=== PATIENT | male | born 1950 | race African-American/Black ===

== ENCOUNTER 2018-06-06 14:26 | Emergency (ER) | payer MEDICARE, MEDICAID ==
[2018-06-06 14:56] LABS: #Eosinphils 0.2 thou/uL (0.0-0.7); #Lymphocytes 1.9 thou/uL (1.20-3.40); #Monocytes 0.4 thou/uL (0.11-0.59); #Neutrophils 3.7 thou/uL (1.40-6.50); %Basophils 0.2 % (0.0-1.0); %Eosinophils 3.6 % (0.0-10.0); %Lymphocytes 29.9 % (21.0-51.0); %Monocytes 6.7 % (0.0-10.0); %Neutrophils 59.6 % (42.0-75.0); Mean Corpuscular HGB CONC 32.2 g/dL (32.0-36.0); Mean Corpuscular Hemoglobin 27.7 pg (27.0-31.0); Mean Corpuscular Volume 86.2 fL (78.0-98.0); Mean Platelet Volume 7.3 fL (7.4-10.4); Platelet Count 207 thou/uL (130-400); RBC Distribution Width 14.6 % (11.5-14.5); Red Blood Cell (RBC) Count 4.32 mill/uL (4.70-6.10); White Blood Cell (WBC) Count 6.3 thou/uL (4.8-10.8)
[2018-06-06 15:16] LABS: Anion Gap 11 mmol/L (10-20); BUN (Urea Nitrogen) 30 mg/dL (8.4-25.7); Calc. Creatinine Clearance 0 mL/min (70-130); Calcium 8.7 mg/dL (7.8-10.44); Carbon Dioxide 19 mmol/L (23-31); Chloride 111 mmol/L (98-107); Estimated GFR-MDRD 30; Glucose 209 mg/dL (80-115); Potassium 4.2 mmol/L (3.5-5.1); Sodium 137 mmol/L (136-145)
[2018-06-06] MEDS ORDERED: Acetaminophen 500 MG TAB ONE (15:18)
[2018-06-06] MEDS ORDERED: Ketorolac Tromethamine 30 MG/ML VIAL ONE (15:26)
--- NOTE | 2018-06-06 15:48 | RAD ---
RIGHT TOE RADIOGRAPHS THREE VIEWS: 06/06/18 PROVIDED CLINICAL HISTORY: Great toe pain. FINDINGS: Postsurgical absence of the second and a portion of the third digit demonstrated. There is no evidenc e for fracture. No lytic or blastic lesions apparent. Soft tissue lucency is measured involving the r egion of the great toenail bed. Osseous structures appear osteopenic. IMPRESSION: No evidence for an acute osseous abnormality. POS: JOESPH
--- NOTE | 2018-06-06 16:21 | CT ---
RIGHT FOOT CT: 06/06/18 HISTORY: Diabetes and amputation of second and third toes with right great toe pain. Axial images are obtained with coronal and sagittal reconstructions. Images demonstrate amputation of the second and third digits right foot. Vascular calcifications seen . There is irregularity involving the nailbed of the great toe. No significant evidence of soft tissue masses or lesions seen. No obvious evidence of large abscess is seen. No definite lytic changes seen in the proximal and distal phalanges of the great toe. No evidence of acute right foot fracture seen. IMPRESSION: 1. Vascular calcifications. 2. Amputation of second and third digits. POS: [facility]
== END 2018-06-06 18:19 | disposition home or self-care (01) ==
LOC: ERS 14:26
DX: M79.674 Pain in right toe(s) (principal); E11.9 Type 2 diabetes mellitus without complications; I10 Essential (primary) hypertension; Z79.84 Long term (current) use of oral hypoglycemic drugs; Z79.899 Other long term (current) drug therapy
CPT/HCPCS: 36415; 80048; 85025; 85652; 86140; 96374; J1885

== ENCOUNTER 2018-08-08 19:46 | Inpatient (IN) | payer MEDICARE, MEDICAID ==
[2018-08-08 20:39] LABS: Actual Bicarbonate (HCO3a) 16.9 mEq/L (22-28); Analyzer IN Cardio ER; CO2 Tension 29.5 mmHg (35.0-45.0); Calcium, Ionized 1.16 mmol/L (1.12-1.30); Carboxyhemoglobin (COHb) 0.3 gm% (0.0-3.0); Hemoglobin (Hb) 12.8 g/dL (14.0-18.0); O2 Tension (PaO2) 108.5 mmHg (> 80.0); Potassium - ABG Lab 3.14 mmol/L (3.70-5.30); pH, Arterial 7.38 (7.35-7.45)
[2018-08-08 20:40] LABS: ALV-art Gradient 4.355 (0-20); Puncture Site LRA
[2018-08-08] MEDS ORDERED: Acetaminophen 325 MG TAB ONE (21:18)
[2018-08-08 21:24] LABS: Troponin I 0.041 ng/mL (< 0.028)
[2018-08-09] MEDS ORDERED: Dextrose 5% in Water 1,000 ML IV PRN (04:20)
[2018-08-09] MEDS ORDERED: Dextrose 50% Abboject 50 ML SYRINGE SLOW IVP PRN (04:20)
[2018-08-09] MEDS: Acetaminophen/Codeine 30-300mg Tablet PO SCH ×3 (05:28→20:35)
[2018-08-09 05:59] LABS: Troponin I 0.032 ng/mL (< 0.028)
[2018-08-09 06:00] LABS: Anion Gap 16 mmol/L (10-20); BUN (Urea Nitrogen) 20 mg/dL (8.4-25.7); Calc. Creatinine Clearance 17 mL/min (70-130); Calcium 8.7 mg/dL (7.8-10.44); Carbon Dioxide 16 mmol/L (23-31); Chloride 111 mmol/L (98-107); Estimated GFR-MDRD 27; Glucose 159 mg/dL (80-115); Potassium 3.1 mmol/L (3.5-5.1); Sodium 140 mmol/L (136-145)
[2018-08-09 06:10] LABS: #Basophils 0.1 thou/uL (0.0-0.2); #Eosinphils 0.6 thou/uL (0.0-0.7); #Lymphocytes 1.9 thou/uL (1.20-3.40); #Monocytes 0.5 thou/uL (0.11-0.59); #Neutrophils 3.2 thou/uL (1.40-6.50); %Basophils 1.4 % (0.0-1.0); %Lymphocytes 29.5 % (21.0-51.0); %Monocytes 8.5 % (0.0-10.0); %Neutrophils 51.6 % (42.0-75.0); Hemoglobin 11.2 g/dL (14.0-18.0); Mean Corpuscular HGB CONC 32.2 g/dL (32.0-36.0); Mean Corpuscular Volume 86.8 fL (78.0-98.0); Mean Platelet Volume 8.7 fL (7.4-10.4); Platelet Count 228 thou/uL (130-400); RBC Distribution Width 14.8 % (11.5-14.5); RBC Morphology Normal; Red Blood Cell (RBC) Count 3.99 mill/uL (4.70-6.10); White Blood Cell (WBC) Count 6.3 thou/uL (4.8-10.8)
[2018-08-09] MEDS ORDERED: Furosemide 40 MG/4 ML VIAL SLOW IVP SCH ×3 (08:00→14:00)
[2018-08-09] MEDS: Enoxaparin Sodium 30 MG/0.3 ML SYRINGE SC SCH (08:50)
--- NOTE | 2018-08-09 10:29 | PDOC.PN ---
- Subjective Encounter Start Date: 08/09/18 Encounter Start Time: 07:15 Subjective: no sob or chest pain now -: feels better -: he does not recall last stress test - Objective Resuscitation Status: Resuscitation Status FULL:Full Resuscitation MAR Reviewed: Yes Vital Signs & Weight: Vital Signs (12 hours) Temp Pulse Resp BP Pulse Ox 08/09/18 07:48 98.3 F 69 16 131/66 98 08/09/18 04:44 98.0 F 65 18 149/79 H 99 Weight Weight 111 lb Result Diagrams: 08/09/18 04:52 08/09/18 04:52 Additional Labs: Accuchecks 08/09/18 06:05 POC Glucose 162 H Phys Exam - Physical Examination HEENT: PERRLA, moist MMs Neck: no JVD, supple Respiratory: no wheezing rales+ Cardiovascular: RRR, no significant murmur Gastrointestinal: soft, non-tender, positive bowel sounds Musculoskeletal: no edema, pulses present Neurological: non-focal, moves all 4 limbs Psychiatric: normal affect, A&O x 3 Dx/Plan (1) STEPAN (acute kidney injury) Code(s): N17.9 - ACUTE KIDNEY FAILURE, UNSPECIFIED Status: Acute (2) CHF exacerbation Code(s): I50.9 - HEART FAILURE, UNSPECIFIED Status: Acute Qualifiers: Heart failure type: unspecified Qualified Code(s): I50.9 - Heart failure, unspecified (3) Demand ischemia of myocardium Code(s): I24.8 - OTHER FORMS OF ACUTE ISCHEMIC HEART DISEASE Status: Acute (4) Metabolic acidosis Code(s): E87.2 - ACIDOSIS Status: Acute (5) CKD (chronic kidney disease) stage 4, GFR 15-29 ml/min Code(s): N18.4 - CHRONIC KIDNEY DISEASE, STAGE 4 (SEVERE) Status: Chronic (6) HTN (hypertension) Code(s): I10 - ESSENTIAL (PRIMARY) HYPERTENSION Status: Chronic Qualifiers: Hypertension type: essential hypertension Qualified Code(s): I10 - Essential (primary) hypertension (7) DM type 2 (diabetes mellitus, type 2) Status: Chronic Qualifiers: Diabetes mellitus detention insulin use: 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 Diabetes mellitus complication status: with kidney complications Diabetes mellitus complication detail: with chronic kidney disease Chronic kidney disease stage : stage 4 (severe) Qualified Code(s): E11.22 - Type 2 diabetes mellitus with diabetic chronic kidney disease; N18.4 - Chronic kidney disease, stage 4 (severe ) (8) PVD (peripheral vascular disease) Code(s): I73.9 - PERIPHERAL VASCULAR DISEASE, UNSPECIFIED Status: Chronic Comment: with prior stent in right LE - Plan echo, gentle iv diuresis, watch for renal function -: may need stress test -: on aspirin, will optimize meds based on echo results -: nephrology consultation, hco3 bid -: replace electrolytes * . Review of Systems - Medications/Allergies Allergies/Adverse Reactions: Allergies Allergy/AdvReac Type Severity Reaction Status Date / Time No Known Drug Allergies Allergy Verified 08/08/18 22:22 Medications: Current Medications Acetaminophen (Tylenol) 650 mg PO Q4H PRN PRN Reason: Headache/Fever or Pain Acetaminophen/Codeine Phosphate (Tylenol #3) 2 tab PO Q8HR [facility] Last Admin: 08/09/18 05:28 Dose: 2 tab Aspirin (Aspirin Chewable) 81 mg PO DAILY [facility] Last Admin: 08/09/18 08:47 Dose: 81 mg Dextrose/Water (Dextrose 50%) 25 gm SLOW IVP PRN PRN PRN Reason: Hypoglycemia Enoxaparin Sodium (Lovenox) 30 mg SC 0900 [facility] Last Admin: 08/09/18 08:50 Dose: 30 mg Furosemide (Lasix) 40 mg SLOW IVP 0600,1400 SOO Glucagon (Glucagon) 1 mg IM PRN PRN PRN Reason: Hypoglycemia Dextrose/Water (D5w) 1,000 mls @ 0 mls/hr IV .Q0M PRN PRN Reason: Hypoglycemia Insulin Human Lispro (Humalog) 0 units SC .MILD SLIDING SCALE PRN PRN Reason: Mild Correctional Scale Ondansetron HCl (Zofran) 4 mg IVP Q6H PRN PRN Reason: Nausea/Vomiting
[2018-08-09] MEDS ORDERED: Potassium Chloride 20 MEQ TAB PO SCH (10:45)
[2018-08-09] MEDS ORDERED: hydrALAZINE 25 MG TAB PO SCH (17:30)
[2018-08-09] MEDS: hydrALAZINE 25 MG TAB PO SCH (20:35)
[2018-08-09] MEDS: Sodium Bicarbonate Tab 325 MG TAB PO SCH (20:35)
[2018-08-09] MEDS: Rosuvastatin 10 MG TAB PO SCH (20:35)
[2018-08-09] MEDS: HumaLOG 300 UNITS/3 ML VIAL SC PRN (21:20)
--- NOTE | 2018-08-09 23:20 | CON ---
DATE OF CONSULTATION: 08/09/2018 CONSULTING PHYSICIAN: Mary Smith M.D. REQUESTING PHYSICIAN: Roxana Bagley M.D. REASON FOR CONSULTATION: Advanced chronic kidney disease. IMPRESSION: 1. Advanced chronic kidney disease, this is likely in the context of diabetic nephropathy plus or mi nus hypertensive nephrosclerosis given the degree of proteinuria in this patient. 2. Metabolic acidosis related to problem #1. PLAN: 1. Renally dose all medications per low GFR. 2. Evaluate the degree of proteinuria in this patient with a spot urine protein and creatinine asses sment. 3. Check the mineral bone metabolism in this patient. 4. The patient counseled on the need to discontinue tobacco use. 5. Improve blood sugar control. 6. Permanently discontinue metformin unless the creatinine of this patient gets below 1.5. 7. Further management to be dependent on the clinical course. HISTORY OF PRESENT ILLNESS: History is that of a 67-year-old gentleman who lives in [facility] presented here as a transfer from [place] with shortness of breath. The patient is being work ed up for acute coronary syndrome here to undergo stress test. The patient on clinical evaluation no albert to be metabolically acidotic as well as a decreased renal function to the level of stage 4 chroni c kidney disease. As a result of these findings, decision has been taken to involve Renal in the man agement of this case. PAST MEDICAL HISTORY: Significant for diabetes, hypertension, dyslipidemia, tobacco abuse. MEDICATIONS: Reviewed and as documented on [employer]. ALLERGIES: No known drug allergy. FAMILY HISTORY: Possible, family member with kidney disease. SOCIAL HISTORY: Significant for tobacco use. No illicit drug use or alcohol abuse. PHYSICAL EXAMINATION: GENERAL: The patient was found not to be in any obvious distress and noted with the following vital signs. VITAL SIGNS: Afebrile with temperature 97.6, pulse 60, respiratory rate of 16, O2 sat of 99%, and bl ood pressure 170/90. HEENT: Unremarkable. Moist oral mucosa. Neck was supple. No conjunctival injection or icterus. CARDIOVASCULAR SYSTEM: First and second heart sounds were heard. RESPIRATORY SYSTEM: Clear to auscultation. DIGESTIVE SYSTEM: Revealed a benign abdomen with positive bowel sounds. EXTREMITIES: No peripheral edema. SKIN: No new gross rash. LYMPHATICS: No peripheral lymphadenopathy. SUMMARY: A 67-year-old gentleman with advanced chronic kidney disease who presented here with some s hortness of breath. Thank you for this consultation. We will follow with you.
[2018-08-10 00:08] LABS: Creatinine, Urine 48.65 mg/dL (63-166)
[2018-08-10] MEDS: Acetaminophen/Codeine 30-300mg Tablet PO SCH ×3 (05:20→20:23)
[2018-08-10 05:56] LABS: #Basophils 0.1 thou/uL (0.0-0.2); #Eosinphils 0.5 thou/uL (0.0-0.7); #Lymphocytes 1.8 thou/uL (1.20-3.40); #Monocytes 0.5 thou/uL (0.11-0.59); #Neutrophils 4.2 thou/uL (1.40-6.50); %Basophils 0.7 % (0.0-1.0); %Eosinophils 7.5 % (0.0-10.0); %Lymphocytes 25.8 % (21.0-51.0); %Monocytes 7.6 % (0.0-10.0); %Neutrophils 58.4 % (42.0-75.0); Hemoglobin 11.7 g/dL (14.0-18.0); Mean Corpuscular HGB CONC 31.7 g/dL (32.0-36.0); Mean Corpuscular Hemoglobin 27.7 pg (27.0-31.0); Mean Corpuscular Volume 87.5 fL (78.0-98.0); Platelet Count 221 thou/uL (130-400); RBC Distribution Width 14.8 % (11.5-14.5); Red Blood Cell (RBC) Count 4.23 mill/uL (4.70-6.10); White Blood Cell (WBC) Count 7.1 thou/uL (4.8-10.8)
[2018-08-10 06:23] LABS: Albumin 3.6 g/dL (3.4-4.8); Anion Gap 13 mmol/L (10-20); BUN (Urea Nitrogen) 22 mg/dL (8.4-25.7); BUN/Creatinine Ratio 6.83; Calc. Creatinine Clearance 15 mL/min (70-130); Calcium 8.5 mg/dL (7.8-10.44); Carbon Dioxide 22 mmol/L (23-31); Cardiac Risk 3.4 (Less than 4.5); Chloride 106 mmol/L (98-107); Cholesterol 125 mg/dl (< 200 Desired); Estimated GFR-MDRD 23; Glucose 116 mg/dL (80-115); HDL Cholesterol 37 mg/dL (>60 Neg Risk); LDL Cholesterol, Calculated 73 mg/dL; Phosphorus 3.9 mg/dL (2.3-4.7); Potassium 3.8 mmol/L (3.5-5.1); Sodium 137 mmol/L (136-145); Triglycerides 73 mg/dL (Less than 150)
--- NOTE | 2018-08-10 07:29 | CON ---
DATE OF CONSULTATION: 08/09/2018 HISTORY OF PRESENT ILLNESS: The patient is a 67-year-old gentleman, who presents for evaluation of w eakness and dizziness. The patient has a history of peripheral vascular disease. He also states giulia t he apparently has suffered a previous cerebrovascular accident. The patient has previously undergo ne PTCA and stent placement into his right peripheral artery. The patient has no known cardiac histo ry. He states that he went to the emergency room, because he stated that he recently started feeling weak and dizzy. The patient did not have any chest pain or dyspnea. The patient denies having any PND or orthopnea. The patient was noted to have an elevated troponin level and admitted for further evaluation. PAST MEDICAL HISTORY: Significant for, 1. Diabetes mellitus. 2. Hypertension. 3. Chronic renal failure. 4. Peripheral vascular disease. PAST SURGICAL HISTORY: He has had knee surgery. SOCIAL HISTORY: He is a nonsmoker. MEDICATIONS: Metformin 500 t.i.d. and lisinopril 5 b.i.d. ALLERGIES: No known drug allergies. REVIEW OF SYSTEMS: Ten-point system noticeable for pain in the left leg, otherwise unremarkable. FAMILY HISTORY: Positive family history of coronary artery disease. PHYSICAL EXAMINATION: GENERAL: Thin gentleman in no acute distress. VITAL SIGNS: Blood pressure 161/79. NECK: No jugular venous distention, no carotid bruits. LUNGS: Clear to auscultation. HEART: Regular rate and rhythm. Normal S1 and S2. No murmurs. ABDOMEN: Nondistended. EXTREMITIES: Showed no edema. VASCULAR: Distal pulses are diminished. NEUROLOGIC EXAM: Nonfocal. LABORATORY DATA: Sodium 140, potassium 3.1, chloride 111, bicarbonate 16, BUN 20, creatinine is 2.84 , glucose is 159. White blood cell count 6.3, hemoglobin 11.2, hematocrit 34.6, platelets are 228. His EKG revealed him to have a normal sinus rhythm with a T-wave abnormality suggestive of lateral is chemia. His troponin level was 0.032. IMPRESSION: 1. Dizziness and weakness of unclear etiology. 2. Renal failure. 3. Elevated troponin level, probably secondary to chronic renal failure. 4. Hypertension. 5. Diabetes mellitus. 6. Peripheral vascular disease. This gentleman presented with dizziness and weakness. The patient has evidence of a mild pulmonary e reid on his chest x-ray. He is asymptomatic and not hypoxic. We will check the patient's echocardio gram. I would treat the patient with aspirin and lipid-lowering medication since he is diabetic. Fu rther recommendations will follow.
[2018-08-10] MEDS ORDERED: ADENOSINE 60 MG/20 ML VIAL ONE (08:17)
--- NOTE | 2018-08-10 08:56 | HP ---
PRIMARY CARE PHYSICIAN: The patient has no primary care doctor. CODE STATUS: FULL CODE. TIME OF EVALUATION: 08:55 p.m. CHIEF COMPLAINT: The patient was feeling weak and dizzy. HISTORY OF PRESENT ILLNESS: This is a 67-year-old male patient with past medical history of type 2 diabetes, hypertension, also possibly reported sexually transmitted disease, who came to the hospital after having generalized weakness, that started after 1 p.m., no clear triggers, no alleviating factors, both signs and symptoms were reported as moderate. Found to have some CHF findings on the chest x-ray, also complaining of hyperglycemia and mildly elevated troponin. REVIEW OF SYSTEMS: Constitutional: No fever and no chills. The patient reported severe generalized weakness. Respiratory: No cough, sputum production , no shortness of breath. Cardiovascular: No chest pain or palpitations. Gastrointestinal: No nausea, no vomiting, diarrhea, or abdominal pain. 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 Genitourinary: No burning on urination. Extremities: No leg swelling. All other systems were reviewed and negative except for the findings mentioned above. PAST MEDICAL HISTORY: Mentioned in the HPI. FAMILY HISTORY: Mother, diabetes; father, hypertension. PAST SURGICAL HISTORY: Two toes on the right foot were removed. Left knee surgery, right femoral stent/graft. PSYCHIATRIC HISTORY: No previous psychiatric history. SOCIAL HISTORY: No drugs, no smoking, no alcohol. KNOWN ALLERGIES: No known drug allergies. REPORTED MEDICATIONS: Lisinopril, metformin, acetaminophen with codeine. PHYSICAL EXAMINATION: VITAL SIGNS: On presentation, blood pressure 185/105 with heart rate 67, respiratory rate was 22, temperature 98.1, pain 0/10, oxygen saturation 100 on room air. GENERAL APPEARANCE: The patient is alert, oriented, reporting generalized weakness. HEENT: Eyes, normal conjunctivae. Moist oral mucosa. Eyes, anicteric. NECK: No JVD. RESPIRATORY: Bilateral air entry. No rales, no wheezing. Symmetric expansion. CARDIOVASCULAR: Normal rate, regular rhythm. No murmurs, no gallop, no edema. ABDOMEN: Soft, normal bowel sounds. MUSCULOSKELETAL: Baseline range of motion and strength. No tenderness. SKIN: Warm and intact. No pallor, no rash, no redness. Peripheral pulses are present. Capillary refill seems to be intact. NEUROLOGIC: Baseline sensory. No evidence of any new focal weakness. Baseline speech. Cranial nerves seem to be intact. PSYCHIATRIC: The patient is in good mood. No anxiety, oriented, optimal judgment. LABORATORY DATA: EKG was reviewed. The patient has sinus rhythm with PVCs. T- wave abnormalities in lead 1 and aVL. Ventricular rate 60, AZ 164, QRS 94, QT corrected 446. Chest x-ray was reviewed. The patient has mild cardiomegaly and pulmonary venous congestion. granulomas are unchanged. The labs were reviewed. The patient has blood gas with a pH 7.38, pCO2 of 39, pO2 of 108 , troponin 0.041. Hematology: White count 6.4, hemoglobin 11.8, MCV 86, platelet count 216. Chemistry: Sodium 138, potassium 3.9, chloride 109, carbon dioxide 18, anion gap 15, BUN 21, creatinine 2.96 and previous admission was 2.55, glucose 267. Initial troponin 0.041. The next one is pending. Beta natriuretic peptide 162. ASSESSMENT AND PLAN: The patient was placed in the hospital for the following medical problems. 1. Urinary tract infection. The patient has been placed on antibiotics. He has no concern of having sexually transmitted disease. We will do workup and cultures for that matter, and we will treat accordingly. 2. Uncontrolled diabetes. The patient has blood sugar of 267. We will place the patient on sliding scale for optimal control. Reconcile home medications. 3. Mildly elevated troponin, troponin 0.041. We will repeat value for further treatment. 4. Acute congestive heart failure exacerbation. The patient has elevated beta natriuretic peptide, occasional shortness of breath. The patient has positive chest x-ray. We will place the patient on diuresis, we will monitor. We will do echocardiogram in the morning, since patient reported not having any history of congestive heart failure in the past. If positive, might need Cardiology evaluation for any further workup and treatment. 5. Acute on chronic kidney injury. The patient has elevation in creatinine more than 0.3 mg per deciliter from previous admission. The patient may be cardiorenal, we will do diuresis, we will monitor kidney function. If not improving, may need Nephro assistance with this case. 6. Deep venous thrombosis prophylaxis. MTDD
[2018-08-10] MEDS: Enoxaparin Sodium 30 MG/0.3 ML SYRINGE SC SCH (12:12)
[2018-08-10] MEDS: Sodium Bicarbonate Tab 325 MG TAB PO SCH ×2 (12:13→20:23)
[2018-08-10] MEDS: hydrALAZINE 25 MG TAB PO SCH ×3 (12:13→20:22)
--- NOTE | 2018-08-10 13:44 | PQF ---
CLINICAL DOCUMENTATION IMPROVEMENT CLARIFICATION FORM: ICD-10 Updated PLEASE DO AN ADDENDUM TO THE PROGRESS NOTE WITH ANY DOCUMENTATION UPDATES OR ADDITIONS AND CARRY THROUGH TO DC SUMMARY. THANK YOU. DATE: 08/10 ATTN: DR. RENITA FINE Please exercise your independent, professional judgment in responding to the clarification form. Clinical indicators are provided on the bottom of this form for your review Please check appropriate box(s): ACUTE HEART FAILURE EXACERBATION TYPE: [ ] Systolic / HFrEF [ ] Diastolic / HFpEF [ ] Combined Systolic / Diastolic [ ] Other diagnosis [ ] Unable to determine For continuity of documentation, please document condition throughout progress notes and discharge summary. Thank You. CLINICAL INDICATORS - SIGNS / SYMPTOMS / LABS ATTENDING H&P 08/09 (ALLYSSA): ...FOUND TO HAVE SOME CHF FINDINGS ON THE CXR. ASSESSMENT/PLAN: 4) ACUTE CHF EXACERBATION. THE PATIENT HAS ELEVATED BNP, OCCASIONAL SOB. THE PATIENT HAS POSITIVE CXR. WE WILL PLACE THE PATIENT ON DIURESIS ATTENDING PN 08/09 (JUDD): DX/PLAN: 2) CHF EXACERBATION, ACUTE, UNSPECIFIED ECHO 08/09: EF 45-50%, MODERATE CONCENTRIC LVH, IMPAIRED RELAXATION COMPATIBLE W /DIASTOLIC DYSFUNCTION (REVERSED E/A RATIO) RISKS: CKD HTN DEMAND ISCHEMIA TREATMENTS: IV DIURETIC (LASIX 08/08 - ) ECHO CARDIOLOGY CONSULT TELEMETRY MONITORING THANK YOU! Francheska (This form is maintained as a part of the permanent medical record) 2014 [email or web address]. All Rights Reserved MTDD
--- NOTE | 2018-08-10 13:46 | PDOC.PN ---
- Subjective Encounter Start Date: 08/10/18 Encounter Start Time: 13:45 -: old records requested/rev Pt seen and exmained, chart reviewed in its entirety, this is my first visit with this patient. follow up for ICM, Stepan on CKD, pulm edema and SOB/BOCANEGRA. cardiology following, stress today pending report. Renal following, Cr still slowly going up No F/c, no N/V/d/V/C, +BOCANEGRA, orthopnea, no PNA. no chest pain all systems reviewed and neg x as per HPI - Objective Resuscitation Status: Resuscitation Status FULL:Full Resuscitation MAR Reviewed: Yes Vital Signs & Weight: Vital Signs (12 hours) Temp Pulse Resp BP Pulse Ox 08/10/18 12:02 97.4 F L 69 16 193/93 H 99 08/10/18 07:16 97.7 F 60 16 162/81 H 99 08/10/18 04:00 97.5 F L 58 L 16 154/70 H 98 Weight Weight 111 lb I&O: 08/09/18 08/10/18 08/11/18 06:59 06:59 06:59 Intake Total 1210 Output Total 1350 Balance -140 Result Diagrams: 08/10/18 05:41 08/13/18 04:19 Additional Labs: Accuchecks 08/10/18 08/10/18 08/09/18 12:21 05:42 20:44 POC Glucose 147 H 124 H 281 H 08/09/18 16:58 POC Glucose 150 H Radiology Reviewed by me: Yes EKG Reviewed by me: Yes Phys Exam - Physical Examination Constitutional: NAD HEENT: PERRLA, moist MMs, sclera anicteric, oral pharynx no lesions Neck: no nodes, no JVD, supple, full ROM Respiratory: no wheezing, no rhonchi, clear to auscultation bilateral diffuse rales and coarse breath sounds Cardiovascular: RRR, no significant murmur, no rub Gastrointestinal: soft, non-tender, no distention, positive bowel sounds Musculoskeletal: edema present Neurological: non-focal, normal sensation, moves all 4 limbs Lymphatic: no nodes Psychiatric: normal affect, A&O x 3 Skin: no rash, normal turgor, cap refill <2 seconds Dx/Plan (1) STEPAN (acute kidney injury) Code(s): N17.9 - ACUTE KIDNEY FAILURE, UNSPECIFIED Status: Acute (2) CHF exacerbation Code(s): I50.9 - HEART FAILURE, UNSPECIFIED Status: Acute Qualifiers: Heart failure type: systolic Qualified Code(s): I50.23 - Acute on chronic systolic (congestive) heart failure (3) Demand ischemia of myocardium Code(s): I24.8 - OTHER FORMS OF ACUTE ISCHEMIC HEART DISEASE Status: Resolved (4) CKD (chronic kidney disease) stage 4, GFR 15-29 ml/min Code(s): N18.4 - CHRONIC KIDNEY DISEASE, STAGE 4 (SEVERE) Status: Chronic (5) DM type 2 (diabetes mellitus, type 2) Status: Chronic Qualifiers: Diabetes mellitus snf insulin use: without snf use Diabetes mellitus complication status: with kidney complications Diabetes mellitus complication detail: with chronic kidney disease Chronic kidney disease stage : stage 4 (severe) Qualified Code(s): E11.22 - Type 2 diabetes mellitus with diabetic chronic kidney disease; N18.4 - Chronic kidney disease, stage 4 (severe ) (6) HTN (hypertension) Code(s): I10 - ESSENTIAL (PRIMARY) HYPERTENSION Status: Chronic Qualifiers: Hypertension type: essential hypertension Qualified Code(s): I10 - Essential (primary) hypertension Comment: uncontrolled (7) PVD (peripheral vascular disease) Code(s): I73.9 - PERIPHERAL VASCULAR DISEASE, UNSPECIFIED Status: Chronic Comment: with prior stent in right LE - Plan cont current plan of care * .
[2018-08-10] MEDS: Ondansetron HCl/PF 4 MG/2 ML Vial IVP PRN ×2 (14:11→19:07)
[2018-08-10] MEDS: Isosorbide Dinitrate 5 MG TAB PO SCH ×2 (15:20→20:23)
--- NOTE | 2018-08-10 15:20 | NM ---
MYOCARDIAL PERFUSION SCAN WITH SPECT IMAGING: HISTORY: New-onset congestive failure. Elevated troponins. FINDINGS: Examination is performed using 29.8 mCi 99m Technetium sestamibi on the stress and 10.8 mCi on the re sting images. This defect in the more posterolateral wall of the left ventricle. There does appear to be some periinfarct ischemia as there is some slight improved perfusion along the anterolateral wa ll. WALL MOTION: There is a generalized hypokinesis present. LEFT VENTRICULAR EJECTION FRACTION: The calculated left ventricular ejection fraction is 34%. IMPRESSION: 1. Diminished left ventricular ejection fraction at 34%. Correlate with echocardiogram. 2. Evidence of an area of scar of the posterolateral wall of the left ventricle. There appears to b e some minimal periinfarct ischemia along the more anterior aspect of this area of scar. POS: JOSE ALEJANDRO
[2018-08-10] MEDS ORDERED: Labetalol HCl 100 MG/20 ML VIAL SLOW IVP PRN (15:55)
[2018-08-10] MEDS: Carvedilol 6.25 MG TAB PO SCH (16:08)
[2018-08-10] MEDS: HumaLOG 300 UNITS/3 ML VIAL SC PRN (17:46)
[2018-08-10] MEDS: Rosuvastatin 10 MG TAB PO SCH (20:23)
--- NOTE | 2018-08-10 22:29 | PRG ---
DATE OF SERVICE: 08/10/2018 The patient was seen and examined, seems to be complaining of nausea, vomiting, noted with the follow ing vital signs. PHYSICAL EXAMINATION: VITAL SIGNS: Afebrile with temperature 97.5, pulse 77, respiratory 18, blood pressure 174-189/93. O xygen saturation 99%. HEENT: Unremarkable. CARDIOVASCULAR: First and second heart sounds were heard. RESPIRATORY: Clear to auscultation. DIGESTIVE: Positive bowel sounds. EXTREMITIES: No peripheral edema. SKIN: No new gross rash. LYMPHATICS: No peripheral lymphadenopathy. LABORATORY INVESTIGATIONS: Significant for creatinine down to 3.22. IMPRESSION: 1. Nausea and vomiting, query cause. 2. Advanced chronic kidney disease stage 4. 3. Nephrotic range proteinuria, likely in the context of diabetic nephropathy. 4. Hypertension, suboptimally controlled. PLAN: 1. Continue current renal supportive measures. 2. Renally dose all medications per low GFR. 3. The patient had secondary hyperparathyroidism. 4. We will start this patient on active vitamin D. 5. Follow management to be dependent on the clinical course.
[2018-08-11] MEDS: Acetaminophen/Codeine 30-300mg Tablet PO SCH ×2 (05:04→15:51)
[2018-08-11 05:57] LABS: Albumin 3.6 g/dL (3.4-4.8); Anion Gap 16 mmol/L (10-20); BUN (Urea Nitrogen) 31 mg/dL (8.4-25.7); BUN/Creatinine Ratio 8.68; Calc. Creatinine Clearance 14 mL/min (70-130); Calcium 8.7 mg/dL (7.8-10.44); Carbon Dioxide 19 mmol/L (23-31); Chloride 105 mmol/L (98-107); Estimated GFR-MDRD 21; Glucose 121 mg/dL (80-115); Phosphorus 4.4 mg/dL (2.3-4.7); Potassium 4.3 mmol/L (3.5-5.1); Sodium 136 mmol/L (136-145)
[2018-08-11] MEDS: Ondansetron HCl/PF 4 MG/2 ML Vial IVP PRN ×2 (07:30→17:24)
[2018-08-11] MEDS ORDERED: Magnesium Citrate 300 ML BOT PO SCH (09:15)
[2018-08-11] MEDS ORDERED: Bisacodyl 10 MG SUPP PR SCH (09:15)
[2018-08-11] MEDS: Carvedilol 6.25 MG TAB PO SCH ×2 (09:21→17:24)
[2018-08-11] MEDS: hydrALAZINE 25 MG TAB PO SCH ×3 (09:22→20:31)
[2018-08-11] MEDS: Isosorbide Dinitrate 20 MG TAB PO SCH ×3 (09:22→20:31)
[2018-08-11] MEDS: Calcitriol 0.25 MCG CAP PO SCH (09:23)
[2018-08-11] MEDS: Enoxaparin Sodium 30 MG/0.3 ML SYRINGE SC SCH (09:24)
[2018-08-11] MEDS: Sodium Bicarbonate Tab 325 MG TAB PO SCH ×2 (10:42→20:30)
--- NOTE | 2018-08-11 11:11 | PQF ---
CLINICAL DOCUMENTATION IMPROVEMENT CLARIFICATION FORM: ICD-10 Updated PLEASE DO AN ADDENDUM TO THE PROGRESS NOTE WITH ANY DOCUMENTATION UPDATES OR ADDITIONS AND CARRY THROUGH TO DC SUMMARY. THANK YOU. Date: 08/11, ATTN: DR. RENITA FINE / DR. JUMA GARRETT Please exercise your independent, professional judgment in responding to the clarification form. Clinical indicators are provided on the bottom of this form for your review. Please check appropriate box(s): [ ] Protein Calorie Malnutrition: [ ] Mild [ ] Moderate [ ] Severe [ ] Other Malnutrition (please specify) __ [ ] Underweight without malnutrition [ ] Cachexia [ ] Other diagnosis [x ] Unable to determine CLINICAL INDICATORS - SIGNS / SYMPTOMS / LABS BMI: 17.9 PUMP TESTER DOCUMENTATION 08/10: PT REPORTS HIS APPETITE WAS "NOT SO GOOD" PRIOR TO ADMIT. HE REPORTS FEELING HUNGRY BUT THEN WOULD LOSE HIS APPETITE ONCE HE BEGAN EATING. USUAL BODY WEIGHT WAS 136 LBS ONE MONTH AGO. OBJECTIVE ASSESSMENT: -18% WEIGHT CHANGE IN 1 MONTH. NUTRITION DIAGNOSIS: DECREASED APPETITE, EARLY SATIETY; 18% WEIGHT LOSS IN 1 MONTH RISK FACTORS: DECREASED APPETITE EARLY SATIETY WEIGHT LOSS TREATMENT: PUMP TESTER CONSULT FOR LOW BMI NUTRITION SUPPLEMENT (SUPLENA DAILY, 08/10 - PRESENT) Moderate Malnutrition (in acute illness) Energy Intake: <75% of estimated energy requirement for > 7 days Weight Loss: 1-2%/1 week; 5%/ 1 month; 7.5%/3 months Other: mild body fat loss; mild muscle mass loss; mild fluid accumulation; Severe Malnutrition (in acute illness) Energy Intake: < 50% of estimated energy requirement for > 5 days Weight Loss: >1-2%/1 week; >5%/1 month; >7.5%/3 months Other: moderate body fat loss; moderate muscle mass loss; moderate- severe fluid accumulation; 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 Francheska (This form is maintained as a part of the permanent medical record) 2014 [email or web address]. All Rights Reserved Francheska Quintero RN, BSN [email or web address] Office: [phone] [facility]
--- NOTE | 2018-08-11 11:46 | ULT ---
RENAL ULTRASOUND: HISTORY: Chronic renal disease. TECHNIQUE: Real-time imaging of the right and left kidneys was performed. FINDINGS: The right kidney measures 9.8 and the left kidney 8.6 cm in size. There are no signs of cyst, mass, or obstruction. The kidney cortex is of increased echogenicity. The bladder shows a considerable amount of debris within it. There is a questionable diverticulum ar ising along the superior aspect of the bladder wall. IMPRESSION: 1. Increased echogenicity of both kidneys, suggesting underlying renal parenchymal disease. 2. There is a moderate amount of debris seen within the bladder and a possible diverticulum. POS: JOSE ALEJANDRO
--- NOTE | 2018-08-11 20:30 | PRG ---
DATE OF SERVICE: 08/11/2018 SUBJECTIVE: The patient was seen and examined, still complaining of not feeling very well vomi albert, noted with the following vital signs. PHYSICAL EXAMINATION: VITAL SIGNS: Afebrile with temperature of 97.7, pulse 65, respiratory rate of 18, O2 saturation of 9 7% with blood pressure 110/58 to 140/72. HEENT: Unremarkable. CARDIOVASCULAR: First and second heart sounds were heard. RESPIRATORY: Clear to auscultation. DIGESTIVE: Revealed a benign abdomen with positive bowel sounds. EXTREMITIES: No peripheral edema. SKIN: No new gross rash. LYMPHATICS: No peripheral lymphadenopathy. LABORATORY INVESTIGATION: Showed a BUN of 31, creatinine of 3.5 and serum bicarbonate of 19. IMPRESSION: 1. Acute on chronic kidney disease, seems to be improving . 2. Metabolic acidosis. 3. Nausea and vomiting, query cause, may be related to constipation. However, my main concern is if this has anything to do with renal dysfunction. PLAN: 1. Get a renal ultrasound. 2. Address the constipation on this patient with laxatives. 3. Renally dose all medications. 4. Further management to be dependent on the clinical course.
[2018-08-11] MEDS: Rosuvastatin 10 MG TAB PO SCH (20:31)
[2018-08-12 06:13] LABS: Albumin 3.5 g/dL (3.4-4.8); Anion Gap 22 mmol/L (10-20); BUN (Urea Nitrogen) 47 mg/dL (8.4-25.7); BUN/Creatinine Ratio 9.44; Calc. Creatinine Clearance 10 mL/min (70-130); Calcium 8.2 mg/dL (7.8-10.44); Carbon Dioxide 14 mmol/L (23-31); Chloride 103 mmol/L (98-107); Estimated GFR-MDRD 14; Glucose 116 mg/dL (80-115); Phosphorus 6.9 mg/dL (2.3-4.7); Potassium 4.8 mmol/L (3.5-5.1); Sodium 134 mmol/L (136-145)
[2018-08-12] MEDS: Enoxaparin Sodium 30 MG/0.3 ML SYRINGE SC SCH (07:45)
[2018-08-12] MEDS: Ondansetron HCl/PF 4 MG/2 ML Vial IVP PRN ×2 (07:45→14:31)
[2018-08-12] MEDS: Carvedilol 6.25 MG TAB PO SCH ×2 (07:46→16:55)
[2018-08-12] MEDS: hydrALAZINE 25 MG TAB PO SCH ×3 (07:46→21:07)
[2018-08-12] MEDS: Isosorbide Dinitrate 20 MG TAB PO SCH ×3 (07:46→21:10)
[2018-08-12] MEDS: Calcitriol 0.25 MCG CAP PO SCH (07:46)
[2018-08-12] MEDS: Sodium Bicarbonate Tab 325 MG TAB PO SCH ×2 (07:50→21:11)
[2018-08-12] MEDS: Sodium Bicarbonate 150 MEQ in Dextrose 5% in Water 1,000 ML IV SCH ×2 (09:12→18:14)
[2018-08-12] MEDS: Calcium Carbonate 500 MG ChewTAB PO SCH ×2 (11:12→16:56)
[2018-08-12] MEDS ORDERED: Polyethylene Glycol 3350 17 GM Packet PO SCH (15:00)
[2018-08-12] MEDS: HumaLOG 300 UNITS/3 ML VIAL SC PRN (16:57)
--- NOTE | 2018-08-12 20:04 | PRG ---
DATE OF SERVICE: 08/12/2018 SUBJECTIVE: The patient is seen and examined. The patient is not doing very well and gives me a con sent for this patient's kidney given the symptoms. Patient noted with the following vital signs. PHYSICAL EXAMINATION: VITAL SIGNS: Afebrile with temperature 97.5, pulse 90, respiratory rate 16, O2 sat 98%, blood pressu re was 161/71. HEENT: Unremarkable with moist oral mucosa. NECK: Supple, No conjunctival injection or icterus. CARDIOVASCULAR: First and second heart sounds were heard. RESPIRATORY: Clear to auscultation. DIGESTIVE: Revealed a benign abdomen with positive bowel sounds. EXTREMITIES: No peripheral edema. SKIN: No new gross rash. LYMPHATICS: No peripheral lymphadenopathy. LABORATORY DATA: Significant for sodium 134, bicarbonate of 14, BUN of 47 and creatinine 4.9. Phosp horus of 6.9. IMPRESSION: 1. Advanced chronic kidney disease stage 4/5. 2. Worsening metabolic acidosis. 3. Possible incipient uremic symptoms. PLAN: 1. The patient to be gently rehydrated today with a bicarbonate based infusion. 2. Renally dose all medications. 3. We will begin to discuss with the family possible renal replacement therapy. We will begin to plan towards access creation in this patient unless the renal function improves. 4. Further management to be dependent on the clinical course.
[2018-08-12] MEDS: Polyethylene Glycol 3350 17 GM Packet PO SCH (21:10)
[2018-08-12] MEDS: Rosuvastatin 10 MG TAB PO SCH (21:10)
[2018-08-12] MEDS: Acetaminophen 325 MG TAB PO PRN (21:15)
[2018-08-13 05:29] LABS: Albumin 3.4 g/dL (3.4-4.8); Anion Gap 16 mmol/L (10-20); BUN (Urea Nitrogen) 49 mg/dL (8.4-25.7); Calc. Creatinine Clearance 10 mL/min (70-130); Calcium 8.1 mg/dL (7.8-10.44); Carbon Dioxide 28 mmol/L (23-31); Chloride 94 mmol/L (98-107); Estimated GFR-MDRD 14; Glucose 226 mg/dL (80-115); Phosphorus 3.6 mg/dL (2.3-4.7); Potassium 4.1 mmol/L (3.5-5.1); Sodium 134 mmol/L (136-145)
[2018-08-13] MEDS: Sodium Bicarbonate 150 MEQ in Dextrose 5% in Water 1,000 ML IV SCH (07:21)
[2018-08-13] MEDS: Acetaminophen 325 MG TAB PO PRN ×2 (09:06→20:46)
[2018-08-13] MEDS: Carvedilol 6.25 MG TAB PO SCH ×2 (09:06→18:15)
[2018-08-13] MEDS: Calcium Carbonate 500 MG ChewTAB PO SCH ×3 (09:06→18:15)
[2018-08-13] MEDS: Calcitriol 0.25 MCG CAP PO SCH (09:07)
[2018-08-13] MEDS: Sodium Bicarbonate Tab 325 MG TAB PO SCH ×2 (09:07→20:46)
[2018-08-13] MEDS: Enoxaparin Sodium 30 MG/0.3 ML SYRINGE SC SCH (09:07)
[2018-08-13] MEDS: hydrALAZINE 25 MG TAB PO SCH ×3 (09:07→20:46)
[2018-08-13] MEDS: Isosorbide Dinitrate 20 MG TAB PO SCH ×3 (09:07→20:46)
[2018-08-13] MEDS: Polyethylene Glycol 3350 17 GM Packet PO SCH ×2 (09:09→20:45)
[2018-08-13] MEDS: HumaLOG 300 UNITS/3 ML VIAL SC PRN (12:39)
[2018-08-13 13:11] VITALS: BMI 19.8
--- NOTE | 2018-08-13 13:51 | PDOC.PN ---
- Subjective Encounter Start Date: 08/11/18 Encounter Start Time: 10:30 pt states he feels about the same, renal and cardiology noted reviewed Denies PND or orthopnea, no f/C, no n/V/d/C, no CP, no GI blood loss all systems reviewed and neg x as above - Objective Resuscitation Status: Resuscitation Status FULL:Full Resuscitation MAR Reviewed: Yes Vital Signs & Weight: Vital Signs (12 hours) Temp Pulse Resp BP BP Pulse Ox 08/13/18 12:00 98.1 F 60 18 131/65 97 08/13/18 09:07 55 L 08/13/18 09:06 187/82 H 08/13/18 08:00 97.0 F L 55 L 17 187/82 H 98 08/13/18 04:00 97.7 F 61 13 168/80 H 98 Weight Admit Weight 111 lb Weight 123 lb I&O: 08/12/18 08/13/18 08/14/18 06:59 06:59 06:59 Intake Total 600 1500 Output Total 425 450 Balance 175 1050 Result Diagrams: 08/10/18 05:41 08/13/18 04:19 Additional Labs: Accuchecks 08/13/18 08/13/18 08/12/18 11:05 05:58 20:22 POC Glucose 274 H 231 H 176 H 08/12/18 16:16 POC Glucose 333 H Phys Exam - Physical Examination Constitutional: NAD HEENT: moist MMs, sclera anicteric, oral pharynx no lesions Neck: no nodes, no JVD, supple Respiratory: no wheezing, no rhonchi coarge bilateral crackles Cardiovascular: RRR, no rub +S4 Gastrointestinal: soft, non-tender, positive bowel sounds Musculoskeletal: edema present Neurological: non-focal, normal sensation, moves all 4 limbs Lymphatic: no nodes Psychiatric: normal affect Skin: no rash, normal turgor, cap refill <2 seconds Dx/Plan (1) STEPAN (acute kidney injury) Code(s): N17.9 - ACUTE KIDNEY FAILURE, UNSPECIFIED Status: Acute Comment: Cr rising, renal following (2) CHF exacerbation Code(s): I50.9 - HEART FAILURE, UNSPECIFIED Status: Acute Qualifiers: Heart failure type: systolic Qualified Code(s): I50.23 - Acute on chronic systolic (congestive) heart failure (3) Demand ischemia of myocardium Code(s): I24.8 - OTHER FORMS OF ACUTE ISCHEMIC HEART DISEASE Status: Resolved (4) CKD (chronic kidney disease) stage 4, GFR 15-29 ml/min Code(s): N18.4 - CHRONIC KIDNEY DISEASE, STAGE 4 (SEVERE) Status: Chronic (5) DM type 2 (diabetes mellitus, type 2) Status: Chronic Qualifiers: Diabetes mellitus middle or intermediate school 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 insulin use: without correction use Diabetes mellitus complication status: with kidney complications Diabetes mellitus complication detail: with chronic kidney disease Chronic kidney disease stage : stage 4 (severe) Qualified Code(s): E11.22 - Type 2 diabetes mellitus with diabetic chronic kidney disease; N18.4 - Chronic kidney disease, stage 4 (severe ) (6) HTN (hypertension) Code(s): I10 - ESSENTIAL (PRIMARY) HYPERTENSION Status: Chronic Qualifiers: Hypertension type: essential hypertension Qualified Code(s): I10 - Essential (primary) hypertension Comment: uncontrolled (7) PVD (peripheral vascular disease) Code(s): I73.9 - PERIPHERAL VASCULAR DISEASE, UNSPECIFIED Status: Chronic Comment: with prior stent in right LE - Plan * .
--- NOTE | 2018-08-13 13:56 | PDOC.PN ---
- Subjective Encounter Start Date: 08/12/18 Encounter Start Time: 15:30 pt started on bicarb gtt by renal earlier,l no F/C, no N/V/D/c, no acute event sovernight all systems reviewed and neg x as above - Objective Resuscitation Status: Resuscitation Status FULL:Full Resuscitation MAR Reviewed: Yes Vital Signs & Weight: Vital Signs (12 hours) Temp Pulse Resp BP BP Pulse Ox 08/13/18 12:00 98.1 F 60 18 131/65 97 08/13/18 09:07 55 L 08/13/18 09:06 187/82 H 08/13/18 08:00 97.0 F L 55 L 17 187/82 H 98 08/13/18 04:00 97.7 F 61 13 168/80 H 98 Weight Admit Weight 111 lb Weight 123 lb I&O: 08/12/18 08/13/18 08/14/18 06:59 06:59 06:59 Intake Total 600 1500 Output Total 425 450 Balance 175 1050 Result Diagrams: 08/10/18 05:41 08/13/18 04:19 Additional Labs: Accuchecks 08/13/18 08/13/18 08/12/18 11:05 05:58 20:22 POC Glucose 274 H 231 H 176 H 08/12/18 16:16 POC Glucose 333 H Phys Exam - Physical Examination Constitutional: NAD HEENT: PERRLA, moist MMs, sclera anicteric, oral pharynx no lesions Neck: no nodes, no JVD, supple, full ROM Respiratory: no wheezing, no rhonchi, clear to auscultation bilateral coarge bialteral posterior rales Cardiovascular: RRR, no significant murmur, no rub Gastrointestinal: soft, non-tender, no distention, positive bowel sounds Musculoskeletal: edema present Neurological: non-focal, moves all 4 limbs Lymphatic: no nodes Psychiatric: normal affect, A&O x 3 Dx/Plan (1) STEPAN (acute kidney injury) Code(s): N17.9 - ACUTE KIDNEY FAILURE, UNSPECIFIED Status: Acute Comment: Cr rising, renal following, changed to bicarb gtt, AM labs ordered (2) CHF exacerbation Code(s): I50.9 - HEART FAILURE, UNSPECIFIED Status: Acute Qualifiers: Heart failure type: systolic Qualified Code(s): I50.23 - Acute on chronic systolic (congestive) heart failure (3) Demand ischemia of myocardium Code(s): I24.8 - OTHER FORMS OF ACUTE ISCHEMIC HEART DISEASE Status: Resolved (4) CKD (chronic kidney disease) stage 4, GFR 15-29 ml/min Code(s): N18.4 - CHRONIC KIDNEY DISEASE, STAGE 4 (SEVERE) Status: Chronic (5) DM type 2 (diabetes mellitus, type 2) Status: Chronic Qualifiers: Diabetes mellitus chcf insulin use: without 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 yard use Diabetes mellitus complication status: with kidney complications Diabetes mellitus complication detail: with chronic kidney disease Chronic kidney disease stage : stage 4 (severe) Qualified Code(s): E11.22 - Type 2 diabetes mellitus with diabetic chronic kidney disease; N18.4 - Chronic kidney disease, stage 4 (severe ) (6) HTN (hypertension) Code(s): I10 - ESSENTIAL (PRIMARY) HYPERTENSION Status: Chronic Qualifiers: Hypertension type: essential hypertension Qualified Code(s): I10 - Essential (primary) hypertension Comment: uncontrolled (7) PVD (peripheral vascular disease) Code(s): I73.9 - PERIPHERAL VASCULAR DISEASE, UNSPECIFIED Status: Chronic Comment: with prior stent in right LE - Plan cont current plan of care, PT/OT, out of bed/ambulate * . follow up on cardiology, renal recs
--- NOTE | 2018-08-13 18:14 | PRG ---
DATE OF SERVICE: 08/13/2018 SUBJECTIVE: The patient was seen and examined, still not feeling great, noted with the following vit al signs. PHYSICAL EXAMINATION: VITAL SIGNS: Afebrile with temperature 98.1, pulse 60, respiratory 18, blood pressure 180/82. NECK: Unremarkable. CARDIOVASCULAR: First and second heart sounds were heard. RESPIRATORY: Clear to auscultation. DIGESTIVE: Revealed a benign abdomen. EXTREMITIES: No peripheral edema. SKIN: No new gross rash. LYMPHATICS: No peripheral lymphadenopathy. IMPRESSION: 1. Acute on chronic kidney disease which seems to be deteriorating. 2. Congestive heart failure. 3. Hypertension. 4. Metabolic acidosis, resolved. PLAN: 1. Discontinue bicarbonate drip. 2. Renally dose all medications. 3. I need to discuss with the patient's family with a possibility of hemodialysis initiation and dif ferent modality as the patient can make in choice. 4. Further management to be dependent on the clinical course.
[2018-08-13] MEDS: Rosuvastatin 10 MG TAB PO SCH (20:45)
--- NOTE | 2018-08-13 21:54 | ULT ---
BILATERAL UPPER EXTREMITY VEIN MAPPIN08/13/18 HISTORY: Chronic renal disease. Evaluation for dialysis access. RIGHT UPPER EXTREMITY BRACHIAL ARTERY: 4.5 mm RADIAL ARTERY: 1.4 mm ULNAR ARTERY: 1.5 mm CEPHALIC VEIN Proximal Humerus: 2.1 mm Mid Humerus: 2.4 mm Distal Humerus: 1.8 mm Elbow: 2.9 mm Proximal Forearm: 2.2 mm Mid Forearm: 1.8 mm Distal Forearm: 2.0 mm BASILIC VEIN Proximal Humerus: 2.4 mm Mid Humerus: 2.1 mm Distal Humerus: 1.9 mm Elbow: 1.9 mm Proximal Forearm: 0.5 mm Mid Forearm: 0.6 mm Distal Forearm: 0.8 mm LEFT UPPER EXTREMITY BRACHIAL ARTERY: 5.0 mm RADIAL ARTERY: 1.9 mm ULNAR ARTERY: 1.5 mm CEPHALIC VEIN Proximal Humerus: 2.2 mm Mid Humerus: 1.8 mm Distal Humerus: 1.6 mm Elbow: 2.0 mm Proximal Forearm: 1.9 mm Mid Forearm: 2.3 mm Distal Forearm: 0.9 mm BASILIC VEIN Proximal Humerus: 2.7 mm Mid Humerus: 2.7 mm Distal Humerus: 2.1 mm Elbow: 2.2 mm Proximal Forearm: 1.5 mm Mid Forearm: 0.8 mm Distal Forearm: 0.9 mm IMPRESSION: Vein mapping as described above. POS: MARISOL
[2018-08-14] MEDS: Calcium Carbonate 500 MG ChewTAB PO SCH ×3 (09:03→16:22)
[2018-08-14] MEDS: hydrALAZINE 25 MG TAB PO SCH ×3 (09:03→20:33)
[2018-08-14] MEDS: Carvedilol 6.25 MG TAB PO SCH ×2 (09:10→16:22)
[2018-08-14] MEDS: Calcitriol 0.25 MCG CAP PO SCH (09:10)
[2018-08-14] MEDS: Enoxaparin Sodium 30 MG/0.3 ML SYRINGE SC SCH (09:10)
[2018-08-14] MEDS: Isosorbide Dinitrate 20 MG TAB PO SCH ×3 (09:10→20:33)
[2018-08-14] MEDS: Polyethylene Glycol 3350 17 GM Packet PO SCH ×2 (09:11→20:34)
[2018-08-14] MEDS: Sodium Bicarbonate Tab 325 MG TAB PO SCH ×2 (09:11→20:33)
[2018-08-14 09:51] LABS: Albumin 3.6 g/dL (3.4-4.8); Anion Gap 20 mmol/L (10-20); BUN (Urea Nitrogen) 45 mg/dL (8.4-25.7); BUN/Creatinine Ratio 11.03; Calc. Creatinine Clearance 13 mL/min (70-130); Carbon Dioxide 26 mmol/L (23-31); Chloride 95 mmol/L (98-107); Estimated GFR-MDRD 18; Glucose 125 mg/dL (80-115); Phosphorus 3.6 mg/dL (2.3-4.7); Potassium 4.2 mmol/L (3.5-5.1); Sodium 137 mmol/L (136-145)
[2018-08-14] MEDS ORDERED: Carvedilol 6.25 MG TAB PO SCH (10:15)
--- NOTE | 2018-08-14 18:37 | PRG ---
DATE OF SERVICE: 08/14/2018 SUBJECTIVE: The patient was seen and examined, seems to be feeling a little bit better, noted with t he following vital signs. PHYSICAL EXAMINATION: VITAL SIGNS: Afebrile with temperature 97.8, pulse 63, respiratory rate of 18, O2 sat 96% with a blo od pressure 126/60. HEENT: Unremarkable. CARDIOVASCULAR: First and second heart sounds were heard. RESPIRATORY: Clear to auscultation. DIGESTIVE: Revealed a benign abdomen with positive bowel sounds. EXTREMITIES: No peripheral edema. SKIN: No new gross rash. LYMPHATICS: No peripheral lymphadenopathy. LABORATORY INVESTIGATION: Significant for creatinine that has gone down to 4.08, BUN of 45. IMPRESSION: 1. Acute on chronic kidney disease, creatinine seems to have seems to be improving. 2. Advanced renal disease, stage IV/V. PLAN: 1. We will continue renal supportive measures. 2. We will begin some advanced kidney disease with this patient. 3. We will hold off on dialysis for now and monitor the renal function recovery. 4. Further management to be dependent on the clinical course.
[2018-08-14] MEDS: Rosuvastatin 10 MG TAB PO SCH (20:33)
[2018-08-15 05:14] LABS: Albumin 3.3 g/dL (3.4-4.8); Anion Gap 17 mmol/L (10-20); BUN (Urea Nitrogen) 44 mg/dL (8.4-25.7); BUN/Creatinine Ratio 10.92; Calc. Creatinine Clearance 13 mL/min (70-130); Calcium 8.5 mg/dL (7.8-10.44); Carbon Dioxide 29 mmol/L (23-31); Chloride 93 mmol/L (98-107); Estimated GFR-MDRD 18; Glucose 242 mg/dL (80-115); Phosphorus 3.6 mg/dL (2.3-4.7); Sodium 135 mmol/L (136-145)
[2018-08-15] MEDS: Calcium Carbonate 500 MG ChewTAB PO SCH ×3 (08:00→17:47)
[2018-08-15] MEDS: Sodium Bicarbonate Tab 325 MG TAB PO SCH ×2 (09:00→21:18)
[2018-08-15] MEDS: Calcitriol 0.25 MCG CAP PO SCH (09:09)
[2018-08-15] MEDS: hydrALAZINE 25 MG TAB PO SCH ×3 (09:09→21:17)
[2018-08-15] MEDS: Carvedilol 6.25 MG TAB PO SCH ×2 (09:10→17:47)
[2018-08-15] MEDS: Isosorbide Dinitrate 20 MG TAB PO SCH ×3 (09:10→21:17)
[2018-08-15] MEDS: Polyethylene Glycol 3350 17 GM Packet PO SCH ×2 (09:11→23:05)
[2018-08-15] MEDS: Enoxaparin Sodium 30 MG/0.3 ML SYRINGE SC SCH (09:11)
--- NOTE | 2018-08-15 10:14 | PDOC.CTH ---
<TerraharmonyDidi - Last Filed: 08/15/18 10:12> Cardiology Progress Note - Subjective Still with c/o dizziness. Worse when standing up. - Objective Vital Signs Temp Pulse Resp BP Pulse Ox 08/15/18 08:00 98.1 F 60 18 146/68 H 97 08/15/18 04:00 98.1 F 62 18 151/68 H 98 Admit Weight 111 lb Weight 114 lb 2 oz 08/14/18 08/15/18 08/16/18 06:59 06:59 06:59 Intake Total 780 710 Output Total 450 550 150 Balance 330 160 -150 - Physical Examination General/Neuro: alert & oriented x3 Neck: other: (no bruits) Lungs: CTA Heart: RRR Abdomen: NT/ND Extremities: other: (no edema) - Telemetry Telemetry Rhythm: SR - Labs Result Diagrams: 08/10/18 05:41 08/15/18 04:13 Troponin/CKMB Troponin I 0.032 ng/mL (< 0.028) H 08/09/18 04:52 - Assessment/Plan 1. Dizziness 2. BEVERLEY/CKD 3. 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 PAD Continue nephrology treatment. Will check orthostatics, carotid doppler. <Elan Ramirez - Last Filed: 08/15/18 14:11> Cardiology Progress Note - Objective Vital Signs Temp Pulse Resp BP Pulse Ox 08/15/18 12:50 97.9 F 57 L 18 149/67 H 97 08/15/18 08:00 98.1 F 60 18 146/68 H 97 08/15/18 04:00 98.1 F 62 18 151/68 H 98 Admit Weight 111 lb Weight 114 lb 2 oz 08/14/18 08/15/18 08/16/18 06:59 06:59 06:59 Intake Total 780 710 Output Total 450 550 275 Balance 330 160 -275 - Labs Result Diagrams: 08/10/18 05:41 08/15/18 04:13 Troponin/CKMB Troponin I 0.032 ng/mL (< 0.028) H 08/09/18 04:52 - Assessment/Plan Pt seen and examined. Agree with above. CV status stable.
--- NOTE | 2018-08-15 11:55 | EKG ---
Test Reason : Blood Pressure : / mmHG Vent. Rate : 060 BPM Atrial Rate : 060 BPM P-R Int : 164 ms QRS Dur : 094 ms QT Int : 446 ms P-R-T Axes : 028 -01 111 degrees QTc Int : 446 ms Sinus rhythm with Premature atrial complexes T wave abnormality, consider lateral ischemia Abnormal ECG Confirmed by EZIO HELTON DO ([id number]), assistant production editor ASHLEY CORADO ([id number]) on 08/15/2018 11:55:32 AM Referred By: Confirmed By:EZIO HELTON DO
--- NOTE | 2018-08-15 12:25 | ULT ---
CAROTID ULTRASOUND: COMPARISON: None. HISTORY: Dizziness. TECHNIQUE: Multiplanar, hemphill scale, and color Doppler images were obtained in a carotid ultrasound. Spectral an alysis of the Doppler waveforms was performed. FINDINGS: There is a small amount of calcified plaque in both proximal internal carotid arteries. The Doppler waveforms are normal bilaterally. Peak systolic velocity in the right ICA is 75 cm/s. Peak systolic velocity in the right CCA is 100 c m/s. The right ICA/CCA ratio is 0.8. Peak systolic velocity in the left ICA is 68 cm/s. Peak systolic velocity in the left CCA is 118 cm/ s. The left ICA/CCA ratio is 0.6. Both vertebral arteries demonstrate antegrade flow without focal stenosis. IMPRESSION: No evidence of hemodynamically significant stenosis. POS: JOSE ALEJANDRO
[2018-08-15] MEDS: HumaLOG 300 UNITS/3 ML VIAL SC PRN (18:45)
[2018-08-15] MEDS: Rosuvastatin 10 MG TAB PO SCH (21:18)
--- NOTE | 2018-08-15 22:32 | PRG ---
DATE OF SERVICE: 08/15/2018 SUBJECTIVE: The patient was seen and examined with no new complaint, noted with the following vital signs. OBJECTIVE: VITAL SIGNS: Afebrile with temperature 97.6, pulse 57, blood pressure 120/65, O2 sat 100%, blood pre ssure 108/58 to 195/91. HEENT: Unremarkable with moist oral mucosa. No conjunctival injection or icterus. NECK: Supple. CARDIOVASCULAR SYSTEM: First and second heart sounds were heard. RESPIRATORY SYSTEM: Clear to auscultation. DIGESTIVE SYSTEM: Revealed a benign abdomen with positive bowel sounds. EXTREMITIES: No peripheral edema. SKIN: No new gross rash. LYMPHATICS: No peripheral lymphadenopathy. LABORATORY INVESTIGATION: Showed a creatinine of 4.08. IMPRESSION: 1. Advanced chronic kidney disease, stage IV/V. 2. Hypertension, labile. 3. Abdominal discomfort, query cause. PLAN: 1. Discontinue bicarbonate tablet. 2. Continue other renal supportive measures. 3. Further management will be dependent on the clinical course.
[2018-08-16 05:15] LABS: Albumin 3.4 g/dL (3.4-4.8); Anion Gap 14 mmol/L (10-20); BUN (Urea Nitrogen) 41 mg/dL (8.4-25.7); BUN/Creatinine Ratio 11.11; Calc. Creatinine Clearance 13 mL/min (70-130); Calcium 8.7 mg/dL (7.8-10.44); Carbon Dioxide 30 mmol/L (23-31); Chloride 98 mmol/L (98-107); Estimated GFR-MDRD 20; Glucose 133 mg/dL (80-115); Phosphorus 3.3 mg/dL (2.3-4.7); Potassium 3.9 mmol/L (3.5-5.1); Sodium 138 mmol/L (136-145)
[2018-08-16] MEDS: Calcium Carbonate 500 MG ChewTAB PO SCH ×3 (08:14→17:06)
[2018-08-16] MEDS: Calcitriol 0.25 MCG CAP PO SCH (08:14)
[2018-08-16] MEDS: Carvedilol 6.25 MG TAB PO SCH ×2 (08:14→17:06)
[2018-08-16] MEDS: Isosorbide Dinitrate 20 MG TAB PO SCH ×3 (08:15→20:33)
[2018-08-16] MEDS: Enoxaparin Sodium 30 MG/0.3 ML SYRINGE SC SCH (08:15)
[2018-08-16] MEDS: hydrALAZINE 25 MG TAB PO SCH ×3 (08:15→20:32)
[2018-08-16] MEDS: Polyethylene Glycol 3350 17 GM Packet PO SCH ×2 (08:16→20:33)
--- NOTE | 2018-08-16 10:57 | PDOC.CTH ---
Cardiology Progress Note - Subjective No complaints other than dizziness. Negative orthostatics and carotid study. - Objective Vital Signs Temp Pulse Resp BP BP Pulse Ox 08/16/18 08:15 62 08/16/18 08:10 98.0 F 62 17 140/70 97 08/16/18 04:40 98.9 F 59 L 14 139/69 99 Admit Weight 111 lb Weight 110 lb 9.6 oz 08/15/18 08/16/18 08/17/18 06:59 06:59 06:59 Intake Total 710 240 Output Total 550 850 Balance 160 -610 - Physical Examination General/Neuro: alert & oriented x3 Neck: no JVD present Lungs: CTA Heart: RRR Abdomen: NT/ND - Labs Result Diagrams: 08/10/18 05:41 08/16/18 04:54 Troponin/CKMB Troponin I 0.032 ng/mL (< 0.028) H 08/09/18 04:52 - Assessment/Plan 1. Dizziness 2. 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 PAD BP stable. Continue nephrology work-up. No changes from my part.
[2018-08-16] MEDS: HumaLOG 300 UNITS/3 ML VIAL SC PRN ×2 (11:23→18:37)
[2018-08-16] MEDS ORDERED: Acetaminophen/Codeine 30-300mg Tablet PO PRN ×2 (15:36→15:37)
[2018-08-16] MEDS: Rosuvastatin 10 MG TAB PO SCH (20:33)
[2018-08-17 05:28] LABS: Albumin 3.5 g/dL (3.4-4.8); Anion Gap 14 mmol/L (10-20); BUN (Urea Nitrogen) 36 mg/dL (8.4-25.7); BUN/Creatinine Ratio 10.68; Calc. Creatinine Clearance 14 mL/min (70-130); Calcium 9.6 mg/dL (7.8-10.44); Carbon Dioxide 29 mmol/L (23-31); Chloride 99 mmol/L (98-107); Estimated GFR-MDRD 22; Glucose 108 mg/dL (80-115); Phosphorus 3.5 mg/dL (2.3-4.7); Potassium 3.9 mmol/L (3.5-5.1); Sodium 138 mmol/L (136-145)
[2018-08-17] MEDS: Calcium Carbonate 500 MG ChewTAB PO SCH ×2 (08:19→11:33)
[2018-08-17] MEDS: Isosorbide Dinitrate 20 MG TAB PO SCH ×2 (08:19→14:10)
[2018-08-17] MEDS: Enoxaparin Sodium 30 MG/0.3 ML SYRINGE SC SCH (08:19)
[2018-08-17] MEDS: Polyethylene Glycol 3350 17 GM Packet PO SCH ×2 (08:19→08:24)
[2018-08-17] MEDS: hydrALAZINE 25 MG TAB PO SCH ×2 (08:20→14:10)
[2018-08-17] MEDS: Calcitriol 0.25 MCG CAP PO SCH (08:20)
[2018-08-17] MEDS: Carvedilol 6.25 MG TAB PO SCH (08:20)
[2018-08-17] MEDS: HumaLOG 300 UNITS/3 ML VIAL SC PRN (11:34)
[2018-08-17 12:02] VITALS: TEMP 97.6
[2018-08-17 14:11] VITALS: BP 164/109
--- NOTE | 2018-08-17 22:07 | PRG ---
DATE OF SERVICE: 08/17/2018 SUBJECTIVE: Patient was seen and examined, seems to be feeling much better, very eager to go home no albert with the following vital signs. OBJECTIVE: VITAL SIGNS: Afebrile, temperature 97.6, pulse 56, blood pressure was 161/109, respiratory rate 18. HEENT: Unremarkable. CARDIOVASCULAR SYSTEM: First and second heart sounds were heard. RESPIRATORY SYSTEM: Clear to auscultation. DIGESTIVE SYSTEM: Revealed a benign abdomen. EXTREMITIES: No peripheral edema. SKIN: No new gross rash. LYMPHATICS: No peripheral lymphadenopathy. IMPRESSION: 1. Acute on chronic kidney disease, stage 4. 2. Advanced chronic kidney disease with creatinine down to 3.37. PLAN: 1. Very close outpatient Nephrology followup strongly recommended. 2. Stay compliant with medications. 3. Further management to be dependent on the clinical course. Patient will benefit from kidney care education.
== END 2018-08-17 14:40 | disposition home or self-care (01) | DRG 291 ==
LOC: ERS 19:46 → 2NO 20:28
PROVIDERS: ADMIT Hospitalist; ATTEND Hospitalist
DX: I13.0 Hypertensive heart and chronic kidney disease with heart failure and stage 1 through stage 4 chronic kidney disease, or unspecified chronic kidney disease (principal); I50.23 Acute on chronic systolic (congestive) heart failure; N18.4 Chronic kidney disease, stage 4 (severe); N17.9 Acute kidney failure, unspecified; N39.0 Urinary tract infection, site not specified; E87.2 Acidosis; I24.8 Other forms of acute ischemic heart disease; E11.22 Type 2 diabetes mellitus with diabetic chronic kidney disease; E11.65 Type 2 diabetes mellitus with hyperglycemia; R80.9 Proteinuria, unspecified; I73.9 Peripheral vascular disease, unspecified; Z89.421 Acquired absence of other right toe(s)
CPT/HCPCS: 36415; 36416; 76770; 78452; 80048; 80061; 80069; 82306; 82570; 82805; 83690; 83970; 84156; 84484; 85025; 93005; 93017; 93306; 93798; 93880; 93970; A9500; G0365; G8978-GP-CI; G8979-GP-CI; G8980-GP-CI; G8987-GO-CI; G8988-GO-CI; G8989-GO-CI; J0153; J1650; J1940; J2405; J7070

== ENCOUNTER 2018-09-10 16:38 | Inpatient (IN) | payer MEDICARE, MEDICAID ==
[2018-09-10] MEDS ORDERED: Sodium Chloride 0.9% 1,000 ML IV SCH (19:48)
[2018-09-10] MEDS ORDERED: Sodium Bicarbonate 150 MEQ in Dextrose 5% in Water 1,000 ML IV SCH (20:00)
[2018-09-10 21:18] LABS: Troponin I 0.038 ng/mL (< 0.028)
[2018-09-10] MEDS ORDERED: Ondansetron ODT 4 MG TAB PO PRN (22:16)
[2018-09-10] MEDS ORDERED: Nitroglycerin 0.4 MG TAB (25 Tab Bottle) PO PRN (22:16)
[2018-09-10] MEDS ORDERED: Dextrose 5% in Water 1,000 ML IV PRN (22:16)
[2018-09-10] MEDS ORDERED: Ondansetron PF 4 MG/2 ML Vial IVP PRN (22:16)
[2018-09-10] MEDS ORDERED: Calcium Carbonate 500 MG ChewTAB PO PRN (22:16)
[2018-09-10] MEDS ORDERED: Insulin Regular 300 UNITS/3 ML VIAL SC PRN (22:16)
[2018-09-10] MEDS ORDERED: Dextrose 50% Abboject 50 ML SYRINGE SLOW IVP PRN (22:16)
--- NOTE | 2018-09-10 22:38 | HP ---
DATE OF ADMISSION: 09/10/2018 PRIMARY CARE PHYSICIAN: Dr. Giron. CHIEF COMPLAINT: Generalized weakness. HISTORY OF PRESENT ILLNESS: The patient is a 68-year-old male with chronic kidney disease, cardiomyo shubham, diabetes mellitus type 2, hypertension, peripheral vascular disease, who presented to the city emergency hospital room at [place] with generalized weakness. Five days ago, patient was seen at [facility] Room for possible UTI. He was started on Bactrim. He also was provided a refill on metf ormin and lisinopril. The patient presented to the emergency room today with generalized weakness over the past one week. He has been not urinating much. He has also been not able to eat over the last 3-4 days. He denies any chest pain, shortness of breath, palpitations, or focal neurologic deficit. No recent immobiliza tion or travel reported. In the emergency room, his workup was consistent with acute kidney injury. Chest x-ray was negative. At [place] [facility], he received vancomycin, ceftriaxone with 1-liter IV fluid. PAST MEDICAL HISTORY: 1. Chronic systolic and diastolic heart failure. 2. CKD. 3. Diabetes mellitus type 2. 4. Hypertension. 5. Peripheral vascular disease. PAST SURGICAL HISTORY: 1. Left knee surgery. 2. Right femoral stent/graft. 3. Removal of the toes from the right foot. ALLERGIES: No known drug allergies. CURRENT HOME MEDICATIONS: He is unable to recall any of his home medications. SOCIAL HISTORY: No smoking, alcohol, or drug use. He makes his own decisions with the help of his f amily. He is FULL CODE. FAMILY HISTORY: Negative for heart disease. REVIEW OF SYSTEMS: The following complete review of systems was negative, unless otherwise mentioned in the HPI or below: Constitutional: Weight loss or gain, ability to conduct usual activities. Sk in: Rash, itching. Eyes: Double vision, pain. ENT/Mouth: Nose bleeding, neck stiffness, pain, te nderness. Cardiovascular: Palpitations, dyspnea on exertion, orthopnea. Respiratory: Shortness of breath, wheezing, cough, hemoptysis, fever or night sweats. Gastrointestinal: Poor appetite, abdom inal pain, heartburn, nausea, vomiting, constipation, or diarrhea. Genitourinary: Urgency, frequenc y, dysuria, nocturia. Musculoskeletal: Pain, swelling. Neurologic/Psychiatric: Anxiety, depressio n. Allergy/Immunologic: Skin rash, bleeding tendency. PHYSICAL EXAMINATION: VITAL SIGNS: Temperature 97.4, respirations 21, pulse 65, blood pressure 109/63 with O2 saturation 1 00% on room air. GENERAL: A 68-year-old male in no apparent distress. HEENT: Atraumatic, normocephalic. Sclerae are anicteric. Moist mucous membrane. No oral lesion. NECK: Supple. No JVD, no carotid bruit. LUNGS: Clear to auscultation bilaterally. No wheezing, rales, or rhonchi. HEART: S1, S2 present. Regular rate and rhythm. No rubs or gallops appreciated. ABDOMEN: Soft, nontender, bowel sounds present. EXTREMITIES: No edema or calf tenderness. NEUROLOGIC: Grossly nonfocal, moves all four extremities. PSYCHIATRY: Alert, awake, oriented x3. SKIN: Warm and dry. LYMPH NODES: No palpable lymph nodes in the neck. PERIPHERAL VASCULAR: Radial pulses palpable bilaterally. MUSCULOSKELETAL: No joint swelling or tenderness. LABORATORY AND X-RAY FINDINGS: CBC showed WBC 9.3 with hemoglobin 10.8, hematocrit 33.4, platelet 34 9,000. Chemistries showed sodium 141, potassium 4.2, chloride 114, bicarbonate 12, BUN 71, creatinin e 7.84, troponins in the indeterminate range at 0.040. Lactic acid was normal. Albumin 3.0. Urinal ysis showed proteinuria with greater than 50 wbc's. Telemetry monitoring by my review showed sinus r hythm. Chest x-ray by my review was negative for acute findings. IMPRESSION AND PLAN: 1. Acute kidney injury on chronic kidney disease, stage 4, multifactorial. Patient was recently sta rted on Bactrim. He is also on lisinopril. He also takes metformin. His creatinine today is 7.84. His creatinine on 08/17 was 3.3 and 08/08 was 2.96. He has also not eaten much over the last 3 days . His BUN was 36 on the . 2. Generalized weakness secondary to #1. 3. Dehydration. 4. Metabolic acidosis secondary to renal insufficiency. 5. Diabetes mellitus type 2 with diabetic nephropathy. 6. Elevated troponins in indeterminate range secondary to renal failure/demand ischemia. 7. Chronic anemia, probably secondary to renal insufficiency. 8. Medication noncompliance. PLAN: The patient will be monitored on the telemetry unit. Nephrology will be consulted. We will s tart him on bicarbonate drip. Vital signs q.4 hourly. We will repeat labs on a daily basis. Insuli n sliding scale. We will confirm home medications. We will hold BRENDA inhibitor for now. Plan of care was discussed with the patient in detail. He stated understanding.
[2018-09-10] MEDS: Sodium Bicarbonate 150 MEQ in Dextrose 5% in Water 1,000 ML IV SCH (23:18)
[2018-09-11 05:03] LABS: Albumin 2.8 g/dL (3.4-4.8); Anion Gap 16 mmol/L (10-20); BUN (Urea Nitrogen) 68 mg/dL (8.4-25.7); BUN/Creatinine Ratio 9.93; Calc. Creatinine Clearance 6 mL/min (70-130); Calcium 8.1 mg/dL (7.8-10.44); Carbon Dioxide 16 mmol/L (23-31); Chloride 111 mmol/L (98-107); Estimated GFR-MDRD 10; Glucose 235 mg/dL (80-115); Phosphorus 5.5 mg/dL (2.3-4.7); Potassium 3.8 mmol/L (3.5-5.1); Sodium 139 mmol/L (136-145)
[2018-09-11] MEDS: Acetaminophen 325 MG TAB PO PRN ×2 (07:07→17:52)
[2018-09-11] MEDS: Heparin 5,000 UNITS/ML VIAL SC SCH ×2 (08:30→20:14)
[2018-09-11] MEDS: cefTRIAXone\\ROCEPHIN 1 GM in Sodium Chloride 0.9% 100 ML IVPB SCH (08:31)
[2018-09-11] MEDS ORDERED: Famotidine 20 MG TAB PO SCH (09:00)
[2018-09-11] MEDS ORDERED: Prevnar 13-Val Conj/PF 0.5 ML SYRINGE IM ONE (09:00)
[2018-09-11] MEDS: Insulin Regular 300 UNITS/3 ML VIAL SC PRN ×2 (09:14→11:53)
[2018-09-11] MEDS: Sodium Bicarbonate 150 MEQ in Dextrose 5% in Water 1,000 ML IV SCH ×2 (09:47→21:16)
[2018-09-11] MEDS: hydrALAZINE 20 MG/ML VIAL SLOW IVP PRN (09:48)
[2018-09-11] MEDS ORDERED: Carvedilol 6.25 MG TAB PO SCH (11:30)
[2018-09-11 14:13] VITALS: BMI 15.6
[2018-09-11 16:38] LABS: Bilirubin Negative (Negative); Blood, Urine Large (Negative); Clarity TURBID (Clear); Glucose, Urine (Dipstick) Negative (Negative); Leukocyte Large (Negative); Nitrite Negative (Negative); Protein, Urine (Dipstick) 100 mg/dL (Neg-Trace); Specific Gravity, Urine 1.011 (1.002-1.036); Urobilinogen 0.2 mg/dL (0.2-1.0); pH, Urine 5.5 (5.0-9.0)
[2018-09-11 16:43] LABS: Bacteria/HPF None Seen HPF (None Seen); Hyaline Casts/LPF NONE SEEN LPF (0-3 Hyaline); RBC/HPF None Seen HPF (0-3); Squamous Epithelial 0-3 HPF (0-3)
[2018-09-11] MEDS: Carvedilol 6.25 MG TAB PO SCH (17:48)
--- NOTE | 2018-09-11 22:36 | PDOC.PN ---
- Subjective Encounter Start Date: 09/11/18 Encounter Start Time: 10:30 Patient seen and examined for STEPAN. Feels somewhat better. No fever/chills/CP/N/ V. No other complaints. No overnight events - Objective Resuscitation Status: Resuscitation Status FULL:Full Resuscitation MAR Reviewed: Yes Vital Signs & Weight: Vital Signs (12 hours) Temp Pulse Resp BP BP Pulse Ox 09/11/18 19:57 97.4 F L 64 14 113/62 100 09/11/18 17:48 130/69 09/11/18 15:22 97.4 F L 70 14 130/69 100 09/11/18 15:20 100 09/11/18 11:54 106/56 L 09/11/18 11:50 69 14 106/56 L 09/11/18 10:48 70 111/56 L Weight Admit Weight 95 lb 6.4 oz Weight 97 lb 1.6 oz I&O: 09/10/18 09/11/18 09/12/18 06:59 06:59 06:59 Intake Total 3005 Output Total 110 Balance 2895 Result Diagrams: 09/12/18 05:33 09/12/18 05:33 Additional Labs: Accuchecks 09/11/18 09/11/18 09/11/18 20:39 17:03 10:59 POC Glucose 226 H 116 H 161 H 09/11/18 05:34 POC Glucose 239 H EKG Reviewed by me: Yes (Tele SR) Phys Exam - Physical Examination Constitutional: NAD Respiratory: no wheezing, no rhonchi Cardiovascular: RRR, no rub Gastrointestinal: soft, non-tender, positive bowel sounds Musculoskeletal: no edema Neurological: moves all 4 limbs Dx/Plan - Plan DVT proph w/SCDs IMPRESSION: 1. Acute kidney injury on chronic kidney disease, stage 4/Dehydration. 2. Generalized weakness secondary to #1. 3. UTI 4. Metabolic acidosis secondary to renal insufficiency. 5. 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 6. Elevated troponins in indeterminate range secondary to renal failure/demand ischemia. 7. Chronic anemia, probably secondary to renal insufficiency. 8. Medication noncompliance. PLAN: Cont current IVF Cont IV Atbx AM labs Cont sliding scale Resume home HTN meds ACEI on hold Review of Systems - Review of Systems Respiratory: negative: Cough, Dry, Shortness of Breath, Hemoptysis, SOB with Excertion, Pleuritic Pain, Sputum, Wheezing Cardiovascular: negative: chest pain, palpitations, orthopnea, paroxysmal nocturnal dyspnea, edema, light headedness, other - Medications/Allergies Allergies/Adverse Reactions: Allergies Allergy/AdvReac Type Severity Reaction Status Date / Time No Known Drug Allergies Allergy Verified 09/10/18 22:40 Medications: Current Medications Acetaminophen (Tylenol) 650 mg PO Q4H PRN PRN Reason: Headache/Fever/Mild Pain (1-3) Last Admin: 09/11/18 17:52 Dose: 650 mg Calcium Carbonate (Tums) 1,000 mg PO Q4H PRN PRN Reason: Heartburn or Indigestion Carvedilol (Coreg) 6.25 mg PO BID-[facility] Last Admin: 09/11/18 17:48 Dose: 6.25 mg Dextrose/Water (Dextrose 50%) 25 gm SLOW IVP PRN PRN PRN Reason: Hypoglycemia Famotidine (Pepcid) 20 mg PO 0900 [facility] Glucagon (Glucagon) 1 mg IM PRN PRN PRN Reason: Hypoglycemia Heparin Sodium (Porcine) (Heparin) 5,000 units SC BID [facility] Last Admin: 09/11/18 20:14 Dose: 5,000 units Hydralazine HCl (Apresoline) 10 mg SLOW IVP Q4H PRN PRN Reason: SBP Greater Than 180 Last Admin: 09/11/18 09:48 Dose: 10 mg Sodium Bicarbonate 150 meq/ (Dextrose/Water) 1,150 mls @ 100 mls/hr IV .[id number] [facility] Last Admin: 09/11/18 21:16 Dose: 1,150 mls Dextrose/Water (D5w) 1,000 mls @ 0 mls/hr IV .Q0M PRN PRN Reason: Hypoglycemia Ceftriaxone Sodium 1 gm/ (Sodium Chloride) 100 mls @ 200 mls/hr IVPB DAILY [facility] Last Admin: 09/11/18 08:31 Dose: 100 mls Insulin Human Regular (Humulin R) 0 units SC .MILD SLIDING SCALE PRN PRN Reason: Mild Correctional Scale Last Admin: 09/11/18 11:53 Dose: 2 unit Insulin Human Regular (Humulin R) 0 units SC .BEDTIME SLIDING SC PRN PRN Reason: Bedtime Correctional Scale Last Admin: 09/11/18 21:14 Dose: 2 unit Isosorbide Mononitrate (Imdur) 60 mg PO BID [facility] Last Admin: 09/11/18 20:09 Dose: 60 mg Nitroglycerin (Nitrostat) 0.4 mg PO Q5MIN PRN PRN Reason: Chest Pain Ondansetron HCl (Zofran Odt) 4 mg PO Q6H PRN PRN Reason: Nausea/Vomiting Ondansetron HCl (Zofran) 4 mg IVP Q6H PRN PRN Reason: Nausea/Vomiting Sodium Chloride (Flush - Normal Saline) 10 ml IVF Q12HR [facility] Last Admin: 09/11/18 20:10 Dose: Not Given Sodium Chloride (Flush - Normal Saline) 10 ml IVF PRN PRN PRN Reason: Saline Flush
[2018-09-12 06:26] LABS: Albumin 2.5 g/dL (3.4-4.8); Anion Gap 11 mmol/L (10-20); BUN (Urea Nitrogen) 54 mg/dL (8.4-25.7); BUN/Creatinine Ratio 11.32; Calc. Creatinine Clearance 9 mL/min (70-130); Calcium 7.8 mg/dL (7.8-10.44); Carbon Dioxide 27 mmol/L (23-31); Chloride 104 mmol/L (98-107); Estimated GFR-MDRD 15; Glucose 92 mg/dL (80-115); Phosphorus 3.5 mg/dL (2.3-4.7); Potassium 2.9 mmol/L (3.5-5.1); Sodium 139 mmol/L (136-145)
[2018-09-12] MEDS ORDERED: Potassium Chloride 20 MEQ TAB PO SCH ×2 (06:45→14:30)
[2018-09-12 07:02] LABS: Band 2 % (5-11); Eosinophils 1 % (0-10); Hemoglobin 9.7 g/dL (14.0-18.0); Hypochromia SLIGHT = 6-15 cells (100X) (0-5/hpf); Lymphocytes 9 % (21-51); MDiff Complete? YES; Mean Corpuscular HGB CONC 32.6 g/dL (32.0-36.0); Mean Corpuscular Hemoglobin 27.1 pg (27.0-31.0); Mean Corpuscular Volume 83.3 fL (78.0-98.0); Mean Platelet Volume 6.7 fL (7.4-10.4); Monocytes 3 % (0-10); Neutrophil 85 % (42-75); PLT Morphology Comment Appears Adequate; Platelet Count 296 thou/uL (130-400); RBC Distribution Width 14.5 % (11.5-14.5); Red Blood Cell (RBC) Count 3.59 mill/uL (4.70-6.10); White Blood Cell (WBC) Count 7.2 thou/uL (4.8-10.8)
[2018-09-12] MEDS: Acetaminophen 325 MG TAB PO PRN ×2 (08:10→20:44)
[2018-09-12] MEDS: Heparin 5,000 UNITS/ML VIAL SC SCH ×2 (08:10→20:39)
[2018-09-12] MEDS: cefTRIAXone\\ROCEPHIN 1 GM in Sodium Chloride 0.9% 100 ML IVPB SCH (08:10)
[2018-09-12] MEDS: Famotidine 20 MG TAB PO SCH (08:12)
[2018-09-12] MEDS: Carvedilol 6.25 MG TAB PO SCH ×2 (08:12→19:20)
[2018-09-12] MEDS: Sodium Bicarbonate 150 MEQ in Dextrose 5% in Water 1,000 ML IV SCH (08:48)
[2018-09-12] MEDS ORDERED: Sodium Chloride 0.9% 1,000 ML IV SCH (14:15)
[2018-09-12] MEDS ORDERED: Loperamide HCl 2 MG CAP PO PRN (14:19)
[2018-09-12] MEDS: Sodium Chloride 0.9% 1,000 ML IV SCH (15:28)
--- NOTE | 2018-09-12 17:27 | PRG ---
DATE OF SERVICE: 09/12/2018 SUBJECTIVE: The patient seen and examined, seems to be doing so much better. OBJECTIVE: VITAL SIGNS: Afebrile, temperature 97.6, pulse 65, respiration rate of 18, O2 sat 100%, blood pressu re 118/72. HEENT: Unremarkable. CARDIOVASCULAR: First and second heart sounds were heard. RESPIRATORY: Clear to auscultation. DIGESTIVE: Revealed a benign abdomen with positive bowel sounds. EXTREMITIES: No peripheral edema. SKIN: No new gross rash. LYMPHATICS: No peripheral lymphadenopathy. LABORATORY INVESTIGATIONS: Showed hemoglobin of 9.7. Chemistry showed a potassium of 2.9, BUN of 54 , creatinine 4.77. IMPRESSION: 1. Acute on chronic kidney disease, much improved. 2. Hypokalemia partly due to metabolic alkalosis due to potassium due to alkali due to bicarb katie infusion. PLAN: 1. Discontinue bicarbonate drip and resume maintenance fluid with normal saline. 2. Replete potassium. 3. Renally dose all medications. 4. Further management will be dependent on the clinical course.
--- NOTE | 2018-09-12 20:28 | PDOC.PN ---
- Subjective Encounter Start Date: 09/12/18 Encounter Start Time: 14:30 Patient seen and examined for STEPAN. Feeling better. Appetite slightly better. Diarrhea +. No other complaints. No overnight events - Objective Resuscitation Status: Resuscitation Status FULL:Full Resuscitation MAR Reviewed: Yes Vital Signs & Weight: Vital Signs (12 hours) Pulse Resp BP BP Pulse Ox 09/12/18 19:20 130/66 09/12/18 17:37 100 09/12/18 15:07 63 18 117/70 100 09/12/18 11:25 65 18 118/72 Weight Admit Weight 95 lb 6.4 oz Weight 97 lb 1.6 oz I&O: 09/11/18 09/12/18 09/13/18 06:59 06:59 06:59 Intake Total 3789 1335 Output Total 110 Balance 3679 1335 Result Diagrams: 09/12/18 05:33 09/12/18 05:33 Additional Labs: Accuchecks 09/12/18 09/12/18 09/12/18 16:52 11:05 05:38 POC Glucose 147 H 141 H 101 09/11/18 09/11/18 20:39 10:59 POC Glucose 226 H 161 H EKG Reviewed by me: Yes (Tele SR) Phys Exam - Physical Examination Constitutional: NAD Respiratory: no wheezing, no rhonchi Cardiovascular: RRR, no rub Gastrointestinal: soft, non-tender, positive bowel sounds Musculoskeletal: no edema Dx/Plan - Plan DVT proph w/SCDs IMPRESSION: 1. Acute kidney injury on chronic kidney disease, stage 4/Dehydration. 2. Generalized weakness secondary to #1. 3. UTI 4. Metabolic acidosis secondary to renal insufficiency. 5. 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 6. Elevated troponins in indeterminate range secondary to renal failure/demand ischemia. 7. Chronic anemia, probably secondary to renal insufficiency. 8. Medication noncompliance. PLAN: DC Bicarb drip Stool w/u Stat NS @75 ml/hr Cont IV Atbx - urine cultures pending AM labs Cont sliding scale Cont current meds as below ACEI on hold Transfer to medical Review of Systems - Review of Systems Respiratory: negative: Cough, Dry, Shortness of Breath, Hemoptysis, SOB with Excertion, Pleuritic Pain, Sputum, Wheezing Cardiovascular: negative: chest pain, palpitations, orthopnea, paroxysmal nocturnal dyspnea, edema, light headedness, other - Medications/Allergies Allergies/Adverse Reactions: Allergies Allergy/AdvReac Type Severity Reaction Status Date / Time No Known Drug Allergies Allergy Verified 09/10/18 22:40 Medications: Current Medications Acetaminophen (Tylenol) 650 mg PO Q4H PRN PRN Reason: Headache/Fever/Mild Pain (1-3) Last Admin: 09/12/18 08:10 Dose: 650 mg Calcium Carbonate (Tums) 1,000 mg PO Q4H PRN PRN Reason: Heartburn or Indigestion Carvedilol (Coreg) 6.25 mg PO BID-[facility] Last Admin: 09/12/18 19:20 Dose: 6.25 mg Dextrose/Water (Dextrose 50%) 25 gm SLOW IVP PRN PRN PRN Reason: Hypoglycemia Famotidine (Pepcid) 20 mg PO 0900 [facility] BEDS AT [facility] Last Admin: 09/12/18 08:12 Dose: 20 mg Glucagon (Glucagon) 1 mg IM PRN PRN PRN Reason: Hypoglycemia Heparin Sodium (Porcine) (Heparin) 5,000 units SC BID [facility] 234 BEDS AT [facility] Last Admin: 09/12/18 08:10 Dose: 5,000 units Hydralazine HCl (Apresoline) 10 mg SLOW IVP Q4H PRN PRN Reason: SBP Greater Than 180 Last Admin: 09/11/18 09:48 Dose: 10 mg Dextrose/Water (D5w) 1,000 mls @ 0 mls/hr IV .Q0M PRN PRN Reason: Hypoglycemia Ceftriaxone Sodium 1 gm/ (Sodium Chloride) 100 mls @ 200 mls/hr IVPB DAILY [facility]S [facility]CLUDE 234 BEDS AT [facility] Last Admin: 09/12/18 08:10 Dose: 100 mls Sodium Chloride (Normal Saline 0.9%) 1,000 mls @ 75 mls/hr IV .[id number] COUNTS [facility]CLUDE 234 BEDS AT [facility] Last Admin: 09/12/18 15:28 Dose: 1,000 mls Insulin Human Regular (Humulin R) 0 units SC .MILD SLIDING SCALE PRN PRN Reason: Mild Correctional Scale Last Admin: 09/11/18 11:53 Dose: 2 unit Insulin Human Regular (Humulin R) 0 units SC .BEDTIME SLIDING SC PRN PRN Reason: Bedtime Correctional Scale Last Admin: 09/11/18 21:14 Dose: 2 unit Isosorbide Mononitrate (Imdur) 60 mg PO BID [facility] 234 BEDS AT [facility] Last Admin: 09/12/18 08:11 Dose: 60 mg Loperamide HCl (Imodium) 2 mg PO PRN PRN PRN Reason: Diarrhea/Loose Stools Nitroglycerin (Nitrostat) 0.4 mg PO Q5MIN PRN PRN Reason: Chest Pain Ondansetron HCl (Zofran Odt) 4 mg PO Q6H PRN PRN Reason: Nausea/Vomiting Ondansetron HCl (Zofran) 4 mg IVP Q6H PRN PRN Reason: Nausea/Vomiting Sodium Chloride (Flush - Normal Saline) 10 ml IVF Q12HR COUNTS [facility]CLUDE 234 BEDS AT [facility] Last Admin: 09/12/18 08:13 Dose: Not Given Sodium Chloride (Flush - Normal Saline) 10 ml IVF PRN PRN PRN Reason: Saline Flush
[2018-09-13 04:29] LABS: Albumin 2.5 g/dL (3.4-4.8); Anion Gap 10 mmol/L (10-20); BUN (Urea Nitrogen) 45 mg/dL (8.4-25.7); BUN/Creatinine Ratio 12.43; Calc. Creatinine Clearance 12 mL/min (70-130); Calcium 7.9 mg/dL (7.8-10.44); Carbon Dioxide 28 mmol/L (23-31); Chloride 107 mmol/L (98-107); Estimated GFR-MDRD 20; Glucose 126 mg/dL (80-115); Phosphorus 3.6 mg/dL (2.3-4.7); Potassium 3.5 mmol/L (3.5-5.1); Sodium 141 mmol/L (136-145)
[2018-09-13] MEDS: Sodium Chloride 0.9% 1,000 ML IV SCH ×2 (05:46→18:10)
[2018-09-13] MEDS: Heparin 5,000 UNITS/ML VIAL SC SCH ×2 (08:39→21:36)
[2018-09-13] MEDS: Famotidine 20 MG TAB PO SCH (08:39)
[2018-09-13] MEDS: Carvedilol 6.25 MG TAB PO SCH ×2 (08:39→18:10)
[2018-09-13] MEDS: cefTRIAXone\\ROCEPHIN 1 GM in Sodium Chloride 0.9% 100 ML IVPB SCH (08:40)
[2018-09-13] MEDS: Insulin Regular 300 UNITS/3 ML VIAL SC PRN (11:44)
--- NOTE | 2018-09-13 21:42 | PDOC.PN ---
- Subjective Encounter Start Date: 09/13/18 Encounter Start Time: 09:00 Patient seen and examined for STEPAN. No N/V. No new complaints. No overnight events - Objective Resuscitation Status: Resuscitation Status FULL:Full Resuscitation MAR Reviewed: Yes Vital Signs & Weight: Vital Signs (12 hours) Temp Pulse Resp BP BP Pulse Ox 09/13/18 20:00 54 L 16 111/71 100 09/13/18 18:10 137/73 09/13/18 16:00 98.5 F 52 L 16 104/62 100 09/13/18 11:04 97.6 F 52 L 18 133/84 100 Weight Admit Weight 95 lb 6.4 oz Weight 97 lb 1.6 oz I&O: 09/12/18 09/13/18 09/14/18 06:59 06:59 06:59 Intake Total 3789 2585 80 Output Total 110 Balance 3679 2585 80 Result Diagrams: 09/12/18 05:33 09/13/18 03:43 Additional Labs: Accuchecks 09/13/18 09/13/18 09/13/18 20:02 17:00 11:08 POC Glucose 173 H 97 198 H 09/13/18 09/13/18 04:48 00:58 POC Glucose 112 H 154 H Phys Exam - Physical Examination Constitutional: NAD Respiratory: no wheezing, no rhonchi Cardiovascular: RRR, no rub Gastrointestinal: soft, non-tender, positive bowel sounds Musculoskeletal: no edema Neurological: moves all 4 limbs Dx/Plan - Plan DVT proph w/heparin, DVT proph w/SCDs IMPRESSION: 1. Acute kidney injury on chronic kidney disease, stage 4/Dehydration. 2. Generalized weakness secondary to #1. 3. UTI 4. Metabolic acidosis secondary to renal insufficiency. 5. 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 6. Elevated troponins in indeterminate range secondary to renal failure/demand ischemia. 7. Chronic anemia, probably secondary to renal insufficiency. 8. Medication noncompliance. PLAN: Stool w/u negative Cont IV Fluids Cont IV Atbx Await urine cultures AM labs Cont sliding scale and current meds as below ACEI on hold due to STEPAN Review of Systems - Review of Systems Respiratory: negative: Cough, Dry, Shortness of Breath, Hemoptysis, SOB with Excertion, Pleuritic Pain, Sputum, Wheezing Cardiovascular: negative: chest pain, palpitations, orthopnea, paroxysmal nocturnal dyspnea, edema, light headedness, other - Medications/Allergies Allergies/Adverse Reactions: Allergies Allergy/AdvReac Type Severity Reaction Status Date / Time No Known Drug Allergies Allergy Verified 09/10/18 22:40 Medications: Current Medications Acetaminophen (Tylenol) 650 mg PO Q4H PRN PRN Reason: Headache/Fever/Mild Pain (1-3) Last Admin: 09/12/18 20:44 Dose: 650 mg Calcium Carbonate (Tums) 1,000 mg PO Q4H PRN PRN Reason: Heartburn or Indigestion Carvedilol (Coreg) 6.25 mg PO BID-[facility] Last Admin: 09/13/18 18:10 Dose: 6.25 mg Dextrose/Water (Dextrose 50%) 25 gm SLOW IVP PRN PRN PRN Reason: Hypoglycemia Famotidine (Pepcid) 20 mg PO 0900 [facility] Last Admin: 09/13/18 08:39 Dose: 20 mg Glucagon (Glucagon) 1 mg IM PRN PRN PRN Reason: Hypoglycemia Heparin Sodium (Porcine) (Heparin) 5,000 units SC BID [facility] Last Admin: 09/13/18 08:39 Dose: 5,000 units Hydralazine HCl (Apresoline) 10 mg SLOW IVP Q4H PRN PRN Reason: SBP Greater Than 180 Last Admin: 09/11/18 09:48 Dose: 10 mg Dextrose/Water (D5w) 1,000 mls @ 0 mls/hr IV .Q0M PRN PRN Reason: Hypoglycemia Ceftriaxone Sodium 1 gm/ (Sodium Chloride) 100 mls @ 200 mls/hr IVPB DAILY [facility] Last Admin: 09/13/18 08:40 Dose: 100 mls Sodium Chloride (Normal Saline 0.9%) 1,000 mls @ 75 mls/hr IV .[id number] [facility] Last Admin: 09/13/18 18:10 Dose: 1,000 mls Insulin Human Regular (Humulin R) 0 units SC .MILD SLIDING SCALE PRN PRN Reason: Mild Correctional Scale Last Admin: 09/13/18 11:44 Dose: 2 unit Insulin Human Regular (Humulin R) 0 units SC .BEDTIME SLIDING SC PRN PRN Reason: Bedtime Correctional Scale Last Admin: 09/11/18 21:14 Dose: 2 unit Isosorbide Mononitrate (Imdur) 60 mg PO BID [facility] Last Admin: 09/13/18 08:40 Dose: 60 mg Loperamide HCl (Imodium) 2 mg PO PRN PRN PRN Reason: Diarrhea/Loose Stools Nitroglycerin (Nitrostat) 0.4 mg PO Q5MIN PRN PRN Reason: Chest Pain Ondansetron HCl (Zofran Odt) 4 mg PO Q6H PRN PRN Reason: Nausea/Vomiting Ondansetron HCl (Zofran) 4 mg IVP Q6H PRN PRN Reason: Nausea/Vomiting Sodium Chloride (Flush - Normal Saline) 10 ml IVF Q12HR [facility] Last Admin: 09/13/18 08:40 Dose: Not Given Sodium Chloride (Flush - Normal Saline) 10 ml IVF PRN PRN PRN Reason: Saline Flush
[2018-09-14 04:48] LABS: #Eosinphils 0.1 thou/uL (0.0-0.7); #Lymphocytes 1.8 thou/uL (1.20-3.40); #Monocytes 0.3 thou/uL (0.11-0.59); #Neutrophils 2.9 thou/uL (1.40-6.50); %Basophils 0.8 % (0.0-1.0); %Eosinophils 2.8 % (0.0-10.0); %Lymphocytes 34.3 % (21.0-51.0); %Monocytes 5.7 % (0.0-10.0); %Neutrophils 56.4 % (42.0-75.0); Hemoglobin 9.3 g/dL (14.0-18.0); Mean Corpuscular HGB CONC 31.9 g/dL (32.0-36.0); Mean Corpuscular Hemoglobin 27.2 pg (27.0-31.0); Mean Corpuscular Volume 85.1 fL (78.0-98.0); Platelet Count 281 thou/uL (130-400); RBC Distribution Width 14.6 % (11.5-14.5); Red Blood Cell (RBC) Count 3.44 mill/uL (4.70-6.10); White Blood Cell (WBC) Count 5.1 thou/uL (4.8-10.8)
[2018-09-14 04:52] LABS: Anion Gap 5 mmol/L (10-20); BUN (Urea Nitrogen) 37 mg/dL (8.4-25.7); Calc. Creatinine Clearance 14 mL/min (70-130); Carbon Dioxide 28 mmol/L (23-31); Chloride 110 mmol/L (98-107); Estimated GFR-MDRD 25; Glucose 167 mg/dL (80-115); Potassium 3.4 mmol/L (3.5-5.1); Sodium 140 mmol/L (136-145)
[2018-09-14] MEDS: Famotidine 20 MG TAB PO SCH (08:15)
[2018-09-14] MEDS: Carvedilol 6.25 MG TAB PO SCH ×2 (08:15→17:42)
[2018-09-14] MEDS: Heparin 5,000 UNITS/ML VIAL SC SCH ×2 (08:16→22:15)
[2018-09-14] MEDS: cefTRIAXone\\ROCEPHIN 1 GM in Sodium Chloride 0.9% 100 ML IVPB SCH (08:16)
[2018-09-14] MEDS: Sodium Chloride 0.9% 1,000 ML IV SCH (08:22)
--- NOTE | 2018-09-14 09:28 | PDOC.PN ---
- Subjective Encounter Start Date: 09/14/18 Encounter Start Time: 09:27 Subjective: reports feeling a little better but very weak -: poor appetite and weught loss over last few months -: diarrhea is improving.No abd pain - Objective Resuscitation Status: Resuscitation Status FULL:Full Resuscitation MAR Reviewed: Yes Vital Signs & Weight: Vital Signs (12 hours) Temp Pulse Resp BP BP Pulse Ox 09/14/18 08:15 136/79 09/14/18 08:00 99 09/14/18 07:28 97.8 F 65 16 136/79 99 09/14/18 04:00 98.3 F 58 L 16 127/70 100 09/14/18 00:00 98.8 F 61 16 119/67 100 Weight Admit Weight 95 lb 6.4 oz Weight 97 lb 1.6 oz I&O: 09/13/18 09/14/18 09/15/18 06:59 06:59 06:59 Intake Total 2585 80 Balance 2585 80 Result Diagrams: 09/14/18 04:13 09/14/18 04:13 Additional Labs: Accuchecks 09/14/18 09/13/18 09/13/18 04:17 20:02 17:00 POC Glucose 160 H 173 H 97 09/13/18 11:08 POC Glucose 198 H Microbiology 09/12/18 Unknown Stool - Liquid Stool Lactoferrin - Final 09/12/18 Unknown Stool - Liquid Rapid Parasite Screen - Final 09/12/18 Unknown Stool - Liquid Campylobacter Antigen Assay - Final 09/12/18 Unknown Stool - Liquid Shiga Toxin Test - Final 09/12/18 Unknown Stool C. difficile GDH Antigen & Toxins - Final 09/11/18 00:45 Urine voided Urine Culture - Final Laboratory Tests 08/17/18 09/10/18 09/11/18 04:20 13:30 04:25 Creatinine 3.37 H 7.84 H 6.85 H 09/12/18 09/13/18 09/14/18 05:33 03:43 04:13 Creatinine 4.77 H 3.62 H 2.98 H Phys Exam - Physical Examination Constitutional: NAD muscle wasting noted.malnourished HEENT: PERRLA, moist MMs, sclera anicteric, oral pharynx no lesions Neck: no nodes, no JVD, supple, full ROM Respiratory: no wheezing, no rales, no rhonchi, clear to auscultation bilateral Cardiovascular: RRR, no significant murmur, no rub Gastrointestinal: soft, non-tender, no distention, positive bowel sounds Musculoskeletal: no edema, pulses present Neurological: non-focal, normal sensation, moves all 4 limbs Psychiatric: normal affect, A&O x 3 Skin: no rash, normal turgor, cap refill <2 seconds Dx/Plan - Plan * . IMPRESSION: 1. Acute kidney injury on chronic kidney disease, stage 4/Dehydration. 2. Generalized weakness secondary to #1. 3. UTI 4. Metabolic acidosis secondary to renal insufficiency. 5. 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 6. Elevated troponins in indeterminate range secondary to renal failure/demand ischemia. 7. Chronic anemia, probably secondary to renal insufficiency. 8. Medication noncompliance. 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 Review of Systems - Review of Systems Constitutional: weakness, malaise. negative: fever, chills, sweats, other ENT: negative: Ear Pain, Ear Discharge, Nose Pain, Nose Discharge, Nose Congestion, Mouth Pain, Mouth Swelling, Throat Pain, Throat Swelling, Other Respiratory: negative: Cough, Dry, Shortness of Breath, Hemoptysis, SOB with Excertion, Pleuritic Pain, Sputum, Wheezing Cardiovascular: negative: chest pain, palpitations, orthopnea, paroxysmal nocturnal dyspnea, edema, light headedness, other Gastrointestinal: Diarrhea. negative: Nausea, Vomiting, Abdominal Pain, Constipation, Melena, Hematochezia, Other Genitourinary: negative: Dysuria, Frequency, Incontinence, Hematuria, Retention , Other Musculoskeletal: negative: Neck Pain, Shoulder Pain, Arm Pain, Back Pain, Hand Pain, Leg Pain, Foot Pain, Other Skin: negative: Rash, Lesions, Marcell, Bruising, Other Neurological: negative: Weakness, Numbness, Incoordination, Change in Speech, Confusion, Seizures, Other - Medications/Allergies Allergies/Adverse Reactions: Allergies Allergy/AdvReac Type Severity Reaction Status Date / Time No Known Drug Allergies Allergy Verified 09/10/18 22:40 Medications: Current Medications Acetaminophen (Tylenol) 650 mg PO Q4H PRN PRN Reason: Headache/Fever/Mild Pain (1-3) Last Admin: 09/12/18 20:44 Dose: 650 mg Calcium Carbonate (Tums) 1,000 mg PO Q4H PRN PRN Reason: Heartburn or Indigestion Carvedilol (Coreg) 6.25 mg PO BID-[facility] Last Admin: 09/14/18 08:15 Dose: 6.25 mg Dextrose/Water (Dextrose 50%) 25 gm SLOW IVP PRN PRN PRN Reason: Hypoglycemia Famotidine (Pepcid) 20 mg PO 0900 [facility] Last Admin: 09/14/18 08:15 Dose: 20 mg Glucagon (Glucagon) 1 mg IM PRN PRN PRN Reason: Hypoglycemia Heparin Sodium (Porcine) (Heparin) 5,000 units SC BID [facility] Last Admin: 09/14/18 08:16 Dose: 5,000 units Hydralazine HCl (Apresoline) 10 mg SLOW IVP Q4H PRN PRN Reason: SBP Greater Than 180 Last Admin: 09/11/18 09:48 Dose: 10 mg Dextrose/Water (D5w) 1,000 mls @ 0 mls/hr IV .Q0M PRN PRN Reason: Hypoglycemia Ceftriaxone Sodium 1 gm/ (Sodium Chloride) 100 mls @ 200 mls/hr IVPB DAILY [facility] Last Admin: 09/14/18 08:16 Dose: 100 mls Sodium Chloride (Normal Saline 0.9%) 1,000 mls @ 75 mls/hr IV .[id number] [facility] Last Admin: 09/14/18 08:22 Dose: 1,000 mls Insulin Human Regular (Humulin R) 0 units SC .MILD SLIDING SCALE PRN PRN Reason: Mild Correctional Scale Last Admin: 09/13/18 11:44 Dose: 2 unit Insulin Human Regular (Humulin R) 0 units SC .BEDTIME SLIDING SC PRN PRN Reason: Bedtime Correctional Scale Last Admin: 09/11/18 21:14 Dose: 2 unit Isosorbide Mononitrate (Imdur) 60 mg PO BID [facility] Last Admin: 09/14/18 08:15 Dose: 60 mg Loperamide HCl (Imodium) 2 mg PO PRN PRN PRN Reason: Diarrhea/Loose Stools Nitroglycerin (Nitrostat) 0.4 mg PO Q5MIN PRN PRN Reason: Chest Pain Ondansetron HCl (Zofran Odt) 4 mg PO Q6H PRN PRN Reason: Nausea/Vomiting Ondansetron HCl (Zofran) 4 mg IVP Q6H PRN PRN Reason: Nausea/Vomiting Sodium Chloride (Flush - Normal Saline) 10 ml IVF Q12HR [facility] Last Admin: 09/14/18 08:16 Dose: Not Given Sodium Chloride (Flush - Normal Saline) 10 ml IVF PRN PRN PRN Reason: Saline Flush
--- NOTE | 2018-09-14 09:35 | CON ---
DATE OF CONSULTATION: 09/11/2018 CONSULTING PHYSICIAN: Mary Smith M.D. REQUESTING PHYSICIAN: Zane Remy M.D. REASON FOR CONSULTATION: Advanced kidney disease. IMPRESSION: 1. Acute on chronic kidney disease, likely progression of chronic kidney disease versus prerenal com ponent in the context of poor p.o. intake compounded by medications, in this case, lisinopril, metfor min, and Bactrim. 2. Metabolic acidosis in the context of reduced GFR. 3. Query uremic symptoms in the context of poor p.o. intake. PLAN: 1. Bicarbonate based infusion; however, we pay a very close attention to potassium as metabolic acid osis in this patient began to be corrected. 2. Renally dose all medications. 3. Patient likely to get at least a long-term dialysis access during this hospitalization; however, we will rehydrate this patient first, stabilize this patient's hemodynamics prior to pursuing this po tential procedure. 4. Avoid renally dosing all medications. HISTORY OF PRESENT ILLNESS: This is a 68-year-old gentleman who was recently hospitalized and manage d and discharged with a creatinine of about 3.5. The patient, however, has not been eating very well , presented to the ER initially, at which point, according to record, the patient was given prescript ion for lisinopril, metformin, and Bactrim for the treatment of urinary tract infection; however, the patient's clinical condition in view of generalized weakness, lethargy, continued to deteriorate, fo r which the patient represented to the [facility]. Decision was taken to transfer to us for fur ther management. Patient obviously in renal failure. PAST MEDICAL HISTORY: Significant for cardiac failure, CHF, CKD, type 2 diabetes, hypertension, manuel pheral vascular disease. ALLERGIES: No known drug allergy. MEDICATIONS: As documented on [email or web address]. FAMILY HISTORY: Denies a family history of kidney disease. SOCIAL HISTORY: No alcohol, no tobacco, no illicit drug use. REVIEW OF SYSTEMS: As documented in the body of the history. All the other systems were reviewed an d found not to be significantly related to the presenting illness. PHYSICAL EXAMINATION: GENERAL: The patient was found to be cachectic. VITAL SIGNS: Noted with the following vital signs; afebrile, blood pressure 106/56, respiratory rate of 14, pulse of 69. HEENT: Unremarkable. CARDIOVASCULAR SYSTEM: First and second heart sounds were heard. RESPIRATORY SYSTEM: Clear to auscultation. DIGESTIVE SYSTEM: Revealed a benign abdomen with positive bowel sounds. EXTREMITIES: No peripheral edema. SKIN: No new gross rash. LYMPHATICS: No peripheral lymphadenopathy. SUMMARY: A 68-year-old gentleman with apparent chronic kidney disease who presented to ER with poor p.o. intake, possibly in the context of uremia. Thank you for this consultation. We will follow with you.
--- NOTE | 2018-09-14 11:26 | PQF ---
Date: 09-14-18 ATTN: DR. RICO CROWLEY Please exercise your independent, professional judgment in responding to the clarification form. Clinical indicators are provided on the bottom of this form for your review Please check appropriate box(s): [ ] Protein Calorie Malnutrition: [ ] Mild [ X ] Moderate [ ] Severe [ ] Cachexia [ ] Other diagnosis [ ] Unable to determine In addition, please specify: Present on Admission (POA): [ X ] Yes [ ] No [ ] Unable to determine CLINICAL INDICATORS - SIGNS / SYMPTOMS / LABS BMI of 15.7 RESEARCH HYDRAULIC ENGINEER CONSULT 09-11-18: Patient stated he does not have an appetite but tries to make himself eat. Patient does have difficulty with swallowing and tries to eat soft foods. Patient is not certain of his UBW but believes it is 100-105# RESEARCH HYDRAULIC ENGINEER CONSULT 09-11-18: patient report of poor appetite and poor intake, visible muscle and fat wasting in temporal region, and visible fat loss of the chest and arms. Patient has BMI of 15.4 RISK FACTORS: RESEARCH HYDRAULIC ENGINEER CONSULT 09-11-18: Patient stated he does not have an appetite but tries to make himself eat. Patient does have difficulty with swallowing and tries to eat soft foods. Patient is not certain of his UBW but believes it is 100-105# RESEARCH HYDRAULIC ENGINEER CONSULT 09-11-18: CKD IV, CHF, DMT2, HTN , peripheral vascular disease, Ulcer: sacrococcygeal-stage I Altered skin: BLE -discoloration/white patches; R. foot-scar; R knee-abrasion H&P: HX CKD, HTN, PVD, WEAKNESS, NOT ABLE TO EAT, DEHYDRATION TREATMENT: RESEARCH HYDRAULIC ENGINEER CONSULT 09-11-18: 1. Continue Renal-Protein Low diet 2. Recommend Suplena BID to promote intake 3. Recommend consult for CUT OFF SAW GRADER for swallow test 4. Consider appetite stimulant Moderate Malnutrition (in acute illness) Energy Intake: <75% of estimated energy requirement for > 7 days Weight Loss: 1-2%/1 week; 5%/ 1 month; 7.5%/3 months Other: mild body fat loss; mild muscle mass loss; mild fluid accumulation; Severe Malnutrition (in acute illness) Energy Intake: < 50% of estimated energy requirement for > 5 days Weight Loss: >1-2%/1 week; >5%/1 month; >7.5%/3 months Other: moderate body fat loss; moderate muscle mass loss; moderate- severe fluid accumulation; measurably reduced petrophysicist strength Moderate Malnutrition (in chronic illness) Energy Intake: <75% of estimated energy requirement for >1 month Weight Loss: 5%/1 month; 7.5%/3 months; 10%/6 months; 20%/1 year Other: mild body fat loss; mild muscle mass loss; mild fluid accumulation Severe Malnutrition (in chronic illness) Energy Intake: <75% of estimated energy requirement for >1 month Weight Loss: >5%/1 month; >7.5%/3 months; >10%/6 months; >20%/1 year Other: severe body fat loss; severe muscle mass loss; severe fluid accumulation ; measurably reduced petrophysicist strength (This form is maintained as a part of the permanent medical record) 2014 [employer] All Rights Reserved ARMIN [email or web address] Office: [phone] [facility]
[2018-09-14] MEDS: Insulin Regular 300 UNITS/3 ML VIAL SC PRN (13:00)
[2018-09-15] MEDS: Sodium Chloride 0.9% 1,000 ML IV SCH (02:18)
[2018-09-15] MEDS: cefTRIAXone\\ROCEPHIN 1 GM in Sodium Chloride 0.9% 100 ML IVPB SCH (08:44)
[2018-09-15] MEDS: Famotidine 20 MG TAB PO SCH (08:44)
[2018-09-15] MEDS: Carvedilol 6.25 MG TAB PO SCH ×2 (08:44→16:51)
[2018-09-15] MEDS: Heparin 5,000 UNITS/ML VIAL SC SCH ×2 (08:45→21:56)
[2018-09-15 10:30] LABS: Anion Gap 10 mmol/L (10-20); BUN (Urea Nitrogen) 28 mg/dL (8.4-25.7); Calc. Creatinine Clearance 17 mL/min (70-130); Carbon Dioxide 23 mmol/L (23-31); Chloride 111 mmol/L (98-107); Estimated GFR-MDRD 32; Glucose 196 mg/dL (80-115); Potassium 3.7 mmol/L (3.5-5.1); Sodium 140 mmol/L (136-145)
[2018-09-15] MEDS: Insulin Regular 300 UNITS/3 ML VIAL SC PRN (12:18)
--- NOTE | 2018-09-15 15:32 | PDOC.PN ---
- Subjective Encounter Start Date: 09/15/18 Encounter Start Time: 15:30 Subjective: FEELS VERY WEAK AND WOULD LIKE TO GO TO A FACILITY -: denies any pain/discomfort - Objective Resuscitation Status: Resuscitation Status FULL:Full Resuscitation MAR Reviewed: Yes Vital Signs & Weight: Vital Signs (12 hours) Temp Pulse Resp BP BP Pulse Ox 09/15/18 08:44 145/79 H 09/15/18 08:00 99 09/15/18 07:47 97.6 F 80 20 145/79 H 99 Weight Admit Weight 95 lb 6.4 oz Weight 97 lb 1.6 oz I&O: 09/14/18 09/15/18 09/16/18 06:59 06:59 06:59 Intake Total 80 1313 Output Total 150 Balance 80 1163 Result Diagrams: 09/14/18 04:13 09/15/18 10:04 Additional Labs: Accuchecks 09/15/18 09/15/18 09/14/18 12:06 05:02 20:26 POC Glucose 167 H 105 74 09/14/18 16:51 POC Glucose 94 Phys Exam - Physical Examination Constitutional: NAD cachectic HEENT: PERRLA, moist MMs, sclera anicteric, oral pharynx no lesions Neck: no nodes, no JVD, supple, full ROM Respiratory: no wheezing, no rales, no rhonchi, clear to auscultation bilateral Cardiovascular: RRR, no significant murmur Gastrointestinal: soft, non-tender, no distention, positive bowel sounds Musculoskeletal: no edema, pulses present Neurological: non-focal, normal sensation, moves all 4 limbs Psychiatric: normal affect, A&O x 3 Skin: no rash Dx/Plan - Plan continue antibiotics, PT/OT, aids social worker, speech therapy, respiratory therapy, incentive spirometry, DVT proph w/SCDs * .1. Acute kidney injury on chronic kidney disease, stage 4/Dehydration. 2. Generalized weakness secondary to #1. 3. UTI 4. Metabolic acidosis secondary to renal insufficiency. 5. 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 6. Elevated troponins in indeterminate range secondary to renal failure/demand ischemia. 7. Chronic anemia, probably secondary to renal insufficiency. 8. Medication noncompliance. 9.Moderta protien calorie malnutrition PLAN: renal fx much improved.combination of poor Po intake and dehydration from diarrhea.improving.ivf stopped.nephrology also following.discussed w Dr hernandez Stool w/u negative.Cdiff negative.diarrhea improving consult graphics coordinator given c/o dysphagia,weight loss and poor appetite.cont Suplena Cont IV Fluids iv rocephin for UTI.Cx negative so far placement process initiated . AM labs Review of Systems - Review of Systems Constitutional: weakness, malaise Gastrointestinal: Other (difficulty swollowing) - Medications/Allergies Allergies/Adverse Reactions: Allergies Allergy/AdvReac Type Severity Reaction Status Date / Time No Known Drug Allergies Allergy Verified 09/10/18 22:40 Medications: Current Medications Acetaminophen (Tylenol) 650 mg PO Q4H PRN PRN Reason: Headache/Fever/Mild Pain (1-3) Last Admin: 09/12/18 20:44 Dose: 650 mg Calcium Carbonate (Tums) 1,000 mg PO Q4H PRN PRN Reason: Heartburn or Indigestion Carvedilol (Coreg) 6.25 mg PO BID-[facility] Last Admin: 09/15/18 08:44 Dose: 6.25 mg Dextrose/Water (Dextrose 50%) 25 gm SLOW IVP PRN PRN PRN Reason: Hypoglycemia Famotidine (Pepcid) 20 mg PO 0900 [facility] Last Admin: 09/15/18 08:44 Dose: 20 mg Glucagon (Glucagon) 1 mg IM PRN PRN PRN Reason: Hypoglycemia Heparin Sodium (Porcine) (Heparin) 5,000 units SC BID [facility] Last Admin: 09/15/18 08:45 Dose: 5,000 units Hydralazine HCl (Apresoline) 10 mg SLOW IVP Q4H PRN PRN Reason: SBP Greater Than 180 Last Admin: 09/11/18 09:48 Dose: 10 mg Dextrose/Water (D5w) 1,000 mls @ 0 mls/hr IV .Q0M PRN PRN Reason: Hypoglycemia Ceftriaxone Sodium 1 gm/ (Sodium Chloride) 100 mls @ 200 mls/hr IVPB DAILY [facility] Last Admin: 09/15/18 08:44 Dose: 100 mls Insulin Human Regular (Humulin R) 0 units SC .MILD SLIDING SCALE PRN PRN Reason: Mild Correctional Scale Last Admin: 09/15/18 12:18 Dose: 2 unit Insulin Human Regular (Humulin R) 0 units SC .BEDTIME SLIDING SC PRN PRN Reason: Bedtime Correctional Scale Last Admin: 09/11/18 21:14 Dose: 2 unit Isosorbide Mononitrate (Imdur) 60 mg PO BID [facility] Last Admin: 09/15/18 08:44 Dose: 60 mg Loperamide HCl (Imodium) 2 mg PO PRN PRN PRN Reason: Diarrhea/Loose Stools Nitroglycerin (Nitrostat) 0.4 mg PO Q5MIN PRN PRN Reason: Chest Pain Ondansetron HCl (Zofran Odt) 4 mg PO Q6H PRN PRN Reason: Nausea/Vomiting Ondansetron HCl (Zofran) 4 mg IVP Q6H PRN PRN Reason: Nausea/Vomiting Sodium Chloride (Flush - Normal Saline) 10 ml IVF Q12HR [facility] Last Admin: 09/15/18 08:45 Dose: 10 ml Sodium Chloride (Flush - Normal Saline) 10 ml IVF PRN PRN PRN Reason: Saline Flush
--- NOTE | 2018-09-15 19:53 | PRG ---
DATE OF SERVICE: 09/15/2018 SUBJECTIVE: The patient was seen and examined, seems to be doing much better and noted with the foll owing vital signs. OBJECTIVE: VITAL SIGNS: Afebrile, temperature 97.6, pulse 80, respiratory 20, blood pressure 145/79, O2 sat 99% on room air. HEENT: Unremarkable. CARDIOVASCULAR: First and second heart sounds were heard. RESPIRATORY: Clear to auscultation. DIGESTIVE: Revealed a benign abdomen with positive bowel sounds. EXTREMITIES: No peripheral edema. LYMPHATICS: No peripheral lymphadenopathy. IMPRESSION: Acute on chronic kidney disease which is much improved. PLAN: 1. Discontinue IV fluid. 2. Renally dose all medications. 3. Chronic kidney disease education. 4. Further management to be dependent on the clinical course.
[2018-09-16 05:55] LABS: Anion Gap 10 mmol/L (10-20); BUN (Urea Nitrogen) 27 mg/dL (8.4-25.7); Calc. Creatinine Clearance 18 mL/min (70-130); Calcium 8.1 mg/dL (7.8-10.44); Carbon Dioxide 20 mmol/L (23-31); Chloride 114 mmol/L (98-107); Estimated GFR-MDRD 33; Glucose 138 mg/dL (80-115); Potassium 3.8 mmol/L (3.5-5.1); Sodium 140 mmol/L (136-145)
[2018-09-16] MEDS: Famotidine 20 MG TAB PO SCH (10:30)
[2018-09-16] MEDS: Carvedilol 6.25 MG TAB PO SCH ×2 (10:31→15:56)
[2018-09-16] MEDS: cefTRIAXone\\ROCEPHIN 1 GM in Sodium Chloride 0.9% 100 ML IVPB SCH (10:31)
[2018-09-16] MEDS: Heparin 5,000 UNITS/ML VIAL SC SCH ×2 (10:32→20:52)
--- NOTE | 2018-09-16 13:13 | PDOC.PN ---
- Subjective Encounter Start Date: 09/16/18 Encounter Start Time: 13:12 Subjective: no new complaints.talking to family on phone - Objective Resuscitation Status: Resuscitation Status FULL:Full Resuscitation MAR Reviewed: Yes Vital Signs & Weight: Vital Signs (12 hours) Temp Pulse Resp BP BP Pulse Ox 09/16/18 11:30 97.6 F 76 19 170/85 H 96 09/16/18 10:31 169/93 H 09/16/18 07:20 97.7 F 76 20 169/93 H 96 09/16/18 04:00 97.7 F Weight Admit Weight 95 lb 6.4 oz Weight 97 lb 1.6 oz I&O: 09/15/18 09/16/18 09/17/18 06:59 06:59 06:59 Intake Total 1313 750 Output Total 150 Balance 1163 750 Result Diagrams: 09/14/18 04:13 09/16/18 04:35 Additional Labs: Accuchecks 09/16/18 09/16/18 09/15/18 11:27 04:23 20:45 POC Glucose 300 H 146 H 198 H 09/15/18 09/15/18 17:10 16:20 POC Glucose 95 67 L Microbiology 09/12/18 Unknown Stool - Liquid Stool Lactoferrin - Final 09/12/18 Unknown Stool - Liquid Stool Culture - Final 09/12/18 Unknown Stool - Liquid Rapid Parasite Screen - Final 09/12/18 Unknown Stool - Liquid Campylobacter Antigen Assay - Final 09/12/18 Unknown Stool - Liquid Shiga Toxin Test - Final 09/11/18 00:45 Urine voided Urine Culture - Final Laboratory Tests 09/11/18 09/12/18 09/13/18 04:25 05:33 03:43 Creatinine 6.85 H 4.77 H 3.62 H 09/14/18 09/15/18 09/16/18 04:13 10:04 04:35 Creatinine 2.98 H 2.45 H 2.35 H Phys Exam - Physical Examination Constitutional: NAD HEENT: PERRLA, moist MMs, sclera anicteric, oral pharynx no lesions Neck: no nodes, no JVD, supple, full ROM Respiratory: no wheezing, no rales, no rhonchi, clear to auscultation bilateral Cardiovascular: RRR, no significant murmur, no rub Gastrointestinal: soft, non-tender, no distention, positive bowel sounds Musculoskeletal: no edema, pulses present Neurological: non-focal, normal sensation, moves all 4 limbs Psychiatric: normal affect, A&O x 3 Skin: no rash Dx/Plan - Plan PT/OT, out of bed/ambulate, DVT proph w/SCDs . * .1. Acute kidney injury on chronic kidney disease, stage 4/Dehydration. 2. Generalized weakness secondary to #1. 3. UTI 4. Metabolic acidosis secondary to renal insufficiency. 5. 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 6. Elevated troponins in indeterminate range secondary to renal failure/demand ischemia. 7. Chronic anemia, probably secondary to renal insufficiency. 8. Medication noncompliance. 9.Moderate protein calorie malnutrition PLAN- Stop Abx as urine Cx and blood Cx negative IVF stopped yesterday .Cr at baseline Placement when accpeted HD stable Review of Systems - Review of Systems Constitutional: weakness Eyes: negative: Pain, Vision Change, Conjunctivae Inflammation, Eyelid Inflammation, Redness, Other ENT: negative: Ear Pain, Ear Discharge, Nose Pain, Nose Discharge, Nose Congestion, Mouth Pain, Mouth Swelling, Throat Pain, Throat Swelling, Other Respiratory: negative: Cough, Dry, Shortness of Breath, Hemoptysis, SOB with Excertion, Pleuritic Pain, Sputum, Wheezing Cardiovascular: negative: chest pain, palpitations, orthopnea, paroxysmal nocturnal dyspnea, edema, light headedness, other Gastrointestinal: negative: Nausea, Vomiting, Abdominal Pain, Diarrhea, Constipation, Melena, Hematochezia, Other Genitourinary: negative: Dysuria, Frequency, Incontinence, Hematuria, Retention , Other Musculoskeletal: negative: Neck Pain, Shoulder Pain, Arm Pain, Back Pain, Hand Pain, Leg Pain, Foot Pain, Other Neurological: negative: Weakness, Numbness, Incoordination, Change in Speech, Confusion, Seizures, Other - Medications/Allergies Allergies/Adverse Reactions: Allergies Allergy/AdvReac Type Severity Reaction Status Date / Time No Known Drug Allergies Allergy Verified 09/10/18 22:40 Medications: Current Medications Acetaminophen (Tylenol) 650 mg PO Q4H PRN PRN Reason: Headache/Fever/Mild Pain (1-3) Last Admin: 09/12/18 20:44 Dose: 650 mg Calcium Carbonate (Tums) 1,000 mg PO Q4H PRN PRN Reason: Heartburn or Indigestion Carvedilol (Coreg) 6.25 mg PO BID-[facility] Last Admin: 09/16/18 10:31 Dose: 6.25 mg Dextrose/Water (Dextrose 50%) 25 gm SLOW IVP PRN PRN PRN Reason: Hypoglycemia Famotidine (Pepcid) 20 mg PO 0900 [facility] Last Admin: 09/16/18 10:30 Dose: 20 mg Glucagon (Glucagon) 1 mg IM PRN PRN PRN Reason: Hypoglycemia Heparin Sodium (Porcine) (Heparin) 5,000 units SC BID [facility] Last Admin: 09/16/18 10:32 Dose: 5,000 units Hydralazine HCl (Apresoline) 10 mg SLOW IVP Q4H PRN PRN Reason: SBP Greater Than 180 Last Admin: 09/11/18 09:48 Dose: 10 mg Dextrose/Water (D5w) 1,000 mls @ 0 mls/hr IV .Q0M PRN PRN Reason: Hypoglycemia Ceftriaxone Sodium 1 gm/ (Sodium Chloride) 100 mls @ 200 mls/hr IVPB DAILY [facility] Last Admin: 09/16/18 10:31 Dose: 100 mls Insulin Human Regular (Humulin R) 0 units SC .MILD SLIDING SCALE PRN PRN Reason: Mild Correctional Scale Last Admin: 09/15/18 12:18 Dose: 2 unit Insulin Human Regular (Humulin R) 0 units SC .BEDTIME SLIDING SC PRN PRN Reason: Bedtime Correctional Scale Last Admin: 09/11/18 21:14 Dose: 2 unit Isosorbide Mononitrate (Imdur) 60 mg PO BID [facility] Last Admin: 09/16/18 10:33 Dose: 60 mg Loperamide HCl (Imodium) 2 mg PO PRN PRN PRN Reason: Diarrhea/Loose Stools Nitroglycerin (Nitrostat) 0.4 mg PO Q5MIN PRN PRN Reason: Chest Pain Ondansetron HCl (Zofran Odt) 4 mg PO Q6H PRN PRN Reason: Nausea/Vomiting Ondansetron HCl (Zofran) 4 mg IVP Q6H PRN PRN Reason: Nausea/Vomiting Sodium Chloride (Flush - Normal Saline) 10 ml IVF Q12HR [facility] Last Admin: 09/16/18 10:33 Dose: 10 ml Sodium Chloride (Flush - Normal Saline) 10 ml IVF PRN PRN PRN Reason: Saline Flush
[2018-09-16] MEDS: Insulin Regular 300 UNITS/3 ML VIAL SC PRN (15:59)
--- NOTE | 2018-09-16 19:32 | PRG ---
DATE OF SERVICE: 09/16/2018 SOCIAL HISTORY: The patient was seen and examined. No new complaint noted. PHYSICAL EXAMINATION: VITAL SIGNS: Noted with the following vital signs. Afebrile with temperature 97.6, pulse 76, blood pressure 150/87, respiratory rate 17, O2 sat 96%. HEENT: Unremarkable. CARDIOVASCULAR SYSTEM: First and second heart sounds were heard. RESPIRATORY SYSTEM: Clear to auscultation. DIGESTIVE SYSTEM: Revealed a benign abdomen with positive bowel sounds. EXTREMITIES: No peripheral edema. SKIN: No new gross rash. LYMPHATICS: No peripheral lymphadenopathy. LABORATORY INVESTIGATION: Showed creatinine of 2.35 and BUN of 27. IMPRESSION: 1. Acute on chronic kidney disease which seems to have improved back to baseline. 2. Mild metabolic acidosis. 3. Anemia, likely anemia of chronic kidney disease. PLAN: 1. We will continue current renal supportive measures. 2. Very close outpatient Nephrology followup strongly recommended. 3. Further management to be dependent on the clinical course.
[2018-09-17 05:33] LABS: Anion Gap 9 mmol/L (10-20); BUN (Urea Nitrogen) 27 mg/dL (8.4-25.7); Calc. Creatinine Clearance 20 mL/min (70-130); Calcium 8.1 mg/dL (7.8-10.44); Carbon Dioxide 24 mmol/L (23-31); Chloride 111 mmol/L (98-107); Estimated GFR-MDRD 37; Glucose 182 mg/dL (80-115); Potassium 4.1 mmol/L (3.5-5.1); Sodium 140 mmol/L (136-145)
[2018-09-17] MEDS: Famotidine 20 MG TAB PO SCH (08:05)
[2018-09-17] MEDS: Carvedilol 6.25 MG TAB PO SCH ×2 (08:05→16:17)
[2018-09-17] MEDS: Heparin 5,000 UNITS/ML VIAL SC SCH ×2 (08:06→20:36)
[2018-09-17] MEDS: Insulin Regular 300 UNITS/3 ML VIAL SC PRN (11:37)
--- NOTE | 2018-09-17 14:16 | PDOC.PN ---
- Subjective Encounter Start Date: 09/17/18 Encounter Start Time: 14:15 Subjective: seen and examined at bedside.feels well. eating good -: working w PT but still very weak.reports that he is not able to take care -: of himself at home & no family available either - Objective Resuscitation Status: Resuscitation Status FULL:Full Resuscitation MAR Reviewed: Yes Vital Signs & Weight: Vital Signs (12 hours) Temp Pulse Resp BP BP Pulse Ox 09/17/18 11:17 98.3 F 66 19 156/85 H 99 09/17/18 08:05 165/87 H 09/17/18 07:53 98 F 78 18 153/83 H 95 09/17/18 04:58 98.3 F 69 16 147/69 H 99 Weight Admit Weight 95 lb 6.4 oz Weight 97 lb 1.6 oz I&O: 09/16/18 09/17/18 09/18/18 06:59 06:59 06:59 Intake Total 750 1320 Balance 750 1320 Result Diagrams: 09/14/18 04:13 09/17/18 04:33 Additional Labs: Accuchecks 09/17/18 09/17/18 09/16/18 11:14 04:57 20:02 POC Glucose 354 H 188 H 127 H 09/16/18 09/16/18 09/16/18 18:34 16:16 15:58 POC Glucose 142 H 271 H 232 H Microbiology 09/12/18 Unknown Stool - Liquid Stool Lactoferrin - Final 09/12/18 Unknown Stool - Liquid Stool Culture - Final 09/12/18 Unknown Stool - Liquid Rapid Parasite Screen - Final 09/12/18 Unknown Stool - Liquid Campylobacter Antigen Assay - Final 09/12/18 Unknown Stool - Liquid Shiga Toxin Test - Final 09/12/18 Unknown Stool C. difficile GDH Antigen & Toxins - Final 09/11/18 00:45 Urine voided Urine Culture - Final 09/10/18 13:40 Venous blood - Left Arm Blood Culture - Final NO GROWTH IN 5 DAYS 09/10/18 13:30 Venous blood - Left Arm Blood Culture - Final NO GROWTH IN 5 DAYS Laboratory Tests 09/11/18 09/12/18 09/13/18 04:25 05:33 03:43 Creatinine 6.85 H 4.77 H 3.62 H 09/14/18 09/15/1809/16/18 04:13 10:04 04:35 Creatinine 2.98 H 2.45 H 2.35 H 09/17/18 04:33 Creatinine 2.16 H Phys Exam - Physical Examination Constitutional: NAD HEENT: PERRLA, moist MMs, sclera anicteric, oral pharynx no lesions Neck: no nodes, no JVD, supple, full ROM Respiratory: no wheezing, no rales, no rhonchi, clear to auscultation bilateral Cardiovascular: RRR, no significant murmur, no rub Gastrointestinal: soft, non-tender, no distention, positive bowel sounds Musculoskeletal: no edema, pulses present Neurological: non-focal, normal sensation, moves all 4 limbs Psychiatric: normal affect, A&O x 3 Skin: no rash Dx/Plan - Plan . * .1. Acute kidney injury on chronic kidney disease, stage 4/Dehydration. 2. Generalized weakness secondary to #1. 3. UTI 4. Metabolic acidosis secondary to renal insufficiency. 5. 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 6. Elevated troponins in indeterminate range secondary to renal failure/demand ischemia. 7. Chronic anemia, probably secondary to renal insufficiency. 8. Medication noncompliance. 9.Moderate protein calorie malnutrition * . PLAN- RENAL FX BACK TO BASELINE.READY FOR NEXT LEVEL OF CARE.NOT SAFE TO DC HOME HE HAS NO FAMILY AND IS SEVERELY DECONDITIONED TO TAKE CARE OF HIMSELF WITH EVIDENCE OF EARLY DEMENTIA WITH ON AND OFF CONFUSION. MINI-COG ASSESMENT DOEN AND PT NOT ABLE TO RECALL TWO OUT OF THREE WORDS .HE WAS ABLE TO DRAW CLOCK AND SHOW CORRECT TIME. WILL ARRANGE NH PLACEMENT. CONT MEDS BELOW. HD STABLE Review of Systems - Review of Systems Constitutional: weakness, malaise. negative: fever, chills, sweats, other Respiratory: negative: Cough, Dry, Shortness of Breath, Hemoptysis, SOB with Excertion, Pleuritic Pain, Sputum, Wheezing Cardiovascular: negative: chest pain, palpitations, orthopnea, paroxysmal nocturnal dyspnea, edema, light headedness, other Gastrointestinal: negative: Nausea, Vomiting, Abdominal Pain, Diarrhea, Constipation, Melena, Hematochezia, Other Genitourinary: negative: Dysuria, Frequency, Incontinence, Hematuria, Retention , Other Musculoskeletal: negative: Neck Pain, Shoulder Pain, Arm Pain, Back Pain, Hand Pain, Leg Pain, Foot Pain, Other Skin: negative: Rash, Lesions, Marcell, Bruising, Other Neurological: negative: Weakness, Numbness, Incoordination, Change in Speech, Confusion, Seizures, Other - Medications/Allergies Allergies/Adverse Reactions: Allergies Allergy/AdvReac Type Severity Reaction Status Date / Time No Known Drug Allergies Allergy Verified 09/10/18 22:40 Medications: Current Medications Acetaminophen (Tylenol) 650 mg PO Q4H PRN PRN Reason: Headache/Fever/Mild Pain (1-3) Last Admin: 09/12/18 20:44 Dose: 650 mg Calcium Carbonate (Tums) 1,000 mg PO Q4H PRN PRN Reason: Heartburn or Indigestion Carvedilol (Coreg) 6.25 mg PO BID[facility] Last Admin: 09/17/18 08:05 Dose: 6.25 mg Dextrose/Water (Dextrose 50%) 25 gm SLOW IVP PRN PRN PRN Reason: Hypoglycemia Famotidine (Pepcid) 20 mg PO 0900 [facility] Last Admin: 09/17/18 08:05 Dose: 20 mg Glucagon (Glucagon) 1 mg IM PRN PRN PRN Reason: Hypoglycemia Heparin Sodium (Porcine) (Heparin) 5,000 units SC BID [facility] Last Admin: 09/17/18 08:06 Dose: 5,000 units Hydralazine HCl (Apresoline) 10 mg SLOW IVP Q4H PRN PRN Reason: SBP Greater Than 180 Last Admin: 09/11/18 09:48 Dose: 10 mg Dextrose/Water (D5w) 1,000 mls @ 0 mls/hr IV .Q0M PRN PRN Reason: Hypoglycemia Insulin Human Regular (Humulin R) 0 units SC .MILD SLIDING SCALE PRN PRN Reason: Mild Correctional Scale Last Admin: 09/17/18 11:37 Dose: 6 unit Insulin Human Regular (Humulin R) 0 units SC .BEDTIME SLIDING SC PRN PRN Reason: Bedtime Correctional Scale Last Admin: 09/11/18 21:14 Dose: 2 unit Isosorbide Mononitrate (Imdur) 60 mg PO BID [facility] Last Admin: 09/17/18 08:05 Dose: 60 mg Loperamide HCl (Imodium) 2 mg PO PRN PRN PRN Reason: Diarrhea/Loose Stools Nitroglycerin (Nitrostat) 0.4 mg PO Q5MIN PRN PRN Reason: Chest Pain Ondansetron HCl (Zofran Odt) 4 mg PO Q6H PRN PRN Reason: Nausea/Vomiting Ondansetron HCl (Zofran) 4 mg IVP Q6H PRN PRN Reason: Nausea/Vomiting Sodium Chloride (Flush - Normal Saline) 10 ml IVF Q12HR [facility] Last Admin: 09/17/18 08:06 Dose: 10 ml Sodium Chloride (Flush - Normal Saline) 10 ml IVF PRN PRN PRN Reason: Saline Flush
[2018-09-18] MEDS: hydrALAZINE 20 MG/ML VIAL SLOW IVP PRN (06:02)
[2018-09-18] MEDS: Insulin Regular 300 UNITS/3 ML VIAL SC PRN (06:14)
[2018-09-18 06:25] LABS: Anion Gap 12 mmol/L (10-20); BUN (Urea Nitrogen) 31 mg/dL (8.4-25.7); Calc. Creatinine Clearance 20 mL/min (70-130); Calcium 8.7 mg/dL (7.8-10.44); Carbon Dioxide 21 mmol/L (23-31); Chloride 109 mmol/L (98-107); Estimated GFR-MDRD 38; Glucose 205 mg/dL (80-115); Potassium 4.3 mmol/L (3.5-5.1); Sodium 138 mmol/L (136-145)
[2018-09-18] MEDS: Famotidine 20 MG TAB PO SCH (08:09)
[2018-09-18] MEDS: Carvedilol 6.25 MG TAB PO SCH (08:09)
[2018-09-18] MEDS: Heparin 5,000 UNITS/ML VIAL SC SCH (08:09)
--- NOTE | 2018-09-18 09:24 | PRG ---
DATE OF SERVICE: 09/18/2018 SUBJECTIVE: The patient was seen and examined and noted with the following vital signs. PHYSICAL EXAMINATION: VITAL SIGNS: Afebrile, temperature 97.6, pulse 60, respiratory rate of 16, O2 sat 99%. HEENT: Unremarkable with moist oral mucosa. CARDIOVASCULAR SYSTEM: First and second heart sounds were heard. RESPIRATORY SYSTEM: Clear to auscultation. DIGESTIVE: Revealed a benign abdomen. EXTREMITIES: No peripheral edema. SKIN: No new gross rash. LYMPHATICS: No peripheral lymphadenopathy. LABORATORY INVESTIGATION: BUN of 27. IMPRESSION: 1. Acute on chronic kidney disease, much improved. 2. Chronic kidney disease stage 3. PLAN: 1. Continue current renal supportive measures. 2. From the renal standpoint, the patient is good for discharge. 3. Outpatient Nephrology followup strongly recommended.
[2018-09-18 11:36] VITALS: BP 142/74; TEMP 97.3
--- NOTE | 2018-09-18 23:05 | DIS ---
DATE OF ADMISSION: 09/10/2018 DATE OF DISCHARGE: 09/18/2018 DISCHARGE DISPOSITION: [facility]. DISCHARGE DIAGNOSES: 1. Acute on chronic renal insufficiency. 2. Severe dehydration. 3. Poor oral intake. 4. [id number] early dementia. 5. Severe deconditioning. 6. Urinary tract infection. 7. Metabolic acidosis secondary to acute renal insufficiency. 8. Hypertension. 9. Diabetes mellitus with diabetic nephropathy. 10. Elevated cardiac enzymes, likely demand ischemia from renal failure. 11. Chronic anemia, probably secondary to chronic kidney disease. 12. Moderate protein-calorie malnutrition. DISCHARGE MEDICATIONS: Metformin 1000 mg in the morning XR, Crestor 10 mg daily, Imdur 60 mg p.o. b. i.d., carvedilol 6.25 mg p.o. b.i.d., Zofran every 4 hours as needed p.r.n., Pepcid 20 mg daily, TUMS p.r.n., Tylenol p.r.n., INHOUSE CONSULTATIONS: Nephrology, Dr. Smith. PROCEDURES DONE IN HOSPITAL: None except for chest x-ray upon admission, which is unremarkable. HISTORY OF PRESENTING ILLNESS: Mr. Gonsalez is a pleasant 68-year-old -Mal[place]ian male with know n history of chronic systolic and diastolic congestive heart failure, chronic kidney disease, diabete s, hypertension, peripheral vascular disease, who presented to the emergency room with complaints of generalized weakness. He was transferred from [place] [facility]. Five days ago, patient w as seen in [place] ER for possible UTI and was started on Bactrim and also was provided a refill on metformin and lisinopril. Upon presentation, he was noticed to be very dehydrated, not urinating much with poor p.o. intake in the last few days. In the ER, his workup was consistent with acute ki dney injury. Chest x-ray was unremarkable. He was given empiric IV antibiotic and fluid and was tra nsferred to a facility and was admitted for acute renal injury on chronic kidney disease. Nephrology was consulted. Upon presentation, his creatinine was 7.84. Please see admission history and physic al for further detail. He was also found to have metabolic acidosis secondary to renal insufficiency as well as borderline elevated troponin secondary to the renal insufficiency. HOSPITAL COURSE: The patient was resuscitated with IV fluids and his renal function was followed sandrita sely. His urine culture and blood culture were sent and were negative. His stool was also checked a nd it was negative for C. difficile and other pathogens. His renal function stabilized after multipl e days. It was found out that the patient has no family and he was severely deconditioned with some evidence of dementia. A mini cognitive test was done by myself in the hospital, which shows evidence of early dementia. [facility] placement was arranged for him as none of his remote family members were domingo ilable to take care of him. Patient is not a safe discharge, as he is unable to take care of himself due to severe deconditioning and some dementia. He has been accepted to [facility] and will be discharged. He has been cleared for disch arge by Nephrology as well. He was seen and examined prior to discharge. PHYSICAL EXAMINATION: VITAL SIGNS: This morning, temperature 97.3, pulse of 75, respirations 16, saturating 98% on room ai r, blood pressure 142/74. GENERAL: No acute distress, awake, alert, oriented to self and sometimes to place. CHEST: Clear to auscultation bilaterally. HEART: Rate and rhythm is regular. LABORATORY EXAMINATION: Discharge creatinine is 2.09, blood sugar 227. CBC shows hemoglobin of 9.3, which is chronic. PRIMARY CARE PHYSICIAN: Dr. Scott Giron. DISCHARGE FOLLOWUP: 1. Primary care physician. 2. Nephrology, Dr. Smith. Total time spent in the discharge of this patient 35 minutes.
== END 2018-09-18 16:41 | DRG 683 ==
LOC: ERS 16:38 → 2NO 19:46 → T4-B 09-12 17:16
PROVIDERS: ADMIT Internal Medicine; ATTEND Internal Medicine
DX: N17.9 Acute kidney failure, unspecified (principal); Z68.1 Body mass index [BMI] 19.9 or less, adult; I50.42 Chronic combined systolic (congestive) and diastolic (congestive) heart failure; I24.8 Other forms of acute ischemic heart disease; N39.0 Urinary tract infection, site not specified; E44.0 Moderate protein-calorie malnutrition; I13.0 Hypertensive heart and chronic kidney disease with heart failure and stage 1 through stage 4 chronic kidney disease, or unspecified chronic kidney disease; I42.9 Cardiomyopathy, unspecified; E87.2 Acidosis; E86.0 Dehydration; Z91.14 Patient's other noncompliance with medication regimen; D64.9 Anemia, unspecified; N18.4 Chronic kidney disease, stage 4 (severe); E87.6 Hypokalemia; I73.9 Peripheral vascular disease, unspecified; E11.21 Type 2 diabetes mellitus with diabetic nephropathy
CPT/HCPCS: 36415; 36416; 80048; 80069; 81001; 83605; 83630; 83735; 84443; 85025; 87045; 87046; 87086; 87324; 87328; 87329; 87449; 87899; 94760; 99285; G8996-GN-CK; G8997-GN-CI; J0360; J0696; J1644; J1815; J7050; J7070

== ENCOUNTER 2018-10-11 14:24 | Inpatient (IN) | payer MEDICARE, MEDICAID ==
[2018-10-11 14:51] LABS: #Basophils 0.1 thou/uL (0.0-0.2); #Eosinphils 0.1 thou/uL (0.0-0.7); #Lymphocytes 1.2 thou/uL (1.20-3.40); #Monocytes 0.7 thou/uL (0.11-0.59); #Neutrophils 4.5 thou/uL (1.40-6.50); %Basophils 0.8 % (0.0-1.0); %Eosinophils 0.8 % (0.0-10.0); %Lymphocytes 18.2 % (21.0-51.0); %Monocytes 10.8 % (0.0-10.0); %Neutrophils 69.3 % (42.0-75.0); Hemoglobin 8.6 g/dL (14.0-18.0); Mean Corpuscular HGB CONC 31.5 g/dL (32.0-36.0); Mean Corpuscular Hemoglobin 26.9 pg (27.0-31.0); Mean Corpuscular Volume 85.4 fL (78.0-98.0); Platelet Count 254 thou/uL (130-400); RBC Distribution Width 15.1 % (11.5-14.5); Red Blood Cell (RBC) Count 3.18 mill/uL (4.70-6.10); White Blood Cell (WBC) Count 6.5 thou/uL (4.8-10.8)
[2018-10-11 15:07] LABS: Bilirubin Negative (Negative); Blood, Urine Large (Negative); Clarity TURBID (Clear); Glucose, Urine (Dipstick) Negative (Negative); Leukocyte Moderate (Negative); Nitrite Negative (Negative); Protein, Urine (Dipstick) 100 mg/dL (Neg-Trace); Specific Gravity, Urine 1.007 (1.002-1.036); Urobilinogen 0.2 mg/dL (0.2-1.0); pH, Urine 5.5 (5.0-9.0)
[2018-10-11] MEDS ORDERED: cefTRIAXone\\ROCEPHIN 2 GM VIAL ONE (15:07)
[2018-10-11 15:08] LABS: Bacteria/HPF None Seen HPF (None Seen); RBC/HPF 0-3 HPF (0-3); WBC/HPF 21-50 HPF (0-3)
[2018-10-11 15:10] LABS: ALT (SGPT) 126 U/L (8-55); AST (SGOT) 195 U/L (5-34); Albumin 2.1 g/dL (3.4-4.8); Alkaline Phosphatase 138 U/L (40-150); Anion Gap 11 mmol/L (10-20); BUN (Urea Nitrogen) 50 mg/dL (8.4-25.7); Bilirubin, Total 0.3 mg/dL (0.2-1.2); CK (CPK) 31 U/L (30-200); Calc. Creatinine Clearance 0 mL/min (70-130); Calcium 7.1 mg/dL (7.8-10.44); Chloride 121 mmol/L (98-107); Estimated GFR-MDRD 21; Globulin 3.2 g/dL (2.4-3.5); Glucose 159 mg/dL (80-115); Lipase 40 U/L (8-78); Potassium 4.6 mmol/L (3.5-5.1); Protein, Total 5.3 g/dL (5.8-8.1); Sodium 135 mmol/L (136-145)
[2018-10-11 15:11] LABS: Pathc Cast-AUWi Flag 12.59 (0-2.49)
[2018-10-11 15:12] LABS: CKMB 1.9 ng/mL (0-6.6); Troponin I Less than 0.010 ng/mL (< 0.028)
[2018-10-11 15:14] LABS: Carbon Dioxide 8 mmol/L (23-31)
[2018-10-11 15:14] LABS: Crystals/HPF None Seen HPF (Negative); Oval Fat Bodies/HPF None Seen HPF (None Seen); Renal Epithelial None Seen HPF (0-3); Transitional Epithelial NONE SEEN HPF (0-3); Trichomonas/HPF None Seen HPF (None Seen)
[2018-10-11 15:15] LABS: Hyaline Casts/LPF 4-6 HYALINE CAST LPF (0-3 Hyaline); Other Casts/LPF None Seen LPF (0-3 Hyaline)
[2018-10-11] MEDS ORDERED: DOPamine 400 MG/D5W 250 ML 250 ML ONE (15:38)
--- NOTE | 2018-10-11 15:45 | RAD ---
PORTABLE CHEST ONE VIEW: 10/11/2018 2:27 p.m. HISTORY: Altered mental status. COMPARISON: 09/10/2018 FINDINGS: There is a right subclavian central line, with the tip in the projection of the SVC. The heart size is normal. The aorta is tortuous. The lungs are well expanded without lobar consolidation, pneumoth oraces, or pleural effusions. Evidence of old granulomatous disease is redemonstrated. IMPRESSION: No acute process. POS: JOESPHH
[2018-10-11] MEDS ORDERED: Dextrose 5% in Water 1,000 ML IV PRN (16:38)
[2018-10-11] MEDS ORDERED: Dextrose 50% Abboject 50 ML SYRINGE SLOW IVP PRN (16:38)
[2018-10-11] MEDS ORDERED: GENTAMICIN SULFATE IVPB SCH (16:45)
[2018-10-11] MEDS ORDERED: SODIUM CHLORIDE 0.9% IVPB SCH (16:45)
[2018-10-11] MEDS ORDERED: Sodium Chloride 0.9% 1,000 ML IV SCH (16:45)
[2018-10-11 18:51] LABS: INR-International Normal Ratio 1.3; PTT 49.3 SEC (22.9-36.1); Prothrombin Time 15.8 SEC (12.0-14.7)
[2018-10-11 18:59] LABS: #Basophils 0.1 thou/uL (0.0-0.2); #Eosinphils 0.1 thou/uL (0.0-0.7); #Neutrophils 14.3 thou/uL (1.40-6.50); %Basophils 0.7 % (0.0-1.0); %Eosinophils 0.4 % (0.0-10.0); %Lymphocytes 11.3 % (21.0-51.0); %Monocytes 5.7 % (0.0-10.0); Hemoglobin 9.3 g/dL (14.0-18.0); Mean Corpuscular HGB CONC 32.4 g/dL (32.0-36.0); Mean Corpuscular Hemoglobin 27.5 pg (27.0-31.0); Mean Corpuscular Volume 84.8 fL (78.0-98.0); Mean Platelet Volume 6.2 fL (7.4-10.4); Platelet Count 343 thou/uL (130-400); RBC Distribution Width 15.2 % (11.5-14.5); Red Blood Cell (RBC) Count 3.39 mill/uL (4.70-6.10); White Blood Cell (WBC) Count 17.5 thou/uL (4.8-10.8)
[2018-10-11 19:07] LABS: Iron 27 ug/dL (65-175); Iron Binding Capacity, Total 163 mcg/dL (261-462)
[2018-10-11 19:48] LABS: Folate (Folic Acid) 4.2 ng/mL (7.0-31.4)
[2018-10-11] MEDS ORDERED: DOPamine 400 MG/D5W 250 ML 250 ML IVPB SCH (20:00)
[2018-10-11] MEDS: Sodium Bicarbonate 150 MEQ in Dextrose 5% in Water 1,000 ML IV SCH (21:15)
[2018-10-11] MEDS ORDERED: VANCOMYCIN IVPB PRN (22:46)
--- NOTE | 2018-10-11 22:46 | HP ---
CHIEF COMPLAINT: Syncopal episode. HISTORY OF PRESENT ILLNESS: This patient is a 68-year-old male with some chronic kidney disease and some cardiomyopathy who was brought today from nursing facility in [place] where the patient donal arently had a syncopal episode. EMS reported that on their arrival, the patient was hypotensive and hypothermic. He was given 3 liters normal saline and started on Levophed through a peripheral IV. O n arrival, the patient reported feeling well and having no complaints. He continues to report that h e feels well without complaints on my exam as well. In the emergency department, patient has had a c entral line placed and Levophed has been changed to dopamine because he was experiencing some bradyca rdia. He is on a warming blanket as his initial rectal temperature was 91.9. Of note, the patient a pparently was recently diagnosed with a urinary tract infection. It is unclear whether he was actual ly on any treatment or not. REVIEW OF SYSTEMS: Basically impossible to obtain given the patient's mild dementia. He continues t o say everything feels completely fine, so either review of systems is completely negative or he is n ot a reliable historical source. PAST MEDICAL HISTORY: Primarily based on previous admissions notable for an admission exactly 1 priscila h ago at which time the patient had acute renal insufficiency and was felt to possibly have urinary t ract infection at that time as well. His urine cultures remained negative. He was felt to be severe ly dehydrated at that time. I also had the diagnosis of mild to moderate dementia, severe deconditio [place], metabolic acidosis, felt to be related to acute renal insufficiency, hypertension, diabetes niesha litus with diabetic nephropathy, demand ischemia, renal failure, chronic anemia felt to be related to his chronic kidney disease and moderate protein calorie malnutrition. PAST SURGICAL HISTORY: Includes left knee surgery, right femoral stent and resection of toes on the right foot. FAMILY HISTORY: Reportedly negative for heart disease. SOCIAL HISTORY: No alcohol, tobacco or drugs. The patient is currently residing in a nursing facilloring hospital in [place]. His next of kin listed in our computer is a friend who lives in [place]. Sangeetha dennis attempted to call Ms. Winters however did not get an answer. ALLERGIES: None. CURRENT MEDICATIONS: Coreg 6.25 one p.o. b.i.d., famotidine 20 mg every day, isosorbide 60 mg b.i.d. , lisinopril 20 mg every day, Crestor 10 mg every day, loperamide 2 mg every day p.r.n., nitroglyceri n 0.4 sublingual p.r.n., Zofran 4 mg p.r.n., acetaminophen p.r.n., DuoNeb p.r.n. PHYSICAL EXAMINATION: VITAL SIGNS: Most recent vital signs; BP 123/67, pulse 71, respirations 16, rectal temperature was 9 2.4 and O2 sat 100% on room air. GENERAL APPEARANCE: Patient is awake and alert, pleasant and interactive. He appears to be in no di stress. He is not fully oriented. HEENT: PERRL. No OP lesions. NECK: Supple and symmetric without lymphadenopathy, JVD or bruits. HEART: Regular without murmurs. LUNGS: Clear bilaterally with no wheezes or rales noted and good air exchange. ABDOMEN: Appears to be soft, nontender, nondistended, positive bowel sounds. No masses, no organome raisa. SKIN: Warm and dry without any joint swelling or edema. LABORATORY DATA AND IMAGING DATA: White count 6.5, hemoglobin 8.6, platelets 254. Chemistry: Sodiu m 135, potassium 4.6, chloride 121, CO2 is 8, BUN 50, creatinine 3.44, glucose 159, calcium 7.1, AST 195, ALT 126, alkaline phosphatase 138. Troponin less than 0.01, albumin 2.1. Urinalysis shows some protein, large blood, moderate leukocyte esterase, 0-3 red cells, 21-50 white cells, 11-20 squamous cells. Flu screen is negative. Chest x-ray is negative. EKG initially showed bradycardia at 52, so me T-wave flattening in inferior leads and Q-waves in II, III, and AVF. IMPRESSION AND PLAN: 1. Probable sepsis. Difficult to know for certain as patient certainly does have hypothermia and hy potension and the only source of infection could potentially be his urine at this point. Blood cultu res have been obtained. Urine cultures will be sent. He was thought to have urinary tract infection in his previous admission; however, he had negative cultures. He has received vancomycin, gentamici n, and Rocephin in the emergency department. We will continue those for now, so we can follow up cul wilson. Interestingly, the patient is very acidotic, but he does not have lactic acidosis which would certainly mitigate against the possibility of infectious sepsis. 2. Acute renal failure. The patient has a history of chronic kidney disease, but has significant wo rsening of his creatinine. His most recent creatinine was 09/18/2018 and it was 2.09. He has had co uple of episodes now being admitted to the hospital with elevated creatinine. He has received signif icant fluid resuscitation. Dr. Scott has been consulted to come see the patient. 3. Acidosis, possibly due to uremia, although his BUN is only 50; however, his lactic acid is normal at 0.9. Patient has been on metformin recently even with the renal insufficiency, but that would li harish result in lactic acidosis which he does not appear to have 4. Elevated liver enzymes, unclear etiology, certainly may be secondary to hypotension and shock. W e will obtain a right upper quadrant ultrasound to ensure that we are not missing some other potentia l source of infection and sepsis. 5. Chronic kidney disease with prior ultrasounds demonstrating parenchymal disease consistent with m edical renal disease. 6. Anemia. Patient's hemoglobin has been dropping fairly significantly and more so recently. I bel ieve the patient is somewhat dry and 8.6 hemoglobin will likely be significantly lower on recheck. 7. Syncope likely due to sepsis and hypotension. I have ordered a recheck for that promptly. We will also check an anemia panel and Hemoccults. DISPOSITION: The patient is being admitted to the ICU. We will continue some fluids and a dopamine drip as needed. We will consult Pulmonary or Critical Care. Again, I have attempted to reach his ne xt of kin and have not been able to thus far. We will continue to keep the patient full code until w e can establish something for certain. So we will consult the palliative care team with assistance i n that effort.
[2018-10-11] MEDS: Heparin 5,000 UNITS/ML VIAL SC SCH (23:26)
[2018-10-12 03:15] LABS: #Lymphocytes 0.8 thou/uL (1.20-3.40); #Monocytes 0.7 thou/uL (0.11-0.59); #Neutrophils 9.5 thou/uL (1.40-6.50); %Basophils 0.3 % (0.0-1.0); %Eosinophils 0.4 % (0.0-10.0); %Lymphocytes 7.6 % (21.0-51.0); %Monocytes 5.9 % (0.0-10.0); %Neutrophils 85.8 % (42.0-75.0); Hemoglobin 9.3 g/dL (14.0-18.0); Mean Corpuscular HGB CONC 30.8 g/dL (32.0-36.0); Mean Corpuscular Hemoglobin 25.4 pg (27.0-31.0); Mean Corpuscular Volume 82.5 fL (78.0-98.0); Mean Platelet Volume 6.1 fL (7.4-10.4); Platelet Count 356 thou/uL (130-400); Red Blood Cell (RBC) Count 3.64 mill/uL (4.70-6.10)
[2018-10-12 03:30] LABS: Albumin 2.4 g/dL (3.4-4.8); Anion Gap 12 mmol/L (10-20); BUN (Urea Nitrogen) 50 mg/dL (8.4-25.7); BUN/Creatinine Ratio 13.44; Calc. Creatinine Clearance 12 mL/min (70-130); Calcium 8.1 mg/dL (7.8-10.44); Carbon Dioxide 12 mmol/L (23-31); Chloride 119 mmol/L (98-107); Estimated GFR-MDRD 20; Glucose 140 mg/dL (80-115); Phosphorus 4.9 mg/dL (2.3-4.7); Potassium 4.1 mmol/L (3.5-5.1); Sodium 139 mmol/L (136-145)
[2018-10-12] MEDS: Sodium Bicarbonate 150 MEQ in Dextrose 5% in Water 1,000 ML IV SCH ×2 (06:13→14:55)
--- NOTE | 2018-10-12 08:45 | ULT ---
ULTRASOUND ABDOMEN COMPLETE PELVIC ULTRASOUND: HISTORY: Elevation of the liver function enzymes with sepsis. TECHNIQUE: 1. Zapata-scale ultrasound evaluation of the liver, gallbladder, spleen, pancreas, common bile duct, k idneys, abdominal aorta, and inferior vena cava (IVC). 2. Zapata-scale and Doppler color flow imaging performed. FINDINGS: There is no focal hepatic lesion. Gallbladder is not visualized for comment. Correlate with surgica l history. The common duct is normal measuring 4-5 mm. Colmenares's sign is reported as negative by son ographer. The pancreas is obscured from view by bowel content limiting assessment. There is mild prominence of the bilateral renal collecting systems. There are small echogenic kidneys. Pelvic ultrasound is performed which reveals moderate distention of the urinary bladder that demonstr ates multiple internal echogenic foci with wall prominence indicating debris within the bladder lumen . This could relate to cystitis in the correct clinical context. There is no free pelvic fluid. IMPRESSION: 1. Prominent wall of urinary bladder with prominent internal debris. Correlate for evidence of urin [place] tract infection. There is subtle trabeculation of the bladder wall, as well. 2. There is mild prominence of each renal collecting system indicating a mild degree of hydronephros is. This could relate to a reflux versus obstructive pathology. Continued followup may prove useful . POS: JOSE ALEJANDRO
[2018-10-12] MEDS: Heparin 5,000 UNITS/ML VIAL SC SCH ×3 (09:38→20:43)
[2018-10-12 14:37] LABS: Vancomycin, Random 11.5 ug/mL (See Comment)
[2018-10-12] MEDS: Vancomycin HCl 750 MG in Sodium Chloride 0.9% 250 ML 250 ML IVPB SCH (17:38)
[2018-10-12] MEDS: cefTRIAXone\\ROCEPHIN 1 GM in Sodium Chloride 0.9% 100 ML IVPB SCH (17:39)
--- NOTE | 2018-10-12 20:09 | CT ---
CT ABDOMEN AND PELVIS WITHOUT CONTRAST: Technique: Multiple contiguous axial images were obtained through the abdomen and pelvis without IV e nhancement. Indications: Mild hydronephrosis noted on recent ultrasound earlier today. Thickening of the wall of the bladder was noted. Comparison: CT December 2010. FINDINGS: Lung bases show mild atelectasis without focal infiltrate. Liver, spleen, and pancreas unremarkable for an unenhanced exam. Both kidneys show mild bilateral hyd ronephrosis. There is prominence of both ureters. Both ureters are dilated to the UV junction. Bladde r is abnormal. There is abnormal density at the UVJ. There is a linear septation seen traversing the bladder with abnormal bladder wall. There is a large distended portion of the bladder superiorly whic h is connected with thickened tena to the bladder, possibly representing a diverticulum, however, th is shows abnormal dilatation and the tena of the apparent diverticulum are abnormal. Small bowel loops appear normal caliber. Aorta shows calcification but normal caliber. IMPRESSION: There is mild bilateral hydronephrosis and hydro ureters. The bladder is abnormal with thickened wall s and an apparent septum seen horizontally along the inferior bladder. There is a dilated portion of the superior bladder connected to the body of the bladder with abnormal thickened bladder tena. Blad briana neoplasm should be excluded. Recommend cystoscopy. Cystogram may be of benefit to assess these bl adder findings. CT with contrast would also be helpful to further evaluate. POS: JOSE ALEJANDRO
--- NOTE | 2018-10-12 22:44 | PDOC.PN ---
- Subjective Encounter Start Date: 10/12/18 Encounter Start Time: 08:20 Patient continues to say he is fine. Nursing reports he is not wanted to eat. He says he intermittently has no appetite. - Objective Resuscitation Status: Resuscitation Status FULL:Full Resuscitation Vital Signs & Weight: Vital Signs (12 hours) Temp 10/12/18 20:00 97.9 F 10/12/18 16:00 98.3 F 10/12/18 12:00 98.8 F Weight Admit Weight 104 lb 15.04 oz Weight 104 lb 15.04 oz Most Recent Monitor Data Heart Rate from ECG 76 NIBP 140/74 NIBP BP-Mean 96 Respiration from ECG 15 SpO2 100 I&O: 10/11/18 10/12/18 10/13/18 06:59 06:59 06:59 Intake Total 1497 1814.5 Output Total 27 5 Balance 1470 1809.5 Result Diagrams: 10/12/18 02:50 10/12/18 02:50 Additional Labs: Accuchecks 10/12/18 10/12/18 10/12/18 21:57 18:01 12:44 POC Glucose 181 H 137 H 151 H 10/12/18 10/11/18 06:16 23:11 POC Glucose 132 H 105 Phys Exam - Physical Examination Constitutional: NAD Respiratory: no wheezing, no rales, no rhonchi, clear to auscultation bilateral Cardiovascular: RRR, no significant murmur, no rub Gastrointestinal: soft, non-tender, no distention Musculoskeletal: no edema Neurological: non-focal Psychiatric: normal affect Deviation from normal: Apparently mild dementia. Dx/Plan (1) Sepsis Code(s): A41.9 - SEPSIS, UNSPECIFIED ORGANISM Status: Acute Comment: Weaning pressors. BP is improving. (2) UTI (urinary tract infection) Status: Acute Comment: Not confirmed. Had suspected UTI at last admission, but culture was negative. Continue abx and follow up cultures. (3) CKD (chronic kidney disease) stage 4, GFR 15-29 ml/min Code(s): N18.4 - CHRONIC KIDNEY DISEASE, STAGE 4 (SEVERE) Status: Chronic Comment: Has some oliguria now. Bladder scanning. 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 insulin use: without regional intermodal truck driver use Diabetes mellitus complication status: with kidney complications Diabetes mellitus complication detail: with chronic kidney disease Chronic kidney disease stage : stage 4 (severe) Qualified Code(s): E11.22 - Type 2 diabetes mellitus with diabetic chronic kidney disease; N18.4 - Chronic kidney disease, stage 4 (severe ) (5) HTN (hypertension) Code(s): I10 - ESSENTIAL (PRIMARY) HYPERTENSION Status: Chronic Qualifiers: Hypertension type: essential hypertension Qualified Code(s): I10 - Essential (primary) hypertension Comment: uncontrolled (6) PVD (peripheral vascular disease) Code(s): I73.9 - PERIPHERAL VASCULAR DISEASE, UNSPECIFIED Status: Chronic Comment: with prior stent in right LE (7) Anorexia Code(s): R63.0 - ANOREXIA Status: Acute - Plan * Has recurrent evidence of UTI, but had negative culture previously. Suspect he has not been eating and drinking. Has "debris" in bladder on imaging. Concerning for possibility of neoplasm. Consult Urology.
[2018-10-13] MEDS: Sodium Bicarbonate 150 MEQ in Dextrose 5% in Water 1,000 ML IV SCH ×2 (00:47→12:42)
[2018-10-13] MEDS ORDERED: SODIUM CHLORIDE 0.9% IVPB SCH (05:00)
[2018-10-13] MEDS ORDERED: GENTAMICIN SULFATE IVPB SCH (05:00)
[2018-10-13 05:02] LABS: Albumin 2.5 g/dL (3.4-4.8); Anion Gap 12 mmol/L (10-20); BUN (Urea Nitrogen) 37 mg/dL (8.4-25.7); BUN/Creatinine Ratio 11.28; Calc. Creatinine Clearance 14 mL/min (70-130); Carbon Dioxide 23 mmol/L (23-31); Chloride 108 mmol/L (98-107); Estimated GFR-MDRD 23; Glucose 104 mg/dL (80-115); Phosphorus 3.8 mg/dL (2.3-4.7); Potassium 3.8 mmol/L (3.5-5.1); Sodium 139 mmol/L (136-145)
[2018-10-13] MEDS ORDERED: Loperamide HCl 2 MG CAP PO PRN (07:59)
[2018-10-13] MEDS ORDERED: Calcium Carbonate 500 MG ChewTAB PO PRN (07:59)
[2018-10-13] MEDS ORDERED: Ondansetron ODT 4 MG TAB PO PRN (07:59)
[2018-10-13] MEDS ORDERED: Acetaminophen 325 MG TAB PO PRN (07:59)
[2018-10-13] MEDS ORDERED: Ipratropium Bromide 2.5 ml Neb NEB PRN (08:58)
[2018-10-13] MEDS: Famotidine 20 MG TAB PO SCH (09:12)
--- NOTE | 2018-10-13 10:21 | CON ---
DATE OF CONSULTATION: 10/12/2018 CONSULTING PHYSICIAN: Mary Smith M.D. REQUESTING PHYSICIAN: Gerber Justice M.D. REASON FOR CONSULTATION: Acute on chronic kidney disease. IMPRESSION: 1. Acute on chronic kidney disease. This is likely hemodynamically mediated compounded by cytokine- mediated injury in the context of infection. 2. Severe metabolic acidosis in the context of reduced GFR and possible lactic acidemia. PLAN: 1. Discontinue normal saline to avoid re-expansion acidosis, it also worsens the patient's metabolic state; therefore, we will start this patient on bicarbonate-based infusion and monitor the electroly kendra, especially potassium . 2. No indication at this point for renal replacement therapy (hemodialysis), but we will continue wi th renal supportive measures and avoid potentially nephrotoxic agents. 3. Renally dosing all medications. HISTORY OF PRESENT ILLNESS: This is that of a 68-year-old gentleman who in the recent time has been in and out of the hospital and each time experiences some acute on chronic kidney disease. Patient w as discharged with a creatinine in the 2 range and represented here with elevated creatinine. Patien t noted to be hypotensive out in the field requiring pressors. On further clinical evaluation, patiyolanda nt noted with severely depleted bicarbonate level. As a result of all these findings, the decision h as been taken to involve Renal in the management of this case. Patient seems not to be eating much, though claimed that he eats in any case. PAST MEDICAL HISTORY: Significant for chronic kidney disease stage 3/4. This is a urinary tract inf ection, failure to thrive/malnutrition, diabetes mellitus with diabetic nephropathy, hypertension. MEDICATIONS: Reviewed and as documented on [employer]. FAMILY HISTORY: None significantly related to presenting illness. SOCIAL HISTORY: Patient currently is in a retirement facility in [place]. No alcohol, no tob acco, no illicit drug use. REVIEW OF SYSTEMS: As documented in the body of the history. Patient denies any other system pathol ogy. LABORATORY INVESTIGATION: Revealed hemoglobin of 9.3 with a white count of 11,000. Chemistry showed a creatinine of 3.72 with BUN of 50, bicarbonate of 8, phosphorus 4.9. PHYSICAL EXAMINATION: GENERAL: Patient was found to be cachectic, malnourished noted with the following vital signs. VITAL SIGNS: He is afebrile with temperature 98.3, pulse 83, blood pressure 140/90, O2 sat 100%. HEENT: Unremarkable. CARDIOVASCULAR SYSTEM: First and heart sounds were heard. RESPIRATORY SYSTEM: Clear to auscultation. DIGESTIVE SYSTEM: Revealed a benign abdomen. EXTREMITIES: Showed very cachectic lower extremity: No peripheral edema. NEUROLOGIC: Alert, oriented. No lateralizing sign. SUMMARY: A 68-year-old gentleman who is suffering from malnutrition presented here with evidence of [id number] kidney disease in the context of potential sepsis. Thank you for this consultation. We will follow with you.
[2018-10-13] MEDS ORDERED: Fentanyl 100 MCG/2 ML VIAL ONE (10:22)
[2018-10-13] MEDS ORDERED: Sodium Bicarbonate 2.5 MEQ/5 ML VIAL ONE (10:22)
[2018-10-13] MEDS ORDERED: Midazolam HCl 2 mg/2 ml Vial ONE (10:22)
--- NOTE | 2018-10-13 10:38 | PDOC.PN ---
- Subjective Encounter Start Date: 10/13/18 Encounter Start Time: 08:30 -: old records requested/rev Patient seen and examined. No new complaints. No overnight events - Objective Resuscitation Status: Resuscitation Status FULL:Full Resuscitation MAR Reviewed: Yes Vital Signs & Weight: Vital Signs (12 hours) Temp Pulse Ox 10/13/18 07:25 100 10/13/18 07:00 97.8 F 10/13/18 00:00 98.9 F Weight Admit Weight 104 lb 15.04 oz Weight 107 lb 2.314 oz Most Recent Monitor Data Heart Rate from ECG 69 NIBP 143/88 NIBP BP-Mean 106 Respiration from ECG 15 SpO2 100 I&O: 10/12/18 10/13/18 10/14/18 06:59 06:59 06:59 Intake Total 1497 3114.5 271 Output Total 27 8 1 Balance 1470 3106.5 270 Result Diagrams: 10/12/18 02:50 10/13/18 03:51 Additional Labs: Accuchecks 10/13/18 10/12/18 10/12/18 06:26 21:57 18:01 POC Glucose 117 H 181 H 137 H 10/12/18 12:44 POC Glucose 151 H Radiology Reviewed by me: Yes EKG Reviewed by me: Yes Phys Exam - Physical Examination Constitutional: NAD HEENT: PERRLA, moist MMs, sclera anicteric Neck: no nodes, no JVD, supple Respiratory: no wheezing, no rales, no rhonchi Cardiovascular: RRR, no significant murmur, no rub Gastrointestinal: soft, non-tender, no distention, positive bowel sounds Musculoskeletal: no edema, pulses present Neurological: non-focal, normal sensation Lymphatic: no nodes Psychiatric: normal affect Skin: no rash, normal turgor Dx/Plan (1) Sepsis Code(s): A41.9 - SEPSIS, UNSPECIFIED ORGANISM Status: Acute Comment: (2) UTI (urinary tract infection) Status: Acute Comment: (3) Anemia of renal disease Code(s): N18.9 - CHRONIC KIDNEY DISEASE, UNSPECIFIED; D63.1 - ANEMIA IN CHRONIC KIDNEY DISEASE Status: Chronic (4) CKD (chronic kidney disease) stage 4, GFR 15-29 ml/min Code(s): N18.4 - CHRONIC KIDNEY DISEASE, STAGE 4 (SEVERE) Status: Chronic Comment: (5) DM type 2 (diabetes mellitus, type 2) Status: Chronic Qualifiers: Diabetes mellitus 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 control 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 insulin use: without penitentiary use Diabetes mellitus complication status: with kidney complications Diabetes mellitus complication detail: with chronic kidney disease Chronic kidney disease stage : stage 4 (severe) Qualified Code(s): E11.22 - Type 2 diabetes mellitus with diabetic chronic kidney disease; N18.4 - Chronic kidney disease, stage 4 (severe ) (6) Dyslipidemia Code(s): E78.5 - HYPERLIPIDEMIA, UNSPECIFIED Status: Chronic (7) HTN (hypertension) Code(s): I10 - ESSENTIAL (PRIMARY) HYPERTENSION Status: Chronic Qualifiers: Hypertension type: essential hypertension Qualified Code(s): I10 - Essential (primary) hypertension Comment: (8) PVD (peripheral vascular disease) Code(s): I73.9 - PERIPHERAL VASCULAR DISEASE, UNSPECIFIED Status: Chronic Comment: with prior stent in right LE (9) Protein-calorie malnutrition, moderate Code(s): E44.0 - MODERATE PROTEIN-CALORIE MALNUTRITION Status: Chronic - Plan cont current plan of care, continue antibiotics * medication reviewed as below * symptomatic treatment * today plan for suprapubic catheter * discussed with nephrology * continue vancomycin and rocephin * home medication reconciled * transfer to medical floor. Review of Systems - Review of Systems Constitutional: negative: fever, chills, sweats, weakness, malaise, other ENT: negative: Ear Pain, Ear Discharge, Nose Pain, Nose Discharge, Nose Congestion, Mouth Pain, Mouth Swelling, Throat Pain, Throat Swelling, Other Respiratory: negative: Cough, Dry, Shortness of Breath, Hemoptysis, SOB with Excertion, Pleuritic Pain, Sputum, Wheezing Cardiovascular: negative: chest pain, palpitations, orthopnea, paroxysmal nocturnal dyspnea, edema, light headedness, other Gastrointestinal: negative: Nausea, Vomiting, Abdominal Pain, Diarrhea, Constipation, Melena, Hematochezia, Other Genitourinary: negative: Dysuria, Frequency, Incontinence, Hematuria, Retention , Other Musculoskeletal: negative: Neck Pain, Shoulder Pain, Arm Pain, Back Pain, Hand Pain, Leg Pain, Foot Pain, Other Skin: negative: Rash, Lesions, Marcell, Bruising, Other - Medications/Allergies Allergies/Adverse Reactions: Allergies Allergy/AdvReac Type Severity Reaction Status Date / Time No Known Drug Allergies Allergy Verified 10/11/18 22:24 Medications: Current Medications Acetaminophen (Tylenol) 650 mg PO Q4H PRN PRN Reason: Headache/Fever/Mild Pain (1-3) Calcium Carbonate (Tums) 1,000 mg PO Q4H PRN PRN Reason: Heartburn or Indigestion Dextrose/Water (Dextrose 50%) 25 gm SLOW IVP PRN PRN PRN Reason: Hypoglycemia Famotidine (Pepcid) 20 mg PO 0900 PENDING SALE TO [facility] Last Admin: 10/13/18 09:12 Dose: 20 mg Glucagon (Glucagon) 1 mg IM PRN PRN PRN Reason: Hypoglycemia Dextrose/Water (D5w) 1,000 mls @ 0 mls/hr IV .Q0M PRN PRN Reason: Hypoglycemia Ceftriaxone Sodium 1 gm/ (Sodium Chloride) 100 mls @ 200 mls/hr IVPB Q24HR PENDING SALE TO [facility] Last Admin: 10/12/18 17:39 Dose: 100 mls Vancomycin HCl 750 mg/ Sodium (Chloride) 250 mls @ 250 mls/hr IVPB 1700 PENDING SALE TO [facility] Last Admin: 10/12/18 17:38 Dose: 250 mls Gentamicin Sulfate 238 mg/ (Sodium Chloride) 105.95 mls @ 105.95 mls/hr IVPB Q36H PENDING SALE TO [facility] Last Admin: 10/13/18 04:24 Dose: 105.95 mls Dopamine HCl/Dextrose (Dopamine/D5w) 250 mls @ 0 mls/hr IVPB INF PENDING SALE TO [facility]; Protocol Dextrose/Sodium Chloride (D5 0.9% Ns) 1,000 mls @ 70 mls/hr IV .[id number] PENDING SALE TO [facility] Insulin Human Lispro (Humalog) 0 units SC .MILD SLIDING SCALE PRN PRN Reason: Mild Correctional Scale Ipratropium [place] (Atrovent) 2.5 ml NEB QIDPRN PRN PRN Reason: SOB &/or Wheezing Loperamide HCl (Imodium) 2 mg PO PRN PRN PRN Reason: Diarrhea/Loose Stools Miscellaneous Medication (Pharmacy To Dose) 1 each IVPB PRN PRN PRN Reason: Pharmacy to dose Ondansetron HCl (Zofran Odt) 4 mg PO Q6H PRN PRN Reason: Nausea/Vomiting Rosuvastatin Calcium (Crestor) 10 mg PO [facility] Sodium Chloride (Flush - Normal Saline) 10 ml IVF Q12HR PENDING SALE TO [facility] Last Admin: 10/13/18 09:12 Dose: 10 ml Sodium Chloride (Flush - Normal Saline) 10 ml IVF PRN PRN PRN Reason: Saline Flush
[2018-10-13] MEDS: Dextrose 5 % And 0.9 % NaCl 1,000 ML IV SCH (12:30)
--- NOTE | 2018-10-13 14:01 | CT ---
CT GUIDED SUPRAPUBIC CATHETER PLACEMENT: CLINICAL HISTORY: Bladder cancer. Hydronephrosis. Oliguria. Absence of indwelling urinary catheter. TECHNIQUE: Informed consent was obtained. The patient was escorted to the procedural suite and placed in the [place] position. The patient's ventral pelvis was prepped and draped in the standard sterile fashion, and topical anesthesia with buffered 1% Lidocaine was performed, and a small skin incision was made u sing the standard suprapubic catheter kit. Access into the urinary bladder was acquired, which was c onfirmed with CT imaging, and the catheter balloon was insufflated, securing the catheter within the urinary bladder lumen. The catheter was then stitched to the patient's body wall, to maintain approp riate positioning. The catheter was flushed, and the catheter did flush appropriately. Note is made that the return within the catheter from the urinary bladder lumen is markedly viscous, which may re late to extensive tumor cell deposition, given the morphologic appearance of the urinary bladder, and this will likely impede drainage within the catheter. No procedural complications were present. The patient was returned to the hospital floor in stable c ondition, to receive further care. The procedural details were discussed with Dr. Grier at the time of completion. Recommend plac ement of a Connors catheter for the purpose of continual flushing of the bladder, in an attempt to prov ciera a less viscous consistency of the urinary bladder contents, in an attempt to aid with catheter dr ainage of bladder contents. IMPRESSION: Technically successful CT guided suprapubic catheter placement, as discussed above. CODE CR POS: JOSE ALEJANDRO
--- NOTE | 2018-10-13 14:50 | CON ---
DATE OF CONSULTATION: 10/12/2018 CONSULTING PHYSICIAN: Dr. Gerber Justice. CONSULTED PHYSICIAN: Dr. Gregory Levi. REASON FOR CONSULTATION: Mild hydronephrosis and bladder debris. HISTORY OF PRESENT ILLNESS: Mr. Gonsalez is a 68-year-old black male, who was admitted to the [facility] for syncope and hypertension as well as hypothermia. He was already given 3 liters of normal salin e and started on Levophed and was transferred to the ICU. Due to significant elevation in his creati nine, the patient had an abdominal ultrasound performed, which demonstrated bladder debris as well as mild bilateral hydronephrosis. He has a history of recurrent urinary tract infection, and apparentl y, has been admitted in the past for UTIs and similar symptoms. Per the history from the hospital re cords as well as the patient's daughter, he has had multiple urinary tract infections in the past. T he patient does have fairly mokr-tq-cnnmhesf dementia and is not the best historian. Most of the his tory is obtained from the nursing staff as well as the patient's daughter, who I spoke with over the telephone, as she was not present in person. He apparently has had urinary issues with urinary frequ ency and urgency. At times, he feels like he needs to urinate and he cannot, and other times he parvin ot control his urination. He is relatively immobile and he currently urinates into a pull up. He is nearly completely incontinent, although he does make it to the bathroom sometimes. He denies any he maturia or any previous urologic surgeries, kidney stones, or prior urinary retention. He has had ca theters in the past. He did have a catheter upon admission, although it was removed by the nephrolog ist per his orders when the patient could void on his own which he did. His postvoid residuals were not adequately measured on bladder ultrasound. Currently, the patient states that he feels fine. He is not having any pain. He did not like his catheter and states he does not want it replaced. PAST MEDICAL HISTORY: 1. Prior syncopal episodes. 2. Recurrent . 3. Dehydration. 4. Moderate dementia. 5. Severe deconditioning. 6. Metabolic acidosis. 7. Chronic renal insufficiency. 8. Hypertension. 9. Diabetes mellitus, type 2. 10. Demand ischemia. 11. Heart failure. 12. Chronic anemia. 13. Protein and calorie malnutrition. PAST SURGICAL HISTORY: 1. Left knee surgery. 2. Right femoral artery stent. 3. Resection of toes in the right foot. FAMILY HISTORY: Negative for heart disease and renal issues. SOCIAL HISTORY: The patient denies alcohol, tobacco, or illicit drug use. He currently lives in a [facility] facility in [place]. His power of employment law attorney is his daughter, who I have spoken with on e phone, but is currently not present. HOME MEDICATIONS: 1. Insulin. 2. Rosuvastatin. 3. Zofran. 4. Isosorbide mononitrate. 5. Famotidine. 6. Carvedilol. 7. Calcium carbonate. 8. Tylenol. 9. Cipro. 10. DuoNeb. 11. Nitroglycerin. 12. Loperamide. 13. Lisinopril. ALLERGIES: None. REVIEW OF SYSTEMS: A 12-point review of systems was attempted to be obtained with the patient freque ntly, gets sidetracked and was not answering questions appropriately. PHYSICAL EXAMINATION: VITAL SIGNS: Temperature 98.9, pulse 82, respirations 17, blood pressure 148/70, saturation 96% on r oom air. GENERAL: In no apparent distress, communicative, alert and oriented x2. Appropriate mood and affect , cachectic and thin. HEENT: Normocephalic, atraumatic. Sclerae are nonicteric. Pupils are symmetric and round. Moist m ucous membranes. Trachea midline. CARDIOVASCULAR: Regular rate, occasional irregular rhythm with PVCs. Normal S1 and S2. CHEST: No increased work of breathing. Normal-shaped chest. Symmetric expansion of lungs, clear an teriorly. ABDOMEN: Soft, nontender, nondistended, positive bowel sounds. No organomegaly. No palpable bladde r. No suprapubic tenderness. GENITOURINARY: Patient is uncircumcised and no blood at the meatus. Penis is nonfocal. Testes are bilaterally descended. No focal abnormalities or lesions. RECTAL EXAM: Deferred at this time. EXTREMITIES: No clubbing, cyanosis, or edema. MUSCULOSKELETAL: No obvious joint deformities or joint erythema noted. The patient has 4 extremitie s weakness, but is able to move all extremities equally. He does have a scar over the left knee. SKIN: Warm, dry, poor turgor. NEUROLOGIC: Cranial nerves II through XII grossly intact. No obvious focal sensory or motor deficit s identified, although he has generalized weakness. PSYCHIATRIC: Alert and oriented x2. Appropriate mood and affect. LABORATORY EVALUATION: The full set of labs are in the [employer] system, which I have reviewed. Of n josee, the patient's white count on 10/11/2018 was 17.5, currently 11 yesterday, hemoglobin is 9.3, cre atinine is currently 3.72. Urinalysis demonstrates large blood, moderate leukocyte esterase, 21-50 w hammad cells, 0-2 red cells. Urine culture is currently pending, but has not grown anything yet. Bloo d cultures are negative x2. Renal ultrasound during mild bilateral calyceal blunting without o vert hydronephrosis with significant debris noted within the bladder and an irregular-shaped bladder with possible bladder wall thickening. A CT stone protocol done at my request demonstrates again mil d bilateral hydronephrosis and hydroureter. The bladder is abnormal with thickened bladder wall with an apparent septum horizontal along the inferior bladder wall. It does appear to be a very large bl adder diverticulum with abnormally thickened bladder wall. PROCEDURE: After discussion with the the prostate was nonobstructive very poor visibilit y the cystoscope withdrawn and a 16-Gibraltarian Connors catheter was placed with copious amounts of bl adder copious amounts of mucus and purulent material removed via Connors catheter using 1 liter o f normal saline for irrigation. The material was almost slimy and had a foul odor. This was irrigat ed completely until the urine was only slightly turbid. The urine could not be completely cleared. The cystoscope was introduced back into the bladder again. A full cystoscopy was performed again, bu t visibility was limited due to extremely poor visualization secondary to high amount of debris still present within the bladder. demonstrated a diffuse chronic cystitis, but no obvious tumors or malignancy. Again, a full cystoscopy could not be evaluated. There was a muscular septum along the inferior aspect of the bladder, which correlates with CT findings. There is an extremely large blad briana diverticulum along the dome of the bladder with relatively small clots. A full cystoscopy within diverticulum demonstrates diverticulum without stones . There is again heavy sediment al gregorio the inferior aspect of the diverticulum and again along the bladder floor consistent with a mucop urulent material. Again, no tumor was identified trabeculation and inflammation throughout the bladder. The cystoscope was then withdrawn. The patient refused a Connors catheter to be left in. ASSESSMENT AND PLAN: A 68-year-old black male with urinary retention with a large bladder diverticul um, likely responsible source, recurrent urinary tract infection with copious amount of mucus and pur ulent material within the bladder. It is possible that this is resulting in his chronic hydronephros is along with his recurrent urinary tract infection. Given the patient's comorbidities and poor heal th at the current time, he is not really a good candidate for any kind of surgical procedure at this time and I did recommend catheter drainage. The patient states he refuses to have a Connors catheter a nd he is finding it extremely uncomfortable. I talked to the patient about having an SP tube instead and states he would be willing to do that instead. He understands that there will be a catheter con nected to a bag and will have to live with this way permanently unless he gains enough strength and g ood health to undergo a bladder diverticulectomy, which will be the necessary surgery to possibly cor rect this condition. For now, we will plan for SP tube placement and we can consider further on an o utpatient basis after this current infection has been treated. I spoke with the radiologist, who sta albert that he would need a cystoscopy prior to doing any kind of SP tube to exclude malignancy and agai n all of the cystoscopy was not definitively a conclusive based on a complete evaluation. Limited ev aluation with the amount of debris within the bladder did not demonstrate any obvious tumors or any c oncerning aspects especially on the anterior aspect of the bladder wall. As such, I think it is reas onable enough to proceed forward with an SP tube placement given the patient's risks. I do not think he is a good candidate for a cystoscopy in the OR with anesthesia given his recent instability of bl ood pressure and comorbidities. I will go ahead and set him up for an SP tube placement, which he godoy s agreed to and we will handle his further workup on an outpatient basis. Dr. Grier will be av ailable for consult to see the patient tomorrow, as I would be out of the office. I will give a full checkout to her in the morning.
[2018-10-13] MEDS: cefTRIAXone\\ROCEPHIN 1 GM in Sodium Chloride 0.9% 100 ML IVPB SCH (16:16)
--- NOTE | 2018-10-13 16:47 | PRG ---
DATE OF SERVICE: 10/13/[address] Gregory Levi. REASON FOR EVALUATION: Difficult indwelling urethral Connors catheter placement, status post suprapubic tube. HISTORY OF PRESENT ILLNESS: Mr. Gonsalez is a 68-year-old male, he is a poor historian, much of the history is obtained per chart, and sign-out obtained by Dr. Levi this morning. The patient has history of mild hydronephrosis, underwent local cystoscopy yesterday by Dr. Levi due to large amount of mucopurulent discharge per his urethra. Cystoscopy was somewhat suboptimal due to significant amount of debris within the bladder. This was irrigated by Dr. Levi. As the patient did not desire to have an indwelling urethral Connors catheter or CICs as definitive treatment, he has elected to undergo suprapubic tube placement. I did receive calls from Radiology this morning as they were concerned regarding suprapubic tube placement based on his prior CT. I did inform the radiologist that there was significant debris seen on cystoscopy and it was irrigated out by Dr. Levi. Suprapubic tube was placed later this afternoon, I was contacted by Interventional Radiology as catheter was placed uneventfully; however, significant amount of thick mucus debris was obtained and will likely not drain efficiently despite SP tube, which is a 14- Vincentian catheter. I did review the CT myself of the suprapubic tube, which is in good position, as well as his prior CT demonstrating significantly distended bladder with a large bladder diverticulum, with a wide os. The patient is currently resting comfortably. As I was called regarding this matter, to optimize drainage of significant debris, SP tube drainage suboptimal, urethral Connors catheter to be replaced was advised. Nursing staff had difficulty passing catheter. PHYSICAL EXAMINATION: VITAL SIGNS: Stable. He is afebrile. I's and O's are not strictly documented. He has been incontinent of urine in diaper demonstrating concentrated yellow urine. Likely overflow incontinence. ABDOMEN: Soft, suprapubic tube is adequately secured; however, no significant output from the SP tube. GENITOURINARY: He is uncircumcised, diaper is grossly saturated with yellow concentrated urine. I discussed with the patient at bedside regarding indications of indwelling urethral Connors catheter as suprapubic tube is not efficiently draining at this time due to significant debris within the bladder. He agrees to have an indwelling urethral Connors catheter placed at this time. His genital area was formally prepped and draped and I was able to pass a 16-Vincentian Coude without any issues. I did irrigate the bladder, which demonstrates sedimentary debris, mucus thick debris. This was attached to gravity bag and secured with [employer]. PERTINENT LABORATORY DATA: White count of 11, which is decreased from 17. His hemoglobin is stable. Creatinine slowly decreasing from 3.7 to 3.2. Urine culture demonstrates Staph species. Final culture is pending. Blood culture is negative. IMPRESSION AND PLAN: Mr. Gonsalez is a 68-year-old cachectic, elderly male, with severe deconditioning, chronic renal insufficiency, diabetes with urologic issues of urinary retention, large bladder diverticulum with significant debris hindering diagnostic cystoscopy for thorough evaluation. The patient did undergo suprapubic tube placement, this is to remain to gravity. As it is not draining due to significant debris, an indwelling urethral Connors catheter was passed without difficulty. I recommend the urethral Connors to continue until his urine output has cleared. Nursing orders provided to flush his catheter p.r.n. Once his urine output is clear per urethral Connors, then his urethral Connors can be discontinued to allow suprapubic drain as a primary mechanism of bladder decompression. Please contact our office when the patient is ready to be discharged regarding followup appt with . Consider palliative care consult given his comorbidities and frail nature. Workup in progress. Recommend repeat cystoscopy at a later date, as his mucoid debris in the bladder is concerning and not typical of pyocystitis. Rare malignancy such as adenocarcinoma cannot be completely excluded. Discussed plan of action with hospitalist. scallop shucker coverage for prn issues. MTDD
[2018-10-13] MEDS: Vancomycin HCl 750 MG in Sodium Chloride 0.9% 250 ML 250 ML IVPB SCH (17:08)
[2018-10-13] MEDS: Rosuvastatin 10 MG TAB PO SCH (20:49)
[2018-10-14] MEDS: Dextrose 5 % And 0.9 % NaCl 1,000 ML IV SCH ×2 (05:12→08:04)
[2018-10-14 05:13] LABS: Albumin 2.1 g/dL (3.4-4.8); Anion Gap 13 mmol/L (10-20); BUN (Urea Nitrogen) 31 mg/dL (8.4-25.7); BUN/Creatinine Ratio 9.84; Calc. Creatinine Clearance 15 mL/min (70-130); Calcium 7.9 mg/dL (7.8-10.44); Carbon Dioxide 23 mmol/L (23-31); Chloride 109 mmol/L (98-107); Estimated GFR-MDRD 24; Glucose 139 mg/dL (80-115); Phosphorus 4.5 mg/dL (2.3-4.7); Potassium 3.4 mmol/L (3.5-5.1); Sodium 142 mmol/L (136-145)
[2018-10-14] MEDS: Famotidine 20 MG TAB PO SCH (08:03)
--- NOTE | 2018-10-14 10:55 | PDOC.PN ---
- Subjective Encounter Start Date: 10/14/18 Encounter Start Time: 09:40 Patient seen and examined. No new complaints. No overnight events - Objective Resuscitation Status: Resuscitation Status FULL:Full Resuscitation MAR Reviewed: Yes Vital Signs & Weight: Vital Signs (12 hours) Temp Pulse Resp BP Pulse Ox 10/14/18 08:00 98 10/14/18 07:15 98.1 F 78 16 161/72 H 98 10/14/18 03:49 98.6 F 85 16 163/78 H 96 10/14/18 00:07 98.1 F 88 18 133/72 99 Weight Admit Weight 104 lb 15.04 oz Weight 107 lb 2.314 oz Most Recent Monitor Data Heart Rate from ECG 84 NIBP 169/87 NIBP BP-Mean 114 Respiration from ECG 18 SpO2 100 I&O: 10/13/18 10/14/18 10/15/18 06:59 06:59 06:59 Intake Total 3114.5 1591 Output Total 8 651 Balance 3106.5 940 Result Diagrams: 10/12/18 02:50 10/14/18 03:55 Additional Labs: Accuchecks 10/14/18 10/13/18 03:49 20:11 POC Glucose 132 H 119 H Phys Exam - Physical Examination Constitutional: NAD HEENT: PERRLA, moist MMs, sclera anicteric Neck: no JVD, supple Respiratory: no wheezing, no rales, no rhonchi Cardiovascular: RRR, no significant murmur, no rub Gastrointestinal: soft, non-tender, no distention, positive bowel sounds suprapubic catheter+, moreno+ Musculoskeletal: no edema, pulses present Neurological: non-focal, normal sensation, moves all 4 limbs Psychiatric: normal affect, A&O x 3 Skin: no rash, normal turgor Dx/Plan (1) Sepsis Code(s): A41.9 - SEPSIS, UNSPECIFIED ORGANISM Status: Acute Comment: (2) UTI (urinary tract infection) Status: Acute Comment: due to MRSA (3) Anemia of renal disease Code(s): N18.9 - CHRONIC KIDNEY DISEASE, UNSPECIFIED; D63.1 - ANEMIA IN CHRONIC KIDNEY DISEASE Status: Chronic (4) CKD (chronic kidney disease) stage 4, GFR 15-29 ml/min Code(s): N18.4 - CHRONIC KIDNEY DISEASE, STAGE 4 (SEVERE) Status: Chronic Comment: (5) DM type 2 (diabetes mellitus, type 2) Status: Chronic Qualifiers: Diabetes mellitus [employer] insulin use: without [employer] use Diabetes mellitus complication status: with kidney complications Diabetes mellitus complication detail: with chronic kidney disease Chronic kidney disease stage : stage 4 (severe) Qualified Code(s): E11.22 - Type 2 diabetes mellitus with diabetic chronic kidney disease; N18.4 - Chronic kidney disease, stage 4 (severe ) (6) Dyslipidemia Code(s): E78.5 - HYPERLIPIDEMIA, UNSPECIFIED Status: Chronic (7) HTN (hypertension) Code(s): I10 - ESSENTIAL (PRIMARY) HYPERTENSION Status: Chronic Qualifiers: Hypertension type: essential hypertension Qualified Code(s): I10 - Essential (primary) hypertension Comment: (8) PVD (peripheral vascular disease) Code(s): I73.9 - PERIPHERAL VASCULAR DISEASE, UNSPECIFIED Status: Chronic Comment: with prior stent in right LE (9) Protein-calorie malnutrition, moderate Code(s): E44.0 - MODERATE PROTEIN-CALORIE MALNUTRITION Status: Chronic - Plan cont current plan of care, continue antibiotics * medication reviewed as below * symptomatic treatment * continue vancomycin for MRSA in urine * will consider moreno removal and then monitor if suprapubic is working * expecting discharge soon * nutritional support. Review of Systems - Review of Systems ENT: negative: Ear Pain, Ear Discharge, Nose Pain, Nose Discharge, Nose Congestion, Mouth Pain, Mouth Swelling, Throat Pain, Throat Swelling, Other Respiratory: negative: Cough, Dry, Shortness of Breath, Hemoptysis, SOB with Excertion, Pleuritic Pain, Sputum, Wheezing Cardiovascular: negative: chest pain, palpitations, orthopnea, paroxysmal nocturnal dyspnea, edema, light headedness, other Gastrointestinal: negative: Nausea, Vomiting, Abdominal Pain, Diarrhea, Constipation, Melena, Hematochezia, Other Genitourinary: negative: Dysuria, Frequency, Incontinence, Hematuria, Retention , Other Musculoskeletal: negative: Neck Pain, Shoulder Pain, Arm Pain, Back Pain, Hand Pain, Leg Pain, Foot Pain, Other - Medications/Allergies Allergies/Adverse Reactions: Allergies Allergy/AdvReac Type Severity Reaction Status Date / Time No Known Drug Allergies Allergy Verified 10/11/18 22:24 Medications: Current Medications Acetaminophen (Tylenol) 650 mg PO Q4H PRN PRN Reason: Headache/Fever/Mild Pain (1-3) Calcium Carbonate (Tums) 1,000 mg PO Q4H PRN PRN Reason: Heartburn or Indigestion Dextrose/Water (Dextrose 50%) 25 gm SLOW IVP PRN PRN PRN Reason: Hypoglycemia Famotidine (Pepcid) 20 mg PO 0900 [facility] Last Admin: 10/14/18 08:03 Dose: 20 mg Glucagon (Glucagon) 1 mg IM PRN PRN PRN Reason: Hypoglycemia Dextrose/Water (D5w) 1,000 mls @ 0 mls/hr IV .Q0M PRN PRN Reason: Hypoglycemia Vancomycin HCl 750 mg/ Sodium (Chloride) 250 mls @ 250 mls/hr IVPB 1700 [facility] Last Admin: 10/13/18 17:08 Dose: 250 mls Dextrose/Sodium Chloride (D5 0.9% Ns) 1,000 mls @ 70 mls/hr IV .[id number] [facility] Last Admin: 10/14/18 08:04 Dose: 1,000 mls Insulin Human Lispro (Humalog) 0 units SC .MILD SLIDING SCALE PRN PRN Reason: Mild Correctional Scale Ipratropium [place] (Atrovent) 2.5 ml NEB QIDPRN PRN PRN Reason: SOB &/or Wheezing Loperamide HCl (Imodium) 2 mg PO PRN PRN PRN Reason: Diarrhea/Loose Stools Miscellaneous Medication (Pharmacy To Dose) 1 each IVPB PRN PRN PRN Reason: Pharmacy to dose Ondansetron HCl (Zofran Odt) 4 mg PO Q6H PRN PRN Reason: Nausea/Vomiting Rosuvastatin Calcium (Crestor) 10 mg PO HS [facility] Last Admin: 10/13/18 20:49 Dose: 10 mg Sodium Chloride (Flush - Normal Saline) 10 ml IVF Q12HR [facility] Last Admin: 10/14/18 08:04 Dose: Not Given Sodium Chloride (Flush - Normal Saline) 10 ml IVF PRN PRN PRN Reason: Saline Flush
[2018-10-14 12:53] VITALS: BMI 17.2
[2018-10-14] MEDS: Vancomycin HCl 750 MG in Sodium Chloride 0.9% 250 ML 250 ML IVPB SCH (18:00)
[2018-10-14] MEDS: HumaLOG 300 UNITS/3 ML VIAL SC PRN (18:57)
[2018-10-14] MEDS: Rosuvastatin 10 MG TAB PO SCH (20:54)
[2018-10-15] MEDS: Dextrose 5 % And 0.9 % NaCl 1,000 ML IV SCH ×2 (05:01→17:11)
[2018-10-15] MEDS ORDERED: Eucerin (Mineral Oil/Petrolatum,White) 30 gm Jar TOP PRN (07:40)
[2018-10-15] MEDS ORDERED: Diabetic Tussin 200 MG/10 ML UDCUP PO PRN (07:40)
[2018-10-15] MEDS ORDERED: Acetaminophen 500 MG TAB PO PRN (07:40)
[2018-10-15] MEDS ORDERED: Zolpidem Tartrate 5 MG TAB PO PRN (07:40)
[2018-10-15] MEDS ORDERED: Loratadine 10 MG TAB PO PRN (07:40)
[2018-10-15] MEDS ORDERED: Senokot S 8.6-50 MG TAB PO PRN (07:40)
[2018-10-15] MEDS ORDERED: Artificial Tears 18 DROP/0.9 ML EA EYE PRN (07:40)
[2018-10-15] MEDS ORDERED: Ondansetron ODT 4 MG TAB PO PRN (07:40)
[2018-10-15] MEDS ORDERED: Sodium Chloride 0.65% Nasal 44 ML BOT EA NARE PRN (07:40)
[2018-10-15] MEDS ORDERED: hydrALAZINE 20 MG/ML VIAL SLOW IVP PRN (07:40)
[2018-10-15] MEDS ORDERED: Cepastat Lozenges 1 LOZ PO PRN (07:40)
[2018-10-15] MEDS: Lisinopril 20 MG TAB PO SCH (08:16)
[2018-10-15] MEDS: Saccharomyces boulardii 250 MG CAP PO SCH (08:16)
[2018-10-15] MEDS: Famotidine 20 MG TAB PO SCH (08:17)
[2018-10-15] MEDS: Carvedilol 6.25 MG TAB PO SCH ×2 (08:17→16:28)
[2018-10-15] MEDS ORDERED: Ondansetron PF 4 MG/2 ML Vial SLOW IVP PRN (09:24)
--- NOTE | 2018-10-15 09:32 | PDOC.PN ---
- Subjective Encounter Start Date: 10/15/18 Encounter Start Time: 07:40 Patient seen and examined. No new complaints. No overnight events - Objective Resuscitation Status: Resuscitation Status FULL:Full Resuscitation MAR Reviewed: Yes Vital Signs & Weight: Vital Signs (12 hours) Temp Pulse Resp BP BP Pulse Ox 10/15/18 08:17 170/78 H 10/15/18 08:16 170/78 H 10/15/18 07:20 98.2 F 74 16 170/78 H 99 Weight Admit Weight 104 lb 15.04 oz Weight 107 lb 2.314 oz Most Recent Monitor Data Heart Rate from ECG 84 NIBP 169/87 NIBP BP-Mean 114 Respiration from ECG 18 SpO2 100 I&O: 10/14/18 10/15/18 10/16/18 06:59 06:59 06:59 Intake Total 1591 2430 Output Total 651 1000 Balance 940 1430 Result Diagrams: 10/12/18 02:50 10/14/18 03:55 Additional Labs: Accuchecks 10/15/18 10/14/18 10/14/18 05:14 20:47 16:57 POC Glucose 96 114 H 302 H 10/14/18 10:53 POC Glucose 210 H Phys Exam - Physical Examination Constitutional: NAD HEENT: PERRLA, moist MMs, sclera anicteric Neck: no JVD, supple Respiratory: no wheezing, no rales, no rhonchi Cardiovascular: RRR, no significant murmur, no rub Gastrointestinal: soft, non-tender, no distention, positive bowel sounds suprapubic catheter+ moreno+ Musculoskeletal: no edema, pulses present Neurological: non-focal, normal sensation Lymphatic: no nodes Psychiatric: normal affect, A&O x 3 Skin: no rash, normal turgor Dx/Plan (1) Sepsis Code(s): A41.9 - SEPSIS, UNSPECIFIED ORGANISM Status: Acute Comment: (2) UTI (urinary tract infection) Status: Acute Comment: due to MRSA (3) Anemia of renal disease Code(s): N18.9 - CHRONIC KIDNEY DISEASE, UNSPECIFIED; D63.1 - ANEMIA IN CHRONIC KIDNEY DISEASE Status: Chronic (4) CKD (chronic kidney disease) stage 4, GFR 15-29 ml/min Code(s): N18.4 - CHRONIC KIDNEY DISEASE, STAGE 4 (SEVERE) Status: Chronic Comment: (5) DM type 2 (diabetes mellitus, type 2) Status: Chronic Qualifiers: Diabetes mellitus jail insulin use: without jail use Diabetes mellitus complication status: with kidney complications Diabetes mellitus complication detail: with chronic kidney disease Chronic kidney disease stage : stage 4 (severe) Qualified Code(s): E11.22 - Type 2 diabetes mellitus with diabetic chronic kidney disease; N18.4 - Chronic kidney disease, stage 4 (severe ) (6) Dyslipidemia Code(s): E78.5 - HYPERLIPIDEMIA, UNSPECIFIED Status: Chronic (7) HTN (hypertension) Code(s): I10 - ESSENTIAL (PRIMARY) HYPERTENSION Status: Chronic Qualifiers: Hypertension type: essential hypertension Qualified Code(s): I10 - Essential (primary) hypertension Comment: (8) PVD (peripheral vascular disease) Code(s): I73.9 - PERIPHERAL VASCULAR DISEASE, UNSPECIFIED Status: Chronic Comment: with prior stent in right LE (9) Protein-calorie malnutrition, moderate Code(s): E44.0 - MODERATE PROTEIN-CALORIE MALNUTRITION Status: Chronic - Plan cont current plan of care, continue antibiotics * medication reviewed as below * symptomatic treatment * continue vancomycin. * remove moreno if urology ok Review of Systems - Review of Systems ENT: negative: Ear Pain, Ear Discharge, Nose Pain, Nose Discharge, Nose Congestion, Mouth Pain, Mouth Swelling, Throat Pain, Throat Swelling, Other Respiratory: negative: Cough, Dry, Shortness of Breath, Hemoptysis, SOB with Excertion, Pleuritic Pain, Sputum, Wheezing Cardiovascular: negative: chest pain, palpitations, orthopnea, paroxysmal nocturnal dyspnea, edema, light headedness, other Gastrointestinal: negative: Nausea, Vomiting, Abdominal Pain, Diarrhea, Constipation, Melena, Hematochezia, Other Genitourinary: negative: Dysuria, Frequency, Incontinence, Hematuria, Retention , Other Musculoskeletal: negative: Neck Pain, Shoulder Pain, Arm Pain, Back Pain, Hand Pain, Leg Pain, Foot Pain, Other Skin: negative: Rash, Lesions, Marcell, Bruising, Other - Medications/Allergies Allergies/Adverse Reactions: Allergies Allergy/AdvReac Type Severity Reaction Status Date / Time No Known Drug Allergies Allergy Verified 10/11/18 22:24 Medications: Current Medications Acetaminophen (Tylenol) 1,000 mg PO Q6H PRN PRN Reason: Mild Pain (1-3) Artificial Tears (Tears Naturale) 2 drop EA EYE PRN PRN PRN Reason: Dry Eyes Calcium Carbonate (Tums) 1,000 mg PO Q4H PRN PRN Reason: Heartburn or Indigestion Carvedilol (Coreg) 6.25 mg PO BID-[facility] Last Admin: 10/15/18 08:17 Dose: 6.25 mg Dextrose/Water (Dextrose 50%) 25 gm SLOW IVP PRN PRN PRN Reason: Hypoglycemia Famotidine (Pepcid) 20 mg PO 0900 [facility] Last Admin: 10/15/18 08:17 Dose: 20 mg Glucagon (Glucagon) 1 mg IM PRN PRN PRN Reason: Hypoglycemia Guaifenesin (Robitussin Sf) 200 mg PO Q4H PRN PRN Reason: Cough Hydralazine HCl (Apresoline) 10 mg SLOW IVP Q4H PRN PRN Reason: SBP > 180 and HR < 70 Dextrose/Water (D5w) 1,000 mls @ 0 mls/hr IV .Q0M PRN PRN Reason: Hypoglycemia Vancomycin HCl 750 mg/ Sodium (Chloride) 250 mls @ 250 mls/hr IVPB 1700 [facility] Last Admin: 10/14/18 18:00 Dose: 250 mls Dextrose/Sodium Chloride (D5 0.9% Ns) 1,000 mls @ 70 mls/hr IV .[id number] [facility] Last Admin: 10/15/18 05:01 Dose: 1,000 mls Insulin Human Lispro (Humalog) 0 units SC .MILD SLIDING SCALE PRN PRN Reason: Mild Correctional Scale Last Admin: 10/14/18 18:57 Dose: 5 unit Ipratropium [place] (Atrovent) 2.5 ml NEB QIDPRN PRN PRN Reason: SOB &/or Wheezing Isosorbide Mononitrate (Imdur) 60 mg PO BID [facility] Last Admin: 10/15/18 08:16 Dose: 60 mg Lisinopril (Zestril) 20 mg PO DAILY [facility] Last Admin: 10/15/18 08:16 Dose: 20 mg Loperamide HCl (Imodium) 2 mg PO PRN PRN PRN Reason: Diarrhea/Loose Stools Loratadine (Claritin) 10 mg PO DAILYPRN PRN PRN Reason: Sinus Symptoms Mineral Oil/White Petrolatum (Eucerin Cream) 0 gm TOP BIDPRN PRN PRN Reason: Dry Skin Miscellaneous Medication (Pharmacy To Dose) 1 each IVPB PRN PRN PRN Reason: Pharmacy to dose Ondansetron HCl (Zofran Odt) 4 mg PO Q6H PRN PRN Reason: Nausea/Vomiting Ondansetron HCl (Zofran) 4 mg SLOW IVP Q6H PRN PRN Reason: Nausea/Vomiting Rosuvastatin Calcium (Crestor) 10 mg PO HS [facility] Last Admin: 10/14/18 20:54 Dose: 10 mg Saccharomyces Boulardii (Florastor) 250 mg PO DAILY [facility] Last Admin: 10/15/18 08:16 Dose: 250 mg Senna/Docusate Sodium (Senokot S) 2 tab PO BID PRN PRN Reason: Constipation Sodium Chloride (Flush - Normal Saline) 10 ml IVF Q12HR [facility] Last Admin: 10/15/18 08:17 Dose: 10 ml Sodium Chloride (Flush - Normal Saline) 10 ml IVF PRN PRN PRN Reason: Saline Flush Sodium Chloride ([place] Nasal [place] 0.65%) 0 ml EA NARE QIDPRN PRN PRN Reason: Nasal Congestion Throat Lozenges (Cepastat Lozenges) 1 margareth PO Q2H PRN PRN Reason: Sore Throat Zolpidem Tartrate (Ambien) 5 mg PO HSPRN PRN PRN Reason: Insomnia
[2018-10-15] MEDS: HumaLOG 300 UNITS/3 ML VIAL SC PRN ×2 (11:38→17:42)
[2018-10-15] MEDS: Vancomycin HCl 750 MG in Sodium Chloride 0.9% 250 ML 250 ML IVPB SCH (16:24)
[2018-10-15 16:51] LABS: Vancomycin, Trough 24.7 ug/mL
[2018-10-15] MEDS: Rosuvastatin 10 MG TAB PO SCH (20:33)
[2018-10-16] MEDS: Dextrose 5 % And 0.9 % NaCl 1,000 ML IV SCH ×2 (04:30→17:54)
[2018-10-16 05:48] LABS: #Basophils 0.1 thou/uL (0.0-0.2); #Eosinphils 0.2 thou/uL (0.0-0.7); #Lymphocytes 1.4 thou/uL (1.20-3.40); #Monocytes 0.6 thou/uL (0.11-0.59); #Neutrophils 6.2 thou/uL (1.40-6.50); %Basophils 0.6 % (0.0-1.0); %Eosinophils 2.9 % (0.0-10.0); %Lymphocytes 16.8 % (21.0-51.0); %Monocytes 7.6 % (0.0-10.0); %Neutrophils 72.2 % (42.0-75.0); Hemoglobin 8.2 g/dL (14.0-18.0); Mean Corpuscular HGB CONC 31.1 g/dL (32.0-36.0); Mean Corpuscular Hemoglobin 26.7 pg (27.0-31.0); Mean Corpuscular Volume 85.7 fL (78.0-98.0); Mean Platelet Volume 6.5 fL (7.4-10.4); Platelet Count 298 thou/uL (130-400); RBC Distribution Width 14.6 % (11.5-14.5); Red Blood Cell (RBC) Count 3.05 mill/uL (4.70-6.10); White Blood Cell (WBC) Count 8.5 thou/uL (4.8-10.8)
[2018-10-16 06:13] LABS: Anion Gap 11 mmol/L (10-20); BUN (Urea Nitrogen) 22 mg/dL (8.4-25.7); Calc. Creatinine Clearance 16 mL/min (70-130); Calcium 7.4 mg/dL (7.8-10.44); Carbon Dioxide 22 mmol/L (23-31); Chloride 112 mmol/L (98-107); Estimated GFR-MDRD 26; Glucose 85 mg/dL (80-115); Potassium 3.1 mmol/L (3.5-5.1); Sodium 142 mmol/L (136-145)
[2018-10-16] MEDS ORDERED: Potassium Chloride 20 MEQ TAB PO SCH (07:45)
[2018-10-16] MEDS: Famotidine 20 MG TAB PO SCH (08:14)
[2018-10-16] MEDS: Carvedilol 6.25 MG TAB PO SCH ×2 (08:14→16:37)
[2018-10-16] MEDS: Saccharomyces boulardii 250 MG CAP PO SCH (08:15)
[2018-10-16] MEDS: Lisinopril 20 MG TAB PO SCH (08:15)
--- NOTE | 2018-10-16 09:26 | PDOC.PN ---
- Subjective Encounter Start Date: 10/16/18 Encounter Start Time: 08:40 Patient seen and examined. No new complaints. No overnight events - Objective Resuscitation Status: Resuscitation Status FULL:Full Resuscitation MAR Reviewed: Yes Vital Signs & Weight: Vital Signs (12 hours) Temp Pulse Resp BP BP Pulse Ox 10/16/18 08:15 116/71 10/16/18 08:14 116/71 10/16/18 07:18 98.1 F 76 16 116/71 99 Weight Admit Weight 104 lb 15.04 oz Weight 107 lb 2.314 oz Most Recent Monitor Data Heart Rate from ECG 84 NIBP 169/87 NIBP BP-Mean 114 Respiration from ECG 18 SpO2 100 I&O: 10/15/18 10/16/18 10/17/18 06:59 06:59 06:59 Intake Total 2430 2420 Output Total 1000 901 Balance 1430 1519 Result Diagrams: 10/16/18 04:10 10/16/18 04:10 Additional Labs: Accuchecks 10/16/18 10/16/18 10/15/18 06:10 01:24 20:15 POC Glucose 126 H 77 65 L 10/15/18 10/15/18 17:05 11:04 POC Glucose 177 H 197 H Phys Exam - Physical Examination Constitutional: NAD HEENT: PERRLA, moist MMs, sclera anicteric Neck: no JVD, supple Respiratory: no wheezing, no rales, no rhonchi Cardiovascular: RRR, no significant murmur, no rub Gastrointestinal: soft, non-tender, no distention, positive bowel sounds suprapubic cathteter and moreno+ Musculoskeletal: no edema, pulses present Neurological: non-focal, normal sensation Lymphatic: no nodes Psychiatric: normal affect Skin: no rash, normal turgor Dx/Plan (1) Sepsis Code(s): A41.9 - SEPSIS, UNSPECIFIED ORGANISM Status: Acute Comment: (2) UTI (urinary tract infection) Status: Acute Comment: due to MRSA (3) Anemia of renal disease Code(s): N18.9 - CHRONIC KIDNEY DISEASE, UNSPECIFIED; D63.1 - ANEMIA IN CHRONIC KIDNEY DISEASE Status: Chronic (4) CKD (chronic kidney disease) stage 4, GFR 15-29 ml/min Code(s): N18.4 - CHRONIC KIDNEY DISEASE, STAGE 4 (SEVERE) Status: Chronic Comment: (5) DM type 2 (diabetes mellitus, type 2) Status: Chronic Qualifiers: Diabetes mellitus longterm insulin use: without longterm use Diabetes mellitus complication status: with kidney complications Diabetes mellitus complication detail: with chronic kidney disease Chronic kidney disease stage : stage 4 (severe) Qualified Code(s): E11.22 - Type 2 diabetes mellitus with diabetic chronic kidney disease; N18.4 - Chronic kidney disease, stage 4 (severe ) (6) Dyslipidemia Code(s): E78.5 - HYPERLIPIDEMIA, UNSPECIFIED Status: Chronic (7) HTN (hypertension) Code(s): I10 - ESSENTIAL (PRIMARY) HYPERTENSION Status: Chronic Qualifiers: Hypertension type: essential hypertension Qualified Code(s): I10 - Essential (primary) hypertension Comment: (8) PVD (peripheral vascular disease) Code(s): I73.9 - PERIPHERAL VASCULAR DISEASE, UNSPECIFIED Status: Chronic Comment: with prior stent in right LE (9) Protein-calorie malnutrition, moderate Code(s): E44.0 - MODERATE PROTEIN-CALORIE MALNUTRITION Status: Chronic - Plan cont current plan of care, continue antibiotics, addiction social worker * continue vancomycin * on discharge will change to bactrim * replace potassium * today will clamp moreno and if suprapubic catheter draining, will dc moreno and observe overnight * medication reviewed as below * symptomatic treatment * eventual placement to snu. Review of Systems - Review of Systems ENT: negative: Ear Pain, Ear Discharge, Nose Pain, Nose Discharge, Nose Congestion, Mouth Pain, Mouth Swelling, Throat Pain, Throat Swelling, Other Respiratory: negative: Cough, Dry, Shortness of Breath, Hemoptysis, SOB with Excertion, Pleuritic Pain, Sputum, Wheezing Cardiovascular: negative: chest pain, palpitations, orthopnea, paroxysmal nocturnal dyspnea, edema, light headedness, other Gastrointestinal: negative: Nausea, Vomiting, Abdominal Pain, Diarrhea, Constipation, Melena, Hematochezia, Other Genitourinary: negative: Dysuria, Frequency, Incontinence, Hematuria, Retention , Other Musculoskeletal: negative: Neck Pain, Shoulder Pain, Arm Pain, Back Pain, Hand Pain, Leg Pain, Foot Pain, Other Skin: negative: Rash, Lesions, Marcell, Bruising, Other - Medications/Allergies Allergies/Adverse Reactions: Allergies Allergy/AdvReac Type Severity Reaction Status Date / Time No Known Drug Allergies Allergy Verified 11/18/18 22:24 Medications: Current Medications Acetaminophen (Tylenol) 1,000 mg PO Q6H PRN PRN Reason: Mild Pain (1-3) Artificial Tears (Tears Naturale) 2 drop EA EYE PRN PRN PRN Reason: Dry Eyes Calcium Carbonate (Tums) 1,000 mg PO Q4H PRN PRN Reason: Heartburn or Indigestion Carvedilol (Coreg) 6.25 mg PO BID-[facility] Last Admin: 10/16/18 08:14 Dose: 6.25 mg Dextrose/Water (Dextrose 50%) 25 gm SLOW IVP PRN PRN PRN Reason: Hypoglycemia Famotidine (Pepcid) 20 mg PO 0900 [facility] Last Admin: 10/16/18 08:14 Dose: 20 mg Glucagon (Glucagon) 1 mg IM PRN PRN PRN Reason: Hypoglycemia Guaifenesin (Robitussin Sf) 200 mg PO Q4H PRN PRN Reason: Cough Hydralazine HCl (Apresoline) 10 mg SLOW IVP Q4H PRN PRN Reason: SBP > 180 and HR < 70 Dextrose/Water (D5w) 1,000 mls @ 0 mls/hr IV .Q0M PRN PRN Reason: Hypoglycemia Dextrose/Sodium Chloride (D5 0.9% Ns) 1,000 mls @ 70 mls/hr IV .[id number] [facility] Last Admin: 10/16/18 04:30 Dose: 1,000 mls Vancomycin HCl 500 mg/ Sodium (Chloride) 100 mls @ 100 mls/hr IVPB 1700 [facility] Insulin Human Lispro (Humalog) 0 units SC .MILD SLIDING SCALE PRN PRN Reason: Mild Correctional Scale Last Admin: 10/15/18 17:42 Dose: 2 unit Ipratropium [place] (Atrovent) 2.5 ml NEB QIDPRN PRN PRN Reason: SOB &/or Wheezing Isosorbide Mononitrate (Imdur) 60 mg PO BID [facility] Last Admin: 10/16/18 08:15 Dose: 60 mg Lisinopril (Zestril) 20 mg PO DAILY [facility] Last Admin: 10/16/18 08:15 Dose: Not Given Loperamide HCl (Imodium) 2 mg PO PRN PRN PRN Reason: Diarrhea/Loose Stools Loratadine (Claritin) 10 mg PO DAILYPRN PRN PRN Reason: Sinus Symptoms Mineral Oil/White Petrolatum (Eucerin Cream) 0 gm TOP BIDPRN PRN PRN Reason: Dry Skin Miscellaneous Medication (Pharmacy To Dose) 1 each IVPB PRN PRN PRN Reason: Pharmacy to dose Potassium Chloride (K-Dur) 40 meq PO NOW [facility] Stop: 10/16/18 09:45 Last Admin: 10/16/18 08:14 Dose: 40 meq Rosuvastatin Calcium (Crestor) 10 mg PO HS [facility] Last Admin: 10/15/18 20:33 Dose: 10 mg Saccharomyces Boulardii (Florastor) 250 mg PO DAILY [facility] Last Admin: 10/16/18 08:15 Dose: 250 mg Senna/Docusate Sodium (Senokot S) 2 tab PO BID PRN PRN Reason: Constipation Sodium Chloride (Flush - Normal Saline) 10 ml IVF Q12HR [facility] Last Admin: 10/16/18 08:15 Dose: 10 ml Sodium Chloride (Flush - Normal Saline) 10 ml IVF PRN PRN PRN Reason: Saline Flush Sodium Chloride ([place] Nasal [place] 0.65%) 0 ml EA NARE QIDPRN PRN PRN Reason: Nasal Congestion Throat Lozenges (Cepastat Lozenges) 1 margareth PO Q2H PRN PRN Reason: Sore Throat Zolpidem Tartrate (Ambien) 5 mg PO HSPRN PRN PRN Reason: Insomnia
[2018-10-16] MEDS: HumaLOG 300 UNITS/3 ML VIAL SC PRN ×2 (11:57→16:36)
[2018-10-16] MEDS: Rosuvastatin 10 MG TAB PO SCH (20:35)
[2018-10-17] MEDS: Dextrose 5 % And 0.9 % NaCl 1,000 ML IV SCH ×4 (01:37→22:02)
[2018-10-17] MEDS: HumaLOG 300 UNITS/3 ML VIAL SC PRN ×2 (05:26→17:39)
[2018-10-17] MEDS: Lisinopril 20 MG TAB PO SCH (09:09)
[2018-10-17] MEDS: Carvedilol 6.25 MG TAB PO SCH ×2 (09:09→17:38)
[2018-10-17] MEDS: Famotidine 20 MG TAB PO SCH (09:09)
[2018-10-17] MEDS: Saccharomyces boulardii 250 MG CAP PO SCH (09:09)
--- NOTE | 2018-10-17 10:46 | PDOC.PN ---
- Subjective Encounter Start Date: 10/17/18 Encounter Start Time: 09:00 Patient seen and examined. No new complaints. No overnight events today urology has changed moreno - Objective Resuscitation Status: Resuscitation Status FULL:Full Resuscitation MAR Reviewed: Yes Vital Signs & Weight: Vital Signs (12 hours) Temp Pulse Resp BP BP Pulse Ox 10/17/18 09:09 153/77 H 10/17/18 07:15 98.2 F 66 16 153/77 H 98 Weight Admit Weight 104 lb 15.04 oz Weight 107 lb 2.314 oz Most Recent Monitor Data Heart Rate from ECG 84 NIBP 169/87 NIBP BP-Mean 114 Respiration from ECG 18 SpO2 100 I&O: 10/16/18 10/17/18 10/18/18 06:59 06:59 06:59 Intake Total 2420 1600 Output Total 901 650 Balance 1519 950 Result Diagrams: 10/16/18 04:10 10/16/18 04:10 Additional Labs: Accuchecks 10/17/18 10/16/18 10/16/18 04:23 19:51 16:07 POC Glucose 199 H 126 H 212 H 10/16/18 11:09 POC Glucose 214 H Phys Exam - Physical Examination Constitutional: NAD HEENT: PERRLA, moist MMs, sclera anicteric Neck: no JVD, supple Respiratory: no wheezing, no rales, no rhonchi Cardiovascular: RRR, no significant murmur, no rub Gastrointestinal: soft, non-tender, no distention, positive bowel sounds suprapubic catheter+, moreno+ Musculoskeletal: no edema, pulses present Neurological: non-focal, normal sensation, moves all 4 limbs Lymphatic: no nodes Psychiatric: normal affect, A&O x 3 Skin: no rash, normal turgor Dx/Plan (1) Sepsis Code(s): A41.9 - SEPSIS, UNSPECIFIED ORGANISM Status: Acute Comment: (2) UTI (urinary tract infection) Status: Acute Comment: due to MRSA (3) Anemia of renal disease Code(s): N18.9 - CHRONIC KIDNEY DISEASE, UNSPECIFIED; D63.1 - ANEMIA IN CHRONIC KIDNEY DISEASE Status: Chronic (4) CKD (chronic kidney disease) stage 4, GFR 15-29 ml/min Code(s): N18.4 - CHRONIC KIDNEY DISEASE, STAGE 4 (SEVERE) Status: Chronic Comment: (5) DM type 2 (diabetes mellitus, type 2) Status: Chronic Qualifiers: Diabetes mellitus prison insulin use: without prison use Diabetes mellitus complication status: with kidney complications Diabetes mellitus complication detail: with chronic kidney disease Chronic kidney disease stage : stage 4 (severe) Qualified Code(s): E11.22 - Type 2 diabetes mellitus with diabetic chronic kidney disease; N18.4 - Chronic kidney disease, stage 4 (severe ) (6) Dyslipidemia Code(s): E78.5 - HYPERLIPIDEMIA, UNSPECIFIED Status: Chronic (7) HTN (hypertension) Code(s): I10 - ESSENTIAL (PRIMARY) HYPERTENSION Status: Chronic Qualifiers: Hypertension type: essential hypertension Qualified Code(s): I10 - Essential (primary) hypertension Comment: (8) PVD (peripheral vascular disease) Code(s): I73.9 - PERIPHERAL VASCULAR DISEASE, UNSPECIFIED Status: Chronic Comment: with prior stent in right LE (9) Protein-calorie malnutrition, moderate Code(s): E44.0 - MODERATE PROTEIN-CALORIE MALNUTRITION Status: Chronic - Plan cont current plan of care, continue antibiotics * continue moreno and suprapubic catheter care as per urology * meanwhile will continue IV vancomycin * continue nutritional support * medication reviewed as below * symptomatic treatment * once moreno out and suprapubic catheter working, will consider discharge plan. Review of Systems - Review of Systems ENT: negative: Ear Pain, Ear Discharge, Nose Pain, Nose Discharge, Nose Congestion, Mouth Pain, Mouth Swelling, Throat Pain, Throat Swelling, Other Respiratory: negative: Cough, Dry, Shortness of Breath, Hemoptysis, SOB with Excertion, Pleuritic Pain, Sputum, Wheezing Cardiovascular: negative: chest pain, palpitations, orthopnea, paroxysmal nocturnal dyspnea, edema, light headedness, other Gastrointestinal: negative: Nausea, Vomiting, Abdominal Pain, Diarrhea, Constipation, Melena, Hematochezia, Other Genitourinary: negative: Dysuria, Frequency, Incontinence, Hematuria, Retention , Other Musculoskeletal: negative: Neck Pain, Shoulder Pain, Arm Pain, Back Pain, Hand Pain, Leg Pain, Foot Pain, Other - Medications/Allergies Allergies/Adverse Reactions: Allergies Allergy/AdvReac Type Severity Reaction Status Date / Time No Known Drug Allergies Allergy Verified 10/11/18 22:24 Medications: Current Medications Acetaminophen (Tylenol) 1,000 mg PO Q6H PRN PRN Reason: Mild Pain (1-3) Last Admin: 10/17/18 09:17 Dose: 1,000 mg Artificial Tears (Tears Naturale) 2 drop EA EYE PRN PRN PRN Reason: Dry Eyes Calcium Carbonate (Tums) 1,000 mg PO Q4H PRN PRN Reason: Heartburn or Indigestion Carvedilol (Coreg) 6.25 mg PO BID-[facility] Last Admin: 10/17/18 09:09 Dose: 6.25 mg Dextrose/Water (Dextrose 50%) 25 gm SLOW IVP PRN PRN PRN Reason: Hypoglycemia Famotidine (Pepcid) 20 mg PO 0900 [facility] Last Admin: 10/17/18 09:09 Dose: 20 mg Glucagon (Glucagon) 1 mg IM PRN PRN PRN Reason: Hypoglycemia Guaifenesin (Robitussin Sf) 200 mg PO Q4H PRN PRN Reason: Cough Hydralazine HCl (Apresoline) 10 mg SLOW IVP Q4H PRN PRN Reason: SBP > 180 and HR < 70 Dextrose/Water (D5w) 1,000 mls @ 0 mls/hr IV .Q0M PRN PRN Reason: Hypoglycemia Dextrose/Sodium Chloride (D5 0.9% Ns) 1,000 mls @ 70 mls/hr IV .[id number] [facility] Last Admin: 10/17/18 06:27 Dose: 1,000 mls Vancomycin HCl 500 mg/ Sodium (Chloride) 100 mls @ 100 mls/hr IVPB 1700 [facility] Insulin Human Lispro (Humalog) 0 units SC .MILD SLIDING SCALE PRN PRN Reason: Mild Correctional Scale Last Admin: 10/17/18 05:26 Dose: 2 unit Ipratropium [place] (Atrovent) 2.5 ml NEB QIDPRN PRN PRN Reason: SOB &/or Wheezing Isosorbide Mononitrate (Imdur) 60 mg PO BID [facility] Last Admin: 10/17/18 09:09 Dose: 60 mg Lisinopril (Zestril) 20 mg PO DAILY [facility] Last Admin: 10/17/18 09:09 Dose: 20 mg Loperamide HCl (Imodium) 2 mg PO PRN PRN PRN Reason: Diarrhea/Loose Stools Loratadine (Claritin) 10 mg PO DAILYPRN PRN PRN Reason: Sinus Symptoms Mineral Oil/White Petrolatum (Eucerin Cream) 0 gm TOP BIDPRN PRN PRN Reason: Dry Skin Miscellaneous Medication (Pharmacy To Dose) 1 each IVPB PRN PRN PRN Reason: Pharmacy to dose Rosuvastatin Calcium (Crestor) 10 mg PO HS [facility] Last Admin: 10/16/18 20:35 Dose: 10 mg Saccharomyces Boulardii (Florastor) 250 mg PO DAILY [facility] Last Admin: 10/17/18 09:09 Dose: 250 mg Senna/Docusate Sodium (Senokot S) 2 tab PO BID PRN PRN Reason: Constipation Sodium Chloride (Flush - Normal Saline) 10 ml IVF Q12HR [facility] Last Admin: 10/17/18 09:09 Dose: Not Given Sodium Chloride (Flush - Normal Saline) 10 ml IVF PRN PRN PRN Reason: Saline Flush Sodium Chloride ([place] Nasal [place] 0.65%) 0 ml EA NARE QIDPRN PRN PRN Reason: Nasal Congestion Throat Lozenges (Cepastat Lozenges) 1 margareth PO Q2H PRN PRN Reason: Sore Throat Zolpidem Tartrate (Ambien) 5 mg PO HSPRN PRN PRN Reason: Insomnia
[2018-10-17] MEDS: Vancomycin HCl 500 MG in Sodium Chloride 0.9% 100 ML IVPB SCH (17:32)
[2018-10-17] MEDS: Rosuvastatin 10 MG TAB PO SCH (20:37)
[2018-10-18] MEDS: HumaLOG 300 UNITS/3 ML VIAL SC PRN (04:54)
[2018-10-18] MEDS: Famotidine 20 MG TAB PO SCH (07:52)
[2018-10-18] MEDS: Carvedilol 6.25 MG TAB PO SCH ×2 (07:52→16:27)
[2018-10-18] MEDS: Saccharomyces boulardii 250 MG CAP PO SCH (07:52)
[2018-10-18] MEDS: Lisinopril 20 MG TAB PO SCH (07:52)
--- NOTE | 2018-10-18 10:48 | PDOC.PN ---
- Subjective Encounter Start Date: 10/18/18 Encounter Start Time: 09:50 Patient seen and examined. No new complaints. No overnight events - Objective Resuscitation Status: Resuscitation Status FULL:Full Resuscitation MAR Reviewed: Yes Vital Signs & Weight: Vital Signs (12 hours) Temp Pulse Resp BP BP Pulse Ox 10/18/18 07:52 165/80 H 10/18/18 07:03 98.3 F 66 16 165/80 H 100 Weight Admit Weight 104 lb 15.04 oz Weight 107 lb 2.314 oz Most Recent Monitor Data Heart Rate from ECG 84 NIBP 169/87 NIBP BP-Mean 114 Respiration from ECG 18 SpO2 100 I&O: 10/17/18 10/18/18 10/19/18 06:59 06:59 06:59 Intake Total 1600 2490 Output Total 650 725 Balance 950 1765 Result Diagrams: 10/16/18 04:10 10/16/18 04:10 Additional Labs: Accuchecks 10/18/18 10/17/18 10/17/18 04:53 20:36 16:28 POC Glucose 176 H 180 H 181 H 10/17/18 11:01 POC Glucose 100 Phys Exam - Physical Examination Constitutional: NAD HEENT: PERRLA, moist MMs, sclera anicteric Neck: no JVD, supple Respiratory: no wheezing, no rales, no rhonchi Cardiovascular: RRR, no significant murmur, no rub Gastrointestinal: soft, non-tender, no distention, positive bowel sounds suprapubic catheter+, moreno+ Musculoskeletal: no edema, pulses present Neurological: non-focal, normal sensation Lymphatic: no nodes Psychiatric: normal affect, A&O x 3 Skin: no rash, normal turgor Dx/Plan (1) Sepsis Code(s): A41.9 - SEPSIS, UNSPECIFIED ORGANISM Status: Acute Comment: (2) UTI (urinary tract infection) Status: Acute Comment: due to MRSA (3) Anemia of renal disease Code(s): N18.9 - CHRONIC KIDNEY DISEASE, UNSPECIFIED; D63.1 - ANEMIA IN CHRONIC KIDNEY DISEASE Status: Chronic (4) CKD (chronic kidney disease) stage 4, GFR 15-29 ml/min Code(s): N18.4 - CHRONIC KIDNEY DISEASE, STAGE 4 (SEVERE) Status: Chronic Comment: (5) DM type 2 (diabetes mellitus, type 2) Status: Chronic Qualifiers: Diabetes mellitus prison insulin use: without prison use Diabetes mellitus complication status: with kidney complications Diabetes mellitus complication detail: with chronic kidney disease Chronic kidney disease stage : stage 4 (severe) Qualified Code(s): E11.22 - Type 2 diabetes mellitus with diabetic chronic kidney disease; N18.4 - Chronic kidney disease, stage 4 (severe ) (6) Dyslipidemia Code(s): E78.5 - HYPERLIPIDEMIA, UNSPECIFIED Status: Chronic (7) HTN (hypertension) Code(s): I10 - ESSENTIAL (PRIMARY) HYPERTENSION Status: Chronic Qualifiers: Hypertension type: essential hypertension Qualified Code(s): I10 - Essential (primary) hypertension Comment: (8) PVD (peripheral vascular disease) Code(s): I73.9 - PERIPHERAL VASCULAR DISEASE, UNSPECIFIED Status: Chronic Comment: with prior stent in right LE (9) Protein-calorie malnutrition, moderate Code(s): E44.0 - MODERATE PROTEIN-CALORIE MALNUTRITION Status: Chronic - Plan cont current plan of care, continue antibiotics * today will clamp moreno, and monitor if suprapubic catheter continue to drain * if draining well, then will consider moreno removal * possible discharge tomorrow if moreno removed * continue vancomycin for mrsa uti * on discharge oral bactrim * medication reviewed as below * symptomatic treatment. Review of Systems - Review of Systems ENT: negative: Ear Pain, Ear Discharge, Nose Pain, Nose Discharge, Nose Congestion, Mouth Pain, Mouth Swelling, Throat Pain, Throat Swelling, Other Respiratory: negative: Cough, Dry, Shortness of Breath, Hemoptysis, SOB with Excertion, Pleuritic Pain, Sputum, Wheezing Cardiovascular: negative: chest pain, palpitations, orthopnea, paroxysmal nocturnal dyspnea, edema, light headedness, other Gastrointestinal: negative: Nausea, Vomiting, Abdominal Pain, Diarrhea, Constipation, Melena, Hematochezia, Other Genitourinary: negative: Dysuria, Frequency, Incontinence, Hematuria, Retention , Other Musculoskeletal: negative: Neck Pain, Shoulder Pain, Arm Pain, Back Pain, Hand Pain, Leg Pain, Foot Pain, Other Skin: negative: Rash, Lesions, Marcell, Bruising, Other - Medications/Allergies Allergies/Adverse Reactions: Allergies Allergy/AdvReac Type Severity Reaction Status Date / Time No Known Drug Allergies Allergy Verified 10/11/18 22:24 Medications: Current Medications Acetaminophen (Tylenol) 1,000 mg PO Q6H PRN PRN Reason: Mild Pain (1-3) Last Admin: 10/17/18 09:17 Dose: 1,000 mg Artificial Tears (Tears Naturale) 2 drop EA EYE PRN PRN PRN Reason: Dry Eyes Calcium Carbonate (Tums) 1,000 mg PO Q4H PRN PRN Reason: Heartburn or Indigestion Carvedilol (Coreg) 6.25 mg PO BID-[facility] Last Admin: 10/18/18 07:52 Dose: 6.25 mg Dextrose/Water (Dextrose 50%) 25 gm SLOW IVP PRN PRN PRN Reason: Hypoglycemia Famotidine (Pepcid) 20 mg PO 0900 [facility] Last Admin: 10/18/18 07:52 Dose: 20 mg Glucagon (Glucagon) 1 mg IM PRN PRN PRN Reason: Hypoglycemia Guaifenesin (Robitussin Sf) 200 mg PO Q4H PRN PRN Reason: Cough Hydralazine HCl (Apresoline) 10 mg SLOW IVP Q4H PRN PRN Reason: SBP > 180 and HR < 70 Dextrose/Water (D5w) 1,000 mls @ 0 mls/hr IV .Q0M PRN PRN Reason: Hypoglycemia Dextrose/Sodium Chloride (D5 0.9% Ns) 1,000 mls @ 70 mls/hr IV .[id number] [facility] Last Admin: 10/17/18 22:02 Dose: 1,000 mls Vancomycin HCl 500 mg/ Sodium (Chloride) 100 mls @ 100 mls/hr IVPB 1700 [facility] Last Admin: 10/17/18 17:32 Dose: 100 mls Insulin Human Lispro (Humalog) 0 units SC .MILD SLIDING SCALE PRN PRN Reason: Mild Correctional Scale Last Admin: 10/18/18 04:54 Dose: 2 unit Ipratropium [place] (Atrovent) 2.5 ml NEB QIDPRN PRN PRN Reason: SOB &/or Wheezing Isosorbide Mononitrate (Imdur) 60 mg PO BID [facility] Last Admin: 10/18/18 07:53 Dose: 60 mg Lisinopril (Zestril) 20 mg PO DAILY [facility] Last Admin: 10/18/18 07:52 Dose: 20 mg Loperamide HCl (Imodium) 2 mg PO PRN PRN PRN Reason: Diarrhea/Loose Stools Loratadine (Claritin) 10 mg PO DAILYPRN PRN PRN Reason: Sinus Symptoms Mineral Oil/White Petrolatum (Eucerin Cream) 0 gm TOP BIDPRN PRN PRN Reason: Dry Skin Miscellaneous Medication (Pharmacy To Dose) 1 each IVPB PRN PRN PRN Reason: Pharmacy to dose Rosuvastatin Calcium (Crestor) 10 mg PO HS [facility] Last Admin: 10/17/18 20:37 Dose: 10 mg Saccharomyces Boulardii (Florastor) 250 mg PO DAILY [facility] Last Admin: 10/18/18 07:52 Dose: 250 mg Senna/Docusate Sodium (Senokot S) 2 tab PO BID PRN PRN Reason: Constipation Sodium Chloride (Flush - Normal Saline) 10 ml IVF Q12HR [facility] Last Admin: 10/18/18 07:53 Dose: Not Given Sodium Chloride (Flush - Normal Saline) 10 ml IVF PRN PRN PRN Reason: Saline Flush Sodium Chloride ([place] Nasal [place] 0.65%) 0 ml EA NARE QIDPRN PRN PRN Reason: Nasal Congestion Throat Lozenges (Cepastat Lozenges) 1 margareth PO Q2H PRN PRN Reason: Sore Throat Zolpidem Tartrate (Ambien) 5 mg PO HSPRN PRN PRN Reason: Insomnia
[2018-10-18] MEDS: Dextrose 5 % And 0.9 % NaCl 1,000 ML IV SCH (16:27)
[2018-10-18] MEDS: Vancomycin HCl 500 MG in Sodium Chloride 0.9% 100 ML IVPB SCH (16:29)
[2018-10-18] MEDS: Rosuvastatin 10 MG TAB PO SCH (20:23)
[2018-10-19] MEDS: Dextrose 5 % And 0.9 % NaCl 1,000 ML IV SCH ×2 (06:04→20:00)
[2018-10-19] MEDS: Famotidine 20 MG TAB PO SCH (07:49)
[2018-10-19] MEDS: Carvedilol 6.25 MG TAB PO SCH ×2 (07:49→17:02)
[2018-10-19] MEDS: Saccharomyces boulardii 250 MG CAP PO SCH (07:49)
[2018-10-19] MEDS: Lisinopril 20 MG TAB PO SCH (07:50)
--- NOTE | 2018-10-19 12:55 | PDOC.PN ---
- Subjective Encounter Start Date: 10/19/18 Encounter Start Time: 07:15 Patient seen and examined. No new complaints. No overnight events pt's suprapubic still not functioning - Objective Resuscitation Status: Resuscitation Status FULL:Full Resuscitation MAR Reviewed: Yes Vital Signs & Weight: Vital Signs (12 hours) Temp Pulse Resp BP BP Pulse Ox 10/19/18 08:18 97.5 F L 73 20 162/76 H 100 10/19/18 07:50 158/73 H 10/19/18 07:49 158/73 H Weight Admit Weight 104 lb 15.04 oz Weight 107 lb 2.314 oz Most Recent Monitor Data Heart Rate from ECG 84 NIBP 169/87 NIBP BP-Mean 114 Respiration from ECG 18 SpO2 100 I&O: 10/18/18 10/19/18 10/20/18 06:59 06:59 06:59 Intake Total 2490 1320 Output Total 725 950 Balance 1765 370 Result Diagrams: 10/16/18 04:10 10/16/18 04:10 Additional Labs: Accuchecks 10/19/18 10/19/18 10/18/18 11:41 06:04 20:24 POC Glucose 227 H 170 H 197 H 10/18/18 15:51 POC Glucose 185 H Phys Exam - Physical Examination Constitutional: NAD HEENT: PERRLA, moist MMs, sclera anicteric Neck: no JVD, supple Respiratory: no wheezing, no rales, no rhonchi Cardiovascular: RRR, no significant murmur, no rub Gastrointestinal: soft, non-tender, no distention, positive bowel sounds suprapubic catheter+ moreno+ Musculoskeletal: no edema, pulses present Neurological: non-focal, normal sensation Lymphatic: no nodes Psychiatric: normal affect, A&O x 3 Skin: no rash, normal turgor Dx/Plan (1) Sepsis Code(s): A41.9 - SEPSIS, UNSPECIFIED ORGANISM Status: Acute Comment: (2) UTI (urinary tract infection) Status: Acute Comment: due to MRSA (3) Anemia of renal disease Code(s): N18.9 - CHRONIC KIDNEY DISEASE, UNSPECIFIED; D63.1 - ANEMIA IN CHRONIC KIDNEY DISEASE Status: Chronic (4) CKD (chronic kidney disease) stage 4, GFR 15-29 ml/min Code(s): N18.4 - CHRONIC KIDNEY DISEASE, STAGE 4 (SEVERE) Status: Chronic Comment: (5) DM type 2 (diabetes mellitus, type 2) Status: Chronic Qualifiers: Diabetes mellitus penitentiary insulin use: without penitentiary use Diabetes mellitus complication status: with kidney complications Diabetes mellitus complication detail: with chronic kidney disease Chronic kidney disease stage : stage 4 (severe) Qualified Code(s): E11.22 - Type 2 diabetes mellitus with diabetic chronic kidney disease; N18.4 - Chronic kidney disease, stage 4 (severe ) (6) Dyslipidemia Code(s): E78.5 - HYPERLIPIDEMIA, UNSPECIFIED Status: Chronic (7) HTN (hypertension) Code(s): I10 - ESSENTIAL (PRIMARY) HYPERTENSION Status: Chronic Qualifiers: Hypertension type: essential hypertension Qualified Code(s): I10 - Essential (primary) hypertension Comment: (8) PVD (peripheral vascular disease) Code(s): I73.9 - PERIPHERAL VASCULAR DISEASE, UNSPECIFIED Status: Chronic Comment: with prior stent in right LE (9) Protein-calorie malnutrition, moderate Code(s): E44.0 - MODERATE PROTEIN-CALORIE MALNUTRITION Status: Chronic - Plan cont current plan of care, continue antibiotics * continue vancomycin for MRSA UTI, still has very purulent urine * suprapubic catheter is not functioning yet, urology following * once moreno out, and suprapubic working well, then will consider discharge on oral bactrim. * medication reviewed as below * symptomatic treatment Review of Systems - Review of Systems ENT: negative: Ear Pain, Ear Discharge, Nose Pain, Nose Discharge, Nose Congestion, Mouth Pain, Mouth Swelling, Throat Pain, Throat Swelling, Other Respiratory: negative: Cough, Dry, Shortness of Breath, Hemoptysis, SOB with Excertion, Pleuritic Pain, Sputum, Wheezing Cardiovascular: negative: chest pain, palpitations, orthopnea, paroxysmal nocturnal dyspnea, edema, light headedness, other Gastrointestinal: negative: Nausea, Vomiting, Abdominal Pain, Diarrhea, Constipation, Melena, Hematochezia, Other Genitourinary: negative: Dysuria, Frequency, Incontinence, Hematuria, Retention , Other Musculoskeletal: negative: Neck Pain, Shoulder Pain, Arm Pain, Back Pain, Hand Pain, Leg Pain, Foot Pain, Other Skin: negative: Rash, Lesions, Marcell, Bruising, Other - Medications/Allergies Allergies/Adverse Reactions: Allergies Allergy/AdvReac Type Severity Reaction Status Date / Time No Known Drug Allergies Allergy Verified 10/11/18 22:24 Medications: Current Medications Acetaminophen (Tylenol) 1,000 mg PO Q6H PRN PRN Reason: Mild Pain (1-3) Last Admin: 10/17/18 09:17 Dose: 1,000 mg Artificial Tears (Tears Naturale) 2 drop EA EYE PRN PRN PRN Reason: Dry Eyes Calcium Carbonate (Tums) 1,000 mg PO Q4H PRN PRN Reason: Heartburn or Indigestion Carvedilol (Coreg) 6.25 mg PO BID-[facility] Last Admin: 10/19/18 07:49 Dose: 6.25 mg Dextrose/Water (Dextrose 50%) 25 gm SLOW IVP PRN PRN PRN Reason: Hypoglycemia Famotidine (Pepcid) 20 mg PO 0900 [facility] Last Admin: 10/19/18 07:49 Dose: 20 mg Glucagon (Glucagon) 1 mg IM PRN PRN PRN Reason: Hypoglycemia Guaifenesin (Robitussin Sf) 200 mg PO Q4H PRN PRN Reason: Cough Hydralazine HCl (Apresoline) 10 mg SLOW IVP Q4H PRN PRN Reason: SBP > 180 and HR < 70 Dextrose/Water (D5w) 1,000 mls @ 0 mls/hr IV .Q0M PRN PRN Reason: Hypoglycemia Dextrose/Sodium Chloride (D5 0.9% Ns) 1,000 mls @ 70 mls/hr IV .[id number] [facility] Last Admin: 10/19/18 06:04 Dose: 1,000 mls Vancomycin HCl 500 mg/ Sodium (Chloride) 100 mls @ 100 mls/hr IVPB 1700 [facility] Last Admin: 10/18/18 16:29 Dose: 100 mls Insulin Human Lispro (Humalog) 0 units SC .MILD SLIDING SCALE PRN PRN Reason: Mild Correctional Scale Last Admin: 10/18/18 04:54 Dose: 2 unit Ipratropium [place] (Atrovent) 2.5 ml NEB QIDPRN PRN PRN Reason: SOB &/or Wheezing Isosorbide Mononitrate (Imdur) 60 mg PO BID [facility] Last Admin: 10/19/18 07:49 Dose: 60 mg Lisinopril (Zestril) 20 mg PO DAILY [facility] Last Admin: 10/19/18 07:50 Dose: 20 mg Loperamide HCl (Imodium) 2 mg PO PRN PRN PRN Reason: Diarrhea/Loose Stools Loratadine (Claritin) 10 mg PO DAILYPRN PRN PRN Reason: Sinus Symptoms Mineral Oil/White Petrolatum (Eucerin Cream) 0 gm TOP BIDPRN PRN PRN Reason: Dry Skin Miscellaneous Medication (Pharmacy To Dose) 1 each IVPB PRN PRN PRN Reason: Pharmacy to dose Rosuvastatin Calcium (Crestor) 10 mg PO [facility] Last Admin: 10/18/18 20:23 Dose: 10 mg Saccharomyces Boulardii (Florastor) 250 mg PO DAILY [facility] Last Admin: 10/19/18 07:49 Dose: 250 mg Senna/Docusate Sodium (Senokot S) 2 tab PO BID PRN PRN Reason: Constipation Sodium Chloride (Flush - Normal Saline) 10 ml IVF Q12HR [facility] Last Admin: 10/19/18 07:50 Dose: 10 ml Sodium Chloride (Flush - Normal Saline) 10 ml IVF PRN PRN PRN Reason: Saline Flush Sodium Chloride ([place] Nasal [place] 0.65%) 0 ml EA NARE QIDPRN PRN PRN Reason: Nasal Congestion Throat Lozenges (Cepastat Lozenges) 1 margareth PO Q2H PRN PRN Reason: Sore Throat Zolpidem Tartrate (Ambien) 5 mg PO HSPRN PRN PRN Reason: Insomnia
[2018-10-19 16:49] LABS: Vancomycin, Trough 19.9 ug/mL
[2018-10-19] MEDS: Vancomycin HCl 500 MG in Sodium Chloride 0.9% 100 ML IVPB SCH (17:02)
[2018-10-19] MEDS: Rosuvastatin 10 MG TAB PO SCH (19:59)
[2018-10-20] MEDS: Famotidine 20 MG TAB PO SCH (07:47)
[2018-10-20] MEDS: Saccharomyces boulardii 250 MG CAP PO SCH (07:47)
[2018-10-20] MEDS: Lisinopril 20 MG TAB PO SCH (07:47)
[2018-10-20] MEDS: Carvedilol 6.25 MG TAB PO SCH ×2 (07:47→16:28)
[2018-10-20] MEDS: Dextrose 5 % And 0.9 % NaCl 1,000 ML IV SCH (12:14)
--- NOTE | 2018-10-20 14:40 | PDOC.PN ---
- Subjective Encounter Start Date: 10/20/18 Encounter Start Time: 08:25 follow up for MRSA UTI, catheter associated, with SPT in place and moreno draining SPT not draining, waiting for urology to evaluate mary kate abs, no f/C, no n/V/d/c, no CP or SOB All systems reviewed and neg x as above - Objective 10/20/18 12:31 Resuscitation Status Routine Resuscitation Status: FULL: Full Resuscitation Discussed with: per prior order MAR Reviewed: Yes Vital Signs & Weight: Vital Signs (12 hours) Temp Pulse Resp BP BP Pulse Ox 10/20/18 07:47 157/72 H 10/20/18 07:19 98.4 F 71 16 157/72 H 100 Weight Admit Weight 104 lb 15.04 oz Weight 107 lb 2.314 oz Most Recent Monitor Data Heart Rate from ECG 84 NIBP 169/87 NIBP BP-Mean 114 Respiration from ECG 18 SpO2 100 I&O: 10/19/18 10/20/18 10/21/18 06:59 06:59 06:59 Intake Total 1320 1080 Output Total 950 650 Balance 370 430 Result Diagrams: 10/16/18 04:10 10/16/18 04:10 Additional Labs: Accuchecks 10/20/18 10/20/18 10/19/18 11:07 04:12 19:30 POC Glucose 184 H 134 H 227 H 10/19/18 15:37 POC Glucose 236 H Radiology Reviewed by me: Yes EKG Reviewed by me: Yes Phys Exam - Physical Examination Constitutional: NAD HEENT: PERRLA, moist MMs, sclera anicteric, oral pharynx no lesions Neck: no nodes, full ROM Respiratory: no wheezing, no rales, no rhonchi, clear to auscultation bilateral Cardiovascular: RRR, no significant murmur, no rub Gastrointestinal: soft, non-tender, no distention, positive bowel sounds Musculoskeletal: edema present Neurological: non-focal, normal sensation, moves all 4 limbs Lymphatic: no nodes Psychiatric: normal affect, A&O x 3 Skin: no rash, normal turgor, cap refill <2 seconds Dx/Plan (1) UTI (urinary tract infection) Status: Acute Qualifiers: Indwelling urinary catheter type: cystostomy catheter Encounter type: initial encounter Comment: due to MRSA (2) Anemia of renal disease Code(s): N18.9 - CHRONIC KIDNEY DISEASE, UNSPECIFIED; D63.1 - ANEMIA IN CHRONIC KIDNEY DISEASE Status: Chronic (3) CKD (chronic kidney disease) stage 4, GFR 15-29 ml/min Code(s): N18.4 - CHRONIC KIDNEY DISEASE, STAGE 4 (SEVERE) Status: Chronic Comment: (4) DM type 2 (diabetes mellitus, type 2) Status: Chronic Qualifiers: Diabetes mellitus oysterman insulin use: without oysterman use Diabetes mellitus complication status: with kidney complications Diabetes mellitus complication detail: with chronic kidney disease Chronic kidney disease stage : stage 4 (severe) Qualified Code(s): E11.22 - Type 2 diabetes mellitus with diabetic chronic kidney disease; N18.4 - Chronic kidney disease, stage 4 (severe ) (5) Dyslipidemia Code(s): E78.5 - HYPERLIPIDEMIA, UNSPECIFIED Status: Chronic (6) HTN (hypertension) Code(s): I10 - ESSENTIAL (PRIMARY) HYPERTENSION Status: Chronic Qualifiers: Hypertension type: essential hypertension Qualified Code(s): I10 - Essential (primary) hypertension Comment: (7) PVD (peripheral vascular disease) Code(s): I73.9 - PERIPHERAL VASCULAR DISEASE, UNSPECIFIED Status: Chronic Comment: with prior stent in right LE (8) Protein-calorie malnutrition, moderate Code(s): E44.0 - MODERATE PROTEIN-CALORIE MALNUTRITION Status: Chronic - Plan * .
[2018-10-20] MEDS: Vancomycin HCl 500 MG in Sodium Chloride 0.9% 100 ML IVPB SCH (16:28)
[2018-10-20] MEDS: HumaLOG 300 UNITS/3 ML VIAL SC PRN (16:28)
[2018-10-20] MEDS: Rosuvastatin 10 MG TAB PO SCH (20:47)
[2018-10-21] MEDS: Dextrose 5 % And 0.9 % NaCl 1,000 ML IV SCH ×2 (05:37→18:25)
[2018-10-21] MEDS: Carvedilol 6.25 MG TAB PO SCH ×2 (08:46→16:38)
[2018-10-21] MEDS: Famotidine 20 MG TAB PO SCH (08:46)
[2018-10-21] MEDS: Saccharomyces boulardii 250 MG CAP PO SCH (08:46)
[2018-10-21] MEDS: Lisinopril 20 MG TAB PO SCH (08:46)
[2018-10-21] MEDS: HumaLOG 300 UNITS/3 ML VIAL SC PRN (12:13)
--- NOTE | 2018-10-21 13:18 | PDOC.PN ---
- Subjective Encounter Start Date: 10/21/18 Encounter Start Time: 10:20 - Objective Resuscitation Status - Order Detail: 10/20/18 12:31 Resuscitation Status Routine Resuscitation Status: FULL: Full Resuscitation Discussed with: per prior order MAR Reviewed: Yes Vital Signs & Weight: Vital Signs (12 hours) Temp Pulse Resp BP BP Pulse Ox 10/21/18 08:46 166/83 H 10/21/18 08:39 100 10/21/18 07:34 97.6 F 66 14 166/83 H 100 Weight Admit Weight 104 lb 15.04 oz Weight 107 lb 2.314 oz Most Recent Monitor Data Heart Rate from ECG 84 NIBP 169/87 NIBP BP-Mean 114 Respiration from ECG 18 SpO2 100 I&O: 10/20/18 10/21/18 10/22/18 06:59 06:59 06:59 Intake Total 1080 2380 Output Total 650 1600 Balance 430 780 Result Diagrams: 10/16/18 04:10 10/16/18 04:10 Additional Labs: Accuchecks 10/21/18 10/21/18 10/20/18 11:09 05:20 19:47 POC Glucose 209 H 125 H 212 H 10/20/18 16:10 POC Glucose 215 H Dx/Plan (1) UTI (urinary tract infection) Status: Acute Qualifiers: Indwelling urinary catheter type: cystostomy catheter Encounter type: initial encounter Comment: due to MRSA (2) Anemia of renal disease Code(s): N18.9 - CHRONIC KIDNEY DISEASE, UNSPECIFIED; D63.1 - ANEMIA IN CHRONIC KIDNEY DISEASE Status: Chronic (3) CKD (chronic kidney disease) stage 4, GFR 15-29 ml/min Code(s): N18.4 - CHRONIC KIDNEY DISEASE, STAGE 4 (SEVERE) Status: Chronic Comment: (4) DM type 2 (diabetes mellitus, type 2) Status: Chronic Qualifiers: 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 use: without correction use Diabetes mellitus complication status: with kidney complications Diabetes mellitus complication detail: with chronic kidney disease Chronic kidney disease stage : stage 4 (severe) Qualified Code(s): E11.22 - Type 2 diabetes mellitus with diabetic chronic kidney disease; N18.4 - Chronic kidney disease, stage 4 (severe ) (5) Dyslipidemia Code(s): E78.5 - HYPERLIPIDEMIA, UNSPECIFIED Status: Chronic (6) HTN (hypertension) Code(s): I10 - ESSENTIAL (PRIMARY) HYPERTENSION Status: Chronic Qualifiers: Hypertension type: essential hypertension Qualified Code(s): I10 - Essential (primary) hypertension Comment: (7) PVD (peripheral vascular disease) Code(s): I73.9 - PERIPHERAL VASCULAR DISEASE, UNSPECIFIED Status: Chronic Comment: with prior stent in right LE (8) Protein-calorie malnutrition, moderate Code(s): E44.0 - MODERATE PROTEIN-CALORIE MALNUTRITION Status: Chronic - Plan * .
[2018-10-21 16:29] LABS: Vancomycin, Trough 16.4 ug/mL
[2018-10-21] MEDS: Vancomycin HCl 500 MG in Sodium Chloride 0.9% 100 ML IVPB SCH (18:24)
--- NOTE | 2018-10-21 20:06 | PRG ---
DATE OF SERVICE: 10/21/2018 SUBJECTIVE: The patient is sleeping comfortably. Does not complaining of any pain or discomfort. He has a Connors catheter and suprapubic tube. Suprapubic tube has not been draining and Connors catheter is only putting out minimal amounts of urine. There is a heavy sediment and sludge within his bladder, which is likely preventing the catheter from draining properly. This is causing some issues regarding his disposition. OBJECTIVE: VITAL SIGNS: Temperature 97.8, pulse 60, respirations 20, blood pressure 159/77, and saturation 100% on room air. GENERAL: Sleeping comfortably, in no apparent distress. Communicating properly and answering questions appropriately. Thin and cachetic. CARDIOVASCULAR: Regular rate and rhythm. ABDOMEN: Soft, nontender, and nondistended. SP tube in place with minimal output. Connors catheter also in place in penis, which is secured with some yellow urine within the drainage bag. EXTREMITIES: Thin. No significant clubbing, cyanosis, or edema. ASSESSMENT AND PLAN: A 68-year-old black male with significant mucus within the bladder, suggestive of either infection or possible mucinous adenocarcinoma. I think he needs a better washout in the bladder and a better inspection at bedside. Cystoscopy was not adequate for proper evaluation. I will plan to take him to the operating room tomorrow for a cystoscopy with rigid cystoscope with full evacuation of all mucus. Biopsies of the bladder if indicated and dilation of his SP tube tract to a 28-Estonian catheter which should drain better. At this point, we will evaluate for better drainage and see how he does. I will continue follow along and make recommendations. If there are any masses in the bladder, we will take biopsies and discuss disposition and treatment options at that point. Job ID: [id number]
[2018-10-21] MEDS: Rosuvastatin 10 MG TAB PO SCH (20:59)
[2018-10-22] MEDS: Carvedilol 6.25 MG TAB PO SCH ×2 (05:38→17:51)
[2018-10-22] MEDS: Dextrose 5 % And 0.9 % NaCl 1,000 ML IV SCH ×2 (09:50→17:53)
[2018-10-22] MEDS: Saccharomyces boulardii 250 MG CAP PO SCH (09:52)
[2018-10-22] MEDS: Famotidine 20 MG TAB PO SCH (09:52)
[2018-10-22] MEDS: Lisinopril 20 MG TAB PO SCH (09:52)
[2018-10-22] MEDS ORDERED: ePHEDrine/0.9% NaCl/PF SYRINGE 50 mg/10 ml ONE (11:40)
[2018-10-22] MEDS ORDERED: Lidocaine 1% PF 5 ML VIAL ONE (11:40)
[2018-10-22] MEDS ORDERED: PROPOFOL 200 MG/20 ML VIAL ONE (11:40)
[2018-10-22] MEDS ORDERED: Fentanyl 100 MCG/2 ML VIAL ONE ×2 (14:15→15:03)
[2018-10-22] MEDS ORDERED: Levofloxacin 500 mg/D5W 100 ml Premix Bag ONE (15:40)
[2018-10-22] MEDS ORDERED: Ondansetron HCl/PF 4 MG/2 ML Vial IVP PRN (16:42)
[2018-10-22] MEDS ORDERED: Promethazine HCl 25 MG/ML VIAL SLOW IVP PRN (16:42)
[2018-10-22] MEDS ORDERED: Promethazine HCl 25 MG/ML VIAL IM PRN (16:42)
[2018-10-22] MEDS: Vancomycin HCl 500 MG in Sodium Chloride 0.9% 100 ML IVPB SCH (17:51)
[2018-10-22] MEDS: Rosuvastatin 10 MG TAB PO SCH (20:30)
--- NOTE | 2018-10-23 01:18 | OP ---
DATE OF PROCEDURE: 10/22/2018 SERVICE: Urology. PREOPERATIVE DIAGNOSIS: Mucus retention. POSTOPERATIVE DIAGNOSES: Urinary retention, mucus retention, multiple bladder diverticulum, and irregular lesion of the bladder wall. PROCEDURES PERFORMED: Cystoscopy, irrigation, complex SP tube change, and bladder biopsy with fulguration. INDICATIONS FOR PROCEDURE: Mr. Gonsalez is a 68-year-old black male, who presented with urosepsis and retention with bilateral hydronephrosis. Placement of a catheter demonstrated large amounts of purulent mucus within the bladder. Irrigation was performed and cystoscopy was attempted, however, visualization was poor. An SP tube was placed, but drainage was so poor through the SP tube that he is now being brought to the operating room for cystoscopy and irrigation of the mucus as well as more thorough inspection of his bladder and possible biopsy with SP tube tract dilation. DESCRIPTION OF PROCEDURE: After identification of arm band and verification of consent, the patient was brought back to the operating room, where he underwent general anesthesia with LMA. He was then placed in dorsal lithotomy position, and prepped and draped in the usual sterile fashion. After appropriate time-out, a lubricated 22-Chilean rigid cystoscope was introduced per urethra into the bladder. The urethra was normal and the prostate was not hypertrophic. The bladder had a significant amount of turbidity and mucus with purulence. This was copiously irrigated out and after multiple attempts of irrigation, it was noted that the patient had 3 large bladder diverticula; one on the left posterolateral wall, one on the direct posterior aspect, and then one more anterior towards the right. The anterior one was the largest and has the suprapubic tube in it, which was not draining during cystoscopy. The middle diverticulum, which was directly posterior, has irregular lesions within the mucosal lining on the anterior aspect as well as some irregularity near the os of the diverticulum. The bladder itself does not demonstrate any significant irregularity, but was extremely small and low capacity with the diverticula containing most of the capacity for the bladder. Both ureters were identified in the orthotopic location and appeared normal. Biopsies were taken of the irregular lesion in the middle diverticulum on the anterior wall. Several biopsies were taken from different locations and then the area cauterized with Bugbee electrode. The posterolateral diverticulum did not have any unusual lesions in it, and the diverticulum with the SP tube in also does not have any irregular lesions, so no other biopsies were taken from either of the bladder diverticula anywhere else or within the bladder wall. A wire was advanced through the SP tube that was currently in the bladder diverticulum and then the SP tube removed with the wire left in place. A NephroMax balloon dilator was advanced over the wire and a small skin incision was made to extend the SP tube entry site to at least comminuted 30-Chilean sheath. The balloon dilator was positioned over the abdominal wall and then dilated up to 30-Chilean at 16 atmospheres. The sheath was then advanced into the patient's bladder diverticulum under direct vision. The catheter and wire were then removed and a 24-Chilean catheter was brought in through the sheath into the bladder diverticulum. Using the sheath to manipulate it, the catheter was guided into the actual [place] bladder rather than just through the diverticulum so that the balloon was inflated in the [place] bladder and the tip was sitting near the bladder neck. The balloon was filled with 10 mL of sterile water. The patient had the catheter secured and final irrigation was performed. Final inspection did not demonstrate any additional bleeding. The cystoscope was then removed and the catheter was left to gravity drainage. The patient was then awakened and taken to PACU for recovery in stable condition. COMPLICATIONS: None. ESTIMATED BLOOD LOSS: Minimal. RETAINED TUBES AND DRAINS: 24-Chilean suprapubic tube. SPECIMENS: Bladder biopsy x3. DISPOSITION: The patient will be admitted back to the Hospitalist Service. We will ensure that his catheter is draining properly and then he could be discharged subsequently once he has adequate demonstration of catheter drainage. We will await the biopsy results and I can always go over this with him on an outpatient basis. Job ID: [id number]
[2018-10-23 07:34] VITALS: BP 152/81; TEMP 97.6
[2018-10-23] MEDS: Lisinopril 20 MG TAB PO SCH (07:40)
[2018-10-23] MEDS: Famotidine 20 MG TAB PO SCH (07:40)
[2018-10-23] MEDS: Saccharomyces boulardii 250 MG CAP PO SCH (07:40)
[2018-10-23] MEDS: Carvedilol 6.25 MG TAB PO SCH ×2 (07:41→16:32)
[2018-10-23] MEDS: Dextrose 5 % And 0.9 % NaCl 1,000 ML IV SCH (11:45)
[2018-10-23] MEDS: Vancomycin HCl 500 MG in Sodium Chloride 0.9% 100 ML IVPB SCH (16:32)
--- NOTE | 2018-10-26 13:31 | DIS ---
DATE OF ADMISSION: 10/11/2018 DATE OF DISCHARGE: 10/23/2018 ADMISSION DIAGNOSES: 1. Urinary tract infection. 2. Anemia of renal disease. 3. Chronic kidney disease. 4. Dyslipidemia. 5. Hypertension. 6. Peripheral vascular disease. 7. Protein calorie malnutrition. DISCHARGE DIAGNOSES: 1. Urinary tract infection, with mucus retention. 2. Urinary retention. 3. Anemia. 4. Chronic kidney disease. 5. Dyslipidemia. 6. Hypertension. 7. Peripheral vascular disease. 8. Protein calorie malnutrition. HISTORY OF PRESENTING ILLNESS: Mr. Gonsalez is a 68-year-old black male who presented with urosepsis, retention of urine, and bilateral hydronephrosis. Placement of a catheter demonstrated large amount of purulent mucus within the bladder. Cystoscopy with irrigation and complex SP tube change and bladder biopsy with fulguration was completed. The patient's urineculture was positive for methicillin-resistant Staph aureus. The patient here was treated with antibiotics and he did well after bladder irrigation, cystoscopy, and SP tube change. The patient was subsequently discharged to follow up as an outpatient. DISCHARGE INSTRUCTIONS: 1. Please take the medications as prescribed. 2. Activity as tolerated. 3. Diabetic diet. 4. Physical Therapy and Occupational Therapy to evaluate and prescribed activity. 5. Please follow up with your urologist and also your primary care physician. Job ID: [id number] [facility]
== END 2018-10-23 19:10 | DRG 853 ==
LOC: ERS 14:24 → CCU 16:12 → T4-A 10-13 10:20 → T4-B 10-22 21:01 → T4-A 10-22 21:23
PROVIDERS: ADMIT Internal Medicine; ATTEND Internal Medicine
PROC: 02HV33Z Insertion of Infusion Device into Superior Vena Cava, Percutaneous Approach (ICD-10-PCS; 2018-10-11)
PROC: 3E033XZ Introduction of Vasopressor into Peripheral Vein, Percutaneous Approach (ICD-10-PCS; 2018-10-11)
PROC: 0T9B80Z Drainage of Bladder with Drainage Device, Via Natural or Artificial Opening Endoscopic (ICD-10-PCS; 2018-10-12)
PROC: 0T9B30Z Drainage of Bladder with Drainage Device, Percutaneous Approach (ICD-10-PCS; 2018-10-13)
PROC: 0TBB8ZX Excision of Bladder, Via Natural or Artificial Opening Endoscopic, Diagnostic (ICD-10-PCS; principal; 2018-10-22)
PROC: 0T5B8ZZ Destruction of Bladder, Via Natural or Artificial Opening Endoscopic (ICD-10-PCS; 2018-10-22)
PROC: 0T9B80Z Drainage of Bladder with Drainage Device, Via Natural or Artificial Opening Endoscopic (ICD-10-PCS; 2018-10-22)
DX: A41.9 Sepsis, unspecified organism (principal); R65.21 Severe sepsis with septic shock; I42.9 Cardiomyopathy, unspecified; I24.8 Other forms of acute ischemic heart disease; E44.0 Moderate protein-calorie malnutrition; N17.9 Acute kidney failure, unspecified; E87.2 Acidosis; N13.30 Unspecified hydronephrosis; N18.4 Chronic kidney disease, stage 4 (severe); N39.0 Urinary tract infection, site not specified; F03.90 Unspecified dementia, unspecified severity, without behavioral disturbance, psychotic disturbance, mood disturbance, and anxiety; E11.21 Type 2 diabetes mellitus with diabetic nephropathy; D63.1 Anemia in chronic kidney disease; R33.9 Retention of urine, unspecified; N32.3 Diverticulum of bladder; N32.89 Other specified disorders of bladder; E86.0 Dehydration; Z79.4 Long term (current) use of insulin; R62.7 Adult failure to thrive; E11.22 Type 2 diabetes mellitus with diabetic chronic kidney disease; I12.9 Hypertensive chronic kidney disease with stage 1 through stage 4 chronic kidney disease, or unspecified chronic kidney disease; E78.5 Hyperlipidemia, unspecified; I73.9 Peripheral vascular disease, unspecified; B95.62 Methicillin resistant Staphylococcus aureus infection as the cause of diseases classified elsewhere; Z89.421 Acquired absence of other right toe(s); L89.152 Pressure ulcer of sacral region, stage 2
CPT/HCPCS: 36415; 36416; 36556; 51102; 51701; 71045; 74176; 76700; 77002; 80048; 80053; 80069; 80170; 80202; 81003; 81015; 82274; 82550; 82553; 82607; 82746; 83540; 83550; 83605; 83690; 83880; 84484; 85025; 85610; 85730; 87040; 87077; 87086; 87186; 87324; 87449; 87804; 88305; 93005; 96365; 96366; 96368; C2627; J0696; J1265; J1580; J1644; J1956; J2001; J2250; J2704; J3010; J3370; J7050; J7070

== ENCOUNTER 2018-10-30 11:41 | Emergency (ER) | payer MEDICARE, OTHER | END 2018-10-30 16:14 | LOC: ERS 11:41 | DX: E11.649 Type 2 diabetes mellitus with hypoglycemia without coma (principal); I12.9 Hypertensive chronic kidney disease with stage 1 through stage 4 chronic kidney disease, or unspecified chronic kidney disease; N18.9 Chronic kidney disease, unspecified; Z79.899 Other long term (current) drug therapy; Z79.4 Long term (current) use of insulin | CPT/HCPCS: 36415; 36416; 84443; 99284 ==

== ENCOUNTER 2018-11-18 17:54 | Inpatient (IN) | payer MEDICARE, MEDICAID ==
[2018-11-18 18:53] LABS: Actual Bicarbonate (HCO3v) 10 mEq/L (22-28); Analyzer IN Cardio ER; Base Excess -15.3 mEq/L (-2.0 to +3.0); Calcium, Ionized 1.17 mmol/L (1.16-1.32); Chloride (ABG LAB) 120 mmol/L (98-106); Hemoglobin (Hb) 8.9 g/dL (12.6-17.4); Potassium - ABG Lab 4.06 mmol/L (3.70-5.30); Sodium 139.3 mmol/L (133-146); pH (venous) 7.28 (7.32-7.43)
[2018-11-18] MEDS ORDERED: Acetaminophen 325 MG TAB PO PRN (21:08)
[2018-11-18] MEDS ORDERED: Ondansetron ODT 4 MG TAB SL PRN (21:08)
[2018-11-18] MEDS ORDERED: Ondansetron PF 4 MG/2 ML Vial IVP PRN (21:08)
[2018-11-18] MEDS: Lactated Ringer's 1,000 ML IV SCH (22:39)
[2018-11-19] MEDS ORDERED: Loratadine 10 MG TAB PO PRN (01:02)
[2018-11-19] MEDS ORDERED: Ondansetron ODT 4 MG TAB PO PRN (01:02)
[2018-11-19] MEDS ORDERED: Loperamide HCl 2 MG CAP PO PRN (01:02)
[2018-11-19] MEDS ORDERED: Nitroglycerin 0.4 MG TAB (25 Tab Bottle) SL PRN (01:02)
[2018-11-19 02:35] VITALS: BMI 17.9
[2018-11-19] MEDS: Lactated Ringer's 1,000 ML IV SCH (07:19)
[2018-11-19] MEDS ORDERED: Non-Formulary Item 1 EACH (Lactose-Reduced Food [Ensure Enlive] 237 ML) PO SCH (09:00)
[2018-11-19] MEDS ORDERED: Lisinopril 20 MG TAB PO SCH (09:00)
[2018-11-19] MEDS: Rosuvastatin 10 MG TAB PO SCH (09:13)
[2018-11-19] MEDS: Famotidine 20 MG TAB PO SCH (09:14)
[2018-11-19] MEDS: Carvedilol 6.25 MG TAB PO SCH ×2 (09:14→16:22)
[2018-11-19] MEDS ORDERED: Acetaminophen 325 MG TAB PO PRN (12:04)
[2018-11-19] MEDS ORDERED: Guaifenesin DM 100-10/5 ML UDCUP PO PRN (12:04)
[2018-11-19] MEDS ORDERED: Senokot S 8.6-50 MG TAB PO PRN (12:04)
[2018-11-19 13:11] LABS: ALT (SGPT) 95 U/L (8-55); AST (SGOT) 26 U/L (5-34); Albumin 2.7 g/dL (3.4-4.8); Alkaline Phosphatase 239 U/L (40-150); Anion Gap 12 mmol/L (10-20); BUN (Urea Nitrogen) 44 mg/dL (8.4-25.7); Bilirubin, Total 0.3 mg/dL (0.2-1.2); Calc. Creatinine Clearance 18 mL/min (70-130); Calcium 8.2 mg/dL (7.8-10.44); Carbon Dioxide 14 mmol/L (23-31); Chloride 119 mmol/L (98-107); Estimated GFR-MDRD 26; Globulin 3.8 g/dL (2.4-3.5); Glucose 88 mg/dL (80-115); Potassium 4.3 mmol/L (3.5-5.1); Protein, Total 6.5 g/dL (5.8-8.1); Sodium 141 mmol/L (136-145)
[2018-11-19] MEDS ORDERED: Lactated Ringer's 1,000 ML IV SCH (15:00)
--- NOTE | 2018-11-19 15:34 | HP ---
REASON FOR ADMISSION: Acute encephalopathy, severe metabolic acidosis. HISTORY OF PRESENTING ILLNESS: Please note, majority of this history was obtained by talking to [facility] staff, ER records, and prior medical records as the patient is not oriented. Apparently at the [facility], the patient had a fingerstick glucose of 30 around 3 in the morning. He was given a dose of intramuscular glucagon, and they tried to give him oral Jell-O. The sugars came up to 276. No further insulin were given. The patient was offered multiple items to eat, but refused. He also refused vital checks. The patient also started to become a little agitated. The staff at [facility] called Dr. Giron, his primary care doctor, and was asked to send him to emergency room at [place]. At [place], the patient had an initial workup done, which showed serum bicarb to be less than 8, and this was confirmed with multiple venous blood gases there as well. The patient was finally transferred here for higher level of care. The patient currently is trying to eat his breakfast. He is moving all extremities. He has no complaints of chest pain or palpitation. No complaints of cough or expectoration. PAST MEDICAL AND SURGICAL HISTORY: History of urinary obstruction with suprapubic catheter, recent urinary tract infection. Discharged on the 23 of October to [facility]. Chronic anemia due to renal disease, CKD stage 4, dyslipidemia, hypertension, peripheral vascular disease, protein-calorie malnutrition, likely underlying dementia, left knee surgery, right femoral stent , and resection of toes on the right foot. PERSONAL HISTORY: The patient has not been smoking or drink alcohol at the [facility]. Per prior records, no history of drug abuse. He is currently a resident at [facility]. FAMILY HISTORY: Cannot be obtained as the patient is not oriented. CURRENT MEDICATIONS: At the [facility], the patient is on; 1. Coreg 6.25 mg p.o. twice daily. 2. DuoNebs q.i.d. p.r.n. 3. Imdur 60 mg twice daily. 4. Lisinopril 20 mg daily. 5. Lisinopril 20 mg daily. 6. Rosuvastatin 10 mg daily. 7. Tums 1000 mg p.r.n. 8. Claritin 10 mg daily. 9. Pepcid 20 mg daily. ALLERGIES: NO KNOWN DRUG ALLERGIES. REVIEW OF SYSTEMS: Cannot be accurately obtained as the patient is not oriented at present. PHYSICAL EXAMINATION: GENERAL: The patient is a 68-year-old male who is currently not in any acute distress. VITAL SIGNS: Blood pressure 160/70, pulse 66 per minute, respiratory rate is 14 per minute, temperature 97.5 degrees Fahrenheit, and saturating 99% on room air. NECK: Supple. No elevated JVD. HEENT: Eyes, extraocular muscles intact. Pupils reacting to light. Oral cavity, mucous membranes are dry. No exudates or congestion. CARDIOVASCULAR SYSTEM: S1 and S2 heard. Regular rhythm. RESPIRATORY SYSTEM: Air entry 1+ bilateral. No rales or rhonchi. ABDOMEN: Soft. Bowel sounds heard. No tenderness, rigidity, or guarding. EXTREMITIES: No peripheral edema or calf tenderness. VASCULAR SYSTEM: Peripheral pulses 1+ bilateral. No ischemic ulcerations or gangrene. CENTRAL NERVOUS SYSTEM: No gross focal deficits noted. The patient is awake, but is not oriented. PSYCHIATRIC SYSTEM: Cannot be accurately assessed, but no obvious hallucinations or delusions. LABORATORY DATA: The patient has a venous blood gas done, shows a pH of 7.28. Venous blood gas bicarb was 10. Serum bicarb was 14. BUN 44, creatinine 2.8, ALT 95, alkaline phosphatase 239, and albumin 2.7. H and H 9 and 30, platelet count 110, white count of 5.7 with 78% neutrophils. An initial venous blood gas done at 10:46 a.m. yesterday, showed a pH was 6.9. The patient also had a bicarb of less than 8 at 10:20 a.m. yesterday morning. BNP was 244. DIAGNOSTIC DATA: The prior echo done in July of 2018 shows EF of 45% to 50 %, moderate concentric LVH, hypokinetic inferior wall diastolic dysfunction. CLINICAL IMPRESSION AND PLAN: The patient will be admitted to [facility] for severe metabolic acidosis. The reason is unclear for the same. I have discussed these findings with Dr. Hernandez. Dr. Hernandez has seen him on prior occasions. He will be on Ringer lactate at 75 mL per hour. We will obtain wang-cultures. The patient has acute kidney injury on top of his chronic kidney disease, stage 4. He also has acute encephalopathy. Has protein malnutrition. Had hypoglycemia with hypothermia on arrival to [facility], both of which have cleared at present. We will obtain a CT of the chest, abdomen, and pelvis in view of poor history from patient and inadequate clinical exam findings to ascertain if he has any abnormalities including a perforated viscus, although his abdomen is benign at present. Per Dr. Hernandez, the patient might have renal tubular acidosis. Again, this will be confirmed once all the other diagnoses were ruled out. We will stop his lisinopril. If the patient remains hemodynamically stable, he will be transferred out to medical floor. I have tried to contact his son, Mr. Bro Luis at [phone], and I am unable to contact him. He is currently a full code by default. We will consult Palliative Care to help with the code status and goals of care. Job ID: [id number] MTDD
--- NOTE | 2018-11-19 16:07 | CT ---
CT CHEST WITHOUT CONTRAST CT ABDOMEN WITHOUT CONTRAST CT PELVIS WITHOUT CONTRAST: Date: 11/19/18 HISTORY: Severe metabolic acidosis, sepsis. COMPARISON: CT abdomen and pelvis without contrast, stone protocol, dated 10/12/18. FINDINGS: There are extensive patchy infiltrates throughout the left lower lobe and left upper lobe and lingula . Small layering left effusion. Calcified granuloma right lung base. Some low grade pulmonary edema. There is dilatation of the esophagus. Mild paraseptal emphysema. No mediastinal adenopathy. Mild third spacing of fluid. Suprapubic catheter and Connors catheter in omi ce. There is narrowing of the body of the urinary bladder with a circumferential what appears to be a mass. The collecting systems are mildly dilated, although improved from the comparison examination. Noncontrast evaluation of the liver, spleen, and pancreas are unremarkable. No dilated loops of large or small bowel. Moderate degenerative changes of the lumbar spine. IMPRESSION: 1. Multifocal left lung pneumonia. There is a parapneumonic effusion. This may be due to bacterial o rigin, or given the patient's dilated esophagus, aspiration is also a possibility, although felt some what less likely given the relative absence of right lung opacities. 2. Findings highly suggestive of a circumferential urinary bladder waist mass with a Connors catheter and suprapubic catheter. POS: JOSE ALEJANDRO
[2018-11-19] MEDS: Cefepime 1 GM in Sodium Chloride 0.9% 100 ML IVPB SCH (16:08)
[2018-11-19] MEDS ORDERED: Iopamidol 370 76% 50 ML VIAL FS ONE (16:59)
[2018-11-19] MEDS: Sodium Bicarbonate Tab 325 MG TAB PO SCH (20:34)
--- NOTE | 2018-11-20 01:52 | CON ---
DATE OF CONSULTATION: 11/20/2018 CONSULTING PHYSICIAN: Mary Smith MD REASON FOR CONSULTATION: Metabolic acidosis. IMPRESSION: 1. Given the urinalysis of this patient with pH of 7.0 in the face of low serum bicarbonate, the patient does likely have renal tubular acidosis. 2. Advanced chronic kidney disease stage 4. 3. Hypertension. PLAN: 1. Discontinue current IV fluids. 2. Start this patient on sodium bicarb supplementation. 3. No emergent indication for renal replacement therapy. HISTORY OF PRESENT ILLNESS: A 68-year-old gentleman from [facility] who was referred to us because of severe metabolic acidosis, unexplained with bicarb level of 8. The patient denies any diarrhea, any nausea, any vomiting. No change in medications. As a result of this, the patient was admitted to be worked up. He has hypertension. PAST MEDICAL HISTORY: Significant for end-stage renal disease, urinary tract infection, hypertension, chronic kidney disease stage 4. MEDICATIONS: Reviewed as documented on [facility]. FAMILY HISTORY: Not significantly related. PHYSICAL EXAMINATION: GENERAL: The patient was noted to be in severe distress. Noted with the following vital signs. VITAL SIGNS: Afebrile, temperature 97.2, pulse 62, respiratory rate of 20, blood pressure 152/66. HEENT: Unremarkable. CARDIOVASCULAR SYSTEM: First and second heart sounds were heard. RESPIRATORY SYSTEM: Clear to auscultation. DIGESTIVE SYSTEM: Reviewed a benign abdomen with positive bowel sounds. SUMMARY: 68-year-old gentleman, who was sent over to us because of unexplained metabolic acidosis. Job ID: [id number] MTDD
[2018-11-20 05:23] LABS: #Eosinphils 0.1 thou/uL (0.0-0.7); #Lymphocytes 1.4 thou/uL (1.20-3.40); #Monocytes 0.4 thou/uL (0.11-0.59); #Neutrophils 3.9 thou/uL (1.40-6.50); %Basophils 0.7 % (0.0-1.0); %Lymphocytes 23.6 % (21.0-51.0); %Monocytes 6.2 % (0.0-10.0); %Neutrophils 67.5 % (42.0-75.0); Hemoglobin 7.7 g/dL (14.0-18.0); Mean Corpuscular HGB CONC 32.5 g/dL (32.0-36.0); Mean Corpuscular Hemoglobin 27.5 pg (27.0-31.0); Mean Corpuscular Volume 84.5 fL (78.0-98.0); Platelet Count 130 thou/uL (130-400); RBC Distribution Width 18.3 % (11.5-14.5); Red Blood Cell (RBC) Count 2.81 mill/uL (4.70-6.10); White Blood Cell (WBC) Count 5.8 thou/uL (4.8-10.8)
[2018-11-20] MEDS ORDERED: Dextrose 50% Abboject 50 ML SYRINGE SLOW IVP SCH (05:45)
[2018-11-20 05:52] LABS: Albumin 2.4 g/dL (3.4-4.8); Anion Gap 11 mmol/L (10-20); BUN (Urea Nitrogen) 42 mg/dL (8.4-25.7); BUN/Creatinine Ratio 15.56; Calc. Creatinine Clearance 19 mL/min (70-130); Calcium 8.2 mg/dL (7.8-10.44); Carbon Dioxide 15 mmol/L (23-31); Chloride 119 mmol/L (98-107); Estimated GFR-MDRD 28; Phosphorus 4.2 mg/dL (2.3-4.7); Potassium 4.4 mmol/L (3.5-5.1); Sodium 141 mmol/L (136-145)
[2018-11-20 05:56] LABS: Glucose 40 mg/dL (80-115)
--- NOTE | 2018-11-20 08:46 | CON ---
DATE OF CONSULTATION: 11/19/2018 Consultation was requested for UTI and retention. HISTORY OF PRESENT ILLNESS: The patient is followed by Dr. Levi routinely, who saw him last month in the hospital and ultimately had an SP tube placed and then changed this to a larger tube when he took him for cystoscopy and noted an extremely abnormal bladder with multiple diverticulum and abnormal hypertrophic trabeculations that were biopsied to be negative for cancer. Despite this, the patient has known severe amounts of mucus that blocked his catheters, but he has been doing otherwise okay since discharge until he had concerns for urine infection again, minimal to no urine output. When he was seen previously, he had mild bilateral hydronephrosis with debris in the bladder as previously detailed and his creatinine was as high as 7.84 previously. PAST MEDICAL HISTORY: Significant for hypertension, diabetes, chronic renal insufficiency, cardiomyopathy, and peripheral vascular disease. PAST SURGICAL HISTORY: Includes left knee, right femoral stent, and right toes amputated. MEDICATIONS: Include; 1. Carvedilol 6.25. 2. Famotidine 20 mg. 3. Isosorbide 60 mg. 4. Lisinopril 20 mg. 5. Crestor 20 mg. 6. Loperamide as needed. 7. DuoNebs. 8. Lantus 10 units at bedtime. ALLERGIES: NONE. SOCIAL HISTORY: It is listed as none, but he actually admits to smoking and then when questioned, he said he only had 2 or 3 drags per cigarette and did not smoke multiple, but only did that for a year, many years ago. He does not drink or use other drugs. He currently lives in [facility] [place]. REVIEW OF SYSTEMS: He denies any shortness of breath, chest pain, coughing up anything. He has no pain currently. He did feel bad when he came in and he feels significantly better. He has had no diarrhea, no constipation. He has had no vomiting or nausea. No fever or chills. FAMILY HISTORY: Significant for mother and father in the 70s, but not sure whether this is 1970s or in their 70s and he is not sure what they passed from, but does not believe they had cancer. PHYSICAL EXAMINATION: GENERAL: He is comfortable in the bed, alert and oriented to self and place. VITAL SIGNS: T-max 98.5, current 97.5; blood pressure is 162/69, heart rate in the 50s to 60s, and saturating 99% on room air. For me, his heart rate seemed to be more in the 90s to close to 100. LUNGS: He had clear to auscultation bilaterally on exam, but he had minimal inspiratory effort. HEENT: No JVD. No scleral icterus. ABDOMEN: Soft with normoactive bowel sounds. Nontender. SP tube is in place from above and a urethral Connors only [id number] was in place from below with presumably urine leaks around the urethral Connors. He is uncircumcised with edematous foreskin, but it was reduced appropriately. Testes were descended bilaterally without masses. GENITOURINARY: His testes were descended bilaterally without masses. The phallus had edematous foreskin, but it was adequately reduced. There was a gauze that had yellow-stained, presumably urine drainage around the urethral Connors. EXTREMITIES: He had no lower extremity edema. LABORATORY VALUES: Reveal an H and H of 9.1 and 30.4, a BUN and creatinine of 44 and 2.89, which has improved from 3.54, it has been as high as 7.84 previously. A urinalysis from the revealed too numerous to count wbc's, 0 to 3 rbc's, rare bacteria, 0 to 3 squamous cells. A urine culture from September of this year showed less than5K MRSA. A urinalysis from 09/10 showed some bacteria, but the culture only grew yeast. IMAGING DATA: CT scan from 10/12/2018 without contrast revealed multiple fine prostatic calcifications, one versus two large bladder diverticulum with a very thickened septum in the bladder, and it is difficult to tell whether there was another large diverticulum or that the bladder was folded over with mild bilateral hydronephrosis. ASSESSMENT: We have a 68-year-old male with a neurogenic bladder that presumably is not harboring any cancer and now has an SP tube and urethral Connors with very minimal output that will chronically not drain well given the large diverticulum that would require major surgical intervention to improve. RECOMMENDATIONS: At this time, my recommendation would be to change the urethral Connors to an 18-Lao to decrease his spasms and be able to better record his actual urine output and hand irrigate as needed through either the SP tube and/or the urethral Connors. For hand irrigation, at least a 16-Lao, if not 18-Lao is best in order to adequately extract anything from a mucus standpoint or clot. He is currently getting Levaquin and cefepime until there is something culture-gutierrez, clearly adequate coverage for now. Job ID: [id number] MTDPino
[2018-11-20] MEDS: Dextrose 5% in Water 1,000 ML IV SCH ×2 (08:48→21:11)
[2018-11-20] MEDS: Enoxaparin Sodium 30 MG/0.3 ML SYRINGE SC SCH (08:49)
[2018-11-20] MEDS: Famotidine 20 MG TAB PO SCH (08:49)
[2018-11-20] MEDS: Rosuvastatin 10 MG TAB PO SCH (08:49)
[2018-11-20] MEDS: Carvedilol 6.25 MG TAB PO SCH ×2 (08:49→17:41)
[2018-11-20] MEDS: Sodium Bicarbonate Tab 325 MG TAB PO SCH ×2 (08:53→21:08)
[2018-11-20] MEDS ORDERED: Prevnar 13-Val Conj/PF 0.5 ML SYRINGE IM ONE (09:00)
--- NOTE | 2018-11-20 10:45 | PDOC.PN ---
- Subjective Encounter Start Date: 11/20/18 Encounter Start Time: 06:45 Subjective: is still waking up, not oriented -: no sob or in distress at present - Objective Resuscitation Status - Order Detail: 11/19/18 11:59 Resuscitation Status Routine Resuscitation Status: FULL: Full Resuscitation MAR Reviewed: Yes Vital Signs & Weight: Vital Signs (12 hours) Temp Pulse Resp BP Pulse Ox 11/20/18 08:33 62 16 99 11/20/18 07:35 96.9 F L 63 13 156/80 H 97 11/20/18 04:00 97.2 F L 69 18 150/79 H 100 11/20/18 00:45 97.0 F L 61 17 146/76 H 100 Weight Admit Weight 118 lb Weight 118 lb 3.2 oz I&O: 11/19/18 11/20/18 11/21/18 06:59 06:59 06:59 Intake Total 800 530 Balance 800 530 Result Diagrams: 11/20/18 04:52 11/20/18 04:52 Additional Labs: Accuchecks 11/20/18 11/20/18 11/20/18 06:37 05:08 04:19 POC Glucose 220 H 57 L* 45 L* Phys Exam - Physical Examination HEENT: PERRLA, sclera anicteric Neck: no JVD, supple Respiratory: no wheezing, no rales Cardiovascular: RRR, no significant murmur Gastrointestinal: soft, no distention, positive bowel sounds spc+, moreno+ Musculoskeletal: no edema, pulses present Neurological: non-focal, moves all 4 limbs Dx/Plan (1) Acute encephalopathy Code(s): G93.40 - ENCEPHALOPATHY, UNSPECIFIED Status: Acute (2) Metabolic acidosis Code(s): E87.2 - ACIDOSIS Status: Acute Comment: ?RTA type 4 (3) Hypoglycemia Code(s): E16.2 - HYPOGLYCEMIA, UNSPECIFIED Status: Acute (4) Sepsis Code(s): A41.9 - SEPSIS, UNSPECIFIED ORGANISM Status: Acute Qualifiers: Sepsis type: sepsis due to unspecified organism Qualified Code(s): A41.9 - Sepsis, unspecified organism Comment: (5) UTI (urinary tract infection) Status: Acute Qualifiers: Urinary tract infection type: acute cystitis Hematuria presence: without hematuria Qualified Code(s): N30.00 - Acute cystitis without hematuria (6) Anemia of renal disease Code(s): N18.9 - CHRONIC KIDNEY DISEASE, UNSPECIFIED; D63.1 - ANEMIA IN CHRONIC KIDNEY DISEASE Status: Chronic (7) CKD (chronic kidney disease) stage 4, GFR 15-29 ml/min Code(s): N18.4 - CHRONIC KIDNEY DISEASE, STAGE 4 (SEVERE) Status: Chronic Comment: (8) DM type 2 (diabetes mellitus, type 2) Status: Chronic Qualifiers: Diabetes mellitus alf insulin use: without alf use Diabetes mellitus complication status: with kidney complications Diabetes mellitus complication detail: with chronic kidney disease Chronic kidney disease stage : stage 3 (moderate) Qualified Code(s): E11.22 - Type 2 diabetes mellitus with diabetic chronic kidney disease; N18.3 - Chronic kidney disease, stage 3 ( moderate) (9) Dyslipidemia Code(s): E78.5 - HYPERLIPIDEMIA, UNSPECIFIED Status: Chronic (10) HTN (hypertension) Code(s): I10 - ESSENTIAL (PRIMARY) HYPERTENSION Status: Chronic Qualifiers: Hypertension type: essential hypertension Comment: (11) PVD (peripheral vascular disease) Code(s): I73.9 - PERIPHERAL VASCULAR DISEASE, UNSPECIFIED Status: Chronic Comment: with prior stent in right LE (12) Protein-calorie malnutrition, moderate Code(s): E44.0 - MODERATE PROTEIN-CALORIE MALNUTRITION Status: Chronic - Plan has abnormal bladder anatomy with mucous plugging of ureters -: his spc is still leaking, D5w drip until his sugars improve -: stool occult, Hb around 7.7g close to baseline -: on cefepime, levaquin, await cultures -: hco3 around 14 this am, alb in 2.4 * . Poor prognosis, palliative care will try to reach his children, I tried calling son x3 yesterday, couldn't reach him. Review of Systems - Medications/Allergies Allergies/Adverse Reactions: Allergies Allergy/AdvReac Type Severity Reaction Status Date / Time No Known Drug Allergies Allergy Verified 11/19/18 02:37 Medications: Current Medications Acetaminophen (Tylenol) 650 mg PO Q4H PRN PRN Reason: Headache/Fever/Mild Pain (1-3) Albuterol/Ipratropium (Duoneb) 3 ml NEB [id number] Last Admin: 11/20/18 08:33 Dose: 3 ml Carvedilol (Coreg) 6.25 mg PO BID-[facility] Last Admin: 11/20/18 08:49 Dose: 6.25 mg Enoxaparin Sodium (Lovenox) 30 mg SC 0900 [facility] Last Admin: 11/20/18 08:49 Dose: 30 mg Famotidine (Pepcid) 20 mg PO 0900 [facility] Last Admin: 11/20/18 08:49 Dose: 20 mg Guaifenesin/Dextromethorphan (Robitussin Dm) 15 ml PO Q4H PRN PRN Reason: Cough Cefepime HCl 1 gm/ Sodium (Chloride) 100 mls @ 200 mls/hr IVPB 1600 [facility] Last Admin: 11/19/18 16:08 Dose: 100 mls Levofloxacin 250 mg/ Device 50 mls @ 100 mls/hr IVPB Q24HR [facility] Last Admin: 11/19/18 16:21 Dose: 50 mls Dextrose/Water (D5w) 1,000 mls @ 75 mls/hr IV .[id number] [facility] Last Admin: 11/20/18 08:48 Dose: Not Given Isosorbide Mononitrate (Imdur) 60 mg PO BID [facility] Last Admin: 11/20/18 08:50 Dose: 60 mg Loratadine (Claritin) 10 mg PO DAILYPRN PRN PRN Reason: Sinus Symptoms Nitroglycerin (Nitrostat) 0.4 mg SL Q5MIN PRN PRN Reason: Chest Pain Ondansetron HCl (Zofran Odt) 4 mg PO Q6H PRN PRN Reason: Nausea/Vomiting Rosuvastatin Calcium (Crestor) 10 mg PO DAILY [facility] Last Admin: 11/20/18 08:49 Dose: 10 mg Senna/Docusate Sodium (Senokot S) 2 tab PO BID PRN PRN Reason: Constipation Sodium Bicarbonate (Bicarbonate, Sodium) 650 mg PO BID [facility] Last Admin: 11/20/18 08:53 Dose: 650 mg Sodium Chloride (Flush - Normal Saline) 10 ml IVF Q12HR [facility] Last Admin: 11/20/18 08:50 Dose: 10 ml Sodium Chloride (Flush - Normal Saline) 10 ml IVF PRN PRN PRN Reason: Saline Flush Last Admin: 11/20/18 05:49 Dose: 10 ml
[2018-11-20] MEDS: Cefepime 1 GM in Sodium Chloride 0.9% 100 ML IVPB SCH (15:31)
--- NOTE | 2018-11-20 16:33 | PRG ---
DATE OF SERVICE: 11/20/2018 SUBJECTIVE: No significant events overnight. His urine output has still been minimally recorded. He has no complaints. The nurse reports that after changing the catheter from 14 to 18-Telugu below, there has been decreased output from leakage around the urethral Connors. However, there has been increased leakage of urine output around the SP tube since that change. OBJECTIVE: He is lying comfortably in the bed. He wanted to sit up and eat. Vitals have been 97.2, 69, 150/79, 100% on room air. There is less leakage below at the urethral catheter. Some noted at the SP tube site. His H and H are significant for significant drop and now 7.7 and 23.8, BUN and creatinine are a little better at 42 and 2.70. 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 There is nothing more to improve this. However, now he has a drop in H and H without any explanation so this should be monitored closely. Continue antibiotics for presumed infection and await culture. Prognosis is poor and it appears that Hospice Services have already been requested. Job ID: [id number]
--- NOTE | 2018-11-20 19:49 | PRG ---
DATE OF SERVICE: 11/20/2018 SUBJECTIVE: The patient is seen and examined. Earlier events of hypoglycemia today noted. Otherwise, the patient noted with the following vital signs. OBJECTIVE: VITAL SIGNS: Afebrile, temperature 97, pulse 66, respiratory rate of 17, O2 saturation 100% with blood pressure of 165/89. HEENT: Unremarkable. Moist oral mucosa. NECK: Supple. No conjunctival injection or icterus. CARDIOVASCULAR SYSTEM: First and second heart sounds were heard. RESPIRATORY SYSTEM: Clear to auscultation. DIGESTIVE SYSTEM: Revealed a benign abdomen. Positive bowel sounds. EXTREMITIES: No peripheral edema. SKIN: No new gross rash. LYMPHATICS: No peripheral lymphadenopathy. LABORATORY INVESTIGATION: Significant for bicarb 11, 215. CBC showed hemoglobin of 7.7. IMPRESSION: 1. Advanced chronic kidney disease, stage 4. 2. Anemia, likely anemia of chronic kidney disease. 3. Metabolic acidosis in the context of renal tubular acidosis compounded by decreased renal function. PLAN: 1. Outpatient iron studies to be evaluated, and if the patient found to be iron deficient, we will go ahead and infuse this patient with parenteral iron. Otherwise, if this is proven to be anemia of chronic kidney disease, we will likely start this patient on erythropoietin stimulating agent. 2. We will continue with bicarb supplementation. 3. Further management will be dependent on the clinical course. Job ID: [id number]
[2018-11-21] MEDS: Carvedilol 6.25 MG TAB PO SCH ×2 (07:59→17:25)
[2018-11-21] MEDS: Sodium Bicarbonate Tab 325 MG TAB PO SCH ×2 (07:59→19:59)
[2018-11-21] MEDS: Rosuvastatin 10 MG TAB PO SCH (07:59)
[2018-11-21] MEDS: Enoxaparin Sodium 30 MG/0.3 ML SYRINGE SC SCH (08:00)
[2018-11-21] MEDS: Famotidine 20 MG TAB PO SCH (08:00)
[2018-11-21 08:19] LABS: Iron 23 ug/dL (65-175); Iron Binding Capacity, Total 196 mcg/dL (261-462)
[2018-11-21 08:44] LABS: Albumin 2.4 g/dL (3.4-4.8); Anion Gap 11 mmol/L (10-20); BUN (Urea Nitrogen) 38 mg/dL (8.4-25.7); Calc. Creatinine Clearance 20 mL/min (70-130); Calcium 8.1 mg/dL (7.8-10.44); Carbon Dioxide 16 mmol/L (23-31); Chloride 118 mmol/L (98-107); Estimated GFR-MDRD 30; Glucose 59 mg/dL (80-115); Iron 22 ug/dL (65-175); Phosphorus 3.2 mg/dL (2.3-4.7); Potassium 4.5 mmol/L (3.5-5.1); Sodium 140 mmol/L (136-145)
[2018-11-21 09:14] LABS: ALT (SGPT) 66 U/L (8-55); AST (SGOT) 20 U/L (5-34); Alkaline Phosphatase 213 U/L (40-150); Bilirubin, Total 0.3 mg/dL (0.2-1.2); Globulin 3.7 g/dL (2.4-3.5); Protein, Total 6.1 g/dL (5.8-8.1)
[2018-11-21] MEDS: Dextrose 5% in Water 1,000 ML IV SCH (09:48)
[2018-11-21 10:28] LABS: #Eosinphils 0.1 thou/uL (0.0-0.7); #Lymphocytes 1.1 thou/uL (1.20-3.40); #Monocytes 0.4 thou/uL (0.11-0.59); #Neutrophils 3.6 thou/uL (1.40-6.50); %Basophils 0.4 % (0.0-1.0); %Eosinophils 2.8 % (0.0-10.0); %Lymphocytes 21.7 % (21.0-51.0); %Monocytes 7.1 % (0.0-10.0); %Neutrophils 68.1 % (42.0-75.0); Hemoglobin 7.4 g/dL (14.0-18.0); Mean Corpuscular HGB CONC 33.2 g/dL (32.0-36.0); Mean Corpuscular Hemoglobin 27.7 pg (27.0-31.0); Mean Corpuscular Volume 83.5 fL (78.0-98.0); Mean Platelet Volume 9.1 fL (7.4-10.4); Platelet Count 134 thou/uL (130-400); RBC Distribution Width 18.2 % (11.5-14.5); Red Blood Cell (RBC) Count 2.68 mill/uL (4.70-6.10); White Blood Cell (WBC) Count 5.3 thou/uL (4.8-10.8)
--- NOTE | 2018-11-21 12:02 | PDOC.PN ---
- Subjective Encounter Start Date: 11/21/18 Encounter Start Time: 07:45 Subjective: awake, responds well to verbal stimuli -: no sob or abd pain -: ate his breakfast this am - Objective Resuscitation Status - Order Detail: 11/19/18 11:59 Resuscitation Status Routine Resuscitation Status: FULL: Full Resuscitation MAR Reviewed: Yes Vital Signs & Weight: Vital Signs (12 hours) Temp Pulse Resp BP BP Pulse Ox 11/21/18 07:59 146/91 H 11/21/18 06:49 100 11/21/18 06:47 69 24 H 100 11/21/18 04:00 97.4 F L 69 16 159/72 H 100 11/21/18 00:00 97.4 F L 61 16 156/82 H 99 Weight Admit Weight 118 lb Weight 118 lb 3.2 oz I&O: 11/20/18 11/21/18 11/22/18 06:59 06:59 06:59 Intake Total 530 900 Output Total 950 Balance 530 900 -950 Result Diagrams: 11/21/18 10:18 11/21/18 07:37 Additional Labs: Accuchecks 11/21/18 11/21/18 11/20/18 11:01 04:33 19:50 POC Glucose 170 H 81 159 H 11/20/18 17:33 POC Glucose 219 H Phys Exam - Physical Examination HEENT: PERRLA, moist MMs Neck: no JVD, supple Respiratory: no wheezing, no rales Cardiovascular: RRR, no significant murmur Gastrointestinal: soft, non-tender, positive bowel sounds spc+ Musculoskeletal: no edema, pulses present Neurological: non-focal, moves all 4 limbs Dx/Plan (1) Acute encephalopathy Code(s): G93.40 - ENCEPHALOPATHY, UNSPECIFIED Status: Acute (2) Metabolic acidosis Code(s): E87.2 - ACIDOSIS Status: Acute Comment: ?RTA type 4 (3) Hypoglycemia Code(s): E16.2 - HYPOGLYCEMIA, UNSPECIFIED Status: Acute (4) Sepsis Code(s): A41.9 - SEPSIS, UNSPECIFIED ORGANISM Status: Acute Qualifiers: Sepsis type: sepsis due to unspecified organism Qualified Code(s): A41.9 - Sepsis, unspecified organism Comment: (5) UTI (urinary tract infection) Status: Acute Qualifiers: Urinary tract infection type: acute cystitis Hematuria presence: without hematuria Qualified Code(s): N30.00 - Acute cystitis without hematuria (6) Anemia of renal disease Code(s): N18.9 - CHRONIC KIDNEY DISEASE, UNSPECIFIED; D63.1 - ANEMIA IN CHRONIC KIDNEY DISEASE Status: Chronic (7) CKD (chronic kidney disease) stage 4, GFR 15-29 ml/min Code(s): N18.4 - CHRONIC KIDNEY DISEASE, STAGE 4 (SEVERE) Status: Chronic Comment: (8) DM type 2 (diabetes mellitus, type 2) Status: Chronic Qualifiers: Diabetes mellitus detention insulin use: without detention use Diabetes mellitus complication status: with kidney complications Diabetes mellitus complication detail: with chronic kidney disease Chronic kidney disease stage : stage 3 (moderate) Qualified Code(s): E11.22 - Type 2 diabetes mellitus with diabetic chronic kidney disease; N18.3 - Chronic kidney disease, stage 3 ( moderate) (9) Dyslipidemia Code(s): E78.5 - HYPERLIPIDEMIA, UNSPECIFIED Status: Chronic (10) HTN (hypertension) Code(s): I10 - ESSENTIAL (PRIMARY) HYPERTENSION Status: Chronic Qualifiers: Hypertension type: essential hypertension Comment: (11) PVD (peripheral vascular disease) Code(s): I73.9 - PERIPHERAL VASCULAR DISEASE, UNSPECIFIED Status: Chronic Comment: with prior stent in right LE (12) Protein-calorie malnutrition, moderate Code(s): E44.0 - MODERATE PROTEIN-CALORIE MALNUTRITION Status: Chronic - Plan is on levaquin oral -: moreno irrigation per urology advice -: continue coreg, crestor -: poor prognosis -: has off and on hypoglycemia, low rate d5w * . Review of Systems - Medications/Allergies Allergies/Adverse Reactions: Allergies Allergy/AdvReac Type Severity Reaction Status Date / Time No Known Drug Allergies Allergy Verified 11/19/18 02:37 Medications: Current Medications Acetaminophen (Tylenol) 650 mg PO Q4H PRN PRN Reason: Headache/Fever/Mild Pain (1-3) Albuterol/Ipratropium (Duoneb) 3 ml NEB [id number] [facility] Last Admin: 11/21/18 06:47 Dose: 3 ml Carvedilol (Coreg) 6.25 mg PO BID-[facility] Last Admin: 11/21/18 07:59 Dose: 6.25 mg Enoxaparin Sodium (Lovenox) 30 mg SC 0900 [facility] Last Admin: 11/21/18 08:00 Dose: 30 mg Famotidine (Pepcid) 20 mg PO 0900 [facility] Last Admin: 11/21/18 08:00 Dose: 20 mg Guaifenesin/Dextromethorphan (Robitussin Dm) 15 ml PO Q4H PRN PRN Reason: Cough Dextrose/Water (D5w) 1,000 mls @ 40 mls/hr IV .Q24H [facility] Last Admin: 11/21/18 09:48 Dose: 1,000 mls Isosorbide Mononitrate (Imdur) 60 mg PO BID [facility] Last Admin: 11/21/18 08:00 Dose: 60 mg Levofloxacin (Levaquin) 250 mg PO 0600 [facility] Loratadine (Claritin) 10 mg PO DAILYPRN PRN PRN Reason: Sinus Symptoms Nitroglycerin (Nitrostat) 0.4 mg SL Q5MIN PRN PRN Reason: Chest Pain Ondansetron HCl (Zofran Odt) 4 mg PO Q6H PRN PRN Reason: Nausea/Vomiting Rosuvastatin Calcium (Crestor) 10 mg PO DAILY [facility] Last Admin: 11/21/18 07:59 Dose: 10 mg Senna/Docusate Sodium (Senokot S) 2 tab PO BID PRN PRN Reason: Constipation Sodium Bicarbonate (Bicarbonate, Sodium) 650 mg PO BID [facility] Last Admin: 11/21/18 07:59 Dose: 650 mg Sodium Chloride (Flush - Normal Saline) 10 ml IVF Q12HR [facility] Last Admin: 11/21/18 08:00 Dose: 10 ml Sodium Chloride (Flush - Normal Saline) 10 ml IVF PRN PRN PRN Reason: Saline Flush Last Admin: 11/20/18 05:49 Dose: 10 ml
--- NOTE | 2018-11-21 16:33 | PRG ---
DATE OF SERVICE: 11/21/2018 SUBJECTIVE: The patient did well overnight. There does appear to be less drainage around his catheter per the nurses. OBJECTIVE: On physical exam, he is sleeping comfortably, but did not want awaken him, but there is clearly significant more amount of yellow urine with some mucus debris coming from both catheters. He has been afebrile with a T-max of 97.4, heart rate in 60s and blood pressure 146/91, saturating 100% on room air with 950 of urine output in the last 24 hours. LABORATORY DATA: H and H stable at 7.4 and 22.3. Creatinine improved to 2.59. ASSESSMENT: This is a 68-year-old male with a nonfunctioning bladder that has adequate access from above and below that is now draining better, admitted with concerns for infection on antibiotics with urine culture that has not grown anything at this time. Job ID: [id number]
[2018-11-21] MEDS ORDERED: Iron, Sodium Ferric Gluconate 250 MG in Sodium Chloride 0.9% 100 ML IVPB SCH (16:45)
[2018-11-21] MEDS ORDERED: Epoetin (ESRD) 10,000 UNITS/ML VIAL SC SCH (17:00)
--- NOTE | 2018-11-21 19:40 | PRG ---
DATE OF SERVICE: 11/21/2018 SUBJECTIVE: The patient noted with the following vital signs. OBJECTIVE: VITAL SIGNS: Temperature 97.2, pulse 62, respiratory rate of 16, O2 saturation 100% with a blood pressure 136/69. HEENT EXAMINATION: Unremarkable. CARDIOVASCULAR SYSTEM: First and second heart sounds were heard. RESPIRATORY SYSTEM: Clear to auscultation. DIGESTIVE SYSTEM: Revealed a benign abdomen. EXTREMITIES: No peripheral edema. SKIN: No new gross rash. LYMPHATICS: No peripheral lymphadenopathy. LABORATORY DATA: Laboratory investigation showed a creatinine of 2.59, BUN of 38, and bicarb of 16. Iron level of 22 and iron saturation of 12% and ferritin of 370. Hemoglobin of 7.4. IMPRESSION: 1. Advanced chronic kidney disease stage 4. 2. Metabolic acidosis, likely in the context of advanced kidney disease as well as renal tubular acidosis. 3. Anemia, partly anemia of chronic kidney disease and that of deficiency. 4. Recurrent urinary tract infection in the context of . PLAN: 1. The patient with continue with bicarb supplementation. With the degree of renal dysfunction, we will administer IV iron. 2. The patient also to benefit from therefore, will prescribe Epogen for this patient. 3. Continue bicarb supplementation and address the metabolic acidosis of this patient. 4. Management should be dependent on the clinical course. Job ID: [id number]
[2018-11-22 06:35] LABS: #Eosinphils 0.1 thou/uL (0.0-0.7); #Lymphocytes 1.6 thou/uL (1.20-3.40); #Monocytes 0.4 thou/uL (0.11-0.59); %Basophils 0.3 % (0.0-1.0); %Eosinophils 2.4 % (0.0-10.0); %Lymphocytes 30.9 % (21.0-51.0); %Monocytes 8.4 % (0.0-10.0); Hemoglobin 7.5 g/dL (14.0-18.0); Mean Corpuscular HGB CONC 32.8 g/dL (32.0-36.0); Mean Corpuscular Hemoglobin 27.3 pg (27.0-31.0); Mean Corpuscular Volume 83.4 fL (78.0-98.0); Mean Platelet Volume 8.7 fL (7.4-10.4); Platelet Count 150 thou/uL (130-400); RBC Distribution Width 18.1 % (11.5-14.5); Red Blood Cell (RBC) Count 2.73 mill/uL (4.70-6.10); White Blood Cell (WBC) Count 5.2 thou/uL (4.8-10.8)
[2018-11-22 06:51] LABS: ALT (SGPT) 59 U/L (8-55); AST (SGOT) 30 U/L (5-34); Albumin 2.3 g/dL (3.4-4.8); Alkaline Phosphatase 201 U/L (40-150); Anion Gap 10 mmol/L (10-20); BUN (Urea Nitrogen) 32 mg/dL (8.4-25.7); BUN/Creatinine Ratio 13.62; Bilirubin, Total 0.3 mg/dL (0.2-1.2); Calc. Creatinine Clearance 22 mL/min (70-130); Calcium 7.9 mg/dL (7.8-10.44); Carbon Dioxide 17 mmol/L (23-31); Chloride 116 mmol/L (98-107); Estimated GFR-MDRD 33; Globulin 3.6 g/dL (2.4-3.5); Glucose 86 mg/dL (80-115); Phosphorus 3.1 mg/dL (2.3-4.7); Potassium 4.2 mmol/L (3.5-5.1); Protein, Total 5.9 g/dL (5.8-8.1); Sodium 139 mmol/L (136-145)
[2018-11-22] MEDS: Rosuvastatin 10 MG TAB PO SCH (09:43)
[2018-11-22] MEDS: Enoxaparin Sodium 30 MG/0.3 ML SYRINGE SC SCH (09:43)
[2018-11-22] MEDS: Carvedilol 6.25 MG TAB PO SCH ×2 (09:43→17:48)
[2018-11-22] MEDS: Famotidine 20 MG TAB PO SCH (09:43)
[2018-11-22] MEDS: Sodium Bicarbonate Tab 325 MG TAB PO SCH ×2 (09:43→20:05)
[2018-11-22] MEDS: Dextrose 5% in Water 1,000 ML IV SCH (10:24)
--- NOTE | 2018-11-22 13:39 | PDOC.PN ---
- Subjective Encounter Start Date: 11/22/18 Encounter Start Time: 08:00 Subjective: no sob or abd pain -: feels better, does not feel hungry to eat breakfast - Objective Resuscitation Status - Order Detail: 11/19/18 11:59 Resuscitation Status Routine Resuscitation Status: FULL: Full Resuscitation MAR Reviewed: Yes Vital Signs & Weight: Vital Signs (12 hours) Temp Pulse Resp BP BP Pulse Ox 11/22/18 12:57 97.6 F 71 16 145/59 H 100 11/22/18 09:43 152/79 H 11/22/18 08:33 98.2 F 70 20 152/79 H 100 11/22/18 04:00 97.3 F L 71 16 146/74 H 98 Weight Admit Weight 118 lb Weight 118 lb 3.2 oz I&O: 11/21/18 11/22/18 11/23/18 06:59 06:59 06:59 Intake Total 900 730 Output Total 1850 Balance 900 -1120 Result Diagrams: 11/22/18 05:56 11/22/18 05:56 Additional Labs: Accuchecks 11/22/18 11/21/18 11/21/18 11:17 19:41 16:41 POC Glucose 233 H 230 H 267 H 11/21/18 09:19 POC Glucose 171 H Phys Exam - Physical Examination HEENT: PERRLA, moist MMs Neck: no JVD, supple Respiratory: no wheezing, no rales Cardiovascular: RRR, no significant murmur Gastrointestinal: soft, non-tender spc+, moreno+ Musculoskeletal: no edema, pulses present Neurological: non-focal, moves all 4 limbs Psychiatric: A&O x 3 Dx/Plan (1) Acute encephalopathy Code(s): G93.40 - ENCEPHALOPATHY, UNSPECIFIED Status: Resolved (2) Metabolic acidosis Code(s): E87.2 - ACIDOSIS Status: Acute Comment: ?RTA type 4 (3) Hypoglycemia Code(s): E16.2 - HYPOGLYCEMIA, UNSPECIFIED Status: Resolved (4) Sepsis Code(s): A41.9 - SEPSIS, UNSPECIFIED ORGANISM Status: Acute Qualifiers: Sepsis type: sepsis due to unspecified organism Qualified Code(s): A41.9 - Sepsis, unspecified organism Comment: (5) UTI (urinary tract infection) Status: Acute Qualifiers: Urinary tract infection type: acute cystitis Hematuria presence: without hematuria Qualified Code(s): N30.00 - Acute cystitis without hematuria (6) Anemia of renal disease Code(s): N18.9 - CHRONIC KIDNEY DISEASE, UNSPECIFIED; D63.1 - ANEMIA IN CHRONIC KIDNEY DISEASE Status: Chronic (7) CKD (chronic kidney disease) stage 4, GFR 15-29 ml/min Code(s): N18.4 - CHRONIC KIDNEY DISEASE, STAGE 4 (SEVERE) Status: Chronic Comment: (8) DM type 2 (diabetes mellitus, type 2) Status: Chronic Qualifiers: Diabetes mellitus allergist immunologist insulin use: without prison use Diabetes mellitus complication status: with kidney complications Diabetes mellitus complication detail: with chronic kidney disease Chronic kidney disease stage : stage 3 (moderate) Qualified Code(s): E11.22 - Type 2 diabetes mellitus with diabetic chronic kidney disease; N18.3 - Chronic kidney disease, stage 3 ( moderate) (9) Dyslipidemia Code(s): E78.5 - HYPERLIPIDEMIA, UNSPECIFIED Status: Chronic (10) HTN (hypertension) Code(s): I10 - ESSENTIAL (PRIMARY) HYPERTENSION Status: Chronic Qualifiers: Hypertension type: essential hypertension Comment: (11) PVD (peripheral vascular disease) Code(s): I73.9 - PERIPHERAL VASCULAR DISEASE, UNSPECIFIED Status: Chronic Comment: with prior stent in right LE (12) Protein-calorie malnutrition, moderate Code(s): E44.0 - MODERATE PROTEIN-CALORIE MALNUTRITION Status: Chronic - Plan is slowly coming back to his baseline cognitive status -: on levaquin for uti, wang cultures are -ve -: dc plan per urology adv -: hypoglycemia has resolved, encourage po intake, dc d5ns -: hb low but holding up, stool occult is pending * . continue coreg, imdur, crestor. Mobilize as tolerated, poor prognosis Review of Systems - Medications/Allergies Allergies/Adverse Reactions: Allergies Allergy/AdvReac Type Severity Reaction Status Date / Time No Known Drug Allergies Allergy Verified 11/19/18 02:37 Medications: Current Medications Acetaminophen (Tylenol) 650 mg PO Q4H PRN PRN Reason: Headache/Fever/Mild Pain (1-3) Albuterol/Ipratropium (Duoneb) 3 ml NEB [id number] Last Admin: 11/22/18 07:00 Dose: Not Given Carvedilol (Coreg) 6.25 mg PO BID-[facility] Last Admin: 11/22/18 09:43 Dose: 6.25 mg Enoxaparin Sodium (Lovenox) 30 mg SC 0900 [facility] Last Admin: 11/22/18 09:43 Dose: Not Given Epoetin Aldo (Procrit) 10,000 units SC Q7D [facility] Last Admin: 11/21/18 19:12 Dose: 10,000 units Famotidine (Pepcid) 20 mg PO 0900 [facility] Last Admin: 11/22/18 09:43 Dose: 20 mg Guaifenesin/Dextromethorphan (Robitussin Dm) 15 ml PO Q4H PRN PRN Reason: Cough Isosorbide Mononitrate (Imdur) 60 mg PO BID [facility] Last Admin: 11/22/18 09:43 Dose: 60 mg Levofloxacin (Levaquin) 250 mg PO 0600 [facility] Last Admin: 11/22/18 05:38 Dose: 250 mg Loratadine (Claritin) 10 mg PO DAILYPRN PRN PRN Reason: Sinus Symptoms Nitroglycerin (Nitrostat) 0.4 mg SL Q5MIN PRN PRN Reason: Chest Pain Ondansetron HCl (Zofran Odt) 4 mg PO Q6H PRN PRN Reason: Nausea/Vomiting Rosuvastatin Calcium (Crestor) 10 mg PO DAILY [facility] Last Admin: 11/22/18 09:43 Dose: 10 mg Senna/Docusate Sodium (Senokot S) 2 tab PO BID PRN PRN Reason: Constipation Sodium Bicarbonate (Bicarbonate, Sodium) 650 mg PO BID [facility] Last Admin: 11/22/18 09:43 Dose: 650 mg Sodium Chloride (Flush - Normal Saline) 10 ml IVF Q12HR [facility] Last Admin: 11/22/18 09:43 Dose: 10 ml Sodium Chloride (Flush - Normal Saline) 10 ml IVF PRN PRN PRN Reason: Saline Flush Last Admin: 11/20/18 05:49 Dose: 10 ml
--- NOTE | 2018-11-22 14:02 | PRG ---
DATE OF SERVICE: 11/22/2018 SUBJECTIVE: The patient has done well overnight. He is sleeping comfortably, awakened easily, and has no complaints. He has no pain. He has no trouble with the drainage of the catheters. OBJECTIVE: VITAL SIGNS: On exam, he has been afebrile. Vital signs stable with heart rate in the 60s. Blood pressure 146/91, saturating 100% on room air with 950 out. The catheters are draining yellow urine, one had more debris in the tubing, but is still draining fine, and just mucus debris, not concerning for hematuria. LABORATORY DATA: H and H are stable at 7.4 and 22.3. Creatinine is still improving at 2.59. Urine culture negative. ASSESSMENT: A 68-year-old male with nonfunctioning bladder that has access from above and below given its significant mucus trapping in diverticula. It is draining adequately now with concern for infection as part of the reason for admission. However, the micro was underwhelming and the culture is now negative. Continue at least 10 days of antibiotics, but I am not sure he would need anything further than that from urologic standpoint and continue both his SP tube and urethral Connors for maximum drainage at this time. Job ID: [id number]
[2018-11-22] MEDS ORDERED: Loperamide HCl 2 MG CAP PO SCH (19:30)
[2018-11-23 07:02] LABS: #Eosinphils 0.2 thou/uL (0.0-0.7); #Lymphocytes 1.7 thou/uL (1.20-3.40); #Monocytes 0.5 thou/uL (0.11-0.59); #Neutrophils 3.6 thou/uL (1.40-6.50); %Basophils 0.7 % (0.0-1.0); %Eosinophils 3.3 % (0.0-10.0); %Lymphocytes 27.9 % (21.0-51.0); %Monocytes 8.3 % (0.0-10.0); %Neutrophils 59.9 % (42.0-75.0); Hemoglobin 7.9 g/dL (14.0-18.0); Mean Corpuscular HGB CONC 32.1 g/dL (32.0-36.0); Mean Corpuscular Hemoglobin 27.3 pg (27.0-31.0); Mean Platelet Volume 8.2 fL (7.4-10.4); Platelet Count 152 thou/uL (130-400); RBC Distribution Width 18.1 % (11.5-14.5); Red Blood Cell (RBC) Count 2.88 mill/uL (4.70-6.10)
[2018-11-23 07:22] LABS: Albumin 2.3 g/dL (3.4-4.8); Anion Gap 11 mmol/L (10-20); BUN (Urea Nitrogen) 28 mg/dL (8.4-25.7); BUN/Creatinine Ratio 12.17; Calc. Creatinine Clearance 23 mL/min (70-130); Calcium 7.9 mg/dL (7.8-10.44); Carbon Dioxide 18 mmol/L (23-31); Chloride 116 mmol/L (98-107); Estimated GFR-MDRD 34; Glucose 87 mg/dL (80-115); Phosphorus 3.2 mg/dL (2.3-4.7); Potassium 4.1 mmol/L (3.5-5.1); Sodium 141 mmol/L (136-145)
[2018-11-23] MEDS: Sodium Bicarbonate Tab 325 MG TAB PO SCH (09:32)
[2018-11-23] MEDS: Rosuvastatin 10 MG TAB PO SCH (09:33)
[2018-11-23] MEDS: Famotidine 20 MG TAB PO SCH (09:33)
[2018-11-23] MEDS: Carvedilol 6.25 MG TAB PO SCH (09:33)
[2018-11-23] MEDS: Enoxaparin Sodium 30 MG/0.3 ML SYRINGE SC SCH (09:33)
--- NOTE | 2018-11-23 11:01 | PDOC.PN ---
- Subjective Encounter Start Date: 11/23/18 Encounter Start Time: 07:00 Subjective: awake, no sob, feels good -: communicating well - Objective Resuscitation Status - Order Detail: 11/19/18 11:59 Resuscitation Status Routine Resuscitation Status: FULL: Full Resuscitation MAR Reviewed: Yes Vital Signs & Weight: Vital Signs (12 hours) Temp Pulse Resp BP BP Pulse Ox 11/23/18 09:33 166/82 H 11/23/18 08:00 100 11/23/18 07:23 98.1 F 62 18 166/82 H 100 11/23/18 07:12 69 20 99 11/23/18 04:00 98.0 F 69 18 163/74 H 100 Weight Admit Weight 118 lb Weight 118 lb 3.2 oz I&O: 11/22/18 11/23/18 11/24/18 06:59 06:59 06:59 Intake Total 730 500 Output Total 1850 1050 Balance -1120 -550 Result Diagrams: 11/23/18 06:45 11/23/18 06:45 Additional Labs: Accuchecks 11/23/18 11/22/18 11/22/18 05:10 19:48 17:01 POC Glucose 137 H 213 H 156 H 11/22/18 11/22/18 11:17 04:14 POC Glucose 233 H 91 Phys Exam - Physical Examination HEENT: PERRLA, moist MMs Neck: no JVD, supple Respiratory: no wheezing, no rales Cardiovascular: RRR, no significant murmur Gastrointestinal: soft, non-tender, positive bowel sounds spc+, moreno+ Musculoskeletal: no edema, pulses present Neurological: non-focal, moves all 4 limbs Dx/Plan (1) Acute encephalopathy Code(s): G93.40 - ENCEPHALOPATHY, UNSPECIFIED Status: Resolved (2) Metabolic acidosis Code(s): E87.2 - ACIDOSIS Status: Acute Comment: ?RTA type 4 (3) Hypoglycemia Code(s): E16.2 - HYPOGLYCEMIA, UNSPECIFIED Status: Resolved (4) Sepsis Code(s): A41.9 - SEPSIS, UNSPECIFIED ORGANISM Status: Acute Qualifiers: Sepsis type: sepsis due to unspecified organism Qualified Code(s): A41.9 - Sepsis, unspecified organism Comment: (5) UTI (urinary tract infection) Status: Acute Qualifiers: Urinary tract infection type: acute cystitis Hematuria presence: without hematuria Qualified Code(s): N30.00 - Acute cystitis without hematuria (6) Anemia of renal disease Code(s): N18.9 - CHRONIC KIDNEY DISEASE, UNSPECIFIED; D63.1 - ANEMIA IN CHRONIC KIDNEY DISEASE Status: Chronic (7) CKD (chronic kidney disease) stage 4, GFR 15-29 ml/min Code(s): N18.4 - CHRONIC KIDNEY DISEASE, STAGE 4 (SEVERE) Status: Chronic Comment: (8) DM type 2 (diabetes mellitus, type 2) Status: Chronic Qualifiers: Diabetes mellitus nursing home insulin use: without rat exterminator use Diabetes mellitus complication status: with kidney complications Diabetes mellitus complication detail: with chronic kidney disease Chronic kidney disease stage : stage 3 (moderate) Qualified Code(s): E11.22 - Type 2 diabetes mellitus with diabetic chronic kidney disease; N18.3 - Chronic kidney disease, stage 3 ( moderate) (9) Dyslipidemia Code(s): E78.5 - HYPERLIPIDEMIA, UNSPECIFIED Status: Chronic (10) HTN (hypertension) Code(s): I10 - ESSENTIAL (PRIMARY) HYPERTENSION Status: Chronic Qualifiers: Hypertension type: essential hypertension Comment: (11) PVD (peripheral vascular disease) Code(s): I73.9 - PERIPHERAL VASCULAR DISEASE, UNSPECIFIED Status: Chronic Comment: with prior stent in right LE (12) Protein-calorie malnutrition, moderate Code(s): E44.0 - MODERATE PROTEIN-CALORIE MALNUTRITION Status: Chronic - Plan hemostable -: hypoglycemia resolved -: levaq for 10 days -: dc pt to snf -: to f/u with in 10 days * .
--- NOTE | 2018-11-23 12:17 | PQF ---
ANA GONZALEZ VINAYA KUMAR MD [id number] CLINICAL DOCUMENTATION IMPROVEMENT CLARIFICATION FORM: ICD-10 Updated PLEASE DO AN ADDENDUM TO THE PROGRESS NOTE WITH ANY DOCUMENTATION UPDATES OR ADDITIONS AND CARRY THROUGH TO DC SUMMARY. THANK YOU. DATE: 11/23 ATTN: DR. Júnior WHALEY Please exercise your independent, professional judgment in responding to the clarification form. Clinical indicators are provided on the bottom of this form for your review. Please check appropriate box(es): [ x ] Sepsis d/t UTI d/t Suprapubic Catheter & Urethral logan catheter [ ] Sepsis NOT d/t UTI d/t Suprapubic Catheter & Urethral logan catheter [ ] Sepsis D/T [ x ] Other diagnosis _has nonfunctional urinary bladder with excess mucous production and obstr uropathy leading to recurrent uti [ ] Unable to determine For continuity of documentation, please document condition throughout progress notes and discharge summary. Thank You. 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 SCHILLING WHO SAW HIM LAST MONTH & ULTIMATELY HAD AN SP TUBE PLACED. UROLOGY PN 11/20: ASSESSMENT: ...NEUROGENIC NONFUNCTIONING HYPERTROPHIC MUCUS- FILLED BLADDER W/ BOTH AN SP TUBE & URETHRAL LOGAN RISK FACTORS: NEUROGENIC NONFUNCTIONING HYPERTROPHIC MUCUS-FILLED BLADDER W/ BOTH AN SP TUBE & URETHRAL LOGAN ACUTE METABOLIC ENCEPHALOPATHY (H&P) TREATMENTS: IV ANTIBIOTICS (LEVAQUIN 11/19; CEFEPIME 11/19) IVF (LR 11/18) THANK YOU! Francheska (This form is maintained as a part of the permanent medical record) 2014 [employer]. All Rights Reserved Francheska Quintero RN, BSN [email or web address] Office: [phone] [facility]
--- NOTE | 2018-11-23 13:23 | PRG ---
DATE OF SERVICE: SUBJECTIVE: The patient is seen and examined. Noted with the following vital signs. OBJECTIVE: VITAL SIGNS: Afebrile, temperature 98.1, pulse 62, respiratory rate of 18, O2 saturation 100% with blood pressure of 162/82. HEENT: Unremarkable. CARDIOVASCULAR: First and second heart sounds were heard. RESPIRATORY: Clear to auscultation. DIGESTIVE: Revealed a benign abdomen. Positive bowel sounds. EXTREMITIES: No peripheral edema. SKIN: No new gross rash. LYMPHATICS: No peripheral lymphadenopathy. LABORATORY INVESTIGATION: Showed hemoglobin was 7.9. Chemistry showed BUN of 28 with creatinine down to 2.3. IMPRESSION: 1. Acute on chronic kidney disease, which seems to be improving. 2. Metabolic acidosis, improving. 3. Anemia of chronic kidney disease and iron deficiency, also improving. PLAN: 1. We will continue current renal supportive measures. 2. Outpatient Nephrology followup status post discharge strongly recommended. 3. Further management to be dependent on the clinical course. Job ID: [id number]
[2018-11-23 13:51] VITALS: BP 145/63; TEMP 97.9
--- NOTE | 2018-11-23 14:10 | DIS ---
DATE OF ADMISSION: 11/19/2018 DATE OF DISCHARGE: 11/23/2018 DISCHARGE DISPOSITION: [facility]. 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 PROCEDURES DONE DURING HOSPITALIZATION: CT chest, abdomen and pelvis done showed multifocal left lung pneumonia. Circumferential urinary bladder waist mass with a Connors catheter and suprapubic catheter. Urine culture no growth. Blood culture x2, no growth. Stool for C. diff, E. coli, and Campylobacter antigen as well as Shiga toxins were all negative. Stool occult blood was negative. H and H is 7.9 and 24, platelet count 152, MCV is 85. Discharge BUN and creatinine 28 and 2.3. Serum bicarb is 18 on day of discharge. Albumin is 2.3. DISCHARGE MEDICATION: Coreg 6.25 mg p.o. twice daily, Humulin sliding scale, DuoNebs q.i.d. p.r.n., Imdur 60 mg twice daily, Crestor 10 mg daily, Epogen 10, 000 units subcu once weekly, Levaquin 250 mg p.o. daily for 10 days, Procardia XL 30 mg p.o. daily, sodium bicarbonate 650 mg p.o. twice daily. ALLERGIES: NO KNOWN DRUG ALLERGIES. INPATIENT CONSULT: Dr. Oliva for Urology; Dr. Mary Smith for Nephrology. BRIEF COURSE DURING HOSPITALIZATION: The patient initially was sent from [facility] for hypoglycemia and acute encephalopathy. The patient has known history of nonfunctioning urinary bladder with excessive mucus production. He has had prior occlusion of both his ureters due to mucus production and subsequent urinary tract infection. He has had similar issue this time. He had consultation with Dr. Oliva who is on for Dr. Levi, who initially saw him. His suprapubic catheter and Connors catheter were occluded, which was flushed with irrigation. 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 He was initially in IMCU and later downgraded to medical floor. Prior to discharge, he is eating and his fingerstick glucoses have been steady. He needs to have his Lantus insulin reinstituted in 3 to 4 days based on fingerstick responses at the [facility]. His overall prognosis is poor and primary care physician need to have a conversation with the patient and his family regarding code status, likely palliative care. A total of 35 minutes was spent on discharge plan. The patient is to follow up with Dr. Levi in 2 to 4 weeks. Please see a [id number] documentation for the day of discharge on [employer]. Job ID: [id number] [facility]
--- NOTE | 2018-11-23 15:02 | PRG ---
DATE OF SERVICE: 11/22/2018 SUBJECTIVE: The patient is seen and examined. Noted with the following vital signs. OBJECTIVE: VITAL SIGNS: Afebrile, temperature 97.6, pulse 71, respiratory rate of 16, O2 sat of 100% with blood pressure 145/ . HEENT: Unremarkable. Moist oral mucosa. No conjunctival injection or icterus. NECK: Supple. CARDIOVASCULAR: First and second heart sounds were heard. RESPIRATORY: Clear to auscultation. DIGESTIVE: Reviewed a benign abdomen with positive bowel sounds. EXTREMITIES: No peripheral edema. SKIN: No new gross rash. LYMPHATICS: No peripheral lymphadenopathy. LABORATORY INVESTIGATION: Showed hemoglobin . Chemistry showed creatinine . IMPRESSION: 1. Advanced chronic kidney disease, stage 3/4. 2. Metabolic acidosis in the context of renal tubular acidosis function. 3. Anemia . 4. Further management to be dependent on the clinical course. Job ID: [id number]
--- NOTE | 2018-11-23 15:06 | PRG ---
DATE OF SERVICE: 11/13/2018 SUBJECTIVE: The patient without complaints, doing well. Vital signs are stable, I's and O's. Both urethral Connors and suprapubic tube draining uneventfully. There is mild sediment, however, it is clear. He currently has a 22-Icelandic suprapubic and an 18-Icelandic urethral Connors catheter. PERTINENT LABORATORY DATA: White count 6; hemoglobin 7.9, which is his baseline, stable. Chemistry profile with creatinine of 2.3 near his baseline. IMPRESSION AND PLAN: Mr. Gonsalez is a 68-year-old male with history of nonfunctioning bladder, large bladder diverticulum with urethral Connors and suprapubic tube due to significant mucus debris. He is to be discharged back to his [place] [facility] with an SP tube and urethral Connors catheter for gravity drainage. He did not show for his followup appointment with Dr. Levi in previous visit, orders and chart, to call our office to schedule followup appointment in the next 7 to 10 days. Job ID: [id number]
== END 2018-11-23 13:51 | DRG 698 ==
LOC: ERS 17:54 → SJJU 19:22 → OBSVTOIN 11-19 12:04 → IMCU/EMU 11-19 15:12 → T4-B 11-20 18:14
PROVIDERS: ADMIT Internal Medicine; ATTEND Internal Medicine
DX: T83.511A Infection and inflammatory reaction due to indwelling urethral catheter, initial encounter (principal); A41.9 Sepsis, unspecified organism; G93.40 Encephalopathy, unspecified; E87.2 Acidosis; N18.4 Chronic kidney disease, stage 4 (severe); N17.9 Acute kidney failure, unspecified; N30.00 Acute cystitis without hematuria; E44.0 Moderate protein-calorie malnutrition; Z68.1 Body mass index [BMI] 19.9 or less, adult; I42.9 Cardiomyopathy, unspecified; D63.1 Anemia in chronic kidney disease; I12.9 Hypertensive chronic kidney disease with stage 1 through stage 4 chronic kidney disease, or unspecified chronic kidney disease; E78.5 Hyperlipidemia, unspecified; F03.90 Unspecified dementia, unspecified severity, without behavioral disturbance, psychotic disturbance, mood disturbance, and anxiety; E11.22 Type 2 diabetes mellitus with diabetic chronic kidney disease; E11.649 Type 2 diabetes mellitus with hypoglycemia without coma; E11.51 Type 2 diabetes mellitus with diabetic peripheral angiopathy without gangrene; N31.9 Neuromuscular dysfunction of bladder, unspecified; D50.9 Iron deficiency anemia, unspecified; N32.3 Diverticulum of bladder
CPT/HCPCS: 36415; 36416; 71250; 74177; 80053; 80069; 82274; 82728; 82805; 83540; 83550; 84100; 85025; 87040; 87045; 87046; 87086; 87324; 87449; 87899; 90471; 90662; 90670; 94640; 94760; 96365; G0008; G0009; J0692; J1650; J1956; J2916; J3370; J7050; J7620; Q4081

== ENCOUNTER 2019-01-07 14:43 | Inpatient (IN) | payer MEDICARE, OTHER ==
[2019-01-07 17:00] LABS: Hemoglobin 11.3 g/dL (14.0-18.0); Mean Corpuscular HGB CONC 29.2 g/dL (32.0-36.0); Mean Corpuscular Hemoglobin 25.7 pg (27.0-31.0); Mean Corpuscular Volume 88.1 fL (78.0-98.0); RBC Distribution Width 17.2 % (11.5-14.5); White Blood Cell (WBC) Count 6.4 thou/uL (4.8-10.8)
[2019-01-07 17:19] LABS: #Lymphocytes 1.1 thou/uL (1.20-3.40); #Monocytes 0.2 thou/uL (0.11-0.59); #Neutrophils 5.1 thou/uL (1.40-6.50); %Basophils 0.1 % (0.0-1.0); %Eosinophils 0.1 % (0.0-10.0); %Lymphocytes 17.3 % (21.0-51.0); %Monocytes 3.5 % (0.0-10.0); Anisocytosis SLIGHT = 6-15 cells (100X) (0-5/hpf); Hypochromia SLIGHT = 6-15 cells (100X) (0-5/hpf); MDiff Complete? YES; Mean Platelet Volume 9.8 fL (7.4-10.4); Platelet Count 101 thou/uL (130-400); Platelet Morphology Comment Appears Decreased; Poikilocytosis SLIGHT = 6-15 cells (100X) (0-5/hpf)
[2019-01-07 17:20] LABS: ALT (SGPT) 12 U/L (8-55); AST (SGOT) 10 U/L (5-34); Albumin 1.9 g/dL (3.4-4.8); Alkaline Phosphatase 129 U/L (40-150); Anion Gap 18 mmol/L (10-20); BUN (Urea Nitrogen) 29 mg/dL (8.4-25.7); Bilirubin, Total 0.4 mg/dL (0.2-1.2); Calc. Creatinine Clearance 0 mL/min (70-130); Calcium 7.5 mg/dL (7.8-10.44); Carbon Dioxide 12 mmol/L (23-31); Chloride 113 mmol/L (98-107); Estimated GFR-MDRD 27; Globulin 3.6 g/dL (2.4-3.5); Glucose 93 mg/dL (80-115); Potassium 3.5 mmol/L (3.5-5.1); Protein, Total 5.5 g/dL (5.8-8.1); Sodium 139 mmol/L (136-145)
[2019-01-07] MEDS ORDERED: Dextrose 50% Abboject 50 ML SYRINGE SLOW IVP PRN (17:51)
[2019-01-07] MEDS ORDERED: Acetaminophen 650 MG Suppository PR PRN (17:51)
[2019-01-07] MEDS ORDERED: Guaifenesin DM 100-10/5 ML UDCUP PO PRN (17:51)
[2019-01-07] MEDS ORDERED: Ondansetron ODT 4 MG TAB PO PRN (17:51)
[2019-01-07] MEDS ORDERED: Norepinephrine 8 MG/0.9% NS 250 ML IVPB SCH (17:51)
[2019-01-07] MEDS ORDERED: Senokot S 8.6-50 MG TAB PO PRN (17:51)
[2019-01-07] MEDS ORDERED: Dextrose 5% in Water 1,000 ML IV PRN (17:51)
[2019-01-07] MEDS ORDERED: Ondansetron PF 4 MG/2 ML Vial IVP PRN (17:51)
[2019-01-07] MEDS ORDERED: HumaLOG 300 UNITS/3 ML VIAL SC PRN (17:51)
[2019-01-07] MEDS ORDERED: Acetaminophen 325 MG TAB PO PRN (17:51)
[2019-01-07] MEDS ORDERED: VANCOMYCIN IVPB PRN (18:40)
[2019-01-07] MEDS: Cefepime 2 GM in Sodium Chloride 0.9% 100 ML IVPB SCH (18:55)
[2019-01-07] MEDS: Sodium Chloride 0.9% 1,000 ML IV SCH (18:56)
[2019-01-07] MEDS ORDERED: Vancomycin HCl 1 GM in Premix Bag 1 BAG IVPB SCH (19:00)
[2019-01-07] MEDS: Famotidine 20 MG TAB PO SCH (21:07)
[2019-01-07 23:08] LABS: Bilirubin Negative (Negative); Blood, Urine Large (Negative); Glucose, Urine (Dipstick) Negative (Negative); Leukocyte Moderate (Negative); Nitrite Negative (Negative); Protein, Urine (Dipstick) 100 mg/dL (Neg-Trace); Urobilinogen 0.2 mg/dL (0.2-1.0); pH, Urine 5.5 (5.0-9.0)
[2019-01-07 23:11] LABS: Clarity Turbid (Clear)
[2019-01-07 23:12] LABS: Bacteria/HPF Rare-Few HPF (None Seen); Specific Gravity, Urine 1.013 (1.002-1.036); Squamous Epithelial 0-3 HPF (0-3); WBC/HPF 21-50 HPF (0-3); Yeast-All Forms None Seen HPF (None Seen)
[2019-01-07 23:13] LABS: Crystals/HPF 4+ AMORPH URATES HPF (Negative)
[2019-01-07 23:14] LABS: Urine Culture Reflex Yes Yes
--- NOTE | 2019-01-08 00:35 | HP ---
PRIMARY CARE PHYSICIAN: Dr. Giron. CHIEF COMPLAINT: Altered mental status. HISTORY OF PRESENT ILLNESS: This is a 68-year-old -[place]anish male with Alzheimer's, resident of senior care in [place]. He had reportedly from the chart had some altered mental status, uncertain for exactly how long, but was transferred to the [place] Emergency Room, where he was found to have a core temperature of 91 degrees, blood pressure 60s/20s. He was given IV fluids about 1500 mL in the [place] emergency room and was started on a small dose of Levophed. He also received cefepime and vancomycin, and then was transferred to our emergency room. The patient now is reporting that he feels fine. He does not remember why he is here. Denies any complaints at all. He does know his name. Thinks he is somewhere around [place] or [place]. Does not know that he is in the hospital right now, and does not know the year. I understand this is slightly worse than his normal baseline mental status. I did talk to patient's daughter, who is the medical power of collections attorney, Blanche Gonsalez, and she confirmed that the patient is usually talkative and has some amount of orientation, but she does not get to see him very often because she is in [place]. PAST MEDICAL HISTORY: All history taken from the chart due to the patient's dementia and altered mental status. 1. Dementia. 2. Chronic kidney disease, stage 4. 3. Hypertension. 4. Peripheral vascular disease. 5. Dyslipidemia. 6. Protein calorie malnutrition. 7. Benign prostatic hyperplasia, requiring suprapubic catheter. 8. Recurrent urinary tract infections. 9. Diabetes mellitus type 2, previously on insulin. 10. Chronic anemia. 11. Previous renal tubular acidosis. PAST SURGICAL HISTORY: 1. Left knee surgery. 2. Right femoral stent. 3. Resection of toes on the right foot. SOCIAL HISTORY: The patient lives at [facility]. No known tobacco, alcohol, or illicit drug use. FAMILY HISTORY: Unable to obtain. ALLERGIES: NO KNOWN DRUG ALLERGIES. CURRENT MEDICATIONS: The senior care did not send the current medication list with the patient. We will need to have the nurse obtain that from the senior care. His most recent discharge medication list from the end of October 2018 shows. 1. Coreg 6.25 mg twice a day. 2. DuoNebs as needed. 3. Imdur 60 mg twice daily. 4. Crestor 10 mg daily. 5. Epogen 00812 units subcu once weekly. 6. Procardia XL 30 mg daily. 7. Sodium bicarbonate 650 mg twice daily. REVIEW OF SYSTEMS: Unable to obtain secondary to patient's altered mental status and dementia . PHYSICAL EXAMINATION: VITAL SIGNS: Blood pressure 117/62, pulse 89, respirations 18, temperature 95.5 , currently on Bryant Hugger, O2 saturation 100% on room air. GENERAL: This is a well-developed, thin -[place]anish male, in no acute distress. HEENT: Pupils are equal, round, and reactive to light. Oropharynx clear without lesions, erythema, or exudate. He does have some dry mucous membranes. NECK: Supple. No lymphadenopathy. No thyroid nodules or enlargement. No JVD. HEART: Regular rate and rhythm. No murmurs, rubs, or gallops. LUNGS: Clear to auscultation bilaterally. No wheezes, crackles, or rhonchi. ABDOMEN: Soft, nontender to palpation. Normoactive bowel sounds. No hepatosplenomegaly or other masses. He does have a suprapubic catheter in place without any evidence of surrounding infection. EXTREMITIES: No clubbing, cyanosis, or edema. He does have very thin extremities and some pressure ulcers, and one noted on his left knee. Uncertain if he was able to walk at all at the senior care. SKIN: See above. NEUROLOGIC: The patient does have some movement in all extremities. No focal neurologic deficits noted. PSYCHIATRIC: Alert and oriented x1, but awake and conversant. Has clear speech. LABORATORY DATA: CBC; white blood cell count 6.4, hemoglobin 11.3, hematocrit 38.8, platelet count 101, neutrophils initially 67% with 12% bands. Complete metabolic panel notable for chloride of 113, bicarb of 12, BUN of 29, creatinine of 2.8 down from 2.9 after fluids in [place]. Calcium 7.5, albumin of 1.9. Magnesium was normal. Lactic acid was negative x2. Troponin was negative. IMAGING: Chest x-ray, I did review the chest x-ray done in the [place] Emergency [facility] along with the radiologist's report. It does show no cardiomegaly, no acute infiltrates or acute cardiopulmonary process. EKG, the patient did not have an EKG done in the [place] emergency room. ASSESSMENT: 1. Septic shock. The patient with hypotension and hypothermia, this was most likely due to urinary tract infection. Urinalysis and urine culture were ordered in [place], however, I do not see any results in the chart. Visually, there was pus coming through his suprapubic catheter tube. The patient has already had antibiotics and IV fluids, and currently receiving Levophed. Levophed is being titrated down now on 4 mcg/minute. We will see if we can get that off. If he can, then he will be able to go to telemetry. Otherwise, he will need to go to the ICU. 2. Urinary tract infection. Urine culture and blood culture should be pending. 3. History of hypertension, currently with hypotension. We will hold all blood pressure medications for now. 4. Diabetes mellitus type 2. We will put patient on fingerstick blood sugars q.a.c. and h.s. along with the sliding scale. 5. Gastrointestinal prophylaxis. We will put the patient on Pepcid twice a day. 6. Deep venous thrombosis prophylaxis. The patient has a low platelet count, so we will hold on any heparin or Lovenox for now, but we will put SCDs on his legs. 7. Code status. The patient is a full code. His medical power of collections attorney is his daughter, Blanche Gonsalez, phone number is [phone]. Job ID: [id number] [facility]
[2019-01-08] MEDS: Sodium Chloride 0.9% 1,000 ML IV SCH ×2 (04:18→13:34)
[2019-01-08 05:33] LABS: #Monocytes 0.2 thou/uL (0.11-0.59); #Neutrophils 2.9 thou/uL (1.40-6.50); %Basophils 0.2 % (0.0-1.0); %Eosinophils 1.1 % (0.0-10.0); %Lymphocytes 24.1 % (21.0-51.0); %Monocytes 5.1 % (0.0-10.0); %Neutrophils 69.6 % (42.0-75.0); Hemoglobin 10.3 g/dL (14.0-18.0); Mean Corpuscular HGB CONC 30.3 g/dL (32.0-36.0); Mean Corpuscular Hemoglobin 26.3 pg (27.0-31.0); Mean Corpuscular Volume 86.8 fL (78.0-98.0); Mean Platelet Volume 9.6 fL (7.4-10.4); Platelet Count 83 thou/uL (130-400); RBC Distribution Width 17.2 % (11.5-14.5); Red Blood Cell (RBC) Count 3.92 mill/uL (4.70-6.10); White Blood Cell (WBC) Count 4.1 thou/uL (4.8-10.8)
[2019-01-08 05:40] LABS: Anion Gap 15 mmol/L (10-20); BUN (Urea Nitrogen) 28 mg/dL (8.4-25.7); Calc. Creatinine Clearance 18 mL/min (70-130); Calcium 7.5 mg/dL (7.8-10.44); Carbon Dioxide 13 mmol/L (23-31); Chloride 116 mmol/L (98-107); Estimated GFR-MDRD 30; Glucose 75 mg/dL (80-115); Potassium 3.4 mmol/L (3.5-5.1); Sodium 141 mmol/L (136-145)
[2019-01-08] MEDS: Cefepime 2 GM in Sodium Chloride 0.9% 100 ML IVPB SCH ×2 (06:04→17:29)
[2019-01-08] MEDS: Rosuvastatin 10 MG TAB PO SCH (08:45)
[2019-01-08] MEDS: Famotidine 20 MG TAB PO SCH (08:46)
[2019-01-08 14:28] VITALS: BMI 17.2
--- NOTE | 2019-01-08 16:45 | PDOC.PN ---
- Subjective Encounter Start Date: 01/08/19 Encounter Start Time: 10:00 Pt seen for followup re: sepsis. Pt denies chest pain, shortness of breath, fevers or chills. - Objective Resuscitation Status - Order Detail: 01/07/19 16:43 Resuscitation Status Routine Resuscitation Status: FULL: Full Resuscitation Vital Signs & Weight: Vital Signs (12 hours) Temp Pulse Ox 01/08/19 12:00 98.3 F 01/08/19 07:09 99 01/08/19 07:00 98.8 F Weight Admit Weight 107 lb Weight 107 lb 2.314 oz Most Recent Monitor Data Heart Rate from ECG 52 NIBP 130/68 NIBP BP-Mean 88 Respiration from ECG 1 SpO2 100 I&O: 01/07/19 01/08/19 01/09/19 06:59 06:59 06:59 Output Total 400 140 Balance -400 -140 Result Diagrams: 01/08/19 05:10 01/08/19 05:10 Additional Labs: Accuchecks 01/07/19 20:59 POC Glucose 70 Phys Exam - Physical Examination Constitutional: NAD HEENT: moist MMs, sclera anicteric, oral pharynx no lesions, 2+ tonsils Neck: no nodes, no JVD, supple, full ROM Respiratory: clear to auscultation bilateral Cardiovascular: RRR, no rub S1, s2 Gastrointestinal: soft, non-tender, no distention, positive bowel sounds suprapubic catheter Neurological: moves all 4 limbs Psychiatric: normal affect Deviation from normal: Oriented to person only, not to place or time Dx/Plan (1) Sepsis Code(s): A41.9 - SEPSIS, UNSPECIFIED ORGANISM Status: Acute Qualifiers: Sepsis type: sepsis due to unspecified organism Qualified Code(s): A41.9 - Sepsis, unspecified organism Comment: likely secondary to UTI (2) UTI (urinary tract infection) Status: Acute Qualifiers: Urinary tract infection type: acute cystitis Hematuria presence: without hematuria Qualified Code(s): N30.00 - Acute cystitis without hematuria Comment: continue IV antibiotics as below (3) DM type 2 (diabetes mellitus, type 2) Status: Chronic Qualifiers: Diabetes mellitus long term care phlebotomist insulin use: without long term care phlebotomist use Diabetes mellitus complication status: with kidney complications Diabetes mellitus complication detail: with chronic kidney disease Chronic kidney disease stage : stage 3 (moderate) Qualified Code(s): E11.22 - Type 2 diabetes mellitus with diabetic chronic kidney disease; N18.3 - Chronic kidney disease, stage 3 ( moderate) Comment: controlled (4) HTN (hypertension) Code(s): I10 - ESSENTIAL (PRIMARY) HYPERTENSION Status: Chronic Qualifiers: Hypertension type: essential hypertension Qualified Code(s): I10 - Essential (primary) hypertension Comment: controlled (5) PVD (peripheral vascular disease) Code(s): I73.9 - PERIPHERAL VASCULAR DISEASE, UNSPECIFIED Status: Chronic Comment: with prior stent in right LE (6) Protein-calorie malnutrition, moderate Code(s): E44.0 - MODERATE PROTEIN-CALORIE MALNUTRITION Status: Chronic (7) Septic shock Code(s): A41.9 - SEPSIS, UNSPECIFIED ORGANISM; R65.21 - SEVERE SEPSIS WITH SEPTIC SHOCK Status: Resolved - Plan * . Review of Systems - Review of Systems Constitutional: negative: fever, chills, sweats, weakness, malaise Respiratory: negative: Cough, Shortness of Breath, SOB with Excertion, Pleuritic Pain, Wheezing Cardiovascular: negative: chest pain, palpitations, orthopnea, paroxysmal nocturnal dyspnea, edema, light headedness Gastrointestinal: negative: Nausea, Vomiting, Abdominal Pain, Diarrhea, Constipation, Melena, Hematochezia Genitourinary: negative: Dysuria, Frequency, Incontinence, Hematuria, Retention Skin: negative: Rash, Lesions, Marcell, Bruising - Medications/Allergies Allergies/Adverse Reactions: Allergies Allergy/AdvReac Type Severity Reaction Status Date / Time No Known Drug Allergies Allergy Verified 11/19/18 02:37 Medications: Current Medications Acetaminophen (Tylenol) 650 mg PO Q4H PRN PRN Reason: Headache/Fever/Mild Pain (1-3) Acetaminophen (Tylenol) 650 mg MS Q4H PRN PRN Reason: Headache/Fever/Mild Pain (1-3) Albuterol/Ipratropium (Duoneb) 3 ml NEB QIDPRN PRN PRN Reason: Dyspnea Dextrose/Water (Dextrose 50%) 25 gm SLOW IVP PRN PRN PRN Reason: Hypoglycemia Famotidine (Pepcid) 20 mg PO BID SOO Last Admin: 01/08/19 08:46 Dose: 20 mg Glucagon (Glucagon) 1 mg IM PRN PRN PRN Reason: Hypoglycemia Guaifenesin/Dextromethorphan (Robitussin Dm) 15 ml PO Q4H PRN PRN Reason: Cough Cefepime HCl 2 gm/ Sodium (Chloride) 100 mls @ 200 mls/hr IVPB Q12H [facility] Last Admin: 01/08/19 06:04 Dose: 100 mls Norepinephrine Bitartrate (Levophed) 250 mls @ 0 mls/hr IVPB INF SOO; Protocol Sodium Chloride (Normal Saline 0.9%) 1,000 mls @ 100 mls/hr IV .Q10H [facility] Last Admin: 01/08/19 13:34 Dose: 1,000 mls Dextrose/Water (D5w) 1,000 mls @ 0 mls/hr IV .Q0M PRN PRN Reason: Hypoglycemia Vancomycin HCl 1 gm/ Device 200 mls @ 133.333 mls/hr IVPB .PENDING LEVEL [facility] Insulin Human Lispro (Humalog) 0 units SC .MILD SLIDING SCALE PRN PRN Reason: Mild Correctional Scale Insulin Human Lispro (Humalog) 0 units SC .BEDTIME SLIDING SC PRN PRN Reason: Bedtime Correctional Scale Miscellaneous Medication (Pharmacy To Dose) 0 each IVPB PRN PRN PRN Reason: Pharmacy to dose: VANCOMYCIN Ondansetron HCl (Zofran Odt) 4 mg PO Q6H PRN PRN Reason: Nausea/Vomiting Ondansetron HCl (Zofran) 4 mg IVP Q6H PRN PRN Reason: Nausea/Vomiting Rosuvastatin Calcium (Crestor) 10 mg PO DAILY [facility] Last Admin: 01/08/19 08:45 Dose: 10 mg Senna/Docusate Sodium (Senokot S) 2 tab PO BIDPRN PRN PRN Reason: Constipation
[2019-01-08] MEDS ORDERED: Vancomycin HCl 1 GM in Premix Bag 1 BAG IVPB SCH (19:00)
[2019-01-08] MEDS ORDERED: Acetaminophen 325 MG TAB PO PRN (19:07)
[2019-01-08] MEDS ORDERED: Calcium Carbonate 500 MG ChewTAB PO PRN (19:07)
--- NOTE | 2019-01-08 19:10 | CON ---
DATE OF CONSULTATION: HISTORY OF PRESENT ILLNESS: Mr. Gonsalez is a 68-year-old male with advanced dementia, living in [facility]. Apparently, he had a change in his clinical condition, was taken to the [place] [facility]. He was noted to be hypothermic and hypotensive and transferred here. He has stabilized. He is a full resuscitation patient. PAST MEDICAL HISTORY: Remarkable for; 1. Advanced dementia. 2. History of lipid disorder. 3. History of chronic kidney disease. 4. Peripheral vascular disease. 5. History of suprapubic catheter, catheter was changed at the end of last year. 6. History of diabetes. 7. History of knee surgery. 8. History of femoral artery stent in the past. 9. History of toe amputation. FAMILY HISTORY: None known. ALLERGIES: NO REPORTED DRUG ALLERGIES. MEDICATIONS: Prior to admission, he is on; 1. Coreg. 2. DuoNeb. 3. Imdur. 4. Crestor. 5. Epogen. 6. Procardia. 7. Bicarb. REVIEW OF SYSTEMS: Not obtainable. PHYSICAL EXAMINATION: VITAL SIGNS: Afebrile, heart rate in the 50s, respiratory rate 16, oximetry is 100% on room air, and blood pressure 134/82. GENERAL: Cachectic appearing. He is in no distress. Nonverbal. HEAD AND NECK: Remarkable mainly for cachexia. LUNGS: Remarkable for clear breath sounds. HEART: Regular rhythm. ABDOMEN: Soft and nontender. EXTREMITIES: Without asymmetry. LABORATORY DATA: Urine culture is still showing no pathogen yet, it is a suprapubic catheter, so is overwhelmingly likely is bladder colonized. White count 4.1, hemoglobin 10.3, and platelets 83. Sodium 141, potassium 3.4, chloride 116, bicarb 13, BUN 28, and creatinine 2.6. IMPRESSION AND PLAN: Hypotension and hypothermia, most likely secondary to severe intravascular volume depletion in a demented man, who is living in a full-time care environment. Chest radiograph showed no infiltrates. His urine will likely be colonized. He is stable to move out of the critical care unit for further supportive care. We will sign off and transfer out of the critical care unit. TIME SPENT: This is a 70-minute consult, 50% of the time was spent on the unit, reviewing records and coordinating care. Job ID: [id number] [facility]
[2019-01-08 19:19] LABS: Vancomycin, Random 10.7 ug/mL (See Comment)
[2019-01-08] MEDS ORDERED: Epoetin (ESRD) 10,000 UNITS/ML VIAL SC SCH (20:00)
[2019-01-08] MEDS ORDERED: Vancomycin HCl 500 MG in Sodium Chloride 0.9% 100 ML IVPB SCH (21:00)
[2019-01-08] MEDS: Sodium Bicarbonate Tab 325 MG TAB PO SCH (21:02)
[2019-01-09] MEDS: Cefepime 2 GM in Sodium Chloride 0.9% 100 ML IVPB SCH ×2 (05:07→17:43)
[2019-01-09] MEDS: Sodium Chloride 0.9% 1,000 ML IV SCH ×3 (05:09→17:44)
[2019-01-09] MEDS: NIFEdipine XL 30 MG TAB PO SCH (09:13)
[2019-01-09] MEDS: Famotidine 20 MG TAB PO SCH (09:13)
[2019-01-09] MEDS: Sodium Bicarbonate Tab 325 MG TAB PO SCH ×2 (09:14→20:31)
[2019-01-09] MEDS: Rosuvastatin 10 MG TAB PO SCH (09:14)
--- NOTE | 2019-01-09 15:02 | PDOC.PN ---
- Subjective Encounter Start Date: 01/09/19 Encounter Start Time: 11:00 Pt seen for followup re: - Objective Resuscitation Status - Order Detail: 01/07/19 16:43 Resuscitation Status Routine Resuscitation Status: FULL: Full Resuscitation MAR Reviewed: Yes Vital Signs & Weight: Vital Signs (12 hours) Pulse Resp BP BP Pulse Ox 01/09/19 13:27 65 16 146/79 H 98 01/09/19 09:13 60 01/09/19 09:02 60 16 129/67 98 01/09/19 04:07 59 L 12 126/69 100 Weight Admit Weight 107 lb Weight 107 lb 2.314 oz Most Recent Monitor Data Heart Rate from ECG 52 NIBP 130/68 NIBP BP-Mean 88 Respiration from ECG 1 SpO2 100 I&O: 01/08/19 01/09/19 01/10/19 06:59 06:59 06:59 Intake Total 2330 Output Total 400 340 Balance -400 1989 Result Diagrams: 01/08/19 05:10 01/08/19 05:10 Additional Labs: Accuchecks 01/09/19 01/09/19 01/08/19 11:27 05:52 21:18 POC Glucose 194 H 172 H 141 H 01/08/19 01/08/19 01/08/19 18:06 17:19 16:42 POC Glucose 108 68 L 56 L* labs reviewed by me Phys Exam - Physical Examination Constitutional: NAD HEENT: moist MMs Neck: supple Respiratory: clear to auscultation bilateral Cardiovascular: RRR Gastrointestinal: soft suprapubic catheter Neurological: moves all 4 limbs Psychiatric: normal affect Dx/Plan (1) UTI (urinary tract infection) Status: Acute Qualifiers: Urinary tract infection type: acute cystitis Hematuria presence: without hematuria Qualified Code(s): N30.00 - Acute cystitis without hematuria Comment: probable colonization, vancomycin discontinued (2) DM type 2 (diabetes mellitus, type 2) Status: Chronic Qualifiers: Diabetes mellitus detention insulin use: without long term care social worker use Diabetes mellitus complication status: with kidney complications Diabetes mellitus complication detail: with chronic kidney disease Chronic kidney disease stage : stage 3 (moderate) Qualified Code(s): E11.22 - Type 2 diabetes mellitus with diabetic chronic kidney disease; N18.3 - Chronic kidney disease, stage 3 ( moderate) Comment: controlled (3) HTN (hypertension) Code(s): I10 - ESSENTIAL (PRIMARY) HYPERTENSION Status: Chronic Qualifiers: Hypertension type: essential hypertension Qualified Code(s): I10 - Essential (primary) hypertension Comment: controlled (4) PVD (peripheral vascular disease) Code(s): I73.9 - PERIPHERAL VASCULAR DISEASE, UNSPECIFIED Status: Chronic Comment: stable (5) Protein-calorie malnutrition, moderate Code(s): E44.0 - MODERATE PROTEIN-CALORIE MALNUTRITION Status: Chronic (6) Septic shock Code(s): A41.9 - SEPSIS, UNSPECIFIED ORGANISM; R65.21 - SEVERE SEPSIS WITH SEPTIC SHOCK Status: Resolved (7) Sepsis Code(s): A41.9 - SEPSIS, UNSPECIFIED ORGANISM Status: Resolved Qualifiers: Sepsis type: sepsis due to unspecified organism Qualified Code(s): A41.9 - Sepsis, unspecified organism - Plan continue antibiotics, out of bed/ambulate * . on cefepime, blood cultures pending Review of Systems - Review of Systems Respiratory: negative: Cough, Shortness of Breath, SOB with Excertion, Pleuritic Pain, Wheezing Cardiovascular: negative: chest pain, palpitations, orthopnea, paroxysmal nocturnal dyspnea, edema, light headedness - Medications/Allergies Allergies/Adverse Reactions: Allergies Allergy/AdvReac Type Severity Reaction Status Date / Time No Known Drug Allergies Allergy Verified 11/19/18 02:37 Medications: Current Medications Acetaminophen (Tylenol) 650 mg RI Q4H PRN PRN Reason: Headache/Fever/Mild Pain (1-3) Acetaminophen (Tylenol) 650 mg PO Q4H PRN PRN Reason: Headache/Fever/Mild Pain (1-3) Albuterol/Ipratropium (Duoneb) 3 ml NEB QIDPRN PRN PRN Reason: Dyspnea Calcium Carbonate (Tums) 1,000 mg PO Q4H PRN PRN Reason: Heartburn or Indigestion Dextrose/Water (Dextrose 50%) 25 gm SLOW IVP PRN PRN PRN Reason: Hypoglycemia Epoetin Aldo (Procrit) 10,000 units SC Q7D COUNTS INCLUDE 234 BEDS AT THE [facility] Last Admin: 01/08/19 20:59 Dose: 10,000 units Famotidine (Pepcid) 20 mg PO 0900 COUNTS INCLUDE 234 BEDS AT THE [facility] Last Admin: 01/09/19 09:13 Dose: 20 mg Glucagon (Glucagon) 1 mg IM PRN PRN PRN Reason: Hypoglycemia Guaifenesin/Dextromethorphan (Robitussin Dm) 15 ml PO Q4H PRN PRN Reason: Cough Cefepime HCl 2 gm/ Sodium (Chloride) 100 mls @ 200 mls/hr IVPB Q12H COUNTS INCLUDE 234 BEDS AT THE [facility] Last Admin: 01/09/19 05:07 Dose: 100 mls Norepinephrine Bitartrate (Levophed) 250 mls @ 0 mls/hr IVPB INF COUNTS INCLUDE 234 BEDS AT THE [facility]; Protocol Sodium Chloride (Normal Saline 0.9%) 1,000 mls @ 100 mls/hr IV .Q10H COUNTS INCLUDE 234 BEDS AT THE [facility] Last Admin: 01/09/19 11:18 Dose: 1,000 mls Dextrose/Water (D5w) 1,000 mls @ 0 mls/hr IV .Q0M PRN PRN Reason: Hypoglycemia Insulin Human Lispro (Humalog) 0 units SC .MILD SLIDING SCALE PRN PRN Reason: Mild Correctional Scale Insulin Human Lispro (Humalog) 0 units SC .BEDTIME SLIDING SC PRN PRN Reason: Bedtime Correctional Scale Isosorbide Mononitrate (Imdur) 60 mg PO BID COUNTS INCLUDE 234 BEDS AT THE [facility] Last Admin: 01/09/19 09:14 Dose: 60 mg Miscellaneous Medication (Pharmacy To Dose) 0 each IVPB PRN PRN PRN Reason: Pharmacy to dose: VANCOMYCIN Nifedipine (Procardia Xl) 30 mg PO DAILY COUNTS INCLUDE 234 BEDS AT THE [facility] Last Admin: 01/09/19 09:13 Dose: 30 mg Ondansetron HCl (Zofran Odt) 4 mg PO Q6H PRN PRN Reason: Nausea/Vomiting Ondansetron HCl (Zofran) 4 mg IVP Q6H PRN PRN Reason: Nausea/Vomiting Rosuvastatin Calcium (Crestor) 10 mg PO DAILY COUNTS INCLUDE 234 BEDS AT THE [facility] Last Admin: 01/09/19 09:14 Dose: 10 mg Senna/Docusate Sodium (Senokot S) 2 tab PO BIDPRN PRN PRN Reason: Constipation Sodium Bicarbonate (Bicarbonate, Sodium) 650 mg PO BID COUNTS INCLUDE 234 BEDS AT THE [facility] Last Admin: 01/09/19 09:14 Dose: 650 mg
[2019-01-10] MEDS: Sodium Chloride 0.9% 1,000 ML IV SCH ×2 (04:19→16:08)
[2019-01-10] MEDS: Cefepime 2 GM in Sodium Chloride 0.9% 100 ML IVPB SCH (05:29)
[2019-01-10] MEDS ORDERED: VANC / ABX IVPB PRN (10:02)
[2019-01-10] MEDS ORDERED: Vancomycin HCl 1 GM in Premix Bag 1 BAG IVPB SCH (10:15)
[2019-01-10] MEDS: Famotidine 20 MG TAB PO SCH (11:10)
[2019-01-10] MEDS: Sodium Bicarbonate Tab 325 MG TAB PO SCH ×2 (11:11→20:05)
[2019-01-10] MEDS: Rosuvastatin 10 MG TAB PO SCH (11:11)
[2019-01-10] MEDS: NIFEdipine XL 30 MG TAB PO SCH (11:11)
--- NOTE | 2019-01-10 12:19 | PDOC.PN ---
- Subjective Encounter Start Date: 01/10/19 Encounter Start Time: 07:00 Pt seen for followup re: hypothermia. Not speaking much, unable to complete ROS. - Objective Resuscitation Status - Order Detail: 01/07/19 16:43 Resuscitation Status Routine Resuscitation Status: FULL: Full Resuscitation MAR Reviewed: Yes Vital Signs & Weight: Vital Signs (12 hours) Pulse Resp BP Pulse Ox 01/10/19 11:11 67 01/10/19 08:44 67 16 112/62 100 01/10/19 08:00 100 Weight Admit Weight 107 lb Weight 107 lb 2.314 oz Most Recent Monitor Data Heart Rate from ECG 52 NIBP 130/68 NIBP BP-Mean 88 Respiration from ECG 1 SpO2 100 I&O: 01/09/19 01/10/19 01/11/19 06:59 06:59 06:59 Intake Total 2330 1310 Output Total 340 175 Balance 1989 1134 Result Diagrams: 01/08/19 05:10 01/08/19 05:10 Additional Labs: Accuchecks 01/10/19 01/10/19 01/09/19 11:21 05:54 20:37 POC Glucose 112 H 109 145 H 01/09/19 16:16 POC Glucose 173 H labs reviewed by me Phys Exam - Physical Examination Constitutional: NAD HEENT: moist MMs Neck: supple Respiratory: clear to auscultation bilateral Cardiovascular: RRR Gastrointestinal: positive bowel sounds cloudy drainage from suprapubic catheter; turbid penile discharge Neurological: moves all 4 limbs Psychiatric: normal affect Dx/Plan (1) Hypothermia Code(s): T68.XXXA - HYPOTHERMIA, INITIAL ENCOUNTER Status: Acute Comment: ? sepsis, resume vancomycin, check urine studies, blood cultures. Check chest x- ray. (2) UTI (urinary tract infection) Status: Acute Qualifiers: Urinary tract infection type: acute cystitis Hematuria presence: without hematuria Qualified Code(s): N30.00 - Acute cystitis without hematuria Comment: vancomycin being resumed (3) DM type 2 (diabetes mellitus, type 2) Status: Chronic Qualifiers: Diabetes mellitus correction insulin use: without extermination inspector use Diabetes mellitus complication status: with kidney complications Diabetes mellitus complication detail: with chronic kidney disease Chronic kidney disease stage : stage 3 (moderate) Qualified Code(s): E11.22 - Type 2 diabetes mellitus with diabetic chronic kidney disease; N18.3 - Chronic kidney disease, stage 3 ( moderate) Comment: controlled (4) HTN (hypertension) Code(s): I10 - ESSENTIAL (PRIMARY) HYPERTENSION Status: Chronic Qualifiers: Hypertension type: essential hypertension Qualified Code(s): I10 - Essential (primary) hypertension Comment: controlled (5) PVD (peripheral vascular disease) Code(s): I73.9 - PERIPHERAL VASCULAR DISEASE, UNSPECIFIED Status: Chronic Comment: stable (6) Protein-calorie malnutrition, moderate Code(s): E44.0 - MODERATE PROTEIN-CALORIE MALNUTRITION Status: Chronic (7) Septic shock Code(s): A41.9 - SEPSIS, UNSPECIFIED ORGANISM; R65.21 - SEVERE SEPSIS WITH SEPTIC SHOCK Status: Resolved (8) Sepsis Code(s): A41.9 - SEPSIS, UNSPECIFIED ORGANISM Status: Suspected Qualifiers: Sepsis type: sepsis due to unspecified organism Qualified Code(s): A41.9 - Sepsis, unspecified organism - Plan * . Review of Systems - Medications/Allergies Allergies/Adverse Reactions: Allergies Allergy/AdvReac Type Severity Reaction Status Date / Time No Known Drug Allergies Allergy Verified 11/19/18 02:37 Medications: Current Medications Acetaminophen (Tylenol) 650 mg MD Q4H PRN PRN Reason: Headache/Fever/Mild Pain (1-3) Acetaminophen (Tylenol) 650 mg PO Q4H PRN PRN Reason: Headache/Fever/Mild Pain (1-3) Albuterol/Ipratropium (Duoneb) 3 ml NEB QIDPRN PRN PRN Reason: Dyspnea Calcium Carbonate (Tums) 1,000 mg PO Q4H PRN PRN Reason: Heartburn or Indigestion Dextrose/Water (Dextrose 50%) 25 gm SLOW IVP PRN PRN PRN Reason: Hypoglycemia Epoetin Aldo (Procrit) 10,000 units SC Q7D [facility] Last Admin: 01/08/19 20:59 Dose: 10,000 units Famotidine (Pepcid) 20 mg PO 0900 [facility] Last Admin: 01/10/19 11:10 Dose: Not Given Glucagon (Glucagon) 1 mg IM PRN PRN PRN Reason: Hypoglycemia Guaifenesin/Dextromethorphan (Robitussin Dm) 15 ml PO Q4H PRN PRN Reason: Cough Norepinephrine Bitartrate (Levophed) 250 mls @ 0 mls/hr IVPB INF SOO; Protocol Sodium Chloride (Normal Saline 0.9%) 1,000 mls @ 100 mls/hr IV .Q10H [facility] Last Admin: 01/10/19 04:19 Dose: 1,000 mls Dextrose/Water (D5w) 1,000 mls @ 0 mls/hr IV .Q0M PRN PRN Reason: Hypoglycemia Vancomycin HCl 750 mg/ Sodium (Chloride) 250 mls @ 250 mls/hr IVPB 1200 SOO Cefepime HCl 1 gm/ Sodium (Chloride) 100 mls @ 200 mls/hr IVPB 0600 SOO Insulin Human Lispro (Humalog) 0 units SC .MILD SLIDING SCALE PRN PRN Reason: Mild Correctional Scale Insulin Human Lispro (Humalog) 0 units SC .BEDTIME SLIDING SC PRN PRN Reason: Bedtime Correctional Scale Isosorbide Mononitrate (Imdur) 60 mg PO BID [facility] Last Admin: 01/10/19 11:10 Dose: Not Given Miscellaneous Medication (Pharmacy To Dose) 1 each IVPB DAILYPRN PRN PRN Reason: LABS Nifedipine (Procardia Xl) 30 mg PO DAILY [facility] Last Admin: 01/10/19 11:11 Dose: Not Given Ondansetron HCl (Zofran Odt) 4 mg PO Q6H PRN PRN Reason: Nausea/Vomiting Ondansetron HCl (Zofran) 4 mg IVP Q6H PRN PRN Reason: Nausea/Vomiting Rosuvastatin Calcium (Crestor) 10 mg PO DAILY [facility] Last Admin: 01/10/19 11:11 Dose: Not Given Senna/Docusate Sodium (Senokot S) 2 tab PO BIDPRN PRN PRN Reason: Constipation Sodium Bicarbonate (Bicarbonate, Sodium) 650 mg PO BID [facility] Last Admin: 01/10/19 11:11 Dose: Not Given
[2019-01-10] MEDS: Vancomycin HCl 750 MG in Sodium Chloride 0.9% 250 ML 250 ML IVPB SCH (12:29)
[2019-01-10 12:57] LABS: Anion Gap 12 mmol/L (10-20); BUN (Urea Nitrogen) 28 mg/dL (8.4-25.7); Calc. Creatinine Clearance 19 mL/min (70-130); Calcium 7.1 mg/dL (7.8-10.44); Carbon Dioxide 11 mmol/L (23-31); Chloride 125 mmol/L (98-107); Estimated GFR-MDRD 31; Glucose 104 mg/dL (80-115); Potassium 3.1 mmol/L (3.5-5.1); Sodium 145 mmol/L (136-145)
[2019-01-10 13:31] LABS: Anisocytosis SLIGHT = 6-15 cells (100X) (0-5/hpf); Band 30 % (5-11); Crenated RBC SLIGHT = 1-5 cells (100X) (None Seen); Elliptocytes SLIGHT = 2-5 cells (100X) (0-1/hpf); Eosinophils 2 % (0-10); Hemoglobin 10.6 g/dL (14.0-18.0); Hypochromia SLIGHT = 6-15 cells (100X) (0-5/hpf); Lymphocytes 14 % (21-51); MDiff Complete? YES; Mean Corpuscular Volume 86.7 fL (78.0-98.0); Mean Platelet Volume 11.4 fL (7.4-10.4); Monocytes 2 % (0-10); Neutrophil 52 % (42-75); Platelet Count 61 thou/uL (130-400); Platelet Morphology Comment Appears Decreased; Poikilocytosis SLIGHT = 6-15 cells (100X) (0-5/hpf); RBC Distribution Width 17.3 % (11.5-14.5); Red Blood Cell (RBC) Count 4.09 mill/uL (4.70-6.10); White Blood Cell (WBC) Count 2.2 thou/uL (4.8-10.8)
--- NOTE | 2019-01-10 16:04 | RAD ---
PORTABLE CHEST 1 VIEW: Date: 01/10/19 Time: 1432 hours HISTORY: Pulmonary infiltrates. FINDINGS/IMPRESSION: Comparison made with exam of 01/07/19. The heart size is normal. Evidence of old granulomatous disease is again seen. There are opacities in the lung tapia bilaterally, left greater than right. There is consolidation in the left lower lobe. No pneumothoraces are seen. Small effusions may be present. POS: [facility]
[2019-01-10] MEDS ORDERED: Dextrose 5 % And 0.9 % NaCl 1,000 ML IV SCH (21:00)
[2019-01-11 04:16] LABS: #Monocytes 0.2 thou/uL (0.11-0.59); %Basophils 0.3 % (0.0-1.0); %Lymphocytes 30.3 % (21.0-51.0); %Monocytes 6.9 % (0.0-10.0); %Neutrophils 61.5 % (42.0-75.0); Hemoglobin 10.6 g/dL (14.0-18.0); Mean Corpuscular HGB CONC 30.8 g/dL (32.0-36.0); Mean Corpuscular Hemoglobin 26.3 pg (27.0-31.0); Mean Corpuscular Volume 85.6 fL (78.0-98.0); Platelet Count 68 thou/uL (130-400); RBC Distribution Width 17.3 % (11.5-14.5); Red Blood Cell (RBC) Count 4.04 mill/uL (4.70-6.10); White Blood Cell (WBC) Count 3.2 thou/uL (4.8-10.8)
[2019-01-11 04:31] LABS: Anion Gap 13 mmol/L (10-20); BUN (Urea Nitrogen) 26 mg/dL (8.4-25.7); Calc. Creatinine Clearance 18 mL/min (70-130); Calcium 7.1 mg/dL (7.8-10.44); Carbon Dioxide 10 mmol/L (23-31); Estimated GFR-MDRD 30; Glucose 127 mg/dL (80-115); Sodium 147 mmol/L (136-145)
[2019-01-11 04:45] LABS: Chloride 127 mmol/L (98-107)
[2019-01-11] MEDS ORDERED: Dextrose 5% in Water 1,000 ML IV SCH (05:30)
[2019-01-11] MEDS ORDERED: Cefepime 1 GM in Sodium Chloride 0.9% 100 ML IVPB SCH (06:00)
[2019-01-11] MEDS: NIFEdipine XL 30 MG TAB PO SCH (08:59)
[2019-01-11] MEDS: Famotidine 20 MG TAB PO SCH (08:59)
[2019-01-11] MEDS: Sodium Bicarbonate Tab 325 MG TAB PO SCH (09:00)
[2019-01-11] MEDS: Rosuvastatin 10 MG TAB PO SCH (09:00)
[2019-01-11 12:00] LABS: ALT (SGPT) 10 U/L (8-55); AST (SGOT) 10 U/L (5-34); Albumin 1.6 g/dL (3.4-4.8); Alkaline Phosphatase 109 U/L (40-150); Bilirubin, Direct 0.1 mg/dL (0.1-0.3); Bilirubin, Total Less than 0.2 mg/dL (0.2-1.2); Protein, Total 4.9 g/dL (5.8-8.1)
[2019-01-11 12:03] LABS: Vancomycin, Random 22.7 ug/mL (See Comment)
[2019-01-11] MEDS: MEROPENEM 1 GM/50 ML 1 GM in Premix Bag 1 BAG IVPB SCH ×2 (12:08→20:34)
[2019-01-11] MEDS: Vancomycin HCl 750 MG in Sodium Chloride 0.9% 250 ML 250 ML IVPB SCH (12:17)
--- NOTE | 2019-01-11 12:47 | PQF ---
CLINICAL DOCUMENTATION IMPROVEMENT CLARIFICATION FORM: ICD-10 Updated PLEASE DO AN ADDENDUM TO THE PROGRESS NOTE WITH ANY DOCUMENTATION UPDATES OR ADDITIONS AND CARRY THROUGH TO DC SUMMARY. THANK YOU. DATE: 01/11/2019 ATTN: Dr. Ewing Please exercise your independent, professional judgment in responding to the clarification form. Clinical indicators are provided on the bottom of this form for your review Please check appropriate box(es): [ ] Sepsis due to UTI due to suprapubic catheter. [ ] Sepsis due to UTI not due to suprapubic catheter. [ ] Other diagnosis [ ] Unable to determine In addition, please specify: Present on Admission (POA): [ ] Yes [ ] No [ ] Unable to determine For continuity of documentation, please document condition throughout progress notes and discharge summary. Thank You. CLINICAL INDICATORS - SIGNS / SYMPTOMS / LABS ER Nursing assessment 01/07: Suprapubic catheter present, with no urine output H&P 01/07: Septic shock. Pt w/ hypotension and hypothermia, this was most likely due to urinary tract infection. PN 01/08: Sepsis unspecified organism likely secondary to UTI PN 01/10: Phys Exam: cloudy drainage from suprapubic catheter DX/Plan: UTI. Acute cystitis without hematuria. Septic shock. Resolved Sepsis due to unspecified organism. RISKS: H&P: 68 yr old w/ Alzheimer's, resident of longterm. HX Dementia, CKD 4, HTN. Protein calorie malnutrition. Benign prostatic hyperplasia, requiring suprapubic catheter. TREATMENT: Order 01/06: Levophed IV 5 mcg/min titrate to MAP 65-90 mmHg Order 01/07-01/10: Cefepime 2gm IV Order 01/10: Vancomycin HCl 750 mg IV Order 01/11: Meropenem 1 gm IV Thank you, Humaira (This form is maintained as a part of the permanent medical record) 2014 [employer], [employer] All Rights Reserved Humaira Vaca RN, BSN [email or web address] Office: [phone] [facility]
[2019-01-11] MEDS ORDERED: Vancomycin Sliding Scale 1 EACH FS SCH (13:00)
[2019-01-11] MEDS ORDERED: Vancomycin HCl 750 MG in Sodium Chloride 0.9% 250 ML 250 ML IVPB SCH (13:00)
[2019-01-11] MEDS ORDERED: HOLD VANCOMYCIN FOR LEVEL >20 FS SCH (13:00)
[2019-01-11] MEDS ORDERED: Vancomycin HCl 500 MG in Sodium Chloride 0.9% 100 ML IVPB SCH (13:00)
[2019-01-11] MEDS ORDERED: Vancomycin HCl 1 GM in Premix Bag 1 BAG IVPB SCH (13:00)
[2019-01-11] MEDS ORDERED: Vancomycin HCl 250 MG in Sodium Chloride 0.9% 100 ML IVPB SCH (13:00)
[2019-01-11 13:53] LABS: Actual Bicarbonate (HCO3a) 11.5 mEq/L (22-28); Base Excess (BEa) -11.2 mEq/L (-2.0 to +3.0); Calcium, Ionized 1.18 mmol/L (1.12-1.30); Carboxyhemoglobin (COHb) 0.4 gm% (0.0-3.0); Hemoglobin (Hb) 11.2 g/dL (14.0-18.0); O2 Tension (PaO2) 106.1 mmHg (> 70.0); Potassium - ABG Lab 2.69 mmol/L (3.70-5.30)
[2019-01-11 13:55] LABS: CO2 Tension 18.9 mmHg (35.0-45.0)
[2019-01-11 13:56] LABS: ALV-art Gradient 20.005 (0-20)
--- NOTE | 2019-01-11 14:01 | CT ---
CT BRAIN WITHOUT CONTRAST: Date: 01/11/19 HISTORY: Altered mental status. FINDINGS: There are changes of cortical atrophy and chronic small vessel ischemic disease. The ventricular size is appropriate and the basilar cisterns are patent. No evidence of acute infarct, hemorrhage, midlin e shift, or abnormal extra-axial fluid collections are seen. The bony calvarium is intact. There is m ucosal disease in the paranasal sinuses. IMPRESSION: No CT evidence of acute intracranial process. POS: [facility]
--- NOTE | 2019-01-11 15:45 | PDOC.PN ---
- Subjective Encounter Start Date: 01/11/19 Encounter Start Time: 15:44 Pt seen for followup re; acute metabolic encephalopathy. Opening eyes to voice but not answering questions, unable to complete ROS. - Objective Resuscitation Status - Order Detail: 01/07/19 16:43 Resuscitation Status Routine Resuscitation Status: FULL: Full Resuscitation MAR Reviewed: Yes Vital Signs & Weight: Vital Signs (12 hours) Temp Pulse Resp BP BP Pulse Ox 01/11/19 13:33 96.1 F L 80 20 168/75 H 96 01/11/19 11:25 96.5 F L 66 20 123/73 95 01/11/19 08:59 72 01/11/19 08:00 97.0 F L 72 16 124/64 98 Weight Admit Weight 107 lb Weight 107 lb 2.314 oz Most Recent Monitor Data Heart Rate from ECG 52 NIBP 130/68 NIBP BP-Mean 88 Respiration from ECG 1 SpO2 100 I&O: 01/10/19 01/11/19 01/12/19 06:59 06:59 06:59 Intake Total 1310 1200 Output Total 175 500 Balance 1135 700 Result Diagrams: 01/11/19 03:54 01/11/19 03:54 Additional Labs: Accuchecks 01/10/19 01/10/19 20:27 16:34 POC Glucose 69 L 104 Labs reviewed by me Phys Exam - Physical Examination Constitutional: NAD HEENT: moist MMs Neck: supple Respiratory: clear to auscultation bilateral Cardiovascular: RRR Gastrointestinal: soft Neurological: moves all 4 limbs Deviation from normal: Unable to assess Dx/Plan (1) Acute metabolic encephalopathy Code(s): G93.41 - METABOLIC ENCEPHALOPATHY Status: Acute Comment: ? secondary to sepsis. Could also be due to poor oral intake. (2) Sepsis Code(s): A41.9 - SEPSIS, UNSPECIFIED ORGANISM Status: Acute Comment: sepsis most likely secondary to UTI from indwelling suprapubic catheter, was present on admission. (3) Hypothermia Code(s): T68.XXXA - HYPOTHERMIA, INITIAL ENCOUNTER Status: Acute Comment: On ruth hugger blanket. ? secondary to sepsis. (4) UTI (urinary tract infection) Status: Acute Qualifiers: Urinary tract infection type: acute cystitis Hematuria presence: without hematuria Qualified Code(s): N30.00 - Acute cystitis without hematuria Comment: on IV vancomycin, started on IV meropenem (5) DM type 2 (diabetes mellitus, type 2) Status: Chronic Qualifiers: Diabetes mellitus alf insulin use: without alf use Diabetes mellitus complication status: with kidney complications Diabetes mellitus complication detail: with chronic kidney disease Chronic kidney disease stage : stage 3 (moderate) Qualified Code(s): E11.22 - Type 2 diabetes mellitus with diabetic chronic kidney disease; N18.3 - Chronic kidney disease, stage 3 ( moderate) Comment: controlled (6) HTN (hypertension) Code(s): I10 - ESSENTIAL (PRIMARY) HYPERTENSION Status: Chronic Qualifiers: Hypertension type: essential hypertension Qualified Code(s): I10 - Essential (primary) hypertension Comment: controlled (7) PVD (peripheral vascular disease) Code(s): I73.9 - PERIPHERAL VASCULAR DISEASE, UNSPECIFIED Status: Chronic Comment: stable (8) Protein-calorie malnutrition, moderate Code(s): E44.0 - MODERATE PROTEIN-CALORIE MALNUTRITION Status: Chronic (9) Septic shock Code(s): A41.9 - SEPSIS, UNSPECIFIED ORGANISM; R65.21 - SEVERE SEPSIS WITH SEPTIC SHOCK Status: Resolved - Plan plan discussed w/ family, continue antibiotics * . d/w dtr Blanche over phone, updated her. Review of Systems - Medications/Allergies Allergies/Adverse Reactions: Allergies Allergy/AdvReac Type Severity Reaction Status Date / Time No Known Drug Allergies Allergy Verified 11/19/18 02:37 Medications: Current Medications Acetaminophen (Tylenol) 650 mg IN Q4H PRN PRN Reason: Headache/Fever/Mild Pain (1-3) Acetaminophen (Tylenol) 650 mg PO Q4H PRN PRN Reason: Headache/Fever/Mild Pain (1-3) Albuterol/Ipratropium (Duoneb) 3 ml NEB QIDPRN PRN PRN Reason: Dyspnea Calcium Carbonate (Tums) 1,000 mg PO Q4H PRN PRN Reason: Heartburn or Indigestion Dextrose/Water (Dextrose 50%) 25 gm SLOW IVP PRN PRN PRN Reason: Hypoglycemia Epoetin Aldo (Procrit) 10,000 units SC Q7D [facility] Last Admin: 01/08/19 20:59 Dose: 10,000 units Famotidine (Pepcid) 20 mg PO 0900 [facility] Last Admin: 01/11/19 08:59 Dose: Not Given Glucagon (Glucagon) 1 mg IM PRN PRN PRN Reason: Hypoglycemia Guaifenesin/Dextromethorphan (Robitussin Dm) 15 ml PO Q4H PRN PRN Reason: Cough Norepinephrine Bitartrate (Levophed) 250 mls @ 0 mls/hr IVPB INF SOO; Protocol Dextrose/Water (D5w) 1,000 mls @ 0 mls/hr IV .Q0M PRN PRN Reason: Hypoglycemia Dextrose/Water (D5w) 1,000 mls @ 75 mls/hr IV .[id number] [facility] Last Admin: 01/11/19 05:44 Dose: 1,000 mls Meropenem 1 gm/ Device 50 mls @ 100 mls/hr IVPB Q8H [facility] Last Admin: 01/11/19 12:08 Dose: 50 mls Vancomycin HCl 1 gm/ Device 200 mls @ 200 mls/hr IVPB [facility] Vancomycin HCl 750 mg/ Sodium (Chloride) 250 mls @ 250 mls/hr IVPB [facility] Vancomycin HCl 500 mg/ Sodium (Chloride) 100 mls @ 100 mls/hr IVPB [facility] SOO Vancomycin HCl 250 mg/ Sodium (Chloride) 100 mls @ 100 mls/hr IVPB [facility] Insulin Human Lispro (Humalog) 0 units SC .MILD SLIDING SCALE PRN PRN Reason: Mild Correctional Scale Insulin Human Lispro (Humalog) 0 units SC .BEDTIME SLIDING SC PRN PRN Reason: Bedtime Correctional Scale Isosorbide Mononitrate (Imdur) 60 mg PO BID [facility] Last Admin: 01/11/19 08:59 Dose: Not Given Miscellaneous Medication (Pharmacy To Dose) 1 each IVPB DAILYPRN PRN PRN Reason: LABS Miscellaneous Medication (Vancomycin Sliding Scale) 1 each FS ASDIR [facility] Nifedipine (Procardia Xl) 30 mg PO DAILY [facility] Last Admin: 01/11/19 08:59 Dose: Not Given Hold Vancomycin For (Level >20) 0 each FS .AT DIALYSIS [facility] Ondansetron HCl (Zofran Odt) 4 mg PO Q6H PRN PRN Reason: Nausea/Vomiting Ondansetron HCl (Zofran) 4 mg IVP Q6H PRN PRN Reason: Nausea/Vomiting Rosuvastatin Calcium (Crestor) 10 mg PO DAILY [facility] Last Admin: 01/11/19 09:00 Dose: Not Given Senna/Docusate Sodium (Senokot S) 2 tab PO BIDPRN PRN PRN Reason: Constipation Sodium Bicarbonate (Bicarbonate, Sodium) 650 mg PO BID [facility] Last Admin: 01/11/19 09:00 Dose: Not Given
[2019-01-11] MEDS ORDERED: Senokot S 8.6-50 MG TAB PER TUBE PRN (16:45)
[2019-01-11] MEDS ORDERED: Guaifenesin DM 100-10/5 ML UDCUP PER TUBE PRN (16:45)
[2019-01-11] MEDS ORDERED: Acetaminophen 325 MG TAB PER TUBE PRN (16:45)
[2019-01-11] MEDS ORDERED: Calcium Carbonate 500 MG ChewTAB PER TUBE PRN (16:45)
[2019-01-11] MEDS ORDERED: Ondansetron ODT 4 MG TAB PER TUBE PRN (16:45)
--- NOTE | 2019-01-11 17:04 | RAD ---
SINGLE VIEW ABDOMEN: HISTORY: Dobhoff placement. COMPARISON: None. FINDINGS: A single view of the abdomen shows a nonspecific, nonobstructive bowel gas pattern. A Dobhoff tube i s seen with its tip barely within the stomach. IMPRESSION: Dobhoff tube tip is located barely within the stomach. This should be advanced at least 8 cm. POS: [facility]
--- NOTE | 2019-01-11 18:00 | RAD ---
KUB: Date: 01/11/19 INDICATION: History of Dobbhoff tube placement. IMPRESSION: 1. Dobbhoff feeding tube tip is seen in the region of the gastric fundus, slightly more advanced giulia n on the prior examination. Bowel gas pattern is nonspecific, but unchanged from the comparison exam. 2. Left lower lobe pleural parenchymal opacity is stable to the prior dated 01/11/19 at 1531 hours. POS: [facility]
--- NOTE | 2019-01-11 18:18 | PDOC.EVN ---
Event Note - Event Note Event Note: Palliative care service discussed with patient's daughter. Patient is now DNAR.
[2019-01-11 19:46] LABS: Troponin I 0.127 ng/mL (< 0.028)
--- NOTE | 2019-01-11 20:36 | CON ---
DATE OF CONSULTATION: CONSULTING PHYSICIAN: Mary Smith MD REASON FOR CONSULTATION: Advanced chronic kidney disease, worsening metabolic acidosis, hypernatremia, and failure to thrive. IMPRESSION: 1. Advanced chronic kidney disease, stage 3/4 at baseline. 2. Severe malnutrition. 3. Hypokalemia. 4. Hypernatremia. 5. Worsening metabolic acidosis, possibly related to starvation ketosis induced. 6. Sepsis, on treatment. 7. Failure to thrive. PLAN: 1. We will do a serious medication reconciliation in this patient by removing all medications that are not all absolutely necessary at this point. We will discontinue nifedipine, discontinue sodium bicarbonate, discontinue Tums/binders. We will discontinue current free water repletion. Further medications that will be discontinued will be dependent on the clinical course. 2. We will start this patient on IV fluid i.e., bicarb based, however, given the hypokalemia and the potential for worsening hypokalemia due to cellular shift of potassium as the metabolic acidosis begins to be corrected, we will go ahead and begin to replete aggressively the potassium of this patient. 3. Nutritional support strongly recommended. We will start this patient on appetite stimulant and change the patient's diet to regular diet. 4. Renally dose all medications and avoid potentially nephrotoxic agents. 5. Prognosis of this patient is poor and this revolves essentially around malnutrition. Therefore, we will recommend finding a way to feed this patient. HISTORY OF PRESENT ILLNESS: A 68-year-old gentleman with advanced chronic kidney disease who was brought in here on the with altered mental status and noted to be hypotensive, admitted and managed for sepsis in the context of possible urinary tract infection. However, over the course of hospitalization, the patient's clinical status seems to have deteriorated to the point that the patient could not offer much of any history to me as the patient could not participate. The patient has not been eating. The patient noted with worsening hypernatremia, worsening metabolic acidosis, overall declining in clinical status. As a result of these findings, decision has been taken to involve Renal in the management of this case. PAST MEDICAL HISTORY: Significant for dementia, chronic kidney disease stage 4, hypertension, peripheral vascular disease, dyslipidemia, malnutrition, BPH, diabetes mellitus, chronic anemia, and history of renal tubular acidosis. MEDICATIONS: Reviewed and as documented on [employer]. ALLERGIES: NO KNOWN DRUG ALLERGIES. FAMILY HISTORY: Not significantly related to presenting illness. PHYSICAL EXAMINATION: GENERAL: The patient was found to be severely ill-looking, cachectic with the following vital signs. VITAL SIGNS: Afebrile at temperature 97.6, pulse 76, respiratory rate of 16, O2 saturation of 100% with a blood pressure of 123/70. HEENT: Unremarkable. CARDIOVASCULAR: First and second heart sounds were heard. RESPIRATORY: Clear to auscultation. DIGESTIVE: Revealed a benign abdomen. EXTREMITIES: Showed very cachectic looking extremities. LYMPHATICS: No peripheral lymphadenopathy. SUMMARY: A 68-year-old, severely malnourished gentleman who presented here hypotensive, now with deteriorating clinical status. Thank you for this consultation. We will follow with you. Job ID: [id number]
[2019-01-11] MEDS ORDERED: Sodium Bicarbonate Tab 325 MG TAB PER TUBE SCH (21:00)
[2019-01-11] MEDS: DEXTROSE 5% IV SCH (21:00)
[2019-01-11] MEDS: SODIUM BICARBONATE IV SCH (21:00)
[2019-01-11] MEDS: POTASSIUM CHLORIDE IV SCH (21:00)
[2019-01-11] MEDS: WATER IV SCH (21:00)
--- NOTE | 2019-01-11 21:40 | CON ---
DATE OF CONSULTATION: HISTORY: Rayo Gonsalez is a 68-year-old black male, shelter resident, seen by Dr. Arredondo in July 2018. At that time, he was admitted for weakness. Echocardiogram at that time revealed ejection fraction of 45% to 50% with moderate concentric left ventricular hypertrophy, hypokinesis of the inferior wall and evidence for diastolic dysfunction. He now was sent from the shelter in [place] for altered mental status. Blood pressure in the 60s/20s, temperature is 91 degrees. He received cefepime and vancomycin. He apparently was noted to have an irregular heart beat on the Oncology floor, where he was being treated. On that EKG, he does appear to have P-waves with frequent PACs, although atrial fibrillation cannot be ruled out. There is low voltage in the limb leads and nonspecific ST and T-wave changes. He has since been moved to telemetry. However, now he is a DNR. PAST MEDICAL HISTORY: Peripheral vascular disease, chronic kidney disease, dementia, hypertension, hyperlipidemia, benign prostatic hypertrophy, and diabetes. OPERATIONS: Left knee surgery, right femoral artery stent, and resection of toes of right foot. FAMILY HISTORY: Unable to obtain. SOCIAL HISTORY: Unable to obtain. REVIEW OF SYSTEMS: Unable to obtain. PHYSICAL EXAMINATION: VITAL SIGNS: Blood pressure 160/75, pulse of 80. HEENT: PERRL. NECK: Supple. CHEST: Reveals bilateral rhonchi. CARDIOVASCULAR: S1 and S2 normal without any S3, S4, or murmurs. ABDOMEN: Normal bowel sounds without tenderness. EXTREMITIES: Revealed no edema. NEUROLOGICAL: The patient will not converse. Will open his eyes to his name. SKIN: Warm and dry. LABORATORY DATA: Hemoglobin 10.6, hematocrit 34.6, white count 3200, and platelets 68,000. PH of 7.40, pCO2 of 18.9, and pO2 of 106.1. Sodium 147, potassium 3.0, chloride 107, carbon dioxide 11, BUN 24, and creatinine 2.57. Troponin I 0.127. IMPRESSION: 1. Mental status changes, probably due to sepsis. 2. Irregular rhythm, on EKG. However, some of the QRS complexes definitely have P-waves before then. 3. Sepsis. RECOMMENDATIONS: Another EKG will be obtained, however, the patient rate does not appear to be excessively high and he has just been made DNR. I feel the main insist should be on rate control in this demented shelter patient. Job ID: [id number]
[2019-01-11] MEDS: Isosorbide Dinitrate 20 MG TAB PER TUBE SCH (21:43)
[2019-01-12] MEDS: MEROPENEM 1 GM/50 ML 1 GM in Premix Bag 1 BAG IVPB SCH (04:37)
[2019-01-12 06:38] LABS: #Monocytes 0.3 thou/uL (0.11-0.59); #Neutrophils 2.4 thou/uL (1.40-6.50); %Basophils 0.5 % (0.0-1.0); %Eosinophils 0.3 % (0.0-10.0); %Monocytes 7.4 % (0.0-10.0); %Neutrophils 64.7 % (42.0-75.0); Hemoglobin 11.4 g/dL (14.0-18.0); Mean Corpuscular Hemoglobin 26.3 pg (27.0-31.0); Mean Corpuscular Volume 84.9 fL (78.0-98.0); Mean Platelet Volume 11.5 fL (7.4-10.4); Platelet Count 55 thou/uL (130-400); RBC Distribution Width 17.6 % (11.5-14.5); Red Blood Cell (RBC) Count 4.35 mill/uL (4.70-6.10); White Blood Cell (WBC) Count 3.6 thou/uL (4.8-10.8)
[2019-01-12 06:44] LABS: Albumin 1.6 g/dL (3.4-4.8); Anion Gap 14 mmol/L (10-20); BUN (Urea Nitrogen) 27 mg/dL (8.4-25.7); BUN/Creatinine Ratio 9.38; Calc. Creatinine Clearance 16 mL/min (70-130); Calcium 7.4 mg/dL (7.8-10.44); Carbon Dioxide 10 mmol/L (23-31); Chloride 124 mmol/L (98-107); Estimated GFR-MDRD 26; Glucose 217 mg/dL (80-115); Phosphorus 2.5 mg/dL (2.3-4.7); Potassium 3.6 mmol/L (3.5-5.1); Sodium 144 mmol/L (136-145)
--- NOTE | 2019-01-12 07:47 | EKG ---
Test Reason : Blood Pressure : / mmHG Vent. Rate : 099 BPM Atrial Rate : 105 BPM P-R Int : 000 ms QRS Dur : 098 ms QT Int : 406 ms P-R-T Axes : 000 064 225 degrees QTc Int : 521 ms Atrial fibrillation Low voltage QRS Marked ST abnormality, possible anterior subendocardial injury Prolonged QT Abnormal ECG When compared with ECG of 11-OCT-2018 14:29, Significant changes have occurred Confirmed by CIERRA XIE ([id number]) on 01/12/2019 7:46:59 AM Referred By: ALYSSA Confirmed By:CIERRA XIE
--- NOTE | 2019-01-12 08:27 | RAD ---
ABDOMEN 1 VIEW: COMPARISON: 01/11/2019. HISTORY: Verified Dobbhoff placement. FINDINGS: Redemonstration of a Dobbhoff feeding tube, unchanged in position. Distal tip is in the stomach. Advancement and repositioning is recommended. IMPRESSION: Advancement and repositioning of the Dobbhoff tube is recommended. POS: JOESPH
[2019-01-12] MEDS: Isosorbide Dinitrate 20 MG TAB PER TUBE SCH ×2 (08:58→22:10)
[2019-01-12] MEDS: Dronabinol 2.5 MG CAP PO SCH ×2 (08:58→16:14)
[2019-01-12] MEDS: Famotidine 20 MG TAB PER TUBE SCH (08:58)
[2019-01-12] MEDS: Rosuvastatin 10 MG TAB PER TUBE SCH (08:58)
[2019-01-12] MEDS ORDERED: NIFEdipine XL 30 MG TAB FS SCH (09:00)
[2019-01-12] MEDS: SODIUM BICARBONATE IV SCH ×2 (10:35→22:47)
[2019-01-12] MEDS: WATER IV SCH ×2 (10:35→22:47)
[2019-01-12] MEDS: DEXTROSE 5% IV SCH ×2 (10:35→22:47)
[2019-01-12] MEDS: POTASSIUM CHLORIDE IV SCH ×2 (10:35→22:47)
--- NOTE | 2019-01-12 10:51 | PQF ---
CLINICAL DOCUMENTATION IMPROVEMENT CLARIFICATION FORM: ICD-10 Updated PLEASE DO AN ADDENDUM TO THE PROGRESS NOTE WITH ANY DOCUMENTATION UPDATES OR ADDITIONS AND CARRY THROUGH TO DC SUMMARY. THANK YOU. Date: 01/12/2019 ATTN: Dr. Ewing Please exercise your independent, professional judgment in responding to the clarification form. Clinical indicators are provided on the bottom of this form for your review Please check appropriate box(s): [ ] Protein Calorie Malnutrition: [ ] Moderate [ ] Severe [ ] Other Malnutrition (please specify) [ ] Cachexia [ ] Other diagnosis [ ] Unable to determine In addition, please specify: Present on Admission (POA): [ ] Yes [ ] No [ ] Unable to determine CLINICAL INDICATORS - SIGNS / SYMPTOMS / LABS PN 01/08-01/11: Acute metabolic encephalopathy. ? secondary to sepsis. Could also be due to poor oral intake. Protein-calorie malnutrition, moderate, Nephrology 01/11: Severe Malnutrition Worsening metabolic acidosis, possibly related to starvation ketosis induced Failure to thrive Nat Instructor Assessment 01/08: BMI of 16 with a recent 9% weight loss over <2 months Nat Instructor Assessment 01/11: 2+ pitting edema at right hand RISKS: H&P 01/07: 68 yt old with Alzheimer's, resident of senior care. Hx CKD 4, HTN, PVD, Protein calorie malnutrition. Septic shock, hypotension and hypothermia. UTI. DM 2 TREATMENTS: Nat Instructor Assessment triggered for low BMI Nat Instructor Assess. 01/11: Recommend Suplena TID. 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 reduced radio journalist strength Moderate Malnutrition (in chronic illness) Energy Intake: <75% of estimated energy requirement for >1 month Weight Loss: 5%/1 month; 7.5%/3 months; 10%/6 months; 20%/1 year Other: mild body fat loss; mild muscle mass loss; mild fluid accumulation Severe Malnutrition (in chronic illness) Energy Intake: <75% of estimated energy requirement for >1 month Weight Loss: >5%/1 month; >7.5%/3 months; >10%/6 months; >20%/1 year Other: severe body fat loss; severe muscle mass loss; severe fluid accumulation; measurably reduced radio journalist strength Thank you, Humaira (This form is maintained as a part of the permanent medical record) 2014 [employer] All Rights Reserved Humaira Vaca RN, BSN [email or web address] Office: [phone] [facility]
[2019-01-12 12:09] LABS: Vancomycin, Trough 22.3 ug/mL
[2019-01-12] MEDS: HumaLOG 300 UNITS/3 ML VIAL SC PRN ×2 (12:17→17:49)
--- NOTE | 2019-01-12 12:59 | PDOC.PN ---
- Subjective Encounter Start Date: 01/12/19 Encounter Start Time: 07:20 Pt seen for followup re: acute metabolic encephalopathy. Opening eyes to voice but not speaking, unable to complete ROS. - Objective Resuscitation Status - Order Detail: 01/11/19 18:19 Resuscitation Status Routine Resuscitation Status: DNAR: NO Resuscitation Discussed with: pt dtr/SURESH Blanche Additional comments: Blanche stated that she and pt spoke regarding his wishes and he would not want chest compressions, electric shock, intubation if his heart was to stop. MAR Reviewed: Yes Vital Signs & Weight: Vital Signs (12 hours) Temp Pulse Resp BP Pulse Ox 01/12/19 12:09 97.3 F L 95 14 130/87 90 L 01/12/19 08:58 100 01/12/19 07:25 97.6 F 81 14 122/80 100 01/12/19 04:27 97.2 F L 118 H 20 141/70 H 96 Weight Admit Weight 99 lb 3.328 oz Weight 107 lb 2.314 oz Most Recent Monitor Data Heart Rate from ECG 52 NIBP 130/68 NIBP BP-Mean 88 Respiration from ECG 1 SpO2 100 I&O: 01/11/19 01/12/19 01/13/19 06:59 06:59 06:59 Intake Total 1200 1755 30 Output Total 500 660 Balance 700 1095 30 Result Diagrams: 01/12/19 05:29 01/12/19 05:30 Additional Labs: Accuchecks 01/12/19 01/12/19 01/11/19 10:57 05:52 21:31 POC Glucose 262 H 202 H 185 H 01/11/19 01/11/19 16:46 11:23 POC Glucose 168 H 156 H EKG Reviewed by me: Yes (Tele: kurt bejarano) Phys Exam - Physical Examination cachectic HEENT: moist MMs Neck: supple Respiratory: clear to auscultation bilateral Cardiovascular: RRR Gastrointestinal: soft Neurological: moves all 4 limbs Deviation from normal: Unable to assess Dx/Plan (1) Acute metabolic encephalopathy Code(s): G93.41 - METABOLIC ENCEPHALOPATHY Status: Acute Comment: Etiology unclear, ? due to poor oral intake (2) Hypothermia Code(s): T68.XXXA - HYPOTHERMIA, INITIAL ENCOUNTER Status: Acute Comment: On ruth hugger blanket. (3) DM type 2 (diabetes mellitus, type 2) Status: Chronic Qualifiers: Diabetes mellitus termite helper insulin use: without retirement use Diabetes mellitus complication status: with kidney complications Diabetes mellitus complication detail: with chronic kidney disease Chronic kidney disease stage : stage 3 (moderate) Qualified Code(s): E11.22 - Type 2 diabetes mellitus with diabetic chronic kidney disease; N18.3 - Chronic kidney disease, stage 3 ( moderate) Comment: controlled (4) HTN (hypertension) Code(s): I10 - ESSENTIAL (PRIMARY) HYPERTENSION Status: Chronic Qualifiers: Hypertension type: essential hypertension Qualified Code(s): I10 - Essential (primary) hypertension Comment: controlled (5) PVD (peripheral vascular disease) Code(s): I73.9 - PERIPHERAL VASCULAR DISEASE, UNSPECIFIED Status: Chronic Comment: stable (6) Septic shock Code(s): A41.9 - SEPSIS, UNSPECIFIED ORGANISM; R65.21 - SEVERE SEPSIS WITH SEPTIC SHOCK Status: Resolved (7) UTI (urinary tract infection) Status: Ruled-out Qualifiers: Urinary tract infection type: acute cystitis Hematuria presence: without hematuria Qualified Code(s): N30.00 - Acute cystitis without hematuria Comment: antibiotics discontinued (8) Severe protein-calorie malnutrition Code(s): E43 - UNSPECIFIED SEVERE PROTEIN-CALORIE MALNUTRITION Status: Chronic Comment: started on NG feeds (9) Sepsis Code(s): A41.9 - SEPSIS, UNSPECIFIED ORGANISM Status: Ruled-out Comment: no evidence of active infection, antibiotics discontinued - Plan * . Review of Systems - Medications/Allergies Allergies/Adverse Reactions: Allergies Allergy/AdvReac Type Severity Reaction Status Date / Time No Known Drug Allergies Allergy Verified 11/19/18 02:37 Medications: Current Medications Acetaminophen (Tylenol) 650 mg MT Q4H PRN PRN Reason: Headache/Fever/Mild Pain (1-3) Acetaminophen (Tylenol) 650 mg PER TUBE Q4H PRN PRN Reason: Headache/Fever/Mild Pain (1-3) Albuterol/Ipratropium (Duoneb) 3 ml NEB QIDPRN PRN PRN Reason: Dyspnea Dextrose/Water (Dextrose 50%) 25 gm SLOW IVP PRN PRN PRN Reason: Hypoglycemia Dronabinol (Marinol) 2.5 mg PO BID-[facility] Last Admin: 02/19/19 08:58 Dose: 2.5 mg Epoetin Aldo (Procrit) 10,000 units SC Q7D [facility] Last Admin: 01/08/19 20:59 Dose: 10,000 units Famotidine (Pepcid) 20 mg PER TUBE 0900 [facility] Last Admin: 01/12/19 08:58 Dose: 20 mg Glucagon (Glucagon) 1 mg IM PRN PRN PRN Reason: Hypoglycemia Guaifenesin/Dextromethorphan (Robitussin Dm) 15 ml PER TUBE Q4H PRN PRN Reason: Cough Dextrose/Water (D5w) 1,000 mls @ 0 mls/hr IV .Q0M PRN PRN Reason: Hypoglycemia Potassium Chloride 40 meq/Sodium Bicarbonate 75 meq/Dextrose/Water 1,095 mls @ 100 mls/hr IV .[id number] [facility] Last Admin: 01/12/19 10:35 Dose: 1,095 mls Insulin Human Lispro (Humalog) 0 units SC .MILD SLIDING SCALE PRN PRN Reason: Mild Correctional Scale Last Admin: 01/12/19 12:17 Dose: 4 unit Insulin Human Lispro (Humalog) 0 units SC .BEDTIME SLIDING SC PRN PRN Reason: Bedtime Correctional Scale Isosorbide Dinitrate (Isordil) 20 mg PER TUBE BID [facility] Last Admin: 01/12/19 08:58 Dose: 20 mg Miscellaneous Medication (Pharmacy To Dose) 1 each IVPB DAILYPRN PRN PRN Reason: LABS Ondansetron HCl (Zofran) 4 mg IVP Q6H PRN PRN Reason: Nausea/Vomiting Ondansetron HCl (Zofran Odt) 4 mg PER TUBE Q6H PRN PRN Reason: Nausea/Vomiting Rosuvastatin Calcium (Crestor) 10 mg PER TUBE DAILY [facility] Last Admin: 01/12/19 08:58 Dose: 10 mg
--- NOTE | 2019-01-12 19:09 | PRG ---
DATE OF SERVICE: 01/12/2019 SUBJECTIVE: The patient is seen and examined, seems to be almost obtunded. Noted with the following vital signs. OBJECTIVE: VITAL SIGNS: Afebrile, temperature 97.3, pulse 95, respiratory rate of 14, O2 saturations of 100%, and blood pressure 130/87. HEENT: Remarkable for dry oral mucosa. CARDIOVASCULAR SYSTEM: First and second heart sounds were heard. RESPIRATORY: Clear to auscultation. DIGESTIVE SYSTEM: Revealed positive bowel sounds. EXTREMITIES: No peripheral edema. GENERAL: The patient looked very cachectic. LABORATORY DATA: Laboratory investigation showed a hemoglobin of 11.4, white count of 3.6, platelet of 55,000. Chemistry showed sodium of 144, potassium 3.6, BUN of 27, creatinine of 2.8, bicarb of 10, albumin of 1.6, calcium 7.4. IMPRESSION: 1. Severe protein energy malnutrition. 2. Metabolic acidosis. 3. Obtundation. 4. Advanced chronic kidney disease, stage 4. PLAN: 1. We will discontinue some of the patient's medications including the antibiotics. 2. Continue with nutritional support. 3. Further management will be depended on the clinical course. The prognosis of the patient is poor. Job ID: [id number]
[2019-01-13] MEDS: DEXTROSE 5% IV SCH ×2 (05:31→15:14)
[2019-01-13] MEDS: POTASSIUM CHLORIDE IV SCH ×2 (05:31→15:14)
[2019-01-13] MEDS: SODIUM BICARBONATE IV SCH ×2 (05:31→15:14)
[2019-01-13] MEDS: WATER IV SCH ×2 (05:31→15:14)
[2019-01-13 06:50] LABS: Albumin 1.4 g/dL (3.4-4.8); Anion Gap 11 mmol/L (10-20); BUN (Urea Nitrogen) 26 mg/dL (8.4-25.7); BUN/Creatinine Ratio 8.36; Calc. Creatinine Clearance 15 mL/min (70-130); Calcium 7.4 mg/dL (7.8-10.44); Carbon Dioxide 14 mmol/L (23-31); Chloride 123 mmol/L (98-107); Estimated GFR-MDRD 24; Glucose 258 mg/dL (80-115); Phosphorus 1.5 mg/dL (2.3-4.7); Potassium 3.7 mmol/L (3.5-5.1); Sodium 144 mmol/L (136-145)
[2019-01-13 07:23] LABS: Hemoglobin 10.9 g/dL (14.0-18.0); Mean Corpuscular HGB CONC 31.5 g/dL (32.0-36.0); Mean Corpuscular Hemoglobin 26.5 pg (27.0-31.0); Mean Corpuscular Volume 84.4 fL (78.0-98.0); Platelet Count 56 thou/uL (130-400); RBC Distribution Width 17.6 % (11.5-14.5); White Blood Cell (WBC) Count 4.4 thou/uL (4.8-10.8)
[2019-01-13 07:27] LABS: Band 23 % (5-11); Bite Cells SLIGHT = 2-5 cells (100X) (0-1/hpf); Burr Cells SLIGHT = 2-5 cells (100X) (0-1/hpf); Eosinophils 3 % (0-10); Lymphocytes 20 % (21-51); MDiff Complete? YES; Monocytes 3 % (0-10); Neutrophil 51 % (42-75); Nucleated RBC 6 % (0); Ovalocytes MODERATE= 6-15 cells (100X) (0-1/hpf); Platelet Morphology Comment Appears Decreased; Schistocytes SLIGHT = 2-5 cells (100X) (0-1/hpf)
[2019-01-13 07:49] VITALS: BP 170/84; TEMP 97.1
[2019-01-13] MEDS: Isosorbide Dinitrate 20 MG TAB PER TUBE SCH (09:03)
[2019-01-13] MEDS: Rosuvastatin 10 MG TAB PER TUBE SCH (09:03)
[2019-01-13] MEDS: Dronabinol 2.5 MG CAP PO SCH (09:03)
[2019-01-13] MEDS: Famotidine 20 MG TAB PER TUBE SCH (09:03)
[2019-01-13] MEDS: HumaLOG 300 UNITS/3 ML VIAL SC PRN (09:04)
--- NOTE | 2019-01-13 17:54 | PDOC.EVN ---
Event Note - Event Note Event Note: 10:41 am on Jan 13, 3019. Pt stopped breathing. No blood pressure, no pulse. Pupils dilated and fixed. No corneal reflexes. No heart sounds, no breath sounds. Pt was pronounced .
--- NOTE | 2019-01-14 15:05 | DIS ---
DATE OF ADMISSION: 01/07/2019 DATE OF DISCHARGE: 01/13/2019 PRIMARY CARE PROVIDER: Scott Giron MD DISCHARGE DIAGNOSES: 1. Septic shock. 2. Urinary tract infection. 3. Severe protein-calorie malnutrition. 4. Dementia. HOSPITAL COURSE: Mr. Gonsalez is a pleasant 68-year-old gentleman, who was admitted to [facility] on January 07, 2019, for septic shock secondary to urinary tract infection. He was hypothermic and hypotensive at the time of admission. He improved clinically and was subsequently transferred to the floor from a critical care unit. On the medical floor, he developed hypothermia again. He was treated with antibiotics. He was seen by Nephrology Service, who felt that his hypothermia is more likely to be secondary to malnutrition. He was started on NG tube feeds. On January 13, 2019, Mr. Gonsalez stopped breathing. He was pronounced at 1041 hours on January 13, 2019. Many thanks for allowing me to participate in your patient's care. Please feel free to contact me with any questions or concerns. Job ID: [id number]
== END 2019-01-13 10:41 | disposition expired | DRG 698 ==
LOC: ERS 14:43 → CCU 16:42 → ONC 01-08 14:42 → 2NO 01-11 19:55
PROVIDERS: ADMIT Emergency Medicine; ATTEND Emergency Medicine
PROC: 06HN33Z Insertion of Infusion Device into Left Femoral Vein, Percutaneous Approach (ICD-10-PCS; principal; 2019-01-07)
PROC: 3E033XZ Introduction of Vasopressor into Peripheral Vein, Percutaneous Approach (ICD-10-PCS; 2019-01-07)
DX: T83.510A Infection and inflammatory reaction due to cystostomy catheter, initial encounter (principal); R65.21 Severe sepsis with septic shock; E43 Unspecified severe protein-calorie malnutrition; G93.41 Metabolic encephalopathy; A41.9 Sepsis, unspecified organism; N18.4 Chronic kidney disease, stage 4 (severe); Z68.1 Body mass index [BMI] 19.9 or less, adult; E87.2 Acidosis; E87.0 Hyperosmolality and hypernatremia; N30.00 Acute cystitis without hematuria; Z66 Do not resuscitate; G30.9 Alzheimer's disease, unspecified; F02.80 Dementia in other diseases classified elsewhere, unspecified severity, without behavioral disturbance, psychotic disturbance, mood disturbance, and anxiety; E87.6 Hypokalemia; E11.22 Type 2 diabetes mellitus with diabetic chronic kidney disease; Y84.6 Urinary catheterization as the cause of abnormal reaction of the patient, or of later complication, without mention of misadventure at the time of the procedure; L89.899 Pressure ulcer of other site, unspecified stage; I12.9 Hypertensive chronic kidney disease with stage 1 through stage 4 chronic kidney disease, or unspecified chronic kidney disease; I73.9 Peripheral vascular disease, unspecified; D53.9 Nutritional anemia, unspecified; E78.5 Hyperlipidemia, unspecified; N40.0 Benign prostatic hyperplasia without lower urinary tract symptoms; Z87.440 Personal history of urinary (tract) infections; Z95.820 Peripheral vascular angioplasty status with implants and grafts; Z79.4 Long term (current) use of insulin; Z79.899 Other long term (current) drug therapy
CPT/HCPCS: 36415; 36416; 36556; 70450; 71045; 74018; 80048; 80069; 80076; 80202; 81001; 82805; 83605; 84443; 84484; 85025; 87040; 87086; 87324; 87449; 93005; 93010; 93306; 96365; 96366; J0692; J2185; J3370; J3480; J7042; J7050; J7070; Q0167; Q4081